=== PATIENT | female | born 1970 ===

== ENCOUNTER 2021-07-29 19:22 | Emergency (ER) | payer MEDICAID, SELFPAY ==
--- NOTE | ~2021-07-29 | US_ITS ---
EXAMINATION: US VENOUS ULTRASOUND WITH DOPPLER LOWER EXTREMITY, RIGHT CLINICAL INFORMATION: Right lower extremity swelling COMPARISON: None TECHNIQUE: Ultrasound of the deep veins is performed from the hip to the calf with compression sonography and color and pulse Doppler assessment. Spectral analysis with color-flow imaging is performed. FINDINGS: There is normal venous compression and respiratory variation and augmented flow. The visualized common femoral vein, superficial femoral vein, profunda femoral vein, popliteal vein, and the trifurcation region shows no evidence of deep venous thrombosis. A right-sided Oliveira's cyst is present measuring 3.9 x 1.0 x 1.5 cm. If the patient's symptoms persist, followup ultrasound in 5 days 7 days might be of value to exclude proximal propagation from a non-visualized calf vein. US/US venous duplex LE RT IMPRESSION: No DVT demonstrated in the right lower extremity. A Oliveira's cyst is present.
[2021-07-29 19:41] VITALS: BP 138/95; PULSE 82; RESP 18; TEMP 36.8; O2SAT 97; BMI 32.3
[2021-07-29 19:55] LABS: MANUAL DIFF FLAG NO
[2021-07-29 19:57] LABS: Basophils Absolute Auto 0.1 X10*3/uL (0.0-0.2); Basophils Percent Auto 0.8 % (0-2); Eosinophils Absolute Auto 0.2 X10*3/uL (0.0-0.4); Eosinophils Percent Auto 3.2 % (0-4); Hematocrit 40.8 % (37.0-47.0); Hemoglobin 13.9 g/dl (12.0-16.0); Imm Gran Abs Auto 0.02 X10*3/uL (0.00-0.03); Imm Gran Pct Auto 0.3 % (0.0-0.4); Lymphocytes Absolute Auto 2.4 X10*3/uL (1.2-4.9); Lymphocytes Percent Auto 37.2 % (20-40); Mean Corpuscular HGB Conc 34.1 g/dl (31.0-35.0); Mean Corpuscular Hemoglobin 28.2 pg (27.0-33.0); Mean Corpuscular Volume 82.8 fL (80.0-98.0); Mean Platelet Volume 9.8 fL (9.4-12.3); Monocytes Absolute Auto 0.4 X10*3/uL (0.1-1.2); Neutrophils Absolute Auto 3.3 x10*3/uL (2.0-8.3); Neutrophils Percent Auto 52.5 % (45-73); Platelet Count 288 X10*3/uL (160-400); Red Blood Count 4.93 X10*6/uL (4.20-5.50); Red Cell Distribution Width 13.6 % (11.0-16.0); White Blood Count 6.3 X10*3/uL (4.8-10.8)
[2021-07-29 20:37] LABS: Blood Urea Nitrogen 14 mg/dL (9-16); Calcium 9.4 mg/dL (8.4-10.2); Creatinine Clr Calc Pharmacy 93.2; Estimated Glomerular Filt Rate > 60; Glucose Random 98 mg/dL (60-115)
[2021-07-29 20:47] LABS: Anion Gap 10 (12-20); Carbon Dioxide 28 mmol/L (22-29); Chloride 105 mmol/L (96-108); Potassium 3.9 mmol/L (3.3-5.1); Sodium 139 mmol/L (135-145)
--- NOTE | 2021-07-29 23:13 | ED_ITS ---
HPI - General Adult General Chief complaint: General Medical Stated complaint: swollen right leg, hard to walk Time Seen by Provider: 07/29/21 23:12 Source: patient Mode of arrival: ambulatory History of Present Illness HPI narrative: 50-year-old female with history of asthma and status post hysterectomy and started on estrogen presents with increasing posterior right knee discomfort with pain radiating into the right calf and she notes that there has been right leg swelling when compared to the left. She denies any shortness of breath, chest pain/palpitations, fevers, recent travel. Related Data Allergies Allergy/AdvReac Type Severity Reaction Status Date / Time gluten Allergy Rash Verified 07/29/21 19:41 Review of Systems Review of Systems: Pertinent positives and negatives as stated in HPI and 10 point review of systems is otherwise negative. [facility] Past Medical History Source: nursing notes reviewed Medical History Asthma Social History Social History Advance Directives: No Patient : No Physical Exam ED Vital Signs: Vital Signs - 24 hr 07/29/21 19:41 07/29/21 23:41 Temperature 98.2 F 97.9 F Pulse Rate 82 71 Respiratory Rate 18 12 Blood Pressure 138/95 H 145/95 H Pulse Oximetry 97 97 BMI result Body Mass Index 32.3 VITAL SIGNS: Reviewed. GENERAL: Well developed, well nourished, in no acute distress. HEAD: Normocephalic/atraumatic EYES: PERRLA, EOMI EARS: Ext canals without abnormality OROPHARYNX: no oral lesions noted, posterior pharynx clear LUNGS: Normal breath sounds. No adventitious sounds or accessory muscle use. SpO2<97> CARDIOVASCULAR: Regular rate and rhythm without noted murmurs ABDOMEN: Soft, non-tender, non-distended with bowel sounds. MUSCULOSKELETAL: No tenderness, deformities, or effusions noted on gross inspection. EXTREMITIES: No cyanosis, clubbing or edema; RLE: There is noted calf swelling, no palpable cords, no erythema/induration, palpable DP/PT SKIN: Inspection of the skin reveals no rashes NEUROLOGIC: Alert and oriented x 4. Strength and sensation to light touch were grossly intact x 4. Course Course Course Narrative: 50-year-old female with history and clinical presentation in the setting estrogen use and leg swelling and discomfort for DVT. On review of all results patient has Oliveira cyst. She received combination analgesics here in the ER and will otherwise be discharged home in stable condition with instructions follow- up with her primary care provider. Medical Decision Making Lab Data Result diagrams: 07/29/21 19:51 07/29/21 20:18 Labs: Lab Results 07/29/21 07/29/21 07/29/21 Range/Units 19:51 20:18 23:37 WBC 6.3 (4.8-10.8) X10*3/uL RBC 4.93 (4.20-5.50) X10*6/uL Hgb 13.9 (12.0-16.0) g/dl Hct 40.8 (37.0-47.0) % MCV 82.8 (80.0-98.0) fL MCH 28.2 (27.0-33.0) pg MCHC 34.1 (31.0-35.0) g/dl RDW 13.6 (11.0-16.0) % Plt Count 288 (160-400) X10*3/uL MPV 9.8 (9.4-12.3) fL Immature Gran % (Auto) 0.3 (0.0-0.4) % Neut % (Auto) 52.5 (45-73) % Lymph % (Auto) 37.2 (20-40) % [place] % (Auto) 6.0 (2-11) % Eos % (Auto) 3.2 (0-4) % Baso % (Auto) 0.8 (0-2) % Lymph # (Auto) 2.4 (1.2-4.9) X10*3/uL [place] # (Auto) 0.4 (0.1-1.2) X10*3/uL Eos # (Auto) 0.2 (0.0-0.4) X10*3/uL Baso # (Auto) 0.1 (0.0-0.2) X10*3/uL Abs Immat Gran (auto) 0.02 (0.00-0.03) X10*3/uL Absolute Neuts (auto) 3.3 (2.0-8.3) x10*3/uL Absolute Nucleated RBC 0.000 (0.0-0.012) X10*3/uL Nucleated RBC % (auto) 0.0 (0.0-0.2) /100WBC D-Dimer High Sensitivty 168 NG/ML Sodium 139 (135-145) mmol/L Potassium 3.9 (3.3-5.1) mmol/L Chloride 105 (96-108) mmol/L Carbon Dioxide 28 (22-29) mmol/L Anion Gap 10 L (12-20) BUN 14 (9-16) mg/dL Creatinine 0.80 (0.5-1.4) mg/dL Estim Creat Clear Calc 93.2 Estimated GFR > 60 Random Glucose 98 (60-115) mg/dL Calcium 9.4 (8.4-10.2) mg/dL Discharge Plan Discharge Clinical Impression: Oliveira's cyst of knee Patient Disposition: Home, Self-Care Instructions: Bakers Cyst (ED) Additional Instructions: 1. Recommend compression stocking to the right lower extremity, these are available in every [facility]. 2. You will need to manage the discomfort in your leg with [id number] Tylenol but most notably ibuprofen. 3. Follow-up with your primary care provider for re-evaluation. Return to the ER for worsening symptoms. Stand Alone Forms: Work/School Release
[2021-07-29 23:41] VITALS: BP 145/95; PULSE 71; RESP 12; TEMP 36.6; O2SAT 97
[2021-07-29 23:58] LABS: D Dimer High Sensitivity 168 NG/ML
[2021-07-30] MEDS: Ketorolac Tromethamine 15 MG/ML VIAL IM (00:57)
[2021-07-30] MEDS: Acetaminophen 325 MG TABLET 975 MG PO (00:57)
== END 2021-07-30 01:43 | disposition home or self-care (01) ==
PROVIDERS: Emergency Provider Student in an Organized Health Care Education/Training Program
DX: M71.21 Synovial cyst of popliteal space [Baker], right knee (principal); M25.561 Pain in right knee; M79.89 Other specified soft tissue disorders
CPT/HCPCS: 36415; 80048; 85025; 85379; 93971; 96372; 99284; J1885

== ENCOUNTER 2021-09-03 08:56 | Emergency (ER) | payer MEDICAID, SELFPAY ==
--- NOTE | 2021-09-03 09:10 | ED_ITS ---
HPI - Nausea/Vomiting/Diarrhea General Chief complaint: Nausea/Vomiting/Diarrhea Stated complaint: vomiting Time Seen by Provider: 09/03/21 09:10 Source: patient Mode of arrival: ambulatory Limitations: no limitations History of Present Illness MD elicited complaint: nausea, vomiting, diarrhea and abdominal pain Onset (ago): day(s) (last night) Description of vomiting: food contents and watery Description of diarrhea: mucus and watery Associated nausea: Yes Associated abdominal pain: Yes Location of pain: diffuse Pain consistency: intermittent Severity: mild Quality: cramping Exacerbating factors: eating Relieving factors: none Context: sick contacts (work colleague) Associated symptoms: loss of appetite, malaise and nausea/vomiting Related Data Previous Rx's Medication Instructions Recorded ondansetron 4 mg disintegrating 4 mg PO Q8H PRN #20 tab 09/03/21 tablet Allergies Allergy/AdvReac Type Severity Reaction Status Date / Time gluten Allergy Rash Verified 07/29/21 19:41 Review of Systems Review of Systems: Constitutional : No Weight loss, No Fever, No Chills ENT/Mouth : No sore throat, No Rhinorrhea Eyes: No Swelling, No Redness Cardiovascular : No Chest Pain, No SOB, NoEdema Respiratory : No Cough, No Sputum, No Wheezing Gastrointestinal : Positive Nausea, Positive Vomiting, positive Diarrhea, positive abdominal Pain, No Hematochezia, No Melena Genitourinary : No Dysuria, No Urinary Frequency, No Hematuria, No Urgency Musculoskeletal : No joint pain, No Myalgias, No Joint Swelling Skin : No Skin Lesions, No rash Neuro : No Weakness, No Numbness, No Dizziness, No Headache Psych : No Anxiety/Panic, No Depression Heme/Lymph: No Bruising, No Lymphadenopathy Endocrine : No Polyuria, No Polydipsia All other systems reviewed and are negative. Gastrointestinal: Gastrointestinal: Reports nausea PMFSH Past Medical History Medical History Asthma Social History Social History (Updated 09/03/21 @ 09:38 by Lynda Moeller DO) Patient Tobacco Use Status: Never used Tobacco Advance Directives: No Advance Directives Information Provided: No Physical Exam Vital Signs: Vital Signs: Last Vital Signs Temp 97.7 F 09/03/21 09:48 Pulse 82 09/03/21 09:48 Resp 16 09/03/21 09:48 BP 150/92 H 09/03/21 09:48 Pulse Ox 95 09/03/21 09:48 BMI result Body Mass Index 31.4 Appearance: Alert. Oriented X3. No acute distress. Eyes: Pupils equal, round and reactive to light. ENT: Pharynx normal. Neck: Normal inspection. Neck supple. CVS: Normal heart rate and rhythm. Pulses normal. Respiratory: No respiratory distress. Breath sounds normal. Abdomen: Soft and mild upper abdominal pain no rebound or guarding Skin: Skin warm and dry. Normal skin color. Normal skin turgor. Extremities: No lower extremity edema. No calf ttp Neuro: Oriented X 3. No motor deficit. No sensory deficit. Course Course Course Narrative: repeat nausea and can tolerate PO feels better stable for DC MDM - Nausea/Vomiting/Diarrhea MDM Narrative Medical decision making narrative: 50 yo female with no sig PMH here with c/o n/v/d abdominal cramps - exposed to someone at work who wasn't feeling well. At this time abdominal exam is underwhelming will obtain labs, UA, IVF, supportive medications for symptom control. Dispo per results and findings. Lab Data Result diagrams: 09/03/21 09:35 09/03/21 09:35 Labs: Lab Results 09/03/21 09/03/21 09/03/21 Range/Units 09:35 09:35 09:35 WBC 5.9 (4.8-10.8) X10*3/uL RBC 5.03 (4.20-5.50) X10*6/uL Hgb 14.2 (12.0-16.0) g/dl Hct 42.1 (37.0-47.0) % MCV 83.7 (80.0-98.0) fL MCH 28.2 (27.0-33.0) pg MCHC 33.7 (31.0-35.0) g/dl RDW 13.5 (11.0-16.0) % Plt Count 270 (160-400) X10*3/uL MPV 9.5 (9.4-12.3) fL Immature Gran % (Auto) 0.3 (0.0-0.4) % Neut % (Auto) 68.7 (45-73) % Lymph % (Auto) 17.7 L (20-40) % [place] % (Auto) 11.6 H (2-11) % Eos % (Auto) 1.0 (0-4) % Baso % (Auto) 0.7 (0-2) % Lymph # (Auto) 1.0 L (1.2-4.9) X10*3/uL [place] # (Auto) 0.7 (0.1-1.2) X10*3/uL Eos # (Auto) 0.1 (0.0-0.4) X10*3/uL Baso # (Auto) 0.0 (0.0-0.2) X10*3/uL Abs Immat Gran (auto) 0.02 (0.00-0.03) X10*3/uL Absolute Neuts (auto) 4.0 (2.0-8.3) x10*3/uL Absolute Nucleated RBC 0.000 (0.0-0.012) X10*3/uL Nucleated RBC % (auto) 0.0 (0.0-0.2) /100WBC Sodium 137 (135-145) mmol/L Potassium 4.2 (3.3-5.1) mmol/L Chloride 107 (96-108) mmol/L Carbon Dioxide 19 L (22-29) mmol/L Anion Gap 15 (12-20) BUN 16 (9-16) mg/dL Creatinine 0.89 (0.5-1.4) mg/dL Estim Creat Clear Calc 82.8 Estimated GFR > 60 Random Glucose 103 (60-115) mg/dL Calcium 9.9 (8.4-10.2) mg/dL Magnesium 2.3 (1.6-2.6) mg/dL Total Bilirubin 0.5 (0.0-1.0) mg/dL Direct Bilirubin 0.2 (0.0-0.5) mg/dL AST 49 H (5-31) U/L ALT 50 H (0-31) U/L Alkaline Phosphatase 94 (39-117) U/L Total Protein 7.5 (6.5-8.0) g/dL Albumin 4.2 (3.5-5.0) g/dL Lipase 13 (8-78) U/L COVID-19 ([facility]) Negative (Negative) COVID-19 Clin Com See Note Discharge Plan Discharge Clinical Impression: Elevated liver function tests Vomiting Qualifiers: Vomiting type: unspecified Nausea presence: with nausea Qualified Code(s): R11.2 - Nausea with vomiting, unspecified Diarrhea Qualifiers: Diarrhea type: unspecified type Qualified Code(s): R19.7 - Diarrhea, unspecified Patient Disposition: Home, Self-Care Instructions: Acute Nausea and Vomiting (ED), Acute Diarrhea (ED) Additional Instructions: return to ED for any worsening symptoms or concerns very mild elevation in liver function tests - repeat in 3 days likely associated with vomiting/diarrhea. please recheck avoid alcohol and tylenol until rechecked Prescriptions: New ondansetron 4 mg tablet,disintegrating 4 mg PO Q8H PRN (Reason: nausea and vomiting) Qty: 20 0RF Stand Alone Forms: Work/School Release
[2021-09-03 09:41] LABS: MANUAL DIFF FLAG NO
[2021-09-03 09:48] VITALS: BP 150/92; PULSE 82; RESP 16; TEMP 36.5; O2SAT 95; BMI 31.4
[2021-09-03 09:48] LABS: Basophils Percent Auto 0.7 % (0-2); Eosinophils Absolute Auto 0.1 X10*3/uL (0.0-0.4); Hematocrit 42.1 % (37.0-47.0); Hemoglobin 14.2 g/dl (12.0-16.0); Imm Gran Abs Auto 0.02 X10*3/uL (0.00-0.03); Imm Gran Pct Auto 0.3 % (0.0-0.4); Lymphocytes Percent Auto 17.7 % (20-40); Mean Corpuscular HGB Conc 33.7 g/dl (31.0-35.0); Mean Corpuscular Hemoglobin 28.2 pg (27.0-33.0); Mean Corpuscular Volume 83.7 fL (80.0-98.0); Mean Platelet Volume 9.5 fL (9.4-12.3); Monocytes Absolute Auto 0.7 X10*3/uL (0.1-1.2); Monocytes Percent Auto 11.6 % (2-11); Neutrophils Percent Auto 68.7 % (45-73); Platelet Count 270 X10*3/uL (160-400); Red Blood Count 5.03 X10*6/uL (4.20-5.50); Red Cell Distribution Width 13.5 % (11.0-16.0); White Blood Count 5.9 X10*3/uL (4.8-10.8)
[2021-09-03 09:59] LABS: COVID-19 Test Negative (Negative); IDNOW Serial# 16C4AD1C
[2021-09-03 10:04] LABS: Alanine Aminotransferase 50 U/L (0-31); Albumin Level 4.2 g/dL (3.5-5.0); Alkaline Phosphatase 94 U/L (39-117); Anion Gap 15 (12-20); Aspartate Amino Transferase 49 U/L (5-31); Bilirubin Direct 0.2 mg/dL (0.0-0.5); Bilirubin Total 0.5 mg/dL (0.0-1.0); Blood Urea Nitrogen 16 mg/dL (9-16); Calcium 9.9 mg/dL (8.4-10.2); Carbon Dioxide 19 mmol/L (22-29); Chloride 107 mmol/L (96-108); Creatinine Clr Calc Pharmacy 82.8; Estimated Glomerular Filt Rate > 60; Glucose Random 103 mg/dL (60-115); Lipase 13 U/L (8-78); Magnesium 2.3 mg/dL (1.6-2.6); Potassium 4.2 mmol/L (3.3-5.1); Sodium 137 mmol/L (135-145); Total Protein 7.5 g/dL (6.5-8.0)
[2021-09-03] MEDS: Ketorolac Tromethamine 15 MG/ML VIAL 30 MG IVPUSH (10:39)
[2021-09-03] MEDS: ondansetron HCL 4 MG/2 ML VIAL IVPUSH (10:39)
[2021-09-03] MEDS: Famotidine/PF 20 MG/2 ML VIAL IVPUSH (10:39)
[2021-09-03] MEDS: 0.9 % Sodium Chloride 1,000 ML 999 ML IVCONT (10:40)
[2021-09-03] MEDS: Metoclopramide HCl 10 MG/2 ML VIAL IVPUSH (12:26)
[2021-09-03] MEDS: diphenhydrAMINE HCL 50 MG/ML VIAL 25 MG IVPUSH (12:27)
--- NOTE | 2021-09-03 12:54 | PC.NURSE ---
OK FOR DC PER PRIMARY RN. PT AWAKE, ALERT AND ORIENTED X 3. SKIN WARM AND DRY. RESP UNLABORED. DENIES N/V. NO C/O PAIN PRESENTLY. TOLERATED PO CHALLENGE. PLAN IS FOR DC HOME. PT AWARE AND AGREEABLE TO PLAN
== END 2021-09-03 12:55 | disposition home or self-care (01) ==
PROVIDERS: Emergency Provider Emergency Medicine
DX: R79.89 Other specified abnormal findings of blood chemistry (principal); R11.2 Nausea with vomiting, unspecified; R19.7 Diarrhea, unspecified; Z20.822 Contact with and (suspected) exposure to COVID-19
CPT/HCPCS: 80048; 80076; 83690; 83735; 85025; 87635; 96361; 96374; 96375; 99283; 99284; J1200; J1885; J2405; J2765

== ENCOUNTER 2021-11-29 02:03 | Emergency (ER) | payer MEDICAID, SELFPAY ==
--- NOTE | ~2021-11-29 | CT_ITS ---
EXAMINATION: CT ABDOMEN AND PELVIS WITHOUT CONTRAST CLINICAL INFORMATION: Abdominal pain COMPARISON: None TECHNIQUE: Multidetector volumetric imaging was performed from the superior aspect of the liver through the pubic symphysis. Sagittal and coronal reformatted images were obtained on the technologist's workstation. This CT examination was performed using dose optimization techniques as appropriate, variously including the following: *Automated exposure control *Adjustment of mA and/or kV according to patient size (this includes techniques or standardized protocols for targeted exams where dose is matched to indication/reason for exam; i.e. extremities or head) *Use of iterative reconstruction technique DLP: 691 mGy-cm FINDINGS: LUNG BASES: The visualized lung bases are unremarkable. LIVER, GALLBLADDER, AND BILIARY TREE: The liver is normal in size, shape, and attenuation. No focal hepatic lesion or biliary ductal dilatation is present. The gallbladder is unremarkable with no evidence of radiopaque gallstones, gallbladder wall thickening, or obvious pericholecystic inflammatory changes. PANCREAS: Unremarkable. SPLEEN: Unremarkable. ADRENAL GLANDS: Unremarkable. KIDNEYS AND URETERS: The kidneys are normal in size, shape, and attenuation. No hydronephrosis, hydroureter, or calculi seen. No perinephric stranding. Simple cyst at the midpole of the left kidney. No follow-up imaging recommended. BLADDER: Unremarkable. GASTROINTESTINAL TRACT: The stomach is unremarkable. Normal caliber of the small bowel. No obstruction. Normal appendix. Scattered colonic diverticulosis without diverticulitis. No inflammatory changes of the colon. No free air or free fluid. ABDOMINAL WALL: No significant hernia is appreciated. LYMPH NODES: Normal. VASCULAR: Unremarkable. PELVIC VISCERA: Uterus not seen. No adnexal mass. OSSEOUS STRUCTURES: No acute or suspicious osseous abnormality. Mild degenerative change throughout the spine. CT/CT abdomen pelvis wo con IMPRESSION: No acute findings in the abdomen or pelvis. No inflammatory changes. Normal appendix. Fleischner guidelines were followed.
[2021-11-29 02:13] VITALS: BP 168/115; PULSE 74; RESP 20; TEMP 36.1; O2SAT 99; BMI 29.0
[2021-11-29 03:07] LABS: MANUAL DIFF FLAG NO
[2021-11-29 03:08] LABS: Basophils Percent Auto 0.7 % (0-2); Eosinophils Absolute Auto 0.2 X10*3/uL (0.0-0.4); Eosinophils Percent Auto 3.1 % (0-4); Hematocrit 43.1 % (37.0-47.0); Hemoglobin 14.3 g/dl (12.0-16.0); Imm Gran Abs Auto 0.02 X10*3/uL (0.00-0.03); Imm Gran Pct Auto 0.3 % (0.0-0.4); Lymphocytes Percent Auto 33.4 % (20-40); Mean Corpuscular HGB Conc 33.2 g/dl (31.0-35.0); Mean Corpuscular Hemoglobin 27.6 pg (27.0-33.0); Mean Corpuscular Volume 83.2 fL (80.0-98.0); Mean Platelet Volume 9.4 fL (9.4-12.3); Monocytes Absolute Auto 0.4 X10*3/uL (0.1-1.2); Monocytes Percent Auto 7.2 % (2-11); Neutrophils Absolute Auto 3.4 x10*3/uL (2.0-8.3); Neutrophils Percent Auto 55.3 % (45-73); Platelet Count 337 X10*3/uL (160-400); Red Blood Count 5.18 X10*6/uL (4.20-5.50); Red Cell Distribution Width 13.5 % (11.0-16.0); White Blood Count 6.1 X10*3/uL (4.8-10.8)
[2021-11-29 03:11] VITALS: BP 161/95; PULSE 71; RESP 18; O2SAT 97
[2021-11-29] MEDS: ondansetron HCL 4 MG/2 ML VIAL IVPUSH (03:13)
[2021-11-29] MEDS: 0.9 % Sodium Chloride 1,000 ML 999 ML IV (03:14)
--- NOTE | 2021-11-29 04:03 | ED.ABDPAIN ---
HPI - Abdominal Pain General Chief Complaint: Abdominal Pain Stated Complaint: n/v, anxious Time Seen by Provider: 11/29/21 02:26 Source: patient Mode of arrival: ambulatory History of Present Illness HPI narrative: 51-year-old female who comes in with history of IBS and states that she began having abdominal pain since earlier today with mild nausea and vomiting and a history of hysterectomy. She denies any fevers or chills and when asked about passing gas she denies that she has been able to do this in also denies any urinary difficulties. Related Data Previous Rx's Medication Instructions Recorded ondansetron 4 mg disintegrating 4 mg PO Q8H PRN nausea and 09/03/21 tablet vomiting #20 tabs Allergies Allergy/AdvReac Type Severity Reaction Status Date / Time gluten Allergy Rash Verified 11/29/21 02:15 Review of Systems Review of Systems Pertinent positives and negatives as stated in HPI 10 point review of systems otherwise negative. PMFSH Past Medical History Source: nursing notes reviewed Medical History Asthma Social History Social History Patient Tobacco Use Status: Never used Tobacco Advance Directives: No Advance Directives Information Provided: Yes Physical Exam ED Vital Signs: Vital Signs - 24 hr 11/29/21 02:13 11/29/21 03:11 11/29/21 05:24 Temperature 97 F Pulse Rate 74 71 70 Respiratory Rate 20 18 18 Blood Pressure 168/115 H 161/95 H 137/86 Pulse Oximetry 99 97 98 Oxygen Delivery Method Room Air Room Air Room Air BMI result Body Mass Index 29.0 VITAL SIGNS: Reviewed. GENERAL: Well developed, well nourished, in no acute distress. HEAD: Normocephalic/atraumatic EYES: PERRLA, EOMI EARS: Ext canals without abnormality NOSE: Nares patent bilateral OROPHARYNX: no oral lesions noted, posterior pharynx clear LUNGS: Normal breath sounds. No adventitious sounds or accessory muscle use. SpO2<99> CARDIOVASCULAR: Regular rate and rhythm without noted murmurs ABDOMEN: Soft, non-tender, non-distended with bowel sounds. SKIN: Inspection of the skin reveals no rashes, NEUROLOGIC: Alert and oriented x 4. Course Course Course Narrative: 51-year-old female with history and clinical presentation initially mildly concerning for possible SBO and lower consideration for diverticulitis or UTI. For review of all investigations there are no acute findings, on re-evaluation patient is feeling much better and able to tolerate oral intake and was discharged home in stable condition. MDM - Abdominal Pain Lab Data Result diagrams: 11/29/21 03:04 11/29/21 03:04 Labs: Lab Results 11/29/21 11/29/21 11/29/21 Range/Units 03:04 03:04 05:27 WBC 6.1 (4.8-10.8) X10*3/uL RBC 5.18 (4.20-5.50) X10*6/uL Hgb 14.3 (12.0-16.0) g/dl Hct 43.1 (37.0-47.0) % MCV 83.2 (80.0-98.0) fL MCH 27.6 (27.0-33.0) pg MCHC 33.2 (31.0-35.0) g/dl RDW 13.5 (11.0-16.0) % Plt Count 337 (160-400) X10*3/uL MPV 9.4 (9.4-12.3) fL Immature Gran % (Auto) 0.3 (0.0-0.4) % Neut % (Auto) 55.3 (45-73) % Lymph % (Auto) 33.4 (20-40) % [place] % (Auto) 7.2 (2-11) % Eos % (Auto) 3.1 (0-4) % Baso % (Auto) 0.7 (0-2) % Lymph # (Auto) 2.0 (1.2-4.9) X10*3/uL [place] # (Auto) 0.4 (0.1-1.2) X10*3/uL Eos # (Auto) 0.2 (0.0-0.4) X10*3/uL Baso # (Auto) 0.0 (0.0-0.2) X10*3/uL Abs Immat Gran (auto) 0.02 (0.00-0.03) X10*3/uL Absolute Neuts (auto) 3.4 (2.0-8.3) x10*3/uL Absolute Nucleated RBC 0.000 (0.0-0.012) X10*3/uL Nucleated RBC % (auto) 0.0 (0.0-0.2) /100WBC Sodium 139 (135-145) mmol/L Potassium 4.3 (3.3-5.1) mmol/L Chloride 103 (96-108) mmol/L Carbon Dioxide 28 (22-29) mmol/L Anion Gap 12 (12-20) BUN 15 (9-16) mg/dL Creatinine 0.86 (0.5-1.4) mg/dL Estim Creat Clear Calc 81.4 Estimated GFR > 60 Random Glucose 108 (60-115) mg/dL Calcium 10.5 H D (8.4-10.2) mg/dL Total Bilirubin < 0.2 (0.0-1.0) mg/dL AST 24 D (5-31) U/L ALT 30 (0-31) U/L Alkaline Phosphatase 109 (39-117) U/L Total Protein 8.4 H (6.5-8.0) g/dL Albumin 4.8 (3.5-5.0) g/dL Lipase 21 (8-78) U/L Urine Color STRAW Urine Appearance HAZY Urine pH 6.5 (5.0-8.0) Ur Specific [place] <= 1.005 (1.005-1.025) Urine Protein NEG (NEG-TRACE) MG/DL Urine Glucose (UA) NEG (NEG) MG/DL Urine Ketones NEG (NEG) MG/DL Urine Blood NEG (NEG) Urine Nitrite NEG (NEG) Ur Leukocyte Esterase 1+ H (NEG) Urine RBC 0 (0) /HPF Urine WBC 1-4 (0-4) /HPF Ur Squamous Epith Cells 2+ /LPF Urine Bacteria 1+ /LPF Urine Mucus 1+ /LPF Discharge Plan Discharge Clinical Impression: Abdominal pain Patient Disposition: Home, Self-Care Instructions: Abdominal Pain (ED) Additional Instructions: 1. Resume all home medications as prescribed. 2. Please follow-up with your primary care provider for re-evaluation further outpatient management in the next 2-3 days. Return to the ER for worsening symptoms. Prescriptions: No Action ondansetron 4 mg tablet,disintegrating 4 mg PO Q8H PRN (Reason: nausea and vomiting) Qty: 20 0RF
[2021-11-29 04:38] LABS: Alanine Aminotransferase 30 U/L (0-31); Albumin Level 4.8 g/dL (3.5-5.0); Alkaline Phosphatase 109 U/L (39-117); Anion Gap 12 (12-20); Aspartate Amino Transferase 24 U/L (5-31); Bilirubin Total < 0.2 mg/dL (0.0-1.0); Blood Urea Nitrogen 15 mg/dL (9-16); Calcium 10.5 mg/dL (8.4-10.2); Carbon Dioxide 28 mmol/L (22-29); Chloride 103 mmol/L (96-108); Creatinine Clr Calc Pharmacy 81.4; Estimated Glomerular Filt Rate > 60; Glucose Random 108 mg/dL (60-115); Lipase 21 U/L (8-78); Potassium 4.3 mmol/L (3.3-5.1); Sodium 139 mmol/L (135-145); Total Protein 8.4 g/dL (6.5-8.0)
[2021-11-29 05:24] VITALS: BP 137/86; PULSE 70; RESP 18; O2SAT 98
[2021-11-29 05:32] LABS: Appearance Urine HAZY; Color Urine STRAW; Glucose Urine UA NEG (NEG); Leukocyte Esterase Urine 1+ (NEG); Nitrite Urine NEG (NEG); PH 6.5 (5.0-8.0); Specific Gravity - Urine <= 1.005 (1.005-1.025); UACC Culture Trigger YES; Urine Blood NEG (NEG); Urine Ketones NEG (NEG); Urine Protein NEG (NEG-TRACE)
[2021-11-29 05:50] LABS: Bacteria Urine 1+ /LPF; Mucus Urine 1+ /LPF; RBC Urine 0 /HPF (0); Squamous Epithelial Cell Urine 2+ /LPF
== END 2021-11-29 07:10 | disposition home or self-care (01) ==
PROVIDERS: Emergency Provider Student in an Organized Health Care Education/Training Program
DX: R10.9 Unspecified abdominal pain (principal); R11.2 Nausea with vomiting, unspecified
CPT/HCPCS: 36415; 74176; 80053; 81001; 83690; 85025; 87086; 96361; 96374; 99283; 99284; J2405

== ENCOUNTER 2022-03-14 14:18 | Emergency (ER) | payer OTHER, SELFPAY ==
--- NOTE | ~2022-03-14 | XR_ITS ---
EXAMINATION: XR CHEST CLINICAL INFORMATION: Chest pain COMPARISON: None TECHNIQUE: Frontal view of the chest was obtained. FINDINGS: Minimal linear subsegmental atelectasis versus scarring in the left lung base/lateral costophrenic sulcus. Lungs are otherwise clear. No airspace consolidation. No pleural effusion or pneumothorax. Mildly tortuous descending thoracic aorta. Otherwise, normal cardiomediastinal silhouette. No evidence of pulmonary edema. No acute osseous injury. XR/XR chest 1V IMPRESSION: No acute pulmonary disease.
--- NOTE | 2022-03-14 14:20 | ECG_ITS ---
Test Reason : chest pain Blood Pressure : / mmHG Vent. Rate : 073 BPM Atrial Rate : 073 BPM P-R Int : 152 ms QRS Dur : 082 ms QT Int : 378 ms P-R-T Axes : 051 -04 037 degrees QTc Int : 416 ms Normal sinus rhythm Low voltage QRS RSR' or QR pattern in V1 suggests right ventricular conduction delay Borderline ECG No previous ECGs available Referred By: Generic ED Physician Electronically Signed By:CARLOS DIAL MD
[2022-03-14 14:23] VITALS: BP 139/99; PULSE 83; RESP 18; TEMP 36.5; O2SAT 100; BMI 32.3
[2022-03-14 14:38] LABS: MANUAL DIFF FLAG NO
[2022-03-14 14:46] LABS: Basophils Percent Auto 0.6 % (0-2); Eosinophils Absolute Auto 0.3 X10*3/uL (0.0-0.4); Hematocrit 41.1 % (37.0-47.0); Imm Gran Abs Auto 0.01 X10*3/uL (0.00-0.03); Imm Gran Pct Auto 0.2 % (0.0-0.4); Lymphocytes Absolute Auto 1.7 X10*3/uL (1.2-4.9); Lymphocytes Percent Auto 26.6 % (20-40); Mean Corpuscular HGB Conc 34.1 g/dl (31.0-35.0); Mean Corpuscular Hemoglobin 28.1 pg (27.0-33.0); Mean Corpuscular Volume 82.5 fL (80.0-98.0); Mean Platelet Volume 9.2 fL (9.4-12.3); Monocytes Absolute Auto 0.7 X10*3/uL (0.1-1.2); Monocytes Percent Auto 10.1 % (2-11); Neutrophils Absolute Auto 3.7 x10*3/uL (2.0-8.3); Neutrophils Percent Auto 57.5 % (45-73); Platelet Count 322 X10*3/uL (160-400); Red Blood Count 4.98 X10*6/uL (4.20-5.50); White Blood Count 6.4 X10*3/uL (4.8-10.8)
[2022-03-14 14:55] LABS: Alanine Aminotransferase 28 U/L (0-31); Albumin Level 4.3 g/dL (3.5-5.0); Alkaline Phosphatase 96 U/L (39-117); Anion Gap 12 (12-20); Aspartate Amino Transferase 22 U/L (5-31); Bilirubin Direct < 0.2 mg/dL (0.0-0.5); Bilirubin Total 0.4 mg/dL (0.0-1.0); Blood Urea Nitrogen 14 mg/dL (9-16); Calcium 9.6 mg/dL (8.4-10.2); Carbon Dioxide 25 mmol/L (22-29); Chloride 105 mmol/L (96-108); Estimated Glomerular Filt Rate > 60; Glucose Random 86 mg/dL (60-115); Lipase 17 U/L (8-78); Potassium 4.2 mmol/L (3.3-5.1); Sodium 138 mmol/L (135-145); Total Protein 7.5 g/dL (6.5-8.0)
[2022-03-14 14:56] LABS: COVID-19 Test Negative (Negative); IDNOW Serial# 55D5AD1C; Influenza A Negative (Negative); Influenza B2 Negative (Negative)
[2022-03-14 15:00] LABS: Troponin-I High Sensitivity < 3.5 ng/L (<3.5-17.0)
[2022-03-14 18:49] VITALS: BP 150/95; PULSE 80; RESP 18; TEMP 36.6; O2SAT 97
--- NOTE | 2022-03-14 19:56 | ED.CHESTPAIN ---
HPI - Chest Pain General Chief Complaint: Chest Pain Stated Complaint: chest pains Time Seen by Provider: 03/14/22 19:36 Source: patient Mode of arrival: ambulatory Limitations: no limitations History of Present Illness HPI narrative: Patient presents emergency department for evaluation of upper respiratory symptoms with cough, congestion, sore throat, and chest pressure that is brought on during episodes of coughing or deep breathing. Symptoms started 2 days ago. States that she has been around multiple coworkers who have been ill with COVID as well as pneumonia. She reports a history of asthma, but does not have her inhalers at home. Denies fevers, chills, neck pain, neck stiffness, headache, dizziness, lightheadedness, shortness of breath, difficulty breathing, nausea, vomiting, abdominal pain, numbness or tingling of her extremities, generalized weakness Related Data Previous Rx's Medication Instructions Recorded ondansetron 4 mg disintegrating 4 mg PO Q8H PRN nausea and 09/03/21 tablet vomiting #20 tabs albuterol sulfate 90 mcg/actuation 2 puff inhalation Q4-6H PRN 03/14/22 aerosol inhaler shortness of breath or wheezing #6.7 grams prednisone 20 mg tablet 40 mg PO DAILY 5 days #10 tabs 03/14/22 Allergies Allergy/AdvReac Type Severity Reaction Status Date / Time gluten Allergy Rash Verified 11/29/21 02:15 Review of Systems Review of Systems: Constitutional: No fever. No chills. No weakness. Positive fatigue. ENT/ Mouth: No Ear Pain, positive Nasal Congestion, positive sore throat, No Rhinorrhea, No Swallowing Difficulty Skin: No rash or itching. Cardiovascular: Positive chest pain. No palpitations. Respiratory: No shortness of breath. Positive cough. No sputum production. Gastrointestinal: No nausea. No vomiting. No diarrhea. No abdominal pain. Genitourinary: No burning micturition. No urinary frequency. Neurologic: No headache. No dizziness. No syncope. No numbness or tingling in the extremities. Musculoskeletal: No muscle pain. No back pain. No joint pain or stiffness. Yes all other systems are reviewed and are negative [facility] Past Medical History Attestation statement: The following information was validated with the patient. Source: old records reviewed Medical History Asthma Social History Social History Patient Tobacco Use Status: Never used Tobacco Advance Directives: No Advance Directives Information Provided: No Physical Exam Vital Signs: Vital Signs: Last Vital Signs Temp 97.9 F 03/14/22 18:49 Pulse 80 03/14/22 18:49 Resp 18 03/14/22 18:49 BP 150/95 H 03/14/22 18:49 Pulse Ox 97 03/14/22 18:49 O2 Del Method 03/14/22 18:49 BMI result Body Mass Index 32.3 Vital signs have been reviewed as normal and appeared to be correct. Blood pressure normal.? Heart rate normal.? Respiration rate normal. Temperature normal.? Oxygen saturation normal. Appearance: Alert.?Oriented to person, place and time. No acute distress.?Normal affect. Eyes: Pupils equal, round and reactive to light.? ENT: TM normal bilaterally. Pharynx normal.?? Neck: Normal inspection.? Neck supple.??No cervical adenopathy CVS: Heart sounds normal. Normal heart rate and rhythm.? Pulses normal.?? Respiratory: No respiratory distress.? Lung sounds clear to auscultation bilaterally?? Abdomen: Soft and non-tender. Normoactive bowel sounds. Skin: Skin warm and dry.? Normal skin color.? ? Extremities: No lower extremity edema.? Neuro: Moves all extremities spontaneously. Sensation intact bilaterally. No motor deficits. Ambulates with normal steady gait. Course Course Course Narrative: Patient is a 51-year-old female with past medical history of asthma hypertension, presenting for evaluation of upper respiratory symptoms and associated intermittent chest pressure. COVID-19 testing negative. Influenza testing negative. CT labs obtained in triage which revealed an overall unremarkable CBC and CMP. Troponin <3.5, EKG reveals a normal sinus rhythm with no acute ischemic findings. Chest x-ray with no acute cardiopulmonary process. She has some inspiratory wheezing in the bilateral upper lobes. At this time history and physical exam not consistent with ACS/PE/pneumonia. Well-appearing, nontoxic, afebrile, no tachycardia or tachypnea/hypoxia. Speaking clear full sentences, ambulatory with steady gait. Discussed conservative treatment including rest, hydration, Tylenol/ibuprofen as needed for fever and body aches, saline nasal spray, humidifier, [id number] cold medication. Will provide patient with a new prescription for albuterol inhaler, and a course of prednisone for asthma exacerbation likely secondary to upper respiratory infection. Advised to follow-up with primary care provider as needed, discussed reasons to return back to the emergency department. All questions were answered. Patient discharged home in stable condition. MDM - Chest Pain Medical Records Data Attestation: I reviewed the patient's medical records. Lab Data Attestation: I reviewed the patient's lab results. Result diagrams: 03/14/22 14:33 03/14/22 14:33 Labs: Lab Results 03/14/22 03/14/22 03/14/22 Range/Units 14:29 14:29 14:33 WBC 6.4 (4.8-10.8) X10*3/uL RBC 4.98 (4.20-5.50) X10*6/uL Hgb 14.0 (12.0-16.0) g/dl Hct 41.1 (37.0-47.0) % MCV 82.5 (80.0-98.0) fL MCH 28.1 (27.0-33.0) pg MCHC 34.1 (31.0-35.0) g/dl RDW 13.0 (11.0-16.0) % Plt Count 322 (160-400) X10*3/uL MPV 9.2 L (9.4-12.3) fL Immature Gran % (Auto) 0.2 (0.0-0.4) % Neut % (Auto) 57.5 (45-73) % Lymph % (Auto) 26.6 (20-40) % [place] % (Auto) 10.1 (2-11) % Eos % (Auto) 5.0 H (0-4) % Baso % (Auto) 0.6 (0-2) % Lymph # (Auto) 1.7 (1.2-4.9) X10*3/uL [place] # (Auto) 0.7 (0.1-1.2) X10*3/uL Eos # (Auto) 0.3 (0.0-0.4) X10*3/uL Baso # (Auto) 0.0 (0.0-0.2) X10*3/uL Abs Immat Gran (auto) 0.01 (0.00-0.03) X10*3/uL Absolute Neuts (auto) 3.7 (2.0-8.3) x10*3/uL Absolute Nucleated RBC 0.000 (0.0-0.012) X10*3/uL Nucleated RBC % (auto) 0.0 (0.0-0.2) /100WBC Sodium (135-145) mmol/L Potassium (3.3-5.1) mmol/L Chloride (96-108) mmol/L Carbon Dioxide (22-29) mmol/L Anion Gap (12-20) BUN (9-16) mg/dL Creatinine (0.5-1.4) mg/dL Estim Creat Clear Calc Estimated GFR Random Glucose (60-115) mg/dL Calcium (8.4-10.2) mg/dL Total Bilirubin (0.0-1.0) mg/dL Direct Bilirubin (0.0-0.5) mg/dL AST (5-31) U/L ALT (0-31) U/L Alkaline Phosphatase (39-117) U/L Troponin I High Sens (<3.5-17.0) ng/L Total Protein (6.5-8.0) g/dL Albumin (3.5-5.0) g/dL Lipase (8-78) U/L COVID-19 ([facility]) Negative (Negative) COVID-19 Clin Com See Note Influenza Type A ([facility]) Negative (Negative) Influenza Type B ([facility]) Negative (Negative) Influenza A & B Note See Note 03/14/22 03/14/22 Range/Units 14:33 14:33 WBC (4.8-10.8) X10*3/uL RBC (4.20-5.50) X10*6/uL Hgb (12.0-16.0) g/dl Hct (37.0-47.0) % MCV (80.0-98.0) fL MCH (27.0-33.0) pg MCHC (31.0-35.0) g/dl RDW (11.0-16.0) % Plt Count (160-400) X10*3/uL MPV (9.4-12.3) fL Immature Gran % (Auto) (0.0-0.4) % Neut % (Auto) (45-73) % Lymph % (Auto) (20-40) % [place] % (Auto) (2-11) % Eos % (Auto) (0-4) % Baso % (Auto) (0-2) % Lymph # (Auto) (1.2-4.9) X10*3/uL [place] # (Auto) (0.1-1.2) X10*3/uL Eos # (Auto) (0.0-0.4) X10*3/uL Baso # (Auto) (0.0-0.2) X10*3/uL Abs Immat Gran (auto) (0.00-0.03) X10*3/uL Absolute Neuts (auto) (2.0-8.3) x10*3/uL Absolute Nucleated RBC (0.0-0.012) X10*3/uL Nucleated RBC % (auto) (0.0-0.2) /100WBC Sodium 138 (135-145) mmol/L Potassium 4.2 (3.3-5.1) mmol/L Chloride 105 (96-108) mmol/L Carbon Dioxide 25 (22-29) mmol/L Anion Gap 12 (12-20) BUN 14 (9-16) mg/dL Creatinine 0.82 (0.5-1.4) mg/dL Estim Creat Clear Calc 90.0 Estimated GFR > 60 Random Glucose 86 (60-115) mg/dL Calcium 9.6 D (8.4-10.2) mg/dL Total Bilirubin 0.4 (0.0-1.0) mg/dL Direct Bilirubin < 0.2 (0.0-0.5) mg/dL AST 22 (5-31) U/L ALT 28 (0-31) U/L Alkaline Phosphatase 96 (39-117) U/L Troponin I High Sens < 3.5 (<3.5-17.0) ng/L Total Protein 7.5 (6.5-8.0) g/dL Albumin 4.3 (3.5-5.0) g/dL Lipase 17 (8-78) U/L COVID-19 ([facility]) (Negative) COVID-19 Clin Com Influenza Type A ([facility]) (Negative) Influenza Type B ([facility]) (Negative) Influenza A & B Note Imaging Data Chest x-ray: Radiologist's impression: XR/XR chest 1V IMPRESSION: No acute pulmonary disease. ? ECG Data ECG #1: Attestation: I personally reviewed and interpreted this ECG as follows: ECG interpretation date: 03/14/22 Prior ECG tracings: not available for review Interpretation: Rate: 73 Rhythm:? Normal sinus rhythm [place]:? Normal Normal P waves.? Normal MARY.?? Normal QRS complex.?? ST T wave :??No ST elevation, no ST depression, no T-wave inversion qTC: 416 prior studies:? None available for review The study has been interpreted contemporaneously by me. Discharge Plan Discharge Clinical Impression: Asthma exacerbation Upper respiratory infection Qualifiers: URI type: unspecified viral URI Qualified Code(s): J06.9 - Acute upper respiratory infection, unspecified Patient Disposition: Home, Self-Care Instructions: Asthma (ED), Upper Respiratory Infection (ED) Additional Instructions: You have been given a new prescription for an albuterol inhaler and prednisone which were sent to your pharmacy. Be sure to rest, stay well hydrated drinking plenty of fluids, eat small frequent meals. Tylenol/ibuprofen can be used as needed for fever/pain. [id number] cold medications may be helpful as well for symptoms. Saline nasal spray, humidifier may be helpful for nasal congestion. You may return to the emergency department with any new or worsening symptoms or concerns. Contact your primary care provider to arrange for a follow-up visit for next week. Return to the emergency department any new or worsening symptoms or concerns. Prescriptions: New prednisone 20 mg tablet 40 mg PO DAILY 5 Days Qty: 10 0RF albuterol sulfate 90 mcg/actuation HFA aerosol inhaler 2 puff inhalation Q4-6H PRN (Reason: shortness of breath or wheezing) Qty: 6.7 0RF No Action ondansetron 4 mg tablet,disintegrating 4 mg PO Q8H PRN (Reason: nausea and vomiting) Qty: 20 0RF Interventions: ED Discharge Assessment Last Done: 03/14/22 20:23 Discharge Date/Time: 03/14/22 20:23
--- NOTE | 2022-03-14 20:20 | PC.NURSE ---
Discharge instructions provided to pt. Pt verbalizes understanding.
== END 2022-03-14 20:23 | disposition home or self-care (01) ==
PROVIDERS: Emergency Provider Emergency Medicine; PCP Hospitalist
DX: J06.9 Acute upper respiratory infection, unspecified (principal); J45.901 Unspecified asthma with (acute) exacerbation; Z20.822 Contact with and (suspected) exposure to COVID-19
CPT/HCPCS: 36415; 71045; 80053; 82248; 83690; 84484; 85025; 87502; 87635; 93005; 99283; 99284

== ENCOUNTER 2022-06-13 18:53 | Emergency (ER) | payer OTHER, SELFPAY ==
[2022-06-13 18:54] VITALS: BP 151/95; PULSE 106; RESP 20; TEMP 36.6; O2SAT 99; BMI 31.4
--- NOTE | 2022-06-13 18:54 | ED.ABDPAIN ---
HPI - Abdominal Pain General Chief Complaint: Nausea/Vomiting/Diarrhea <Sara Doyle CNP - Last Filed: 06/13/22 18:58> Stated Complaint: Vomiting/Abdominal pain <Sara Doyle CNP - Last Filed: 06/13/22 18:58> Time Seen by Provider: 06/13/22 21:13 <Sara Doyle CNP - Last Filed: 06/13/22 18:58> Source: patient <Cm Ramos MD - Last Filed: 06/14/22 00:07> Mode of arrival: ambulatory <Cm Ramos MD - Last Filed: 06/14/22 00:07> Limitations: no limitations <Cm Ramos MD - Last Filed: 06/14/22 00:07> History of Present Illness HPI narrative: Patient was healthy woke up today with nausea vomited more than 10 times watery also has loose bowels were 7-10 times with diffuse abdominal cramps no fever no chills no recent travel or use of antibiotics no other family member sick <Cm Ramos MD - Last Filed: 06/14/22 00:07> Related Data Home Medications: Home Medications Medication Instructions Recorded Confirmed butalbital 50 mg-acetaminophen 325 2 cap PO Q4H PRN 05/01/22 05/01/22 mg-caffeine 40 mg-codeine 30 mg cap cetirizine 10 mg tablet 10 mg PO DAILY PRN 05/01/22 05/01/22 epinephrine 0.3 mg/0.3 mL 0.3 mg IM Q4H PRN 05/01/22 05/01/22 injection, auto-injector fluticasone propionate 50 1 spray intranasal BID 05/01/22 05/01/22 mcg/actuation nasal spray,suspension montelukast 10 mg tablet 10 mg PO DAILY 05/01/22 05/01/22 polyethylene glycol 3350 17 gram 17 g PO BID 05/01/22 05/01/22 oral powder packet sumatriptan succinate 50 mg tablet See Rx Instructions PO .COMPLEX 05/01/22 05/01/22 Previous Rx's Medication Instructions Recorded ondansetron 4 mg disintegrating 4 mg PO Q8H PRN nausea and 04/12/22 tablet vomiting #20 tabs albuterol sulfate 90 mcg/actuation 2 puff inhalation Q4-6H PRN 03/14/22 aerosol inhaler shortness of breath or wheezing #6.7 grams valacyclovir 500 mg tablet 500 mg PO DAILY #30 tabs 05/01/22 ondansetron 4 mg disintegrating 4 mg PO Q6-8H PRN nausea and 06/13/22 tablet vomiting #10 tabs <Sara Doyle CNP - Last Filed: 06/13/22 18:58> Allergies/Adverse Reactions: Allergies Allergy/AdvReac Type Severity Reaction Status Date / Time gluten Allergy Rash Verified 05/01/22 10:56 <Sara Doyle CNP - Last Filed: 06/13/22 18:58> Review of Systems Review of Systems Yes all other systems are reviewed and are negative <Cm Ramos MD - Last Filed: 06/14/22 00:07> [facility] Past Medical History Medical History: Medical History Anxiety disorder Asthma Celiac disease Hypertension Menopausal symptom Migraine Seasonal allergies Severe depression Synovial cyst of right knee Venous insufficiency Vitamin B 12 deficiency Vitamin D deficiency <Sara Doyle CNP - Last Filed: 06/13/22 18:58> Surgical History: Surgical History History of endometrial ablation History of tubal ligation Hx of hysterectomy S/P breast biopsy <Sara Doyle CNP - Last Filed: 06/13/22 18:58> Family History Family History: Family History Paternal Grandmother Breast cancer Paternal Aunt Breast cancer Mother Hypercholesteremia Age related osteoporosis Father Hypertension <Sara Doyle CNP - Last Filed: 06/13/22 18:58> Social History Social History: Social History Household Members: Spouse and Family Housing: House Alcohol intake: current Alcohol intake frequency: holidays/special occasions only Alcohol type: beer and hard liquor Patient Tobacco Use Status: Never used Tobacco Smoked in Last 30 Days: No e-Cigarette/Vaping Use: Never Used Use of substances other than those prescribed or required for medical reasons: No Advance Directives: No Advance Directives Information Provided: Yes Patient : No Current occupational status: disabled <Sara Doyle CNP - Last Filed: 06/13/22 18:58> Physical Exam ED Vital Signs: Vital Signs - 24 hr 06/13/22 18:54 06/13/22 21:01 06/13/22 22:04 Temperature 97.9 F 99.1 F 99.1 F Pulse Rate 106 H 105 H 97 Respiratory Rate 20 Blood Pressure 151/95 H 147/94 H 131/79 Pulse Oximetry 99 97 95 Oxygen Delivery Method Room Air Room Air Room Air BMI result Body Mass Index 31.4 <Sara Doyle CNP - Last Filed: 06/13/22 18:58> Vital Signs - 24 hr 06/13/22 18:54 06/13/22 21:01 06/13/22 22:04 Temperature 97.9 F 99.1 F 99.1 F Pulse Rate 106 H 105 H 97 Respiratory Rate 20 Blood Pressure 151/95 H 147/94 H 131/79 Pulse Oximetry 99 97 95 Oxygen Delivery Method Room Air Room Air Room Air BMI result Body Mass Index 31.4 <Cm Ramos MD - Last Filed: 06/14/22 00:07> Appearance: Alert. Oriented X3. No acute distress. Eyes: No pallor or icterus ENT: Pharynx normal. Oral Mucosa moist Neck: Normal inspection. Neck supple. CVS: Normal heart rate and rhythm. Pulses normal. Respiratory: No respiratory distress. Equal air entry bilateral, no wheezing/rales/rhonchi Abdomen: Soft diffuse discomfort no rebound tenderness or guarding Bowel sounds are present, no mass palpable, no CVA tenderness Skin: Skin warm and dry. Normal skin color. Normal skin turgor. Extremities: No lower extremity edema. No calf tenderness Neuro: Oriented X 3. <Cm Ramos MD - Last Filed: 06/14/22 00:07> Course Course Course Narrative: This is an RME: Additional HPI, ROS, PE not included below will be deferred to primary provider. Patient is a 51-year-old female who presents emergency department today for evaluation of gastrointestinal symptoms. She reports that she awoke this morning with nausea, vomiting x 6 over past 2 hours, non-bloody, diffuse ABD pain, non-bloody diarrhea. Yesterday was feeling well. Reports history of IBS constipation type. Plan: labs, viral testing, 1L NS IVF, ondansetron, urinalysis, ur preg <Sara Doyle CNP - Last Filed: 06/13/22 18:58> Medical Decision Making Medical Decision Making [facility] Narrative: Patient has acute gastroenteritis likely viral labs are stable patient received IV fluids feeling much better now taking p.o. fluids will discharge patient home <Cm Ramos MD - Last Filed: 06/14/22 00:07> Lab Data [facility] Lab Attestation statement: I reviewed the patient's lab results. <Cm Ramos MD - Last Filed: 06/14/22 00:07> Result Diagrams: 06/13/22 19:06 06/13/22 19:06 <Sara Doyle CNP - Last Filed: 06/13/22 18:58> Labs: Lab Results 06/13/22 06/13/22 06/13/22 Range/Units 19:06 19:06 19:06 WBC 7.4 (4.8-10.8) X10*3/uL RBC 5.54 H (4.20-5.50) X10*6/uL Hgb 15.4 (12.0-16.0) g/dl Hct 45.3 (37.0-47.0) % MCV 81.8 (80.0-98.0) fL MCH 27.8 (27.0-33.0) pg MCHC 34.0 (31.0-35.0) g/dl RDW 13.5 (11.0-16.0) % Plt Count 315 (160-400) X10*3/uL MPV 9.1 L (9.4-12.3) fL Immature Gran % (Auto) 0.3 (0.0-0.4) % Neut % (Auto) 84.5 H (45-73) % Lymph % (Auto) 8.6 L (20-40) % Jay % (Auto) 4.1 (2-11) % Eos % (Auto) 2.2 (0-4) % Baso % (Auto) 0.3 (0-2) % Lymph # (Auto) 0.6 L (1.2-4.9) X10*3/uL Jay # (Auto) 0.3 (0.1-1.2) X10*3/uL Eos # (Auto) 0.2 (0.0-0.4) X10*3/uL Baso # (Auto) 0.0 (0.0-0.2) X10*3/uL Abs Immat Gran (auto) 0.02 (0.00-0.03) X10*3/uL Absolute Neuts (auto) 6.2 (2.0-8.3) x10*3/uL Absolute Nucleated RBC 0.000 (0.0-0.012) X10*3/uL Nucleated RBC % (auto) 0.0 (0.0-0.2) /100WBC Sodium 141 (135-145) mmol/L Potassium 4.0 (3.3-5.1) mmol/L Chloride 105 (96-108) mmol/L Carbon Dioxide 25 (22-29) mmol/L Anion Gap 15 (12-20) BUN 20 H (9-16) mg/dL Creatinine 0.82 (0.5-1.4) mg/dL Estim Creat Clear Calc 88.8 Estimated GFR > 60 Random Glucose 103 (60-115) mg/dL Calcium 9.9 (8.4-10.2) mg/dL Total Bilirubin 0.5 (0.0-1.0) mg/dL AST 24 (5-31) U/L ALT 23 (0-31) U/L Alkaline Phosphatase 97 (39-117) U/L Total Protein 8.0 (6.5-8.0) g/dL Albumin 4.5 (3.5-5.0) g/dL Lipase 17 (8-78) U/L Urine Color Urine Appearance Urine pH (5.0-9.0) Ur Specific [place] (1.005-1.025) Urine Protein (Neg-Trace) mg/dL Urine Glucose (UA) (Negative) mg/dL Urine Ketones (Negative) mg/dL Urine Blood (Negative) Urine Nitrite (Negative) Ur Leukocyte Esterase (Negative) Urine RBC (0-2) /HPF Urine WBC (0-5) /HPF Ur Squamous Epith Cells (0-2) /HPF Urine Bacteria (None Seen) Hyaline Casts (0-2) /LPF Urine Test (NEGATIVE) COVID-19 ([facility]) (Negative) COVID-19 Clin Com Influenza Type A ([facility]) Negative (Negative) Influenza Type B ([facility]) Negative (Negative) Influenza A & B Note See Note 06/13/22 06/13/22 06/13/22 Range/Units 19:06 19:51 19:51 WBC (4.8-10.8) X10*3/uL RBC (4.20-5.50) X10*6/uL Hgb (12.0-16.0) g/dl Hct (37.0-47.0) % MCV (80.0-98.0) fL MCH (27.0-33.0) pg MCHC (31.0-35.0) g/dl RDW (11.0-16.0) % Plt Count (160-400) X10*3/uL MPV (9.4-12.3) fL Immature Gran % (Auto) (0.0-0.4) % Neut % (Auto) (45-73) % Lymph % (Auto) (20-40) % Jay % (Auto) (2-11) % Eos % (Auto) (0-4) % Baso % (Auto) (0-2) % Lymph # (Auto) (1.2-4.9) X10*3/uL Jay # (Auto) (0.1-1.2) X10*3/uL Eos # (Auto) (0.0-0.4) X10*3/uL Baso # (Auto) (0.0-0.2) X10*3/uL Abs Immat Gran (auto) (0.00-0.03) X10*3/uL Absolute Neuts (auto) (2.0-8.3) x10*3/uL Absolute Nucleated RBC (0.0-0.012) X10*3/uL Nucleated RBC % (auto) (0.0-0.2) /100WBC Sodium (135-145) mmol/L Potassium (3.3-5.1) mmol/L Chloride (96-108) mmol/L Carbon Dioxide (22-29) mmol/L Anion Gap (12-20) BUN (9-16) mg/dL Creatinine (0.5-1.4) mg/dL Estim Creat Clear Calc Estimated GFR Random Glucose (60-115) mg/dL Calcium (8.4-10.2) mg/dL Total Bilirubin (0.0-1.0) mg/dL AST (5-31) U/L ALT (0-31) U/L Alkaline Phosphatase (39-117) U/L Total Protein (6.5-8.0) g/dL Albumin (3.5-5.0) g/dL Lipase (8-78) U/L Urine Color Yellow Urine Appearance Cloudy Urine pH 5.5 (5.0-9.0) Ur Specific [place] 1.025 (1.005-1.025) Urine Protein Trace (Neg-Trace) mg/dL Urine Glucose (UA) Negative (Negative) mg/dL Urine Ketones Trace (Negative) mg/dL Urine Blood Negative (Negative) Urine Nitrite Negative (Negative) Ur Leukocyte Esterase Trace H (Negative) Urine RBC 0-2 (0-2) /HPF Urine WBC 0-5 (0-5) /HPF Ur Squamous Epith Cells 11-20 (0-2) /HPF Urine Bacteria 3+ (None Seen) Hyaline Casts 0-2 (0-2) /LPF Urine Test NEGATIVE (NEGATIVE) COVID-19 ([facility]) Negative (Negative) COVID-19 Clin Com See Note Influenza Type A ([facility]) (Negative) Influenza Type B ([facility]) (Negative) Influenza A & B Note <Sara Doyle CNP - Last Filed: 06/13/22 18:58> Lab Results 06/13/22 06/13/22 06/13/22 Range/Units 19:06 19:06 19:06 WBC 7.4 (4.8-10.8) X10*3/uL RBC 5.54 H (4.20-5.50) X10*6/uL Hgb 15.4 (12.0-16.0) g/dl Hct 45.3 (37.0-47.0) % MCV 81.8 (80.0-98.0) fL MCH 27.8 (27.0-33.0) pg MCHC 34.0 (31.0-35.0) g/dl RDW 13.5 (11.0-16.0) % Plt Count 315 (160-400) X10*3/uL MPV 9.1 L (9.4-12.3) fL Immature Gran % (Auto) 0.3 (0.0-0.4) % Neut % (Auto) 84.5 H (45-73) % Lymph % (Auto) 8.6 L (20-40) % Jay % (Auto) 4.1 (2-11) % Eos % (Auto) 2.2 (0-4) % Baso % (Auto) 0.3 (0-2) % Lymph # (Auto) 0.6 L (1.2-4.9) X10*3/uL Jay # (Auto) 0.3 (0.1-1.2) X10*3/uL Eos # (Auto) 0.2 (0.0-0.4) X10*3/uL Baso # (Auto) 0.0 (0.0-0.2) X10*3/uL Abs Immat Gran (auto) 0.02 (0.00-0.03) X10*3/uL Absolute Neuts (auto) 6.2 (2.0-8.3) x10*3/uL Absolute Nucleated RBC 0.000 (0.0-0.012) X10*3/uL Nucleated RBC % (auto) 0.0 (0.0-0.2) /100WBC Sodium 141 (135-145) mmol/L Potassium 4.0 (3.3-5.1) mmol/L Chloride 105 (96-108) mmol/L Carbon Dioxide 25 (22-29) mmol/L Anion Gap 15 (12-20) BUN 20 H (9-16) mg/dL Creatinine 0.82 (0.5-1.4) mg/dL Estim Creat Clear Calc 88.8 Estimated GFR > 60 Random Glucose 103 (60-115) mg/dL Calcium 9.9 (8.4-10.2) mg/dL Total Bilirubin 0.5 (0.0-1.0) mg/dL AST 24 (5-31) U/L ALT 23 (0-31) U/L Alkaline Phosphatase 97 (39-117) U/L Total Protein 8.0 (6.5-8.0) g/dL Albumin 4.5 (3.5-5.0) g/dL Lipase 17 (8-78) U/L Urine Color Urine Appearance Urine pH (5.0-9.0) Ur Specific [place] (1.005-1.025) Urine Protein (Neg-Trace) mg/dL Urine Glucose (UA) (Negative) mg/dL Urine Ketones (Negative) mg/dL Urine Blood (Negative) Urine Nitrite (Negative) Ur Leukocyte Esterase (Negative) Urine RBC (0-2) /HPF Urine WBC (0-5) /HPF Ur Squamous Epith Cells (0-2) /HPF Urine Bacteria (None Seen) Hyaline Casts (0-2) /LPF Urine Test (NEGATIVE) COVID-19 ([facility]) (Negative) COVID-19 Clin Com Influenza Type A ([facility]) Negative (Negative) Influenza Type B ([facility]) Negative (Negative) Influenza A & B Note See Note 06/13/22 06/13/22 06/13/22 Range/Units 19:06 19:51 19:51 WBC (4.8-10.8) X10*3/uL RBC (4.20-5.50) X10*6/uL Hgb (12.0-16.0) g/dl Hct (37.0-47.0) % MCV (80.0-98.0) fL MCH (27.0-33.0) pg MCHC (31.0-35.0) g/dl RDW (11.0-16.0) % Plt Count (160-400) X10*3/uL MPV (9.4-12.3) fL Immature Gran % (Auto) (0.0-0.4) % Neut % (Auto) (45-73) % Lymph % (Auto) (20-40) % Jay % (Auto) (2-11) % Eos % (Auto) (0-4) % Baso % (Auto) (0-2) % Lymph # (Auto) (1.2-4.9) X10*3/uL Jay # (Auto) (0.1-1.2) X10*3/uL Eos # (Auto) (0.0-0.4) X10*3/uL Baso # (Auto) (0.0-0.2) X10*3/uL Abs Immat Gran (auto) (0.00-0.03) X10*3/uL Absolute Neuts (auto) (2.0-8.3) x10*3/uL Absolute Nucleated RBC (0.0-0.012) X10*3/uL Nucleated RBC % (auto) (0.0-0.2) /100WBC Sodium (135-145) mmol/L Potassium (3.3-5.1) mmol/L Chloride (96-108) mmol/L Carbon Dioxide (22-29) mmol/L Anion Gap (12-20) BUN (9-16) mg/dL Creatinine (0.5-1.4) mg/dL Estim Creat Clear Calc Estimated GFR Random Glucose (60-115) mg/dL Calcium (8.4-10.2) mg/dL Total Bilirubin (0.0-1.0) mg/dL AST (5-31) U/L ALT (0-31) U/L Alkaline Phosphatase (39-117) U/L Total Protein (6.5-8.0) g/dL Albumin (3.5-5.0) g/dL Lipase (8-78) U/L Urine Color Yellow Urine Appearance Cloudy Urine pH 5.5 (5.0-9.0) Ur Specific [place] 1.025 (1.005-1.025) Urine Protein Trace (Neg-Trace) mg/dL Urine Glucose (UA) Negative (Negative) mg/dL Urine Ketones Trace (Negative) mg/dL Urine Blood Negative (Negative) Urine Nitrite Negative (Negative) Ur Leukocyte Esterase Trace H (Negative) Urine RBC 0-2 (0-2) /HPF Urine WBC 0-5 (0-5) /HPF Ur Squamous Epith Cells 11-20 (0-2) /HPF Urine Bacteria 3+ (None Seen) Hyaline Casts 0-2 (0-2) /LPF Urine Test NEGATIVE (NEGATIVE) COVID-19 ([facility]) Negative (Negative) COVID-19 Clin Com See Note Influenza Type A ([facility]) (Negative) Influenza Type B ([facility]) (Negative) Influenza A & B Note <Cm Ramos MD - Last Filed: 06/14/22 00:07> Medications Administered Discontinued Medications Generic Name Dose Route Start Last Admin Trade Name Freq PRN Reason Stop Dose Admin Dicyclomine HCl 20 mg 06/13/22 21:22 06/13/22 21:31 Dicyclomine Hcl 10 Mg Capsule PO 06/13/22 21:23 20 mg ONCE ONE Administration Sodium Chloride 1,000 mls @ 999 mls/hr 06/13/22 19:00 06/13/22 21:32 Ns IV 06/13/22 20:00 Not Given .Q1H1M LUCILA Sodium Chloride 1,000 mls @ 999 mls/hr 06/13/22 21:22 06/13/22 22:37 Ns IV 06/13/22 22:22 Infused .Q1H1M ONE Infusion Ondansetron HCl 4 mg 06/13/22 18:58 06/13/22 21:32 Ondansetron Hcl 4 Mg/2 Ml Vial IVPUSH 06/13/22 18:59 4 mg ONCE ONE Administration Ondansetron HCl 4 mg 06/13/22 22:44 06/13/22 22:51 Ondansetron Hcl 4 Mg/2 Ml Vial IVPUSH 06/13/22 22:45 4 mg ONCE ONE Administration <Sara Doyle, [employer]TING [employer] - Last Filed: 06/13/22 18:58> Medications Administered Discontinued Medications Generic Name Dose Route Start Last Admin Trade Name Lisa PRN Reason Stop Dose Admin Dicyclomine HCl 20 mg 06/13/22 21:22 06/13/22 21:31 Dicyclomine Hcl 10 Mg Capsule PO 06/13/22 21:23 20 mg ONCE ONE Administration Sodium Chloride 1,000 mls @ 999 mls/hr 06/13/22 19:00 06/13/22 21:32 Ns IV 06/13/22 20:00 Not Given .Q1H1M LUCILA Sodium Chloride 1,000 mls @ 999 mls/hr 06/13/22 21:22 06/13/22 22:37 Ns IV 06/13/22 22:22 Infused .Q1H1M ONE Infusion Ondansetron HCl 4 mg 06/13/22 18:58 06/13/22 21:32 Ondansetron Hcl 4 Mg/2 Ml Vial IVPUSH 06/13/22 18:59 4 mg ONCE ONE Administration Ondansetron HCl 4 mg 06/13/22 22:44 06/13/22 22:51 Ondansetron Hcl 4 Mg/2 Ml Vial IVPUSH 06/13/22 22:45 4 mg ONCE ONE Administration <Cm Ramos MD - Last Filed: 06/14/22 00:07> Discharge Plan Discharge Clinical Impression: Gastroenteritis <Sara Doyle CNP - Last Filed: 06/13/22 18:58> Patient Disposition: Home, Self-Care <Sara Doyle CNP - Last Filed: 06/13/22 18:58> Instructions: Acute Nausea and Vomiting (ED), Acute Diarrhea (ED) <Sara Doyle CNP - Last Filed: 06/13/22 18:58> Additional Instructions: Drink plenty of fluids Nausea medication as prescribed Follow with PCP if not better <Sara Doyle CNP - Last Filed: 06/13/22 18:58> Prescriptions: New ondansetron 4 mg tablet,disintegrating 4 mg PO Q6-8H PRN (Reason: nausea and vomiting) Qty: 10 0RF No Action ondansetron 4 mg tablet,disintegrating 4 mg PO Q8H PRN (Reason: nausea and vomiting) Qty: 20 0RF albuterol sulfate 90 mcg/actuation HFA aerosol inhaler 2 puff inhalation Q4-6H PRN (Reason: shortness of breath or wheezing) Qty: 6.7 0RF fluticasone propionate 50 mcg/actuation spray,suspension 1 spray intranasal BID Rx Instructions: administer into each nostril [id number] mg capsule 2 cap PO Q4H PRN Rx Instructions: do not exceed 6 caps per day cetirizine 10 mg tablet 10 mg PO DAILY PRN epinephrine 0.3 mg/0.3 mL auto-injector 0.3 mg IM Q4H PRN montelukast 10 mg tablet 10 mg PO DAILY polyethylene glycol 3350 17 gram powder in packet 17 g PO BID sumatriptan succinate 50 mg tablet See Rx Instructions PO .COMPLEX Rx Instructions: take 1 tab at onset of headache; if no relief may repeat 1 tab after at least 2 hrs; max = 4 tabs/24 hr PO valacyclovir 500 mg tablet 500 mg PO DAILY Qty: 30 8RF Rx Instructions: subsequent refills for surpressive treatment after fill for 38 for acute then start prophylactic treatement <Sara Doyle CNP - Last Filed: 06/13/22 18:58> Interventions: ED Discharge Assessment Last Done: 06/13/22 23:37 <Sara Doyle CNP - Last Filed: 06/13/22 18:58> Discharge Date/Time: 06/13/22 23:38 <Sara Doyle CNP - Last Filed: 06/13/22 18:58>
[2022-06-13 19:13] LABS: MANUAL DIFF FLAG NO
[2022-06-13 19:14] LABS: Basophils Percent Auto 0.3 % (0-2); Eosinophils Absolute Auto 0.2 X10*3/uL (0.0-0.4); Eosinophils Percent Auto 2.2 % (0-4); Hematocrit 45.3 % (37.0-47.0); Hemoglobin 15.4 g/dl (12.0-16.0); Imm Gran Abs Auto 0.02 X10*3/uL (0.00-0.03); Imm Gran Pct Auto 0.3 % (0.0-0.4); Lymphocytes Absolute Auto 0.6 X10*3/uL (1.2-4.9); Lymphocytes Percent Auto 8.6 % (20-40); Mean Corpuscular Hemoglobin 27.8 pg (27.0-33.0); Mean Corpuscular Volume 81.8 fL (80.0-98.0); Mean Platelet Volume 9.1 fL (9.4-12.3); Monocytes Absolute Auto 0.3 X10*3/uL (0.1-1.2); Monocytes Percent Auto 4.1 % (2-11); Neutrophils Absolute Auto 6.2 x10*3/uL (2.0-8.3); Neutrophils Percent Auto 84.5 % (45-73); Platelet Count 315 X10*3/uL (160-400); Red Blood Count 5.54 X10*6/uL (4.20-5.50); Red Cell Distribution Width 13.5 % (11.0-16.0); White Blood Count 7.4 X10*3/uL (4.8-10.8)
[2022-06-13 19:29] LABS: COVID-19 Test Negative (Negative); IDNOW Serial# 55D5AD1C
[2022-06-13 19:31] LABS: IDNOW Serial# 9DB6401D; Influenza A Negative (Negative); Influenza B2 Negative (Negative)
[2022-06-13 19:42] LABS: Alanine Aminotransferase 23 U/L (0-31); Albumin Level 4.5 g/dL (3.5-5.0); Alkaline Phosphatase 97 U/L (39-117); Anion Gap 15 (12-20); Aspartate Amino Transferase 24 U/L (5-31); Bilirubin Total 0.5 mg/dL (0.0-1.0); Blood Urea Nitrogen 20 mg/dL (9-16); Calcium 9.9 mg/dL (8.4-10.2); Carbon Dioxide 25 mmol/L (22-29); Chloride 105 mmol/L (96-108); Creatinine Clr Calc Pharmacy 88.8; Estimated Glomerular Filt Rate > 60; Glucose Random 103 mg/dL (60-115); Lipase 17 U/L (8-78); Sodium 141 mmol/L (135-145)
[2022-06-13 20:03] LABS: Appearance Urine Cloudy; Color Urine Yellow; Glucose Urine UA Negative (Negative); Leukocyte Esterase Urine Trace (Negative); Nitrite Urine Negative (Negative); PH 5.5 (5.0-9.0); Specific Gravity - Urine 1.025 (1.005-1.025); UMIC TRIGGER UACC YES; Urine Blood Negative (Negative); Urine Ketones Trace mg/dL (Negative); Urine Protein Trace mg/dL (Neg-Trace)
[2022-06-13 20:04] LABS: UPreg QC Valid YES; Urine Pregnancy NEGATIVE (NEGATIVE)
[2022-06-13 20:08] LABS: Bacteria Urine 3+ (None Seen); Hyaline Casts Urine 0-2 /LPF (0-2); RBC Urine 0-2 /HPF (0-2); WBC Urine 0-5 /HPF (0-5)
[2022-06-13 21:01] VITALS: BP 147/94; PULSE 105; TEMP 37.3; O2SAT 97
--- NOTE | 2022-06-13 21:10 | PC.NURSE ---
PT A&Ox4, reports /10 all over abd pain, states feeling is intermittent, aching, chills, no fevers, starting this AM around 1100. Reports last BM was today. IV established. Meds given as documented.
[2022-06-13] MEDS: 0.9 % Sodium Chloride 1,000 ML 999 ML IV (21:30)
[2022-06-13] MEDS: Dicyclomine HCl 10 MG CAPSULE 20 MG PO (21:31)
[2022-06-13] MEDS: ondansetron HCL 4 MG/2 ML VIAL IVPUSH ×2 (21:32→22:51)
[2022-06-13 22:04] VITALS: BP 131/79; PULSE 97; TEMP 37.3; O2SAT 95
== END 2022-06-13 23:38 | disposition home or self-care (01) ==
PROVIDERS: Nurse Practitioner Family; Emergency Provider Internal Medicine; PCP Hospitalist
DX: K52.9 Noninfective gastroenteritis and colitis, unspecified (principal); R11.2 Nausea with vomiting, unspecified; Z20.822 Contact with and (suspected) exposure to COVID-19
CPT/HCPCS: 80053; 81001; 81003; 81025; 83690; 85025; 87502; 87635; 96361; 96374; 96376; 99284; 99285; J2405

== ENCOUNTER 2022-06-22 15:40 | Emergency (ER) | payer OTHER, SELFPAY ==
--- NOTE | ~2022-06-22 | XR_ITS ---
EXAMINATION: XR ABDOMEN COMPLETE CLINICAL INDICATION: Reason for Exam fecal impaction COMPARISON: None TECHNIQUE: AP view of the abdomen. FINDINGS: Lines or devices: None. Nonobstructive bowel gas pattern. Mild colonic stool burden. No extraluminal subdiaphragmatic air. No abnormal calcifications. XR/XR KUB IMPRESSION: * Nonobstructive bowel gas pattern. Mild colonic stool burden.
--- NOTE | 2022-06-22 15:58 | ED.ABDPAIN ---
HPI - Abdominal Pain General Chief Complaint: Abdominal Pain <Sara Doyle CNP - Last Filed: 06/22/22 17:04> Stated Complaint: pain in lower abd <Sara Doyle CNP - Last Filed: 06/22/22 17:04> Time Seen by Provider: 06/22/22 18:01 <Sara Doyle CNP - Last Filed: 06/22/22 17:04> Source: patient <Cm Ramos MD - Last Filed: 06/23/22 01:05> Mode of arrival: ambulatory <Cm Ramos MD - Last Filed: 06/23/22 01:05> Limitations: no limitations <Cm Ramos MD - Last Filed: 06/23/22 01:05> History of Present Illness HPI narrative: Patient history of IBS and gluten allergy been having for last 2 days history of same in the past moving her bowels but not enough still feels backed up. No fever no chills pain is mostly localized in suprapubic area no urinary complaints patient is status post his total abdominal hysterectomy no nausea or vomiting or fever <Cm Ramos MD - Last Filed: 06/23/22 01:05> Related Data Home Medications: Home Medications Medication Instructions Recorded Confirmed butalbital 50 mg-acetaminophen 325 2 cap PO Q4H PRN 05/01/22 05/01/22 mg-caffeine 40 mg-codeine 30 mg cap cetirizine 10 mg tablet 10 mg PO DAILY PRN 05/01/22 05/01/22 epinephrine 0.3 mg/0.3 mL 0.3 mg IM Q4H PRN 05/01/22 05/01/22 injection, auto-injector fluticasone propionate 50 1 spray intranasal BID 05/01/22 05/01/22 mcg/actuation nasal spray,suspension montelukast 10 mg tablet 10 mg PO DAILY 05/01/22 05/01/22 polyethylene glycol 3350 17 gram 17 g PO BID 05/01/22 05/01/22 oral powder packet sumatriptan succinate 50 mg tablet See Rx Instructions PO .COMPLEX 05/01/22 05/01/22 Previous Rx's Medication Instructions Recorded ondansetron 4 mg disintegrating 4 mg PO Q8H PRN nausea and 09/03/21 tablet vomiting #20 tabs albuterol sulfate 90 mcg/actuation 2 puff inhalation Q4-6H PRN 03/14/22 aerosol inhaler shortness of breath or wheezing #6.7 grams valacyclovir 500 mg tablet 500 mg PO DAILY #30 tabs 05/01/22 ondansetron 4 mg disintegrating 4 mg PO Q6-8H PRN nausea and 06/13/22 tablet vomiting #10 tabs tramadol 50 mg tablet 50 mg PO Q6H PRN pain #20 tabs 06/22/22 <Sara Doyle CNP - Last Filed: 06/22/22 17:04> Allergies/Adverse Reactions: Allergies Allergy/AdvReac Type Severity Reaction Status Date / Time gluten Allergy Rash Verified 05/01/22 10:56 <Sara Doyle CNP - Last Filed: 06/22/22 17:04> [facility] Past Medical History Medical History: Medical History Anxiety disorder Asthma Celiac disease Hypertension Menopausal symptom Migraine Seasonal allergies Severe depression Synovial cyst of right knee Venous insufficiency Vitamin B 12 deficiency Vitamin D deficiency <Sara Doyle CNP - Last Filed: 06/22/22 17:04> Surgical History: Surgical History History of endometrial ablation History of tubal ligation Hx of hysterectomy S/P breast biopsy <Sara Doyle CNP - Last Filed: 06/22/22 17:04> Family History Family History: Family History Paternal Grandmother Breast cancer Paternal Aunt Breast cancer Mother Hypercholesteremia Age related osteoporosis Father Hypertension <Sara Doyle CNP - Last Filed: 06/22/22 17:04> Social History Social History: Social History Household Members: Spouse and Family Housing: House Alcohol intake: current Alcohol intake frequency: holidays/special occasions only Alcohol type: beer and hard liquor Patient Tobacco Use Status: Never used Tobacco e-Cigarette/Vaping Use: Never Used Advance Directives: No Advance Directives Information Provided: No Current occupational status: disabled <Sara DaveyMIKAYLA adams - Last Filed: 06/22/22 17:04> Physical Exam ED Vital Signs: Vital Signs - 24 hr 06/22/22 16:00 06/22/22 18:39 Temperature 97.8 F Pulse Rate 81 73 Respiratory Rate 18 15 Blood Pressure 164/85 H 135/86 Pulse Oximetry 99 98 Oxygen Delivery Method Room Air Room Air BMI result Body Mass Index 33.5 <Sara DaveyMIKAYLA adams - Last Filed: 06/22/22 17:04> Vital Signs - 24 hr 06/22/22 16:00 06/22/22 18:39 Temperature 97.8 F Pulse Rate 81 73 Respiratory Rate 18 15 Blood Pressure 164/85 H 135/86 Pulse Oximetry 99 98 Oxygen Delivery Method Room Air Room Air BMI result Body Mass Index 33.5 <Cm Ramos MD - Last Filed: 06/23/22 01:05> Appearance: Alert. Oriented X3. No acute distress. Eyes: No pallor or icterus ENT: Pharynx normal. Oral Mucosa moist Neck: Normal inspection. Neck supple. CVS: Normal heart rate and rhythm. Pulses normal. Respiratory: No respiratory distress. Equal air entry bilateral, no wheezing/rales/rhonchi Abdomen: Soft , mild discomfort suprapubic area no rebound tenderness or guarding Bowel sounds are present, no mass palpable, no CVA tenderness Skin: Skin warm and dry. Normal skin color. Normal skin turgor. Extremities: No lower extremity edema. No calf tenderness Neuro: Oriented X 3. No motor deficit. <Cm Ramos MD - Last Filed: 06/23/22 01:05> Course Course Course Narrative: This is an RME: Additional HPI, ROS, PE not included below will be deferred to primary provider. Patient is a 51-year-old female who presents to emergency department Reports suprapubic pain x 2 days, described as a pressure sensation, constant, unrelieved after using bathroom, she expresses concern for constipation or UTI. Denies urinary frequency/ urgency, dysuria, hematuria. Reports passing gas, last BM this AM and normal. Denies N/V, fevers, chills, ABD pain. Hx hysterectomy. PE: suprapubic tenderness upon palpation, no ABD tenderness to palp, no CVAT Plan: labs, urinalysis <Sara Doyle CNP - Last Filed: 06/22/22 17:04> Medical Decision Making Lab Data Result Diagrams: 06/22/22 16:18 06/22/22 16:17 <Sara Doyle CNP - Last Filed: 06/22/22 17:04> Labs: Lab Results 06/22/22 06/22/22 06/22/22 Range/Units 16:17 16:18 16:21 WBC 7.3 (4.8-10.8) X10*3/uL RBC 4.83 (4.20-5.50) X10*6/uL Hgb 13.4 (12.0-16.0) g/dl Hct 39.6 (37.0-47.0) % MCV 82.0 (80.0-98.0) fL MCH 27.7 (27.0-33.0) pg MCHC 33.8 (31.0-35.0) g/dl RDW 13.5 (11.0-16.0) % Plt Count 334 (160-400) X10*3/uL MPV 9.2 L (9.4-12.3) fL Immature Gran % (Auto) 0.3 (0.0-0.4) % Neut % (Auto) 61.9 (45-73) % Lymph % (Auto) 27.0 (20-40) % Davie % (Auto) 7.8 (2-11) % Eos % (Auto) 2.5 (0-4) % Baso % (Auto) 0.5 (0-2) % Lymph # (Auto) 2.0 (1.2-4.9) X10*3/uL Davie # (Auto) 0.6 (0.1-1.2) X10*3/uL Eos # (Auto) 0.2 (0.0-0.4) X10*3/uL Baso # (Auto) 0.0 (0.0-0.2) X10*3/uL Abs Immat Gran (auto) 0.02 (0.00-0.03) X10*3/uL Absolute Neuts (auto) 4.6 (2.0-8.3) x10*3/uL Absolute Nucleated RBC 0.000 (0.0-0.012) X10*3/uL Nucleated RBC % (auto) 0.0 (0.0-0.2) /100WBC Sodium 138 (135-145) mmol/L Potassium 3.8 (3.3-5.1) mmol/L Chloride 105 (96-108) mmol/L Carbon Dioxide 23 (22-29) mmol/L Anion Gap 14 (12-20) BUN 16 (9-16) mg/dL Creatinine 0.73 (0.5-1.4) mg/dL Estim Creat Clear Calc 95.9 Estimated GFR > 60 Random Glucose 94 (60-115) mg/dL Calcium 9.5 (8.4-10.2) mg/dL Total Bilirubin 0.5 (0.0-1.0) mg/dL AST 23 (5-31) U/L ALT 34 H (0-31) U/L Alkaline Phosphatase 95 (39-117) U/L Total Protein 7.2 (6.5-8.0) g/dL Albumin 4.2 (3.5-5.0) g/dL Lipase 16 (8-78) U/L Urine Color Dark Yellow Urine Appearance Clear Urine pH 6.0 (5.0-9.0) Ur Specific [place] 1.025 (1.005-1.025) Urine Protein Trace (Neg-Trace) mg/dL Urine Glucose (UA) Negative (Negative) mg/dL Urine Ketones Trace (Negative) mg/dL Urine Blood Negative (Negative) Urine Nitrite Negative (Negative) Ur Leukocyte Esterase Trace H (Negative) Urine RBC 0-2 (0-2) /HPF Urine WBC 0-5 (0-5) /HPF Ur Squamous Epith Cells 6-10 (0-2) /HPF Urine Bacteria 2+ (None Seen) Hyaline Casts 0-2 (0-2) /LPF <Sara Doyle, MIKAYLA - Last Filed: 06/22/22 17:04> Lab Results 06/22/22 06/22/22 06/22/22 Range/Units 16:17 16:18 16:21 WBC 7.3 (4.8-10.8) X10*3/uL RBC 4.83 (4.20-5.50) X10*6/uL Hgb 13.4 (12.0-16.0) g/dl Hct 39.6 (37.0-47.0) % MCV 82.0 (80.0-98.0) fL MCH 27.7 (27.0-33.0) pg MCHC 33.8 (31.0-35.0) g/dl RDW 13.5 (11.0-16.0) % Plt Count 334 (160-400) X10*3/uL MPV 9.2 L (9.4-12.3) fL Immature Gran % (Auto) 0.3 (0.0-0.4) % Neut % (Auto) 61.9 (45-73) % Lymph % (Auto) 27.0 (20-40) % Davie % (Auto) 7.8 (2-11) % Eos % (Auto) 2.5 (0-4) % Baso % (Auto) 0.5 (0-2) % Lymph # (Auto) 2.0 (1.2-4.9) X10*3/uL Davie # (Auto) 0.6 (0.1-1.2) X10*3/uL Eos # (Auto) 0.2 (0.0-0.4) X10*3/uL Baso # (Auto) 0.0 (0.0-0.2) X10*3/uL Abs Immat Gran (auto) 0.02 (0.00-0.03) X10*3/uL Absolute Neuts (auto) 4.6 (2.0-8.3) x10*3/uL Absolute Nucleated RBC 0.000 (0.0-0.012) X10*3/uL Nucleated RBC % (auto) 0.0 (0.0-0.2) /100WBC Sodium 138 (135-145) mmol/L Potassium 3.8 (3.3-5.1) mmol/L Chloride 105 (96-108) mmol/L Carbon Dioxide 23 (22-29) mmol/L Anion Gap 14 (12-20) BUN 16 (9-16) mg/dL Creatinine 0.73 (0.5-1.4) mg/dL Estim Creat Clear Calc 95.9 Estimated GFR > 60 Random Glucose 94 (60-115) mg/dL Calcium 9.5 (8.4-10.2) mg/dL Total Bilirubin 0.5 (0.0-1.0) mg/dL AST 23 (5-31) U/L ALT 34 H (0-31) U/L Alkaline Phosphatase 95 (39-117) U/L Total Protein 7.2 (6.5-8.0) g/dL Albumin 4.2 (3.5-5.0) g/dL Lipase 16 (8-78) U/L Urine Color Dark Yellow Urine Appearance Clear Urine pH 6.0 (5.0-9.0) Ur Specific [place] 1.025 (1.005-1.025) Urine Protein Trace (Neg-Trace) mg/dL Urine Glucose (UA) Negative (Negative) mg/dL Urine Ketones Trace (Negative) mg/dL Urine Blood Negative (Negative) Urine Nitrite Negative (Negative) Ur Leukocyte Esterase Trace H (Negative) Urine RBC 0-2 (0-2) /HPF Urine WBC 0-5 (0-5) /HPF Ur Squamous Epith Cells 6-10 (0-2) /HPF Urine Bacteria 2+ (None Seen) Hyaline Casts 0-2 (0-2) /LPF <Cm Ramos MD - Last Filed: 06/23/22 01:05> Medications Administered Discontinued Medications Generic Name Dose Route Start Last Admin Trade Name Freq PRN Reason Stop Dose Admin Magnesium Hydroxide 30 ml 06/22/22 18:09 06/22/22 18:38 Milk Of Magnesia 30 Ml Oral.Susp PO 06/22/22 18:10 30 ml ONCE ONE Administration Tramadol HCl 50 mg 06/22/22 18:51 06/22/22 18:58 Tramadol Hcl 50 Mg Tablet PO 06/22/22 18:52 50 mg ONCE ONE Administration <Sara Doyle CNP - Last Filed: 06/22/22 17:04> Medications Administered Discontinued Medications Generic Name Dose Route Start Last Admin Trade Name Freq PRN Reason Stop Dose Admin Magnesium Hydroxide 30 ml 06/22/22 18:09 06/22/22 18:38 Milk Of Magnesia 30 Ml Oral.Susp PO 06/22/22 18:10 30 ml ONCE ONE Administration Tramadol HCl 50 mg 06/22/22 18:51 06/22/22 18:58 Tramadol Hcl 50 Mg Tablet PO 06/22/22 18:52 50 mg ONCE ONE Administration <Cm Ramos MD - Last Filed: 06/23/22 01:05> Discharge Plan Discharge Clinical Impression: Irritable bowel syndrome, Constipation <Sara Doyle CNP - Last Filed: 06/22/22 17:04> Patient Disposition: Home, Self-Care <Sara Doyle CNP - Last Filed: 06/22/22 17:04> Instructions: Irritable Bowel Syndrome (ED), Constipation (ED) <aSra Doyle CNP - Last Filed: 06/22/22 17:04> Additional Instructions: Drink plenty of fluid Continue to take MiraLax twice daily milk of magnesium for severe constipation Tramadol for severe pain <Sara Doyle CNP - Last Filed: 06/22/22 17:04> Prescriptions: New tramadol 50 mg tablet 50 mg PO Q6H PRN (Reason: pain) Qty: 20 0RF No Action ondansetron 4 mg tablet,disintegrating 4 mg PO Q8H PRN (Reason: nausea and vomiting) Qty: 20 0RF albuterol sulfate 90 mcg/actuation HFA aerosol inhaler 2 puff inhalation Q4-6H PRN (Reason: shortness of breath or wheezing) Qty: 6.7 0RF ondansetron 4 mg tablet,disintegrating 4 mg PO Q6-8H PRN (Reason: nausea and vomiting) Qty: 10 0RF fluticasone propionate 50 mcg/actuation spray,suspension 1 spray intranasal BID Rx Instructions: administer into each nostril anzzievrry-[id number] [id number] mg capsule 2 cap PO Q4H PRN Rx Instructions: do not exceed 6 caps per day cetirizine 10 mg tablet 10 mg PO DAILY PRN epinephrine 0.3 mg/0.3 mL auto-injector 0.3 mg IM Q4H PRN montelukast 10 mg tablet 10 mg PO DAILY polyethylene glycol 3350 17 gram powder in packet 17 g PO BID sumatriptan succinate 50 mg tablet See Rx Instructions PO .COMPLEX Rx Instructions: take 1 tab at onset of headache; if no relief may repeat 1 tab after at least 2 hrs; max = 4 tabs/24 hr PO valacyclovir 500 mg tablet 500 mg PO DAILY Qty: 30 8RF Rx Instructions: subsequent refills for surpressive treatment after fill for 38 for acute then start prophylactic treatement <Sara Doyle CNP - Last Filed: 06/22/22 17:04> Stand Alone Forms: Work/School Release <Sara Doyle CNP - Last Filed: 06/22/22 17:04> Interventions: ED Discharge Assessment Last Done: 06/22/22 19:09 <Sara Doyle CNP - Last Filed: 06/22/22 17:04> Discharge Date/Time: 06/22/22 19:10 <Sara Doyle CNP - Last Filed: 06/22/22 17:04>
[2022-06-22 16:00] VITALS: BP 164/85; PULSE 81; RESP 18; TEMP 36.6; O2SAT 99; BMI 33.5
[2022-06-22 16:25] LABS: MANUAL DIFF FLAG NO
[2022-06-22 16:27] LABS: Appearance Urine Clear; Color Urine Dark Yellow; Glucose Urine UA Negative (Negative); Leukocyte Esterase Urine Trace (Negative); Nitrite Urine Negative (Negative); Specific Gravity - Urine 1.025 (1.005-1.025); UMIC TRIGGER UACC YES; Urine Blood Negative (Negative); Urine Ketones Trace mg/dL (Negative); Urine Protein Trace mg/dL (Neg-Trace)
[2022-06-22 16:27] LABS: Basophils Percent Auto 0.5 % (0-2); Eosinophils Absolute Auto 0.2 X10*3/uL (0.0-0.4); Eosinophils Percent Auto 2.5 % (0-4); Hematocrit 39.6 % (37.0-47.0); Hemoglobin 13.4 g/dl (12.0-16.0); Imm Gran Abs Auto 0.02 X10*3/uL (0.00-0.03); Imm Gran Pct Auto 0.3 % (0.0-0.4); Mean Corpuscular HGB Conc 33.8 g/dl (31.0-35.0); Mean Corpuscular Hemoglobin 27.7 pg (27.0-33.0); Mean Platelet Volume 9.2 fL (9.4-12.3); Monocytes Absolute Auto 0.6 X10*3/uL (0.1-1.2); Monocytes Percent Auto 7.8 % (2-11); Neutrophils Absolute Auto 4.6 x10*3/uL (2.0-8.3); Neutrophils Percent Auto 61.9 % (45-73); Platelet Count 334 X10*3/uL (160-400); Red Blood Count 4.83 X10*6/uL (4.20-5.50); Red Cell Distribution Width 13.5 % (11.0-16.0); White Blood Count 7.3 X10*3/uL (4.8-10.8)
[2022-06-22 16:32] LABS: Bacteria Urine 2+ (None Seen); Hyaline Casts Urine 0-2 /LPF (0-2); RBC Urine 0-2 /HPF (0-2); WBC Urine 0-5 /HPF (0-5)
[2022-06-22 16:43] LABS: Alanine Aminotransferase 34 U/L (0-31); Albumin Level 4.2 g/dL (3.5-5.0); Alkaline Phosphatase 95 U/L (39-117); Anion Gap 14 (12-20); Aspartate Amino Transferase 23 U/L (5-31); Bilirubin Total 0.5 mg/dL (0.0-1.0); Blood Urea Nitrogen 16 mg/dL (9-16); Calcium 9.5 mg/dL (8.4-10.2); Carbon Dioxide 23 mmol/L (22-29); Chloride 105 mmol/L (96-108); Creatinine Clr Calc Pharmacy 95.9; Estimated Glomerular Filt Rate > 60; Glucose Random 94 mg/dL (60-115); Lipase 16 U/L (8-78); Potassium 3.8 mmol/L (3.3-5.1); Sodium 138 mmol/L (135-145); Total Protein 7.2 g/dL (6.5-8.0)
[2022-06-22] MEDS: Milk of Magnesia 30 ML ORAL.SUSP PO (18:38)
[2022-06-22 18:39] VITALS: BP 135/86; PULSE 73; RESP 15; O2SAT 98
--- NOTE | 2022-06-22 18:42 | PC.NURSE ---
pt resting on stretcher at this time, pt verbalizes pain in lower abdomen and pelvic area, described as pressure. Pt states she has been dealing with this since Thursday
[2022-06-22] MEDS: traMADoL HCL 50 MG TABLET PO (18:58)
== END 2022-06-22 19:10 | disposition home or self-care (01) ==
PROVIDERS: Nurse Practitioner Family; Emergency Provider Internal Medicine; PCP Hospitalist
DX: K58.1 Irritable bowel syndrome with constipation (principal); Z79.899 Other long term (current) drug therapy
CPT/HCPCS: 36415; 74018; 80053; 81001; 83690; 85025; 99284

== ENCOUNTER 2022-06-24 10:07 | Emergency (ER) | payer OTHER, SELFPAY ==
--- NOTE | ~2022-06-24 | CT_ITS ---
EXAMINATION: CT ABDOMEN AND PELVIS WITHOUT CONTRAST CLINICAL INFORMATION: Lower abdominal COMPARISON: None TECHNIQUE: Multidetector volumetric imaging was performed from the superior aspect of the liver through the pubic symphysis. Sagittal and coronal reformatted images were obtained on the technologist's workstation. This CT examination was performed using dose optimization techniques as appropriate, variously including the following: *Automated exposure control *Adjustment of mA and/or kV according to patient size (this includes techniques or standardized protocols for targeted exams where dose is matched to indication/reason for exam; i.e. extremities or head) *Use of iterative reconstruction technique DLP: 664 mGy-cm FINDINGS: LUNG BASES: The visualized lung bases are unremarkable. LIVER, GALLBLADDER, AND BILIARY TREE: The liver is normal in size, shape, and attenuation. No focal hepatic lesion or biliary ductal dilatation is present. The gallbladder is unremarkable with no evidence of radiopaque gallstones, gallbladder wall thickening, or obvious pericholecystic inflammatory changes. PANCREAS: Unremarkable. SPLEEN: Unremarkable. ADRENAL GLANDS: Unremarkable. KIDNEYS AND URETERS: The kidneys are normal in size, shape, and attenuation. There is a 3.5 cm simple cyst in the left kidney. No follow-up required. No hydronephrosis, hydroureter, or calculi seen. No perinephric stranding. BLADDER: Unremarkable. GASTROINTESTINAL TRACT: Sigmoid colonic diverticulosis. There is segmental edematous wall thickening of the midportion of the sigmoid colon, centered around an inflamed diverticulum. No pericolic fluid collection to suggest abscess. Normal appendix. Stomach and small bowel unremarkable. ABDOMINAL WALL: No significant hernia is appreciated. LYMPH NODES: Normal. VASCULAR: Unremarkable. PELVIC VISCERA: Hysterectomy. No adnexal abnormalities. OSSEOUS STRUCTURES: No acute or suspicious osseous abnormalities. CT/CT abdomen pelvis wo IV con IMPRESSION: Acute uncomplicated sigmoid colonic diverticulitis
[2022-06-24 11:24] VITALS: BP 116/81; PULSE 85; RESP 16; TEMP 36; O2SAT 98; BMI 31.3
--- NOTE | 2022-06-24 11:26 | ED.GENADULT ---
HPI - General Adult General Chief complaint: Abdominal Pain <GUILLE Jay Last Filed: 06/24/22 20:05> Stated complaint: Lower abd pain <GUILLE Jay Last Filed: 06/24/22 20:05> Time Seen by Provider: 06/24/22 14:24 <GUILLE Jay Last Filed: 06/24/22 20:05> Source: patient <GUILLE De La Paz Last Filed: 06/24/22 14:52> Mode of arrival: ambulatory <GUILLE De La Paz Last Filed: 06/24/22 14:52> History of Present Illness HPI narrative: 51 yo female with history of celiac disease, asthma, migraines, seasonal allergies, constipation, history of colitis in the past who presents to the ER for evaluation of lower abdominal pain for the last 4-5 days. She was seen here a few days ago, had a KUB that showed a nonobstructing bowel gas pattern. She was told that she may be constipated. She was given milk of magnesia. She took it yesterday morning and reports several episodes of loose, nonbloody diarrhea yesterday. She reports ongoing lower abdominal pain. She states she was prescribed tramadol and it is not helping with the pain. She denies any vomiting, fevers, urinary symptoms. She reports she last had a colonoscopy 3 years ago and it was normal. <GUILLE De La Paz - Last Filed: 06/24/22 14:52> MD complaint: Lower abdominal pain and diarrhea <GUILLE De La Paz Last Filed: 06/24/22 14:52> Onset (ago): day(s) <GUILLE De La Paz Last Filed: 06/24/22 14:52> Location: abdomen <GUILLE De La Paz Last Filed: 06/24/22 14:52> Radiation: non-radiation <GUILLE De La Paz Last Filed: 06/24/22 14:52> Severity: moderate <GUILLE De La Paz Last Filed: 06/24/22 14:52> Severity scale (1-10): 7 <GUILLE De La Paz Last Filed: 06/24/22 14:52> Quality: stabbing and aching <GUILLE De La Paz - Last Filed: 06/24/22 14:52> Pain Consistency: constant <GUILLE De La Paz Last Filed: 06/24/22 14:52> Relieving factors: none <GUILLE De La Paz Last Filed: 06/24/22 14:52> Exacerbating factors: eating <GUILLE De La Paz Last Filed: 06/24/22 14:52> Associated symptoms: denies other symptoms <GUILLE De La Paz Last Filed: 06/24/22 14:52> Treatments prior to arrival: other (Tramadol) <GUILLE De La Paz Last Filed: 06/24/22 14:52> Related Data Home medications: Home Medications Medication Instructions Recorded Confirmed butalbital 50 mg-acetaminophen 325 2 cap PO Q4H PRN 05/01/22 05/01/22 mg-caffeine 40 mg-codeine 30 mg cap cetirizine 10 mg tablet 10 mg PO DAILY PRN 05/01/22 05/01/22 epinephrine 0.3 mg/0.3 mL 0.3 mg IM Q4H PRN 05/01/22 05/01/22 injection, auto-injector fluticasone propionate 50 1 spray intranasal BID 05/01/22 05/01/22 mcg/actuation nasal spray,suspension montelukast 10 mg tablet 10 mg PO DAILY 05/01/22 05/01/22 polyethylene glycol 3350 17 gram 17 g PO BID 05/01/22 05/01/22 oral powder packet sumatriptan succinate 50 mg tablet See Rx Instructions PO .COMPLEX 05/01/22 05/01/22 Previous Rx's Medication Instructions Recorded ondansetron 4 mg disintegrating 4 mg PO Q8H PRN nausea and 09/03/21 tablet vomiting #20 tabs albuterol sulfate 90 mcg/actuation 2 puff inhalation Q4-6H PRN 03/14/22 aerosol inhaler shortness of breath or wheezing #6.7 grams valacyclovir 500 mg tablet 500 mg PO DAILY #30 tabs 05/01/22 ondansetron 4 mg disintegrating 4 mg PO Q6-8H PRN nausea and 06/13/22 tablet vomiting #10 tabs tramadol 50 mg tablet 50 mg PO Q6H PRN pain #20 tabs 06/22/22 amoxicillin 875 mg-potassium 1 tab PO Q12H #20 tabs 06/24/22 clavulanate 125 mg tablet ibuprofen 600 mg tablet 600 mg PO Q8H PRN pain #20 tabs 06/24/22 <GUILLE Jay - Last Filed: 06/24/22 20:05> Allergies/adverse reactions: Allergies Allergy/AdvReac Type Severity Reaction Status Date / Time gluten Allergy Rash Verified 05/01/22 10:56 <GUILLE Jay - Last Filed: 06/24/22 20:05> Review of Systems Review of Systems: Yes all other systems are reviewed and are negative <GUILLE De La Paz - Last Filed: 06/24/22 14:52> [facility] Past Medical History Medical History: Medical History Anxiety disorder Asthma Celiac disease Hypertension Menopausal symptom Migraine Seasonal allergies Severe depression Synovial cyst of right knee Venous insufficiency Vitamin B 12 deficiency Vitamin D deficiency <GUILLE Jay - Last Filed: 06/24/22 20:05> Surgical History: Surgical History History of endometrial ablation History of tubal ligation Hx of hysterectomy S/P breast biopsy <GUILLE Jay - Last Filed: 06/24/22 20:05> Family History Family History: Family History Paternal Grandmother Breast cancer Paternal Aunt Breast cancer Mother Hypercholesteremia Age related osteoporosis Father Hypertension <GUILLE Jay - Last Filed: 06/24/22 20:05> Social History Social History: Social History Household Members: Spouse and Family Housing: House Alcohol intake: current Alcohol intake frequency: holidays/special occasions only Alcohol type: beer and hard liquor Patient Tobacco Use Status: Never used Tobacco e-Cigarette/Vaping Use: Never Used Advance Directives: No Advance Directives Information Provided: Yes Current occupational status: disabled <GUILLE Jay - Last Filed: 06/24/22 20:05> Physical Exam ED Vital Signs: Vital Signs - 24 hr 06/24/22 11:24 06/24/22 14:40 Temperature 96.8 F 98.3 F Pulse Rate 85 72 Respiratory Rate 16 18 Blood Pressure 116/81 136/82 Pulse Oximetry 98 97 Oxygen Delivery Method Room Air Room Air BMI result Body Mass Index 31.3 <GUILLE Jay - Last Filed: 06/24/22 20:05> Vital Signs - 24 hr 06/24/22 11:24 06/24/22 14:40 Temperature 96.8 F 98.3 F Pulse Rate 85 72 Respiratory Rate 16 18 Blood Pressure 116/81 136/82 Pulse Oximetry 98 97 Oxygen Delivery Method Room Air Room Air BMI result Body Mass Index 31.3 <GUILLE De La Paz Last Filed: 06/24/22 14:52> Appearance: Alert. Oriented X3. No acute distress. Eyes: Pupils equal, round and reactive to light. ENT: Pharynx normal. Neck: Normal inspection. Neck supple. CVS: Normal heart rate and rhythm. Pulses normal. Respiratory: No respiratory distress. Breath sounds normal. Abdomen: Soft with mild LLQ and suprapubic tenderness to deep palpation only, no rebound or guarding, normal +BS x4 Skin: Skin warm and dry. Normal skin color. Normal skin turgor. No rashes. Extremities: No lower extremity edema. Neuro: Oriented X 3. Grossly normal, nonfocal <GUILLE De La Paz - Last Filed: 06/24/22 14:52> Course Course Course Narrative: RME: 51 yold female presents to the ED for lower abdominal pain that has worsenes. patient was seen here this past thursday. patient states having bowek movements. no UA symptoms. Vitals signs stable. labs and UA and dry abdominal CT scan ordered <GUILLE Jay Last Filed: 06/24/22 20:05> Reevaluation(s) Reevaluation #1: CT scan with acute uncomplicated colonic diverticulitis of the sigmoid. No leukocytosis. No vomiting. Abdominal exam is reassuring. Patient is stable for discharge home with oral antibiotics, NSAIDs and pain control. Discussed the results, diagnosis and management as well as return precautions. Patient agrees with plan stable for DC. <GUILLE De La Paz - Last Filed: 06/24/22 14:52> Medical Decision Making Differential Diagnosis Differential Diagnoses: The differential diagnosis associated with the presentation includes <GUILLE De La Paz - Last Filed: 06/24/22 14:52> Constipation, obstruction, UTI, diverticulitis, appendicitis, colitis, cholecystitis, PID, ovarian torsion, TOA <GUILLE De La Paz - Last Filed: 06/24/22 14:52> Lab Data MDM Lab Attestation statement: I reviewed the patient's lab results. <GUILLE De La Paz - Last Filed: 06/24/22 14:52> No leukocytosis, no metabolic derangement. <GUILLE De La Paz - Last Filed: 06/24/22 14:52> Result Diagrams: 06/24/22 12:09 06/24/22 12:09 <GUILLE Jay - Last Filed: 06/24/22 20:05> Labs: Lab Results 06/24/22 06/24/22 06/24/22 Range/Units 12:09 12:09 12:09 WBC 8.1 (4.8-10.8) X10*3/uL RBC 5.01 (4.20-5.50) X10*6/uL Hgb 14.0 (12.0-16.0) g/dl Hct 41.9 (37.0-47.0) % MCV 83.6 (80.0-98.0) fL MCH 27.9 (27.0-33.0) pg MCHC 33.4 (31.0-35.0) g/dl RDW 13.3 (11.0-16.0) % Plt Count 333 (160-400) X10*3/uL MPV 9.0 L (9.4-12.3) fL Immature Gran % (Auto) 0.2 (0.0-0.4) % Neut % (Auto) 73.2 H (45-73) % Lymph % (Auto) 17.8 L (20-40) % [place] % (Auto) 6.9 (2-11) % Eos % (Auto) 1.5 (0-4) % Baso % (Auto) 0.4 (0-2) % Lymph # (Auto) 1.4 (1.2-4.9) X10*3/uL [place] # (Auto) 0.6 (0.1-1.2) X10*3/uL Eos # (Auto) 0.1 (0.0-0.4) X10*3/uL Baso # (Auto) 0.0 (0.0-0.2) X10*3/uL Abs Immat Gran (auto) 0.02 (0.00-0.03) X10*3/uL Absolute Neuts (auto) 5.9 (2.0-8.3) x10*3/uL Absolute Nucleated RBC 0.000 (0.0-0.012) X10*3/uL Nucleated RBC % (auto) 0.0 (0.0-0.2) /100WBC PT 12.0 (10.0-13.1) SEC INR 1.0 (0.9-1.1) APTT 36.2 (26.0-36.4) SEC Sodium 139 (135-145) mmol/L Potassium 4.4 (3.3-5.1) mmol/L Chloride 102 (96-108) mmol/L Carbon Dioxide 28 (22-29) mmol/L Anion Gap 13 (12-20) BUN 15 (9-16) mg/dL Creatinine 0.83 (0.5-1.4) mg/dL Estim Creat Clear Calc 87.6 Estimated GFR > 60 Random Glucose 96 (60-115) mg/dL Calcium 9.4 (8.4-10.2) mg/dL Total Bilirubin 0.5 (0.0-1.0) mg/dL AST 20 (5-31) U/L ALT 29 (0-31) U/L Alkaline Phosphatase 96 (39-117) U/L Total Protein 7.1 (6.5-8.0) g/dL Albumin 4.1 (3.5-5.0) g/dL Beta HCG, Quant < 2 mIU/mL <GUILLE Jay - Last Filed: 06/24/22 20:05> Lab Results 06/24/22 06/24/22 06/24/22 Range/Units 12:09 12:09 12:09 WBC 8.1 (4.8-10.8) X10*3/uL RBC 5.01 (4.20-5.50) X10*6/uL Hgb 14.0 (12.0-16.0) g/dl Hct 41.9 (37.0-47.0) % MCV 83.6 (80.0-98.0) fL MCH 27.9 (27.0-33.0) pg MCHC 33.4 (31.0-35.0) g/dl RDW 13.3 (11.0-16.0) % Plt Count 333 (160-400) X10*3/uL MPV 9.0 L (9.4-12.3) fL Immature Gran % (Auto) 0.2 (0.0-0.4) % Neut % (Auto) 73.2 H (45-73) % Lymph % (Auto) 17.8 L (20-40) % [place] % (Auto) 6.9 (2-11) % Eos % (Auto) 1.5 (0-4) % Baso % (Auto) 0.4 (0-2) % Lymph # (Auto) 1.4 (1.2-4.9) X10*3/uL [place] # (Auto) 0.6 (0.1-1.2) X10*3/uL Eos # (Auto) 0.1 (0.0-0.4) X10*3/uL Baso # (Auto) 0.0 (0.0-0.2) X10*3/uL Abs Immat Gran (auto) 0.02 (0.00-0.03) X10*3/uL Absolute Neuts (auto) 5.9 (2.0-8.3) x10*3/uL Absolute Nucleated RBC 0.000 (0.0-0.012) X10*3/uL Nucleated RBC % (auto) 0.0 (0.0-0.2) /100WBC PT 12.0 (10.0-13.1) SEC INR 1.0 (0.9-1.1) APTT 36.2 (26.0-36.4) SEC Sodium 139 (135-145) mmol/L Potassium 4.4 (3.3-5.1) mmol/L Chloride 102 (96-108) mmol/L Carbon Dioxide 28 (22-29) mmol/L Anion Gap 13 (12-20) BUN 15 (9-16) mg/dL Creatinine 0.83 (0.5-1.4) mg/dL Estim Creat Clear Calc 87.6 Estimated GFR > 60 Random Glucose 96 (60-115) mg/dL Calcium 9.4 (8.4-10.2) mg/dL Total Bilirubin 0.5 (0.0-1.0) mg/dL AST 20 (5-31) U/L ALT 29 (0-31) U/L Alkaline Phosphatase 96 (39-117) U/L Total Protein 7.1 (6.5-8.0) g/dL Albumin 4.1 (3.5-5.0) g/dL Beta HCG, Quant < 2 mIU/mL <GUILLE De La Paz Last Filed: 06/24/22 14:52> Independent Interpretation I performed an independent interpretation of an: CT Scan <GUILLE De La Paz - Last Filed: 06/24/22 14:52> Interpretation: Sigmoid diverticulitis noted, no appreciated abscess or perforation. <GUILLE De La Paz Last Filed: 06/24/22 14:52> Radiology Impression Discussion of test interpretation with radiology: I have reviewed the radiologist's reading. <GUILLE De La Paz Last Filed: 06/24/22 14:52> Radiologist Impression: ?CT/CT abdomen pelvis wo IV con IMPRESSION: Acute uncomplicated sigmoid colonic diverticulitis <GUILLE De La Paz Last Filed: 06/24/22 14:52> External Record Review External record reviewed: Office record, Outpatient record, Prior outpatient labs and Prior outpatient radiology <GUILLE De La Paz Last Filed: 06/24/22 14:52> Prescription Management I considered prescription management with: Pain Medication and Antibiotic <GUILLE De La Paz Last Filed: 06/24/22 14:52> Critical Care Time Critical Care Time Critical Care Time: No <GUILLE De La Paz Last Filed: 06/24/22 14:52> Discharge Plan Discharge Clinical Impression: Diverticulitis <GUILLE Jay Last Filed: 06/24/22 20:05> Patient Disposition: Home, Self-Care <GUILLE Jay Last Filed: 06/24/22 20:05> Instructions: Diverticulitis (ED), Diverticulitis Diet (ED) <GUILLE Jay - Last Filed: 06/24/22 20:05> Additional Instructions: Your CT scan showed ?acute uncomplicated sigmoid colonic diverticulitis. ? Take the prescribed antibiotic for this, complete the entire course and did not miss any doses. Recommend taking the prescribed anti-inflammatory pain medication as needed for pain. Recommend liquid diet for the next 48 hours, slowly reintroduce foods to her diet. See the attached dietary recommendations. Follow-up with your doctor. If you develop new or worsening symptoms call 911 or come back to the ER for further evaluation. <GUILLE Jay - Last Filed: 06/24/22 20:05> Prescriptions: New amoxicillin-pot clavulanate 875-125 mg tablet 1 tab PO Q12H Qty: 20 0RF ibuprofen 600 mg tablet 600 mg PO Q8H PRN (Reason: pain) Qty: 20 0RF No Action ondansetron 4 mg tablet,disintegrating 4 mg PO Q8H PRN (Reason: nausea and vomiting) Qty: 20 0RF albuterol sulfate 90 mcg/actuation HFA aerosol inhaler 2 puff inhalation Q4-6H PRN (Reason: shortness of breath or wheezing) Qty: 6.7 0RF ondansetron 4 mg tablet,disintegrating 4 mg PO Q6-8H PRN (Reason: nausea and vomiting) Qty: 10 0RF tramadol 50 mg tablet 50 mg PO Q6H PRN (Reason: pain) Qty: 20 0RF fluticasone propionate 50 mcg/actuation spray,suspension 1 spray intranasal BID Rx Instructions: administer into each nostril [id number] [id number] mg capsule 2 cap PO Q4H PRN Rx Instructions: do not exceed 6 caps per day cetirizine 10 mg tablet 10 mg PO DAILY PRN epinephrine 0.3 mg/0.3 mL auto-injector 0.3 mg IM Q4H PRN montelukast 10 mg tablet 10 mg PO DAILY polyethylene glycol 3350 17 gram powder in packet 17 g PO BID sumatriptan succinate 50 mg tablet See Rx Instructions PO .COMPLEX Rx Instructions: take 1 tab at onset of headache; if no relief may repeat 1 tab after at least 2 hrs; max = 4 tabs/24 hr PO valacyclovir 500 mg tablet 500 mg PO DAILY Qty: 30 8RF Rx Instructions: subsequent refills for surpressive treatment after fill for 38 for acute then start prophylactic treatement <GUILLE Jay - Last Filed: 06/24/22 20:05> Referrals: Alisia Thurman NP [Primary Care Provider] - (diverticulitis) <GUILLE Jay - Last Filed: 06/24/22 20:05> Interventions: ED Discharge Assessment Last Done: 06/24/22 15:02 <GUILLE Jay - Last Filed: 06/24/22 20:05> Discharge Date/Time: 06/24/22 15:02 <GUILLE Jay - Last Filed: 06/24/22 20:05>
[2022-06-24 12:12] LABS: MANUAL DIFF FLAG NO
[2022-06-24 12:16] LABS: Basophils Percent Auto 0.4 % (0-2); Eosinophils Absolute Auto 0.1 X10*3/uL (0.0-0.4); Eosinophils Percent Auto 1.5 % (0-4); Hematocrit 41.9 % (37.0-47.0); Imm Gran Abs Auto 0.02 X10*3/uL (0.00-0.03); Imm Gran Pct Auto 0.2 % (0.0-0.4); Lymphocytes Absolute Auto 1.4 X10*3/uL (1.2-4.9); Lymphocytes Percent Auto 17.8 % (20-40); Mean Corpuscular HGB Conc 33.4 g/dl (31.0-35.0); Mean Corpuscular Hemoglobin 27.9 pg (27.0-33.0); Mean Corpuscular Volume 83.6 fL (80.0-98.0); Monocytes Absolute Auto 0.6 X10*3/uL (0.1-1.2); Monocytes Percent Auto 6.9 % (2-11); Neutrophils Absolute Auto 5.9 x10*3/uL (2.0-8.3); Neutrophils Percent Auto 73.2 % (45-73); Platelet Count 333 X10*3/uL (160-400); Red Blood Count 5.01 X10*6/uL (4.20-5.50); Red Cell Distribution Width 13.3 % (11.0-16.0); White Blood Count 8.1 X10*3/uL (4.8-10.8)
[2022-06-24 12:21] LABS: Partial Thromboplastin Time 36.2 SEC (26.0-36.4)
[2022-06-24 12:47] LABS: Alanine Aminotransferase 29 U/L (0-31); Albumin Level 4.1 g/dL (3.5-5.0); Alkaline Phosphatase 96 U/L (39-117); Anion Gap 13 (12-20); Aspartate Amino Transferase 20 U/L (5-31); Bilirubin Total 0.5 mg/dL (0.0-1.0); Blood Urea Nitrogen 15 mg/dL (9-16); Calcium 9.4 mg/dL (8.4-10.2); Carbon Dioxide 28 mmol/L (22-29); Chloride 102 mmol/L (96-108); Creatinine Clr Calc Pharmacy 87.6; Estimated Glomerular Filt Rate > 60; Glucose Random 96 mg/dL (60-115); HCG Quantitative < 2 mIU/mL; Potassium 4.4 mmol/L (3.3-5.1); Sodium 139 mmol/L (135-145); Total Protein 7.1 g/dL (6.5-8.0)
[2022-06-24 14:40] VITALS: BP 136/82; PULSE 72; RESP 18; TEMP 36.8; O2SAT 97
== END 2022-06-24 15:02 | disposition home or self-care (01) ==
PROVIDERS: Physician Assistant; Emergency Provider Emergency Medicine; PCP Hospitalist
DX: K57.32 Diverticulitis of large intestine without perforation or abscess without bleeding (principal); I10 Essential (primary) hypertension; Z79.899 Other long term (current) drug therapy
CPT/HCPCS: 36415; 74176; 80053; 84702; 85025; 85610; 85730; 99283; 99284

== ENCOUNTER 2022-07-22 12:43 | Outpatient (REF) | payer OTHER, SELFPAY ==
[2022-07-22 14:39] LABS: Iron 104 mcg/dL (30-160); Percent Iron Saturation 31 % (15-50); Total Iron Binding Capacity 337 mcg/dL (228-428); Unsaturated Iron Binding 233 ug/dL
[2022-07-22 14:55] LABS: Ferritin 40 ng/mL (10-250); Vitamin D 25-OH Total 37.6 ng/mL (>30)
[2022-07-24 12:39] LABS: Transglutaminase IgA <1.0 U/mL
[2022-07-24 14:43] LABS: Immunoglobulin A 238 mg/dL (47-310)
[2022-07-29 14:39] LABS: Gliadin Deamidated IgA Ab 5.4 U/mL; Gliadin Deamidated IgG Ab 30.2 U/mL
== END 2022-07-22 12:44 | disposition home or self-care (01) ==
LOC: HO.LAB 12:43
PROVIDERS: PCP Hospitalist; Visit Provider Internal Medicine
DX: K90.0 Celiac disease (principal); K57.92 Diverticulitis of intestine, part unspecified, without perforation or abscess without bleeding
CPT/HCPCS: 36415; 82306; 82728; 82784; 83540; 86258; 86364; 99202

== ENCOUNTER 2022-10-16 06:42 | Day surgery (SDC) | payer OTHER, SELFPAY ==
[2022-10-14 12:25] VITALS: BMI 31.8
--- NOTE | 2022-10-15 10:40 | HO.ANESPROP2 ---
HPI - Anesthesia Eval Consult details Narrative: 52yo F Upper Endoscopy and Colonoscopy PMFSH Active Problems Active Problems: All Active Problems (Updated 09/09/22 @ 11:54 by Alisia Thurman NP) Asthma, mild intermittent, poorly controlled (Acute) Skin rash (Acute) Flu vaccine need (Acute) Recurrent cold sores (Acute) Constipation by delayed colonic transit (Acute) Vitamin D deficiency (Acute) Vitamin B 12 deficiency (Acute) Seasonal allergies (Acute) Migraine (Acute) Celiac disease (Acute) Asthma (Acute) Past Medical History Medical History Anxiety disorder Asthma Celiac disease Hypertension Menopausal symptom Migraine Seasonal allergies Severe depression Synovial cyst of right knee Venous insufficiency Vitamin B 12 deficiency Vitamin D deficiency Family History Family History Paternal Grandmother Breast cancer Paternal Aunt Breast cancer Mother Hypercholesteremia Age related osteoporosis Father Hypertension Surgical History Surgical History History of endometrial ablation History of esophagogastroduodenoscopy (EGD) History of tubal ligation Hx of colonoscopy Hx of hysterectomy S/P breast biopsy Social History Social History Household Members: Spouse and Family Housing: House Alcohol intake: current Alcohol intake frequency: holidays/special occasions only Alcohol type: beer and hard liquor Patient Tobacco Use Status: Never used Tobacco e-Cigarette/Vaping Use: Never Used Current occupational status: disabled Meds Allergies Allergy/AdvReac Type Severity Reaction Status Date / Time gluten Allergy Rash Verified 10/16/22 07:12 Home Medications Medication Instructions Recorded Confirmed Last Taken Type epinephrine 0.3 mg/0.3 mL 0.3 mg IM Q4H PRN Allergic Reaction 05/01/22 10/16/22 Unknown History injection, auto-injector fluticasone propionate 50 1 spray intranasal BID 05/01/22 10/16/22 Unknown History mcg/actuation nasal spray,suspension polyethylene glycol 3350 17 gram 17 g PO BID 05/01/22 10/16/22 Unknown History oral powder packet sumatriptan succinate 50 mg tablet See Rx Instructions PO .COMPLEX 05/01/22 10/16/22 Unknown History Exam Exam Date and Time: October 15, 2022 1040 Height,Weight and Vital Signs: Height 5 ft 6 in Weight 89.358 kg Pertinent Lab Results Pertinent Lab Results: Laboratory Tests 06/24/22 06/24/22 12:09 12:09 WBC 8.1 Hgb 14.0 Hct 41.9 Plt Count 333 Sodium 139 Potassium 4.4 Chloride 102 Carbon Dioxide 28 BUN 15 Creatinine 0.83 Narrative Narrative: EKG 07/2022 Vent. Rate : 073 BPM ? ? Atrial Rate : 073 BPM ?? P-R Int : 152 ms? QRS Dur : 082 ms ? ? QT Int : 378 ms ? ? ? P-R-T Axes : 051 -04 037 degrees ?? QTc Int : 416 ms ? Normal sinus rhythm Low voltage QRS RSR' or QR pattern in V1 suggests right ventricular conduction delay Borderline ECG No previous ECGs available Assessment and Plan Assessment Anesthesia Assessment: Chart Reviewed
[2022-10-16 07:16] VITALS: BMI 31.6
[2022-10-16 07:22] VITALS: BP 126/86; PULSE 71; RESP 15; TEMP 36.3; O2SAT 98
[2022-10-16] MEDS: Sodium Phosphate,Mono-Dibasic 133 ML ENEMA PR (07:45)
[2022-10-16] MEDS: Lactated Ringers 1,000 ML 100 ML IVCONT (07:56)
--- NOTE | 2022-10-16 08:04 | HO.ANESPROP2 ---
[facility] Active Problems Active Problems: All Active Problems (Updated 09/09/22 @ 11:54 by Alisia Thurman NP) Asthma, mild intermittent, poorly controlled (Acute) Skin rash (Acute) Flu vaccine need (Acute) Recurrent cold sores (Acute) Constipation by delayed colonic transit (Acute) Vitamin D deficiency (Acute) Vitamin B 12 deficiency (Acute) Seasonal allergies (Acute) Migraine (Acute) Celiac disease (Acute) Asthma (Acute) Past Medical History Medical History Anxiety disorder Asthma Celiac disease Hypertension Menopausal symptom Migraine Seasonal allergies Severe depression Synovial cyst of right knee Venous insufficiency Vitamin B 12 deficiency Vitamin D deficiency Functional capacity: independent ambulation Patient : No Family History Family History Paternal Grandmother Breast cancer Paternal Aunt Breast cancer Mother Hypercholesteremia Age related osteoporosis Father Hypertension Family history of problems with anesthesia: No Surgical History Surgical History History of endometrial ablation History of esophagogastroduodenoscopy (EGD) History of tubal ligation Hx of colonoscopy Hx of hysterectomy S/P breast biopsy History of Problems with Anesthesia: No Social History Social History Household Members: Spouse and Family Housing: House Alcohol intake: current Alcohol intake frequency: holidays/special occasions only Alcohol type: beer and hard liquor Patient Tobacco Use Status: Never used Tobacco e-Cigarette/Vaping Use: Never Used Use of substances other than those prescribed or required for medical reasons: No Are you DNR?: No Advance Directives: No Advance Directives Information Provided: Yes Current occupational status: disabled Meds Allergies Allergy/AdvReac Type Severity Reaction Status Date / Time gluten Allergy Rash Verified 10/16/22 07:12 Active Medications: Current Medications Albuterol Sulfate (Albuterol Sulfate (0.083%) 2.5 Mg/3 Ml Vial.Neb) 2.5 mg INHALE ONCE PRN PRN Reason: Shortness of Breath/Wheezing Lactated Ringer's (Lr) 1,000 mls @ 100 mls/hr IVCONT .Q10H LUCILA Last Admin: 10/16/22 07:56 Dose: 100 mls/hr Sodium Biphosphate/Sodium Phosphate (Sodium Phosphate,Borden-Dibasic 133 Ml Enema) 133 ml [place] ONCE PRN PRN Reason: Poor Colonoscopy Prep Results Last Admin: 10/16/22 07:45 Dose: 133 ml Home Medications Medication Instructions Recorded Confirmed Last Taken Type epinephrine 0.3 mg/0.3 mL 0.3 mg IM Q4H PRN Allergic Reaction 05/01/22 10/16/22 Unknown History injection, auto-injector fluticasone propionate 50 1 spray intranasal BID 05/01/22 10/16/22 Unknown History mcg/actuation nasal spray,suspension polyethylene glycol 3350 17 gram 17 g PO BID 05/01/22 10/16/22 Unknown History oral powder packet sumatriptan succinate 50 mg tablet See Rx Instructions PO .COMPLEX 05/01/22 10/16/22 Unknown History Exam Exam Date and Time: October 16, 2022 0804 Height,Weight and Vital Signs: Height 5 ft 6 in Weight 88.904 kg Last Vital Signs Temp 97.3 F 10/16/22 07:22 Pulse 71 10/16/22 07:22 Resp 15 10/16/22 07:22 BP 126/86 10/16/22 07:22 Pulse Ox 98 10/16/22 07:22 O2 Del Method Room Air 10/16/22 07:22 Airway Mallampati Class: III TM Dist: >3cm Neck ROM: Full Heart: RRR Lungs: CTA Assessment and Plan Final Anesthetic Review Family History of Problems with Anesthesia: No History of Problems with Anesthesia: No NPO: Yes ASA Class: II Final Preanesthetic Review: Meds/Allgs Chart Reviewed, Consent Obtained/Reviewed and Anes Risks/Benef Reviewed Patient Risk: Intermediate Procedure Risk: Low Anesthetic Plan Anesthetic Plan: MAC: Disposition: Standard PACU
--- NOTE | 2022-10-16 08:28 | MHC.SHP ---
Pre-Procedural Eval Section A Date of Service: 10/16/22 Section B Chief Complaint: Celiac disease,Diverticulitis of intestine Details of Present Illness: Medical History Anxiety disorder Asthma Celiac disease Hypertension Menopausal symptom Migraine Seasonal allergies Severe depression Synovial cyst of right knee Venous insufficiency Vitamin B 12 deficiency Vitamin D deficiency Surgical History History of endometrial ablation History of esophagogastroduodenoscopy (EGD) History of tubal ligation Hx of colonoscopy Hx of hysterectomy S/P breast biopsy Family History Paternal Grandmother Breast cancer Paternal Aunt Breast cancer Mother Hypercholesteremia Age related osteoporosis Father Hypertension Present Medications: see Short Stay Collaborative assessment Allergies: Allergies Allergy/AdvReac Type Severity Reaction Status Date / Time gluten Allergy Rash Verified 10/16/22 07:12 Review of Systems Review of Systems Comment: Ten point ROS negative Exam Exam Comment: Gen appear: No acute distress HEENT: no icterus Chest: No overt resp distress Abd: soft, nontender, nondistended Psych: Stable affect, answering questions appropriately Neuro: A/Ox3 noted to move all extremities spontaneously Ext: no peripheral edema Plan Diagnosis/Plan: Unchanged I have reviewed the history and physical and performed a pertinent physical examination on my patient. No changes have occurred unless specified. Time Spent With Patient Time: Total time managing care of this patient today ____ minutes.
--- NOTE | 2022-10-16 08:39 | P.OP_ITS ---
Operative Note Operative Note Date of Service: 10/16/22 Narrative: Procedure: Esophagogastroduodenoscopy and colonoscopy Endoscopist: Marissa Peck MD Indication: Celiac disease, diverticulitis Anesthesia Provider: Dr Chantelle Wakefield? Anesthesia Type: MAC ? Instrument: Olympus GIF-H190 and PCF-190L EGD Procedure:?? The procedure, indications, preparation and potential complications were reviewed with the patient, who indicated understanding and gave written informed consent to proceed. A physical exam was performed. The endoscope was introduced through the mouth, and advanced to the second part of duodenum. The mucosa was carefully examined on slow withdrawal of the endosc ope. The patient tolerated the procedure well. There were no immediate complications.? EGD Findings:? * Esophagus:? Normal mucosa noted in the entire esophagus. The Z line was at 34 cm. A small hiatal hernia was noted with the diaphragmatic hiatus at 37 cm * Stomach:? Normal mucosa was noted in the stomach. * Duodenum:? Normal mucosa was noted in the whole of the examined duodenum. Cold forceps biopsies were taken from duodenal bulb and second portion of the duodenum to monitor celiac sprue activity. Colonoscopy Procedure:? The patient was then turned for the colonoscopy. A digital rectal exam was performed which was normal.? A distal attachment cap was affixed to the tip of the scope and the colonoscope was then inserted through the anus and advanced through the colon to the cecum at 80 cm,and terminal ileum.? Appendiceal orifice and ileocecal valve were identified.? Mucosa was carefully examined under high definition white light as the instrument was slowly withdrawn in a retrograde panoramic fashion. Retroflexion was performed in rectum. The procedure was not difficult. There were no immediate obvious complications. The quality of the prep was BBPS: 3+3+2 = adequate Withdrawal time 7 minutes. Limitations: No limitations.? Findings: Mucosa: Abormal mucosa with erythema and loss of normal vascular pattern was noted in sigmoid colon. Cold forceps biopsies were taken to rule out segmental colitis a/w diverticulosis. Protruding lesions: * Medium external hemorrhoids without stigmata of recent bleeding. Excavated lesions: * Multiple small and medium mouthed diverticula in sigmoid colon Impression: 1. Hiatal hernia 2. Normal stomach 3. Normal duodenum (biopsy) 4. Abnormal sigmoid mucosa (biopsy) 5. Diverticulosis 6. External hemorrhoids Recommendations:?? * Follow biopsy results. Our office will call or send a letter with results within 7-10 days. * Avoid NSAIDs and smoking. * Repeat colonoscopy in 10 years for crc screening. * Add fiber supplementation * Follow up in GI office as scheduled. Educational hand outs were provided at discharge.
[2022-10-16 09:23] VITALS: BP 116/71; PULSE 75; RESP 16; TEMP 36.1; O2SAT 96
[2022-10-16 09:38] VITALS: BP 131/89; PULSE 64; RESP 18; O2SAT 97
[2022-10-16 09:53] VITALS: BP 131/86; PULSE 61; RESP 18; TEMP 36.7; O2SAT 96
--- NOTE | 2022-10-16 09:55 | HO.POSTANES ---
Post Anesthesia Evaluation Post Anesthesia Evaluation Date of Service: 10/16/22 Vital Signs: Vital Signs Temp Pulse Resp BP Pulse Ox O2 Del Method 10/16/22 09:38 64 18 131/89 97 Room Air 10/16/22 09:23 97.0 F 75 16 116/71 96 Room Air 10/16/22 07:22 97.3 F 71 15 126/86 98 Room Air Anesthesia: Monitored Mental Status: Awake Pain Control: Satisfactory Nausea/Vomiting: None Hydration: Adequate Anesthesia-Related Issues: No Anes. Related Issues
== END 2022-10-16 10:55 | disposition home or self-care (01) ==
PROVIDERS: PCP Hospitalist; Visit Provider Internal Medicine
PROC: (CPT 45380; principal; 2022-10-16 08:40)
DX: K57.30 Diverticulosis of large intestine without perforation or abscess without bleeding (principal); K64.8 Other hemorrhoids; K63.89 Other specified diseases of intestine; K90.0 Celiac disease; K44.9 Diaphragmatic hernia without obstruction or gangrene; J45.909 Unspecified asthma, uncomplicated; I10 Essential (primary) hypertension; F32.A Depression, unspecified; F41.1 Generalized anxiety disorder; Z79.51 Long term (current) use of inhaled steroids; Z79.899 Other long term (current) drug therapy
CPT/HCPCS: 45380; 43239; 88305

== ENCOUNTER → 2022-11-12 12:25 | Outpatient (BNVA) | payer OTHER, SELFPAY | PROVIDERS: PCP Hospitalist; Visit Provider Internal Medicine | DX: K90.0 Celiac disease (principal); K57.92 Diverticulitis of intestine, part unspecified, without perforation or abscess without bleeding; K44.9 Diaphragmatic hernia without obstruction or gangrene; K57.30 Diverticulosis of large intestine without perforation or abscess without bleeding; K64.4 Residual hemorrhoidal skin tags; Z98.890 Other specified postprocedural states | CPT/HCPCS: 99212 ==

== ENCOUNTER 2022-11-14 09:18 | Outpatient (REF) | payer OTHER, SELFPAY ==
[2022-11-17 13:09] LABS: TS Negative Control Passed; TS Panel A 1; TS Panel B 1; TS Positive Control Passed; TSpotTB Negative (Negative)
== END 2022-11-14 09:19 | disposition home or self-care (01) ==
LOC: HO.WFDLDS 09:18
PROVIDERS: Visit Provider Nurse Practitioner Family
DX: Z11.1 Encounter for screening for respiratory tuberculosis (principal)
CPT/HCPCS: 36415; 86481

== ENCOUNTER 2022-12-22 15:20 | Emergency (ER) | payer OTHER, SELFPAY ==
--- NOTE | ~2022-12-22 | XR_ITS ---
EXAMINATION: XR SHOULDER, RIGHT CLINICAL INFORMATION: Shoulder pain COMPARISON: None available. TECHNIQUE: AP external rotation, Grashey, scapular Y, and axillary views of the right shoulder. FINDINGS: No acute fracture or dislocation. Mild acromioclavicular arthritis. Glenohumeral and acromioclavicular alignment is anatomic with normal joint space. No abnormal soft tissue calcifications. XR/XR shoulder RT min 2V IMPRESSION: Mild acromioclavicular arthritis. No radiographic evidence of acute fracture or dislocation.
--- NOTE | 2022-12-22 15:32 | ED.GENADULT ---
HPI - General Adult General Chief complaint: Chest Pain Stated complaint: right arm and shoulder pain x2 wks Time Seen by Provider: 12/22/22 23:48 Source: patient, RN notes reviewed and old records reviewed Mode of arrival: ambulatory Limitations: no limitations History of Present Illness HPI narrative: 52-year-old female presents for evaluation of right shoulder pain. Patient reports that she has had the pain consistently for the last 3 weeks. Her pain is worse with movement via She has some radiation to her right upper chest and down her right arm Denies any specific injury Patient reports that she works at a [employer] but she does not lift patients. She does state that she occasionally pushes them around in the wheelchair She has been taking Tylenol with minimal to no relief of her symptoms No other complaints or concerns Related Data Home Medications Medication Instructions Recorded Confirmed epinephrine 0.3 mg/0.3 mL 0.3 mg IM Q4H PRN Allergic Reaction 05/01/22 11/14/22 injection, auto-injector fluticasone propionate 50 1 spray intranasal BID 05/01/22 11/14/22 mcg/actuation nasal spray,suspension polyethylene glycol 3350 17 gram 17 g PO BID 05/01/22 10/16/22 oral powder packet sumatriptan succinate 50 mg tablet See Rx Instructions PO .COMPLEX 05/01/22 11/14/22 Previous Rx's Medication Instructions Recorded albuterol sulfate 90 mcg/actuation 2 puff inhalation Q4-6H PRN 03/14/22 aerosol inhaler shortness of breath or wheezing #6.7 grams valacyclovir 500 mg tablet 500 mg PO DAILY #30 tabs 05/01/22 cetirizine 10 mg tablet 10 mg PO DAILY #90 tabs 09/09/22 diphenhydramine HCl 25 mg tablet 25 mg PO BEDTIME PRN sleep #30 tabs 09/09/22 (Benadryl Allergy) fluticasone furoate 100 1 inh inhalation DAILY #60 ea 09/09/22 mcg-vilanterol 25 mcg/dose inhalation powder montelukast 10 mg tablet 10 mg PO BEDTIME #30 tabs 12/08/22 (Singulair) naproxen 500 mg tablet 500 mg PO BID PRN pain #20 tabs 12/23/22 Allergies Allergy/AdvReac Type Severity Reaction Status Date / Time Seasonal Allergies Allergy Severe Itchy Eyes Verified 11/14/22 08:45 gluten Allergy Rash Verified 11/14/22 08:45 Review of Systems Constitutional: Constitutional: Reports as per HPI, Denies chills, Denies fatigue, Denies fever(s) and Denies headache(s) ENT: Denies headache(s) Cardiovascular: Cardiovascular: Denies dyspnea Respiratory: Respiratory: Denies cough and Denies dyspnea Gastrointestinal: Gastrointestinal: Denies abdominal pain, Denies constipation and Denies vomiting Genitourinary: Genitourinary: Denies dysuria Musculoskeletal: Musculoskeletal: Reports arthralgias, Reports joint swelling and Reports limited range of motion Neurologic: Denies headache(s) and Denies focal weakness Endocrine: Endocrine: Denies fatigue PMFSH Past Medical History Medical History Anxiety disorder Asthma Celiac disease Hypertension Menopausal symptom Migraine Seasonal allergies Severe depression Synovial cyst of right knee Venous insufficiency Vitamin B 12 deficiency Vitamin D deficiency Surgical History History of endometrial ablation History of esophagogastroduodenoscopy (EGD) History of tubal ligation Hx of colonoscopy Hx of hysterectomy S/P breast biopsy Family History Family History Paternal Grandmother Breast cancer Paternal Aunt Breast cancer Mother Hypercholesteremia Age related osteoporosis Father Hypertension Social History Social History Household Members: Spouse and Family Housing: House Alcohol intake: current Alcohol intake frequency: holidays/special occasions only Alcohol type: beer and hard liquor Patient Tobacco Use Status: Never used Tobacco e-Cigarette/Vaping Use: Never Used Advance Directives: No Advance Directives Information Provided: Yes service: No Current occupational status: disabled Cognitive needs: No Hearing needs: No Vision needs: No Physical Exam ED Vital Signs: Vital Signs - 24 hr 12/22/22 15:33 Temperature 98.2 F Pulse Rate 71 Respiratory Rate 18 Blood Pressure 146/94 H Pulse Oximetry 98 Oxygen Delivery Method Room Air BMI result Body Mass Index 32.3 Const General: healthy appearing, comfortable, no acute distress, alert and awake Nutritional Appearance: well nourished Orientation/consciousness: patient oriented x3 HENMT Head: Yes normocephalic and Yes atraumatic Eyes Eyelids: Yes eyelids normal Conjunctivae: conjunctivae normal Sclerae: sclerae normal Corneas: corneas normal Pupils: Equal, round and reactive pupils present EOM: EOMs intact bilaterally Neck Neck: Yes full ROM Resp Effort & Inspection: normal respiratory effort, able to speak in complete sentences and not labored Skin General skin exam: no rashes or lesions noted and elasticity normal Neuro General: patient oriented x3 Cranial nerves: Yes Equal, round and reactive pupils present and Yes Bilaterally intact EOM present Cognition (Neuro): normal cognition Extrem Other: Mild right acromioclavicular joint tenderness. Patient has full range of motion of the right shoulder. No palpable abnormalities Course Course Course Narrative: This is an RME: Additional HPI, ROS, PE not included below will be deferred to primary provider. 52-year-old female presents with atraumatic right shoulder/arm pain for the past few weeks worsening, constant, worse with movement. No associated trauma. Denies numbness and tingling. No previous issues like this. Slight right anterior chest pain. Plan- labs, imagingm, ekg Medical Decision Making Medical Decision Making MDM Narrative: 52-year-old female presents for evaluation of right shoulder pain. Her pain is quite reproducible on exam. Her x-ray is consistent with mild arthritis. EKG is nonischemic, labs are without significant abnormality. Patient's pain is most likely related to mild arthritis. This was discussed with the patient at length and she will follow-up with PCP. Plan for conservative management Differential Diagnosis Differential Diagnoses: The differential diagnosis associated with the presentation includes Arthritis Shoulder pain Chest pain ACS less likely Shoulder bursitis Lab Data [facility] Lab Attestation statement: I reviewed the patient's lab results. No significant lab abnormalities. No leukocytosis, no anemia, normal platelet count. Patient has just above normal at 17, but otherwise no chemistry or electrolyte abnormalities. 12/22/22 15:48 12/22/22 15:48 Labs: Lab Results 12/22/22 12/22/22 12/22/22 Range/Units 15:48 15:48 15:48 WBC 4.9 (4.8-10.8) X10*3/uL RBC 5.05 (4.20-5.50) X10*6/uL Hgb 14.1 (12.0-16.0) g/dl Hct 42.7 (37.0-47.0) % MCV 84.6 (80.0-98.0) fL MCH 27.9 (27.0-33.0) pg MCHC 33.0 (31.0-35.0) g/dl RDW 13.7 (11.0-16.0) % Plt Count 308 (160-400) X10*3/uL MPV 9.4 (9.4-12.3) fL Immature Gran % (Auto) 0.4 (0.0-0.4) % Neut % (Auto) 48.4 (45-73) % Lymph % (Auto) 39.8 (20-40) % [place] % (Auto) 7.3 (2-11) % Eos % (Auto) 3.5 (0-4) % Baso % (Auto) 0.6 (0-2) % Lymph # (Auto) 2.0 (1.2-4.9) X10*3/uL [place] # (Auto) 0.4 (0.1-1.2) X10*3/uL Eos # (Auto) 0.2 (0.0-0.4) X10*3/uL Baso # (Auto) 0.0 (0.0-0.2) X10*3/uL Abs Immat Gran (auto) 0.02 (0.00-0.03) X10*3/uL Absolute Neuts (auto) 2.4 (2.0-8.3) x10*3/uL Absolute Nucleated RBC 0.000 (0.0-0.012) X10*3/uL Nucleated RBC % (auto) 0.0 (0.0-0.2) /100WBC Sodium 142 (135-145) mmol/L Potassium 4.2 (3.3-5.1) mmol/L Chloride 107 (96-108) mmol/L Carbon Dioxide 25 (22-29) mmol/L Anion Gap 14 (12-20) BUN 17 H (9-16) mg/dL Creatinine 0.87 (0.5-1.4) mg/dL Estim Creat Clear Calc 83.8 Estimated GFR > 60 Random Glucose 93 (60-115) mg/dL Calcium 9.7 (8.4-10.2) mg/dL Total Bilirubin 0.4 (0.0-1.0) mg/dL AST 20 (5-31) U/L ALT 27 (0-31) U/L Alkaline Phosphatase 90 (39-117) U/L Troponin I High Sens < 2.7 (<3.5-17.0) ng/L B-Natriuretic Peptide (<100) pg/mL Total Protein 7.6 (6.5-8.0) g/dL Albumin 4.2 (3.5-5.0) g/dL 12/22/22 Range/Units 15:48 WBC (4.8-10.8) X10*3/uL RBC (4.20-5.50) X10*6/uL Hgb (12.0-16.0) g/dl Hct (37.0-47.0) % MCV (80.0-98.0) fL MCH (27.0-33.0) pg MCHC (31.0-35.0) g/dl RDW (11.0-16.0) % Plt Count (160-400) X10*3/uL MPV (9.4-12.3) fL Immature Gran % (Auto) (0.0-0.4) % Neut % (Auto) (45-73) % Lymph % (Auto) (20-40) % [place] % (Auto) (2-11) % Eos % (Auto) (0-4) % Baso % (Auto) (0-2) % Lymph # (Auto) (1.2-4.9) X10*3/uL [place] # (Auto) (0.1-1.2) X10*3/uL Eos # (Auto) (0.0-0.4) X10*3/uL Baso # (Auto) (0.0-0.2) X10*3/uL Abs Immat Gran (auto) (0.00-0.03) X10*3/uL Absolute Neuts (auto) (2.0-8.3) x10*3/uL Absolute Nucleated RBC (0.0-0.012) X10*3/uL Nucleated RBC % (auto) (0.0-0.2) /100WBC Sodium (135-145) mmol/L Potassium (3.3-5.1) mmol/L Chloride (96-108) mmol/L Carbon Dioxide (22-29) mmol/L Anion Gap (12-20) BUN (9-16) mg/dL Creatinine (0.5-1.4) mg/dL Estim Creat Clear Calc Estimated GFR Random Glucose (60-115) mg/dL Calcium (8.4-10.2) mg/dL Total Bilirubin (0.0-1.0) mg/dL AST (5-31) U/L ALT (0-31) U/L Alkaline Phosphatase (39-117) U/L Troponin I High Sens (<3.5-17.0) ng/L B-Natriuretic Peptide 17 (<100) pg/mL Total Protein (6.5-8.0) g/dL Albumin (3.5-5.0) g/dL Independent Interpretation I performed an independent interpretation of an: EKG (Sinus rhythm rate of 67 beats per minute. No ectopy or ischemic changes) and Plain X-Ray Interpretation: Mild arthritic changes, no obvious fracture Radiology Impression Discussion of test interpretation with radiology: I have reviewed the radiologist's reading. (mild arthritis) Discharge Plan Discharge Clinical Impression: Arthritis of right shoulder region Patient Disposition: Home, Self-Care Instructions: Osteoarthritis (ED) Additional Instructions: Take naproxen twice daily for your pain Your blood tests and EKG were reassuring Your x-ray shows arthritis Follow-up with your primary doctor Prescriptions: New naproxen 500 mg tablet 500 mg PO BID PRN (Reason: pain) Qty: 20 0RF No Action montelukast [Singulair] 10 mg tablet 10 mg PO BEDTIME Qty: 30 3RF albuterol sulfate 90 mcg/actuation HFA aerosol inhaler 2 puff inhalation Q4-6H PRN (Reason: shortness of breath or wheezing) Qty: 6.7 0RF fluticasone propionate 50 mcg/actuation spray,suspension 1 spray intranasal BID Rx Instructions: administer into each nostril epinephrine 0.3 mg/0.3 mL auto-injector 0.3 mg IM Q4H PRN (Reason: Allergic Reaction) polyethylene glycol 3350 17 gram powder in packet 17 g PO BID sumatriptan succinate 50 mg tablet See Rx Instructions PO .COMPLEX Rx Instructions: take 1 tab at onset of headache; if no relief may repeat 1 tab after at least 2 hrs; max = 4 tabs/24 hr PO valacyclovir 500 mg tablet 500 mg PO DAILY Qty: 30 8RF Rx Instructions: subsequent refills for surpressive treatment after fill for 38 for acute then start prophylactic treatement fluticasone furoate-vilanterol 100-25 mcg/dose blister with device 1 inh inhalation DAILY Qty: 60 3RF cetirizine 10 mg tablet 10 mg PO DAILY Qty: 90 2RF diphenhydramine HCl [Benadryl Allergy] 25 mg tablet 25 mg PO BEDTIME PRN (Reason: sleep) Qty: 30 3RF
[2022-12-22 15:33] VITALS: BP 146/94; PULSE 71; RESP 18; TEMP 36.8; O2SAT 98; BMI 32.3
--- NOTE | 2022-12-22 15:33 | ECG_ITS ---
Test Reason : CP Blood Pressure : / mmHG Vent. Rate : 067 BPM Atrial Rate : 067 BPM P-R Int : 162 ms QRS Dur : 080 ms QT Int : 392 ms P-R-T Axes : 055 000 042 degrees QTc Int : 414 ms Normal sinus rhythm Low voltage QRS Borderline ECG When compared with ECG of 14-MAR-2022 14:23, No significant change was found Referred By: Tiara Reis Electronically Signed By:KRYSTLE HUERTAS
[2022-12-22 15:59] LABS: MANUAL DIFF FLAG NO
[2022-12-22 16:03] LABS: Basophils Percent Auto 0.6 % (0-2); Eosinophils Absolute Auto 0.2 X10*3/uL (0.0-0.4); Eosinophils Percent Auto 3.5 % (0-4); Hematocrit 42.7 % (37.0-47.0); Hemoglobin 14.1 g/dl (12.0-16.0); Imm Gran Abs Auto 0.02 X10*3/uL (0.00-0.03); Imm Gran Pct Auto 0.4 % (0.0-0.4); Lymphocytes Percent Auto 39.8 % (20-40); Mean Corpuscular Hemoglobin 27.9 pg (27.0-33.0); Mean Corpuscular Volume 84.6 fL (80.0-98.0); Mean Platelet Volume 9.4 fL (9.4-12.3); Monocytes Absolute Auto 0.4 X10*3/uL (0.1-1.2); Monocytes Percent Auto 7.3 % (2-11); Neutrophils Absolute Auto 2.4 x10*3/uL (2.0-8.3); Neutrophils Percent Auto 48.4 % (45-73); Platelet Count 308 X10*3/uL (160-400); Red Blood Count 5.05 X10*6/uL (4.20-5.50); Red Cell Distribution Width 13.7 % (11.0-16.0); White Blood Count 4.9 X10*3/uL (4.8-10.8)
[2022-12-22 16:16] LABS: Alanine Aminotransferase 27 U/L (0-31); Albumin Level 4.2 g/dL (3.5-5.0); Alkaline Phosphatase 90 U/L (39-117); Anion Gap 14 (12-20); Aspartate Amino Transferase 20 U/L (5-31); Bilirubin Total 0.4 mg/dL (0.0-1.0); Blood Urea Nitrogen 17 mg/dL (9-16); Calcium 9.7 mg/dL (8.4-10.2); Carbon Dioxide 25 mmol/L (22-29); Chloride 107 mmol/L (96-108); Creatinine Clr Calc Pharmacy 83.8; Estimated Glomerular Filt Rate > 60; Glucose Random 93 mg/dL (60-115); Potassium 4.2 mmol/L (3.3-5.1); Sodium 142 mmol/L (135-145); Total Protein 7.6 g/dL (6.5-8.0)
[2022-12-22 16:22] LABS: B Type Natriuretic Peptide 17 pg/mL (<100)
[2022-12-22 16:25] LABS: Troponin-I High Sensitivity < 2.7 ng/L (<3.5-17.0)
== END 2022-12-23 00:13 | disposition home or self-care (01) ==
PROVIDERS: Physician Assistant; Emergency Provider Emergency Medicine; PCP Hospitalist
DX: M19.011 Primary osteoarthritis, right shoulder (principal); I10 Essential (primary) hypertension; Z79.899 Other long term (current) drug therapy
CPT/HCPCS: 36415; 73030; 80053; 83880; 84484; 85025; 93005; 99283

== ENCOUNTER → 2022-12-22 15:33 | Outpatient (BNV) | payer OTHER, SELFPAY | PROVIDERS: Emergency Provider Emergency Medicine; PCP Hospitalist; Visit Provider Internal Medicine | DX: R07.9 Chest pain, unspecified (principal); R94.31 Abnormal electrocardiogram [ECG] [EKG] | CPT/HCPCS: 93010 ==

== ENCOUNTER 2022-12-25 12:30 | Outpatient (AMB) | payer OTHER, SELFPAY ==
--- NOTE | 2022-12-25 12:33 | MHC.OFFVIS ---
Intake Vital Signs 12/25/22 12:34 Height 5 ft 6 in Weight 202 lb BMI 32.6 BP 120/62 Intake Visit Reasons: New patient Menopause Allergies Seasonal Allergies Allergy (Severe, Verified 11/14/22 08:45) Itchy Eyes gluten Allergy (Verified 11/14/22 08:45) Rash Is last menstrual period known: No Post menopausal: Yes Patient : No HPI HPI Comments History of Present Illness Details Presenting complaining of hot flashes for the last few years, they are frequent associated with night sweats. Last mammogram was a year ago. No history of abnormal Pap smear, the patient is status post hysterectomy with BSO for myomas [facility] Medical History Anxiety disorder Asthma Celiac disease Hypertension Menopausal symptom Migraine Seasonal allergies Severe depression Synovial cyst of right knee Venous insufficiency Vitamin B 12 deficiency Vitamin D deficiency Surgical History History of endometrial ablation History of esophagogastroduodenoscopy (EGD) History of tubal ligation Hx of colonoscopy Hx of hysterectomy S/P breast biopsy Family History Paternal Grandmother Breast cancer Paternal Aunt Breast cancer Mother Hypercholesteremia Age related osteoporosis Father Hypertension Social History Household Members: Spouse and Family Housing: House Alcohol intake: current Alcohol intake frequency: holidays/special occasions only Alcohol type: beer and hard liquor Patient Tobacco Use Status: Never used Tobacco e-Cigarette/Vaping Use: Never Used Patient : No service: No Current occupational status: disabled Cognitive needs: No Hearing needs: No Vision needs: No Female Reproductive History Menstrual Menopause type: surgical Total pregnancies: 3 Full term: 2 Number of Living Children: 2 Ab spontaneous: 1 Review of Systems Const All systems reviewed & are unremarkable except as noted in HPI and below Reports as per HPI and Reports no additional complaints GI Reports no additional complaints Reports no additional complaints Physical Exam Vital Signs: Last Vital Signs BP 120/62 12/25/22 12:34 BMI result Body Mass Index 32.6 Assessment & Plan Assessment & Plan (1) Vasomotor symptoms due to menopause: Code(s): N95.1 - Menopausal and female climacteric states Plan: Discussed with the patient the options of treatment of hot flashes including hormonal replacement therapy, all the pros, cons, risks and benefits (benefits= prevention of hot flashes, atrophic vaginitis, osteoporosis, decrease colon ca risk; also discussed with the patient the risks of SC, Breast ca, DVT, PE, Strokes). In addition, discussed with the patient non hormonal treatment options for hot flashes treatment in surgical menopausal patient. Options discussed with the patient include the following: SSRI/SNRIs , difficulty has been demonstrated in multiple trials clinical response is more rapid (days) than typical response to SSRI for depression (weeks), they are equally effective in natural versus surgical menopause, they have similar modest benefit for hot flashes; Paroxetine 7.5 mg per day is suggested to be as a 1st choice the SSRI/SNRI such, FDA approved for treatment of hot flashes. If does not work will attempt Citalopram 20 mg per day which is another 1st choice option. Another alternative is Effexor at 37.5 mg per day up to 75 mg per day after the 1st week has similar efficacy for hot flashes relief as low-dose estradiol at 0.5 mg per day, 47% efficacy reduction hot flashes In addition, Gabapentin it 300 mg p.o. t.i.d. especially for patient was hot flashes are at night has been shown to reduce hot flashes, 41% efficacy reduction hot flashes, if 1 of the SSRI/SNRI class of drugs is ineffective or not tolerated trial of gabapentin would be reasonable Other options include the following: Clonidine patch 0.1 mg per day up to 0.3 mg per day is another acceptable less effective options with high side effect profile Oxybutynin 5-10 mg p.o. q.d. has been shown to relieve hot flashes, the most common side effects will be dry mouth in 20-30% of patients Depo-Provera has been shown to reduce hot flashes Norethindrone acetate at 10 mg p.o. q.d. Will start with paroxetine 7.5 mg per day and follow-up in 3 months. Instructions given the patient to schedule a 3 month follow-up appointment/annual exam. All questions answered, the patient verbalized understanding Medications: New paroxetine mesylate(menop.sym) 7.5 mg PO DAILY 3 months 90 caps 0RF Coding Level of Care Code New Pt Level 3 (94242) Diagnoses Vasomotor symptoms due to menopause N95.1
[2022-12-25 12:34] VITALS: BP 120/62; BMI 32.6
== END 2022-12-25 14:40 | disposition home or self-care (01) ==
LOC: HO.HWS 12:30
PROVIDERS: PCP Hospitalist; Visit Provider Obstetrics & Gynecology
DX: N95.1 Menopausal and female climacteric states (principal)
CPT/HCPCS: 99203

== ENCOUNTER → 2022-12-25 12:30 | Outpatient (BNVA) | payer OTHER, SELFPAY | PROVIDERS: PCP Hospitalist; Visit Provider Obstetrics & Gynecology | DX: N95.1 Menopausal and female climacteric states (principal) | CPT/HCPCS: 99202 ==

== ENCOUNTER 2023-02-09 10:29 | Outpatient (REF) | payer OTHER, SELFPAY ==
--- NOTE | ~2023-02-09 | MM_ITS ---
EXAMINATION: MM SCREENING DIGITAL BREAST TOMOSYNTHESIS, BILATERAL CLINICAL INFORMATION: Screening. Asymptomatic. COMPARISON: Mammography: Prior images was sent for an has not been received for comparison as of 03/07/2023. TECHNIQUE: Digital breast tomosynthesis is performed in both the craniocaudal and mediolateral oblique views along with computer-aided detection (CAD). Synthesized 2D images are generated from the tomosynthesis. FINDINGS: There are scattered areas of fibroglandular density (ACR BI-RADS breast composition Category b). There are no significant masses, abnormal calcifications, or other abnormalities. There is a tissue marker present in the right breast from prior benign percutaneous biopsy. MM/MM tomosynthesis screening BI IMPRESSION: No mammographic evidence of malignancy. ASSESSMENT: BI-RADS BI-RADS 2 - Benign Findings RECOMMENDATION: Routine annual mammography screening. 1 year F/U This examination should not preclude the clinical evaluation of a suspicious palpable abnormality. This patient's information was entered into a reminder system with a target due date for their next mammogram.
== END 2023-02-09 10:30 | disposition home or self-care (01) ==
LOC: HO.MAMMO 10:29
PROVIDERS: PCP Hospitalist; Visit Provider Obstetrics & Gynecology
DX: Z12.31 Encounter for screening mammogram for malignant neoplasm of breast (principal)
CPT/HCPCS: 77063; 77067

== ENCOUNTER → 2023-02-09 11:00 | Outpatient (BNV) | payer OTHER, SELFPAY | PROVIDERS: PCP Hospitalist; Visit Provider Radiology Diagnostic Radiology | DX: Z12.31 Encounter for screening mammogram for malignant neoplasm of breast (principal) | CPT/HCPCS: 77063; 77067 ==

== ENCOUNTER 2023-02-26 15:58 | Emergency (ER) | payer OTHER, SELFPAY ==
[2023-02-26 16:21] VITALS: BP 135/81; PULSE 79; RESP 14; TEMP 36.5; O2SAT 98; BMI 32.5
--- NOTE | 2023-02-26 16:22 | ED.GENADULT ---
HPI - General Adult General Chief complaint: Back Pain/Injury Stated complaint: severe back and legs pain Time Seen by Provider: 02/26/23 16:44 Source: patient Mode of arrival: ambulatory Limitations: no limitations History of Present Illness HPI narrative: 52 y o female hx of sciatica, celiacm asthma, migrane presenting for evaluation of b/l atraumatic lower back pain x1 week with worsening today. Patient reports 8/10 pain starting lower lumbar region b/l with radiation to the legs b/l. States that it feels like a severe pressure. Denies numbness and tingling. She describes difficulty ambulating secondary to pain, and disruption in ADLs such as sitting on the toilet, climbing into bed, driving, d/t pain. Denies any trauma, heavy lifting, twisting behaviors. No fevers, chills, chest pain, shortness of breath, dizziness, abdominal pain, diarrhea or constipation, loss of control of bladder or bowels or retention, saddle paresthesias. No history of IVDU. Related Data Home Medications Medication Instructions Recorded Confirmed epinephrine 0.3 mg/0.3 mL 0.3 mg IM Q4H PRN Allergic Reaction 05/01/22 11/14/22 injection, auto-injector fluticasone propionate 50 1 spray intranasal BID 05/01/22 11/14/22 mcg/actuation nasal spray,suspension polyethylene glycol 3350 17 gram 17 g PO BID 05/01/22 10/16/22 oral powder packet sumatriptan succinate 50 mg tablet See Rx Instructions PO .COMPLEX 05/01/22 11/14/22 Previous Rx's Medication Instructions Recorded albuterol sulfate 90 mcg/actuation 2 puff inhalation Q4-6H PRN 03/14/22 aerosol inhaler shortness of breath or wheezing #6.7 grams cetirizine 10 mg tablet 10 mg PO DAILY #90 tabs 09/09/22 diphenhydramine HCl 25 mg tablet 25 mg PO BEDTIME PRN sleep #30 tabs 09/09/22 (Benadryl Allergy) fluticasone furoate 100 1 inh inhalation DAILY #60 ea 09/09/22 mcg-vilanterol 25 mcg/dose inhalation powder montelukast 10 mg tablet 10 mg PO BEDTIME #30 tabs 12/08/22 (Singulair) naproxen 500 mg tablet 500 mg PO BID PRN pain #20 tabs 12/23/22 paroxetine mesylate(menop.sym) 7.5 7.5 mg PO DAILY 3 months #90 caps 12/25/22 mg capsule valacyclovir 500 mg tablet 500 mg PO DAILY #30 tabs 01/28/23 cyclobenzaprine 10 mg tablet 10 mg PO BEDTIME PRN muscle spasm 02/26/23 #7 tabs ketorolac 10 mg tablet 10 mg PO TID PRN pain 5 days #15 02/26/23 tabs lidocaine 5 % topical patch 1 patch topical DAILY PRN pain #15 02/26/23 ea Allergies Allergy/AdvReac Type Severity Reaction Status Date / Time Seasonal Allergies Allergy Severe Itchy Eyes Verified 11/14/22 08:45 gluten Allergy Rash Verified 11/14/22 08:45 Review of Systems Review of Systems: Constitutional : No Weight loss, No Fever, No Chills, No Fatigue, No Malaise Cardiovascular : No Chest Pain, No SOB, No Dyspnea on Exertion, No Orthopnea, No Edema, No Palpitations Respiratory : No Cough, No Sputum, No Wheezing Gastrointestinal : No Nausea, No Vomiting, No Diarrhea, No Constipation, No abdominal Pain, No Hematochezia, No Melena Genitourinary : No Dysuria, No Urinary Frequency, No Hematuria, Musculoskeletal : + joint pain, No Myalgias, No Joint Swelling Skin : No Skin Lesions, No rash Neuro : No Weakness, No Numbness, No Dizziness, No Headache Psych : No Anxiety/Panic, No Depression All other systems reviewed and are negative Yes all other systems are reviewed and are negative [facility] Past Medical History Attestation statement: The following information was validated with the patient. Source: old records reviewed and nursing notes reviewed Medical History Anxiety disorder Asthma Celiac disease Hypertension Menopausal symptom Migraine Seasonal allergies Severe depression Synovial cyst of right knee Venous insufficiency Vitamin B 12 deficiency Vitamin D deficiency Surgical History History of endometrial ablation History of esophagogastroduodenoscopy (EGD) History of tubal ligation Hx of colonoscopy Hx of hysterectomy S/P breast biopsy Family History Family History Paternal Grandmother Breast cancer Paternal Aunt Breast cancer Mother Hypercholesteremia Age related osteoporosis Father Hypertension Social History Social History Household Members: Spouse and Family Housing: House Alcohol intake: current Alcohol intake frequency: holidays/special occasions only Alcohol type: beer and hard liquor Patient Tobacco Use Status: Never used Tobacco e-Cigarette/Vaping Use: Never Used Advance Directives: No Advance Directives Information Provided: No service: No Current occupational status: disabled Cognitive needs: No Hearing needs: No Vision needs: No Physical Exam ED Vital Signs: Vital Signs - 24 hr 02/26/23 16:21 Temperature 97.7 F Pulse Rate 79 Respiratory Rate 14 Blood Pressure 135/81 Pulse Oximetry 98 Oxygen Delivery Method Room Air BMI result Body Mass Index 32.5 VSS Appearance: Alert.? Oriented X3.? No acute distress.? Head: Normocephalic, atraumatic, no step-offs or deformities Eyes: Pupils equal, round and reactive to light.? Neck: Normal inspection.? Neck supple.? CVS: Normal heart rate and rhythm.? Pulses normal.? Respiratory: No respiratory distress.? Breath sounds normal.? Abdomen: Soft and nontender.? Skin: Skin warm and dry.? Normal skin color.? Normal skin turgor.? Extremities: No lower extremity edema.? No calf ttp. 5/5 strength to bilateral upper and lower extremities including dorsiflexion/plantar flexion, hip extension/flexion b/l. No foot drop b/l. Gross sensation in tact, cap refill <2 s, 2+ DP, PT, AT, popliteal pulses b/l. Back: No midline tenderness, no C-spine tenderness, full range of motion, no CVA tenderness bilaterally. +TTP to the lumbar paraspinous muscles b/l without any overlying skin changes, warmth, or edema. Limited ROM secondary to pain, but ambulatory with a steady gait. Able to sit and stand without assistance, as well as complete hip ROM. No saddle paresthesias, sensation intact. Neuro: Oriented X 3.? No motor deficit.? No sensory deficit. CN 2-12 intact Course Course Course Narrative: This is a rapid medical exam: Additional HPI, ROS, PE not included below will be deferred to primary provider. Patient is a 52-year-old female presenting to the emergency department with complaint of back pain radiating down bilateral legs for a few days. States she could barely walk after getting home from work yesterday. Took Tylenol prior to going to bed. Reports one prior episode of sciatica. Reports tingling to legs, denies numbness. Denies saddle anesthesia or bowel or bladder incontinence. Took naproxed today with minimal relief. Denies fevers. Denies falls or other trauma. 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 Upper lumbar midline tenderness noted on exam. Denies any urinary symptoms. Plan: x-ray Reevaluation(s) Reevaluation #1: Educated patient on diagnosis and treatment plan, answered all question, patient verbalizes understanding. At this time patient will be discharged home, advised to return with new or worsening symptoms. Educated on worrisome signs and symptoms and when to return. At this time I feel comfortable discharge home. Time: 18:27 Reevaluation #2: XR/XR lumbar spine 2-3V IMPRESSION: 1. No acute compression deformity or malalignment. 2. Mild to moderate lower lumbar spondylosis, more prominent at L5-S1. Medical Decision Making Medical Decision Making MDM Narrative: 52 y o female presenting for evaluation of b/l atraumatic lower back pain x1 week, worsening today PE significant for +TTP to the lumbar paraspinous muscles b/l without any overlying skin changes, warmth, or edema. Limited ROM secondary to pain, but ambulatory with a steady gait. Able to sit and stand without assistance, as well as complete hip ROM. No saddle paresthesias, sensation intact. 5/5 strength to bilateral upper and lower extremities including dorsiflexion/plantar flexion, hip extension/flexion b/l. No foot drop b/l. Gross sensation in tact, cap refill <2 s, 2+ DP, PT, AT, popliteal pulses b/l. Likely sciatica vs nerve impingement vs back strain/sprain. Less likely fracture vs dislocation but will r/o with imaging. No concern for cauda equina, no saddle paresthesias, no loss of bowel or bladder function, ambulating independently. No concern for epidural abscess or osteomyelitis, patient well appearing, no hx of IVDU or trauma. No signs of overlying cellulitis. no signs of cord compression. Unlikley UTI, pylo or disection Plan -- Imaging Differential Diagnosis Differential Diagnoses: The differential diagnosis associated with the presentation includes Likely sciatica vs nerve impingement vs back strain/sprain. Less likely fracture vs dislocation but will r/o with imaging. No concern for cauda equina, no saddle paresthesias, no loss of bowel or bladder function, ambulating independently. No concern for epidural abscess or osteomyelitis, patient well appearing, no hx of IVDU or trauma. No signs of overlying cellulitis. no signs of cord compression. Unlikley UTI, pylo or disection Admission/Observation Consideration of admission/observation: Escalation of care including admission/observation considered No indication Independent Interpretation I performed an independent interpretation of an: Plain X-Ray Radiology Impression Discussion of test interpretation with radiology: I have reviewed the radiologist's reading. External Record Review External record reviewed: Office record, Outpatient record and Prior outpatient radiology Prescription Management I considered prescription management with: Pain Medication Chronic Conditions Patient?s care impacted by: Other (asthma, migrane ) Discharge Plan Discharge Clinical Impression: Low back pain Patient Disposition: Home, Self-Care Instructions: Sciatica (ED), Acute Low Back Pain (ED) Additional Instructions: Take your medications as prescribed. If you were prescribed antibiotics today, it is important that you take your medication to their entirety, do not skip any doses, do not finish them early. Follow-up with your primary care provider this week. Return to the emergency department with new or worsening symptoms. In case of emergency call 911 If you are unable to walk, lose sensation to your legs, become incontinent of urine or stool, or symptoms worsen in conjunction with a fever and headache, seek immediate medical advice. Take the medication prescribed as needed for pain. Follow up with the orthopedic referral. Toradol has been sent to your pharmacy, you tolerated this well in the department. Please take this as prescribed do not take this with ibuprofen, or other NSAIDs, do not mix this with alcohol. Side effects of this medication including increased risk for bleeding and possible kidney injury. XR/XR lumbar spine 2-3V IMPRESSION: 1. No acute compression deformity or malalignment. 2. Mild to moderate lower lumbar spondylosis, more prominent at L5-S1. Prescriptions: New cyclobenzaprine 10 mg tablet 10 mg PO BEDTIME PRN (Reason: muscle spasm) Qty: 7 0RF ketorolac 10 mg tablet 10 mg PO TID PRN (Reason: pain) 5 Days Qty: 15 0RF lidocaine 5 % adhesive patch,medicated 1 patch topical DAILY PRN (Reason: pain) Qty: 15 0RF Rx Instructions: leave on most painful area for up to 12 hrs No Action montelukast [Singulair] 10 mg tablet 10 mg PO BEDTIME Qty: 30 3RF valacyclovir 500 mg tablet 500 mg PO DAILY Qty: 30 4RF Rx Instructions: subsequent refills for surpressive treatment after fill for 38 for acute then start prophylactic treatement albuterol sulfate 90 mcg/actuation HFA aerosol inhaler 2 puff inhalation Q4-6H PRN (Reason: shortness of breath or wheezing) Qty: 6.7 0RF naproxen 500 mg tablet 500 mg PO BID PRN (Reason: pain) Qty: 20 0RF fluticasone propionate 50 mcg/actuation spray,suspension 1 spray intranasal BID Rx Instructions: administer into each nostril epinephrine 0.3 mg/0.3 mL auto-injector 0.3 mg IM Q4H PRN (Reason: Allergic Reaction) polyethylene glycol 3350 17 gram powder in packet 17 g PO BID sumatriptan succinate 50 mg tablet See Rx Instructions PO .COMPLEX Rx Instructions: take 1 tab at onset of headache; if no relief may repeat 1 tab after at least 2 hrs; max = 4 tabs/24 hr PO fluticasone furoate-vilanterol 100-25 mcg/dose blister with device 1 inh inhalation DAILY Qty: 60 3RF cetirizine 10 mg tablet 10 mg PO DAILY Qty: 90 2RF diphenhydramine HCl [Benadryl Allergy] 25 mg tablet 25 mg PO BEDTIME PRN (Reason: sleep) Qty: 30 3RF paroxetine mesylate(menop.sym) 7.5 mg capsule 7.5 mg PO DAILY 90 Days Qty: 90 0RF Referrals: [facility] [place] Orthopedic Surgeons [Provider Group] - 3 days Physician,Unknown J [Primary Care Provider] - 3 days Stand Alone Forms: Work/School Release
[2023-02-26 18:30] VITALS: BP 135/85; PULSE 67; RESP 16; TEMP 36.7; O2SAT 99
== END 2023-02-26 18:43 | disposition home or self-care (01) ==
PROVIDERS: Emergency Provider Emergency Medicine
DX: M54.50 Low back pain, unspecified (principal)
CPT/HCPCS: 72100; 96372; 99284; J1885

== ENCOUNTER 2023-03-06 12:58 | Outpatient (AMB) | payer OTHER, SELFPAY ==
[2023-03-06 13:09] VITALS: BP 124/74; PULSE 73; RESP 12; TEMP 36.6; O2SAT 99; BMI 32.8
--- NOTE | 2023-03-06 13:09 | MHC.PC.OV ---
Vital Signs 03/06/23 13:09 Height 5 ft 6 in Weight 203 lb 3 oz BMI 32.8 BP 124/74 Blood Pressure Location Rt brachial Position Sitting Respiration 12 Pulse 73 Pulse Source Pulse Oximeter Temp 97.8 F Temp Source Temporal Artery Scan Pulse Oximetry (%) 99 Oxygen Delivery Method Room Air Intake Visit Reasons: 2-3 m fu for allergies and asthma Intake Note: Patient would like to get her flu shot today. Patient would like a new epi pen sent to pharmacy. Patient would also like a refill on her albuterol inhaler. [employer] Paralegal Required: No Accompanied by: Self / Same As Patient Allergies Seasonal Allergies Allergy (Severe, Verified 03/06/23 14:01) Itchy Eyes gluten Allergy (Verified 03/06/23 14:01) Rash Medication List - Last Reconciled 03/06/23 by Jus Beckett CNP albuterol sulfate 90 mcg/actuation 2 puffs inhalation Q4-6H PRN cetirizine 10 mg PO DAILY cyclobenzaprine 10 mg PO BEDTIME PRN diphenhydramine HCl (Benadryl Allergy) 25 mg PO BEDTIME PRN epinephrine 0.3 mg IM Q4H PRN fluticasone furoate-vilanterol 100-25 mcg/dose 1 inh inhalation DAILY fluticasone propionate 50 mcg/actuation 1 spray intranasal BID lidocaine 5% 1 patch topical DAILY PRN montelukast (Singulair) 10 mg PO BEDTIME paroxetine mesylate(menop.sym) 7.5 mg PO DAILY 3 months polyethylene glycol 3350 17 grams PO BID valacyclovir 500 mg PO DAILY Tobacco use date assessed: 03/06/23 Dental Screening Dental Screen Date: 03/06/23 Did you have a dental visit in the last 12 months?: No Did you have a dental problem in the last 6 months where you did not have access to dental care?: No Was dental information given to patient?: Yes HPI HPI Comments History of Present Illness Details 52-year-old female presents for allergies and asthma follow-up. Her last office visit was in October. She had a physical exam. She notes that she has been taking her medications as prescribed. She denies any acute symptoms. She requests a refill of her EpiPen. [facility] Medical History Migraine Celiac disease Hypertension Vitamin D deficiency Vitamin B 12 deficiency Venous insufficiency Synovial cyst of right knee Severe depression Menopausal symptom Anxiety disorder Seasonal allergies Asthma Surgical History History of esophagogastroduodenoscopy (EGD) Hx of colonoscopy History of endometrial ablation History of tubal ligation S/P breast biopsy Hx of hysterectomy Family History Paternal Grandmother Breast cancer Paternal Aunt Breast cancer Mother Hypercholesteremia Age related osteoporosis Father Hypertension Social History Household Members: Spouse and Family Housing: House Alcohol intake: current Alcohol intake frequency: holidays/special occasions only Alcohol type: beer and hard liquor Patient Tobacco Use Status: Never used Tobacco e-Cigarette/Vaping Use: Never Used service: No Current occupational status: employed and disabled 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 yBron Ruffin, Apple Galloway, Jesus Sahu and colleagues, with an educational albin from [employer] ([employer] ACT Questionnaire In the past 4 weeks, how much of the time did your asthma keep you from getting as much done at work, school or at home?: None of the time During the past 4 weeks, how often have you had shortness of breath?: Not at all During the past 4 weeks, how often did your asthma symptoms wake you up at night or earlier than usual in the morning?: Not at all During the past 4 weeks, how often have you had to use your rescue inhaler or nebulizer medication?: Not at all How would you rate your asthma control during the past 4 weeks?: Well controlled ACT Interpretation: Negative Score: 24 Review of Systems Const Details: Const Denies chills, Denies fatigue, Denies fever(s), Denies headache(s) and Denies weakness ENT Denies dizziness and Denies headache(s) Card Denies chest pain, Denies lightheadedness, Denies dyspnea and Denies other (Palpitations) Resp Denies cough, Denies dyspnea, Denies wheezing and Denies other ( shortness of breath) GI Denies abdominal pain, Denies melena, Denies hematochezia, Denies change in bowel habits, Denies dyspepsia and Denies nausea Denies hematuria and Denies dysuria Musc Denies abnormal gait, Denies myalgias, Denies arthralgias, Denies numbness and Denies tingling Skin/Breast Denies rash, Denies unusual bruising and Denies wounds Neuro Denies abnormal gait, Denies dizziness, Denies headache(s), Denies memory loss, Denies numbness, Denies Sensory deficit (Neuro), Denies tingling and Denies weakness Psych Denies anxiety, Denies depression, Denies memory loss Endo Denies cold intolerance, Denies fatigue, Denies heat intolerance, Denies polydipsia and Denies polyuria Aller/Immun Denies wheezing Physical exam (Primary Care) Vital Signs: Last Vital Signs Temp 97.8 F 03/06/23 13:09 Pulse 73 03/06/23 13:09 Resp 12 03/06/23 13:09 BP 124/74 03/06/23 13:09 Pulse Ox 99 03/06/23 13:09 Oxygen Delivery Method Room Air 03/06/23 13:09 BMI result Body Mass Index 32.8 Tobacco/Smoking Status: Tobacco use Status Tobacco use date assessed 03/06/23 03/06/23 13:22 Patient Tobacco Use Status Never used Tobacco 03/06/23 13:22 e-Cigarette/Vaping Use Never Used 03/06/23 13:22 Thrive Assessment: Date of Thrive Assessment Date Thrive assessed 07/01/22 03/06/23 13:22 Const Other: General: no acute distress and well developed Nutritional Appearance: well nourished Orientation/consciousness: patient oriented x3 HENMT Head: Yes normocephalic and Yes atraumatic Eyes General: appearance normal, both eyes and all related structures Pupils: Equal, round and reactive pupils present EOM: EOMs intact bilaterally Resp Effort & Inspection: normal respiratory effort Auscultation: clear to auscultation bilaterally Cardio Rate: regular rate Rhythm: regular rhythm Heart sounds: S1 normal heart sound present, S2 normal heart sound present, no gallops, no murmurs and no rubs GI Palpation (GI): No Abdominal aortic bruit present, Soft to palpation, nontender, No hepatosplenomegaly present and No Rebound tenderness present Auscultation: normal bowel sounds General: Yes no CVA tenderness Back/Spine/Pelvis Back: no CVA tenderness Cervical Spine: cervical ROM normal and No Cervical spine tenderness Thoracic/Lumbar Spine: thoraco-lumbar ROM normal, No pain with thoraco-lumbar ROM, No thoracic spinal tenderness and No lumbar spinal tenderness Extrem General: Yes normal to inspection, No edema and No calf tenderness Skin General: warm and dry. Normal skin color. Normal skin turgor Lesions: no lesions Rashes: no rashes Trauma: no lacerations or abrasions Wounds: no wounds Nails: normal Neuro General: patient oriented x3, gait normal and no focal neuro deficit Cranial nerves: Yes Equal, round and reactive pupils present Cognition (Neuro): normal cognition Gait exam (Neuro): Normal gait present Sensory Exam: No Sensory deficit (Neuro) Psych Appearance: grossly normal Affect: normal affect Attitude: cooperative Thought process: Normal thought process present Assessment and Plan Assessment & Plan (1) Asthma, well controlled: Code(s): J45.909 - Unspecified asthma, uncomplicated Plan: Her ACT score is 24, well to control asthma Continue with current treatment regimen EpiPen refill sent to the pharmacy. Instructed on use advised to call 911 after 1st use Advised to schedule a complete physical exam for next year Return with symptoms or concerns Verbalized understanding and agreed with treatment plan. Medications: New epinephrine 0.3 mg (0.3 mL) IM Q4H PRN 2 ea 2RF Allergic Reaction Coding Level of Care Code Est Pt Level 2 (53047) Diagnoses Asthma, well controlled J45.909
== END 2023-03-06 14:17 | disposition home or self-care (01) ==
PROVIDERS: PCP Hospitalist; Visit Provider Nurse Practitioner Family
DX: J45.909 Unspecified asthma, uncomplicated (principal)
CPT/HCPCS: 99213

== ENCOUNTER 2023-06-05 11:27 | Outpatient (AMB) | payer OTHER, SELFPAY ==
--- NOTE | 2023-06-05 12:12 | AM.OFFWIN_ITS ---
Intake Vital Signs 06/05/23 12:25 Height 5 ft 6 in Weight 206 lb BMI 33.2 BP 126/70 Blood Pressure Location Lt brachial Position Sitting Pulse 72 Pulse Source Pulse Oximeter Temp 97.7 F Temp Source Temporal Artery Scan Pulse Oximetry (%) 96 Oxygen Delivery Method Room Air Intake Visit Reasons: EP LT eye inside sty Intake Note: pt is here today for lft eye inside sty started Patient Tobacco Use Status: Never used Tobacco Allergies Seasonal Allergies Allergy (Severe, Verified 03/06/23 14:01) Itchy Eyes gluten Allergy (Verified 03/06/23 14:01) Rash HPI HPI Comments History of Present Illness Details This is a 52-year-old female who presents to the office with left lower eyelid swelling x2 days. Patient states she started to develop left lower eyelid swelling yesterday. She noticed a bump on the inside of her eyelid. PFSH Medical History Migraine Celiac disease Hypertension Vitamin D deficiency Vitamin B 12 deficiency Venous insufficiency Synovial cyst of right knee Severe depression Menopausal symptom Anxiety disorder Seasonal allergies Asthma Surgical History History of esophagogastroduodenoscopy (EGD) Hx of colonoscopy History of endometrial ablation History of tubal ligation S/P breast biopsy Hx of hysterectomy Family History Paternal Grandmother Breast cancer Paternal Aunt Breast cancer Mother Hypercholesteremia Age related osteoporosis Father Hypertension Social History Household Members: Spouse and Family Housing: House Alcohol intake: current Alcohol intake frequency: holidays/special occasions only Alcohol type: beer and hard liquor Patient Tobacco Use Status: Never used Tobacco e-Cigarette/Vaping Use: Never Used service: No Current occupational status: employed and disabled 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 Cognitive needs: No Hearing needs: No Vision needs: No Review of Systems Const All systems reviewed & are unremarkable except as noted in HPI and below Reports no additional complaints Eyes Reports no additional complaints ENT Reports no additional complaints Card Reports no additional complaints Resp Reports no additional complaints GI Reports no additional complaints Reports no additional complaints Musc Reports no additional complaints Skin/Breast Reports system reviewed and no additional complaints, except as documented Neuro Reports no additional complaints Psych Reports no additional complaints Endo Reports no additional complaints Galo/Lymph Reports no additional complaints Aller/Immun Reports no additional complaints Physical Exam Vital Signs: Last Vital Signs Temp 97.7 F 06/05/23 12:25 Pulse 72 06/05/23 12:25 BP 126/70 06/05/23 12:25 Pulse Ox 96 06/05/23 12:25 Oxygen Delivery Method Room Air 06/05/23 12:25 BMI result Body Mass Index 33.2 Const Other: Vital signs reviewed. Constitutional: Non-toxic appearing. No acute distress. Well-developed and well-nourished. HEENT: Normocephalic and atraumatic. + Internal hordeolum of left lower eyelid. No periorbital erythema. Skin: Warm and dry. No rashes or lesions noted. Neck: Full and painless range of motion. No cervical lymphadenopathy. Cardio: Regular rate. No lower extremity edema. No JVD. Pulmonary: No respiratory distress. No accessory muscle usage. Gastrointestinal: Soft, nontender, and nondistended in all 4 quadrants. Musculoskeletal: Normal range of motion in joints throughout the body. No deformity or other signs of injury. Neuro: Alert and oriented x4. Cranial nerves 2-12 grossly intact. No focal deficits appreciated. Psych: Normal mood and affect. Assessment & Plan Assessment & Plan (1) Internal hordeolum of left eye: Code(s): H00.026 - Hordeolum internum left eye, unspecified eyelid Qualifiers: Eyelid: lower Qualified Code(s): H00.025 - Hordeolum internum left lower eyelid Plan: 52-year-old female presenting to the office complaining of left lower eyelid swelling pain the x2 days on physical examination, and internal lower eyelid. There is edema to suggest preseptal cellulitis. Patient sent home clindamycin and and recommended/warm compresses throughout the day. Patient verbalized understanding and she is in agreement with the plan. Medications: New erythromycin 0.5 inches ophthalmic (eye) QID 3.5 grams 0RF Coding Level of Care Code Est Pt Level 3 (94604) Diagnoses Hordeolum internum of left lower eyelid H00.025 Eyelid: lower
[2023-06-05 12:25] VITALS: BP 126/70; PULSE 72; TEMP 36.5; O2SAT 96; BMI 33.2
== END 2023-06-05 13:18 | disposition home or self-care (01) ==
PROVIDERS: PCP Nurse Practitioner Family; Visit Provider Physician Assistant Medical
DX: H00.025 Hordeolum internum left lower eyelid (principal)
CPT/HCPCS: 99213

== ENCOUNTER 2023-11-02 12:23 | Outpatient (REF) | payer OTHER, SELFPAY ==
[2023-11-02 13:31] LABS: Hematocrit 41.9 % (37.0-47.0); Hemoglobin 14.4 g/dl (12.0-16.0); Mean Corpuscular HGB Conc 34.4 g/dl (31.0-35.0); Mean Corpuscular Hemoglobin 28.7 pg (27.0-33.0); Mean Corpuscular Volume 83.5 fL (80.0-98.0); Mean Platelet Volume 9.3 fL (9.4-12.3); Platelet Count 302 X10*3/uL (160-400); Red Blood Count 5.02 X10*6/uL (4.20-5.50); Red Cell Distribution Width 13.2 % (11.0-16.0); White Blood Count 5.9 X10*3/uL (4.8-10.8)
[2023-11-02 13:59] LABS: Alanine Aminotransferase 32 U/L (0-31); Albumin Level 4.3 g/dL (3.5-5.0); Alkaline Phosphatase 95 U/L (39-117); Anion Gap 9 (12-20); Aspartate Amino Transferase 22 U/L (5-31); Bilirubin Total 0.3 mg/dL (0.0-1.0); Blood Urea Nitrogen 21 mg/dL (9-16); Calcium 9.9 mg/dL (8.4-10.2); Carbon Dioxide 28 mmol/L (22-29); Chloride 106 mmol/L (96-108); Estimated Glomerular Filt Rate > 60; Glucose Random 86 mg/dL (60-115); Iron 53 mcg/dL (30-160); Percent Iron Saturation 17 % (15-50); Potassium 3.9 mmol/L (3.3-5.1); Sodium 139 mmol/L (135-145); Total Iron Binding Capacity 309 mcg/dL (228-428); Total Protein 7.5 g/dL (6.5-8.0); Unsaturated Iron Binding 256 ug/dL
[2023-11-02 14:10] LABS: Ferritin 51 ng/mL (10-250); Vitamin D 25-OH Total 36.2 ng/mL (>30)
[2023-11-02 14:21] LABS: Folate 18.4 ng/mL (> or = 4.0); Vitamin B12 362 pg/mL (200-900)
[2023-11-03 10:44] LABS: Immunoglobulin A 219 mg/dL (47-310); Immunoglobulin G 1260 mg/dL (600-1640)
[2023-11-03 20:17] LABS: Gliadin Deamidated IgA Ab 1.9 U/mL; Gliadin Deamidated IgG Ab 42.6 U/mL; Transglutaminase IgA <1.0 U/mL
[2023-11-05 17:49] LABS: Vitamin A 38 mcg/dL (38-98)
[2023-11-06 16:29] LABS: Alpha-Tocopherol 14.9 mg/L (5.7-19.9); Beta-Gamma Tocopherol <1.0 mg/L (<=4.3)
[2023-11-06 17:48] LABS: Vitamin K1 355 pg/mL (130-1500)
== END 2023-11-02 12:24 | disposition home or self-care (01) ==
LOC: HO.LAB 12:23
PROVIDERS: PCP Nurse Practitioner Family; Visit Provider Internal Medicine
DX: K90.0 Celiac disease (principal)
CPT/HCPCS: 36415; 80053; 82306; 82607; 82728; 82746; 82784; 83540; 84446; 84590; 84597; 85027; 86258; 86364; 99212

== ENCOUNTER 2023-11-02 12:23 | Outpatient (AMB) | payer OTHER, SELFPAY ==
--- NOTE | 2023-11-02 12:26 | MHC.OFFVIS ---
Vital Signs 11/02/23 12:27 Height 5 ft 6 in Weight 205 lb 0.478 oz BMI 33.1 BP 110/63 Blood Pressure Location Lt brachial Position Sitting Pulse 71 Intake Visit Reasons: 1 year f/u Intake Note: Belinda presents in the office as a 1 year follow up. CC: not having any concerns! Allergies Seasonal Allergies Allergy (Severe, Verified 11/02/23 12:28) Itchy Eyes gluten Allergy (Verified 11/02/23 12:28) Rash HPI Comments Details: This is a 51-year-old female with past medical history of celiac disease, hypertension, asthma, migraine, recent ER visit for uncomplicated diverticulitis, who has been referred to our office for symptoms as below. 07/22/22: Patient reports that she had been having worsening left lower abdominal pain and cramping which she had attributed to worsening constipation. Initially try to mitigate this with milk of magnesium, but when pain only worsened, she went to the emergency, where she was diagnosed with uncomplicated sigmoid diverticulitis. She does note that for the past couple months, she has had this chronic lower abdominal which is cramping in nature. Often gets worse with passing bowel movement. Prior to this, she does have history of chronic constipation but that used to be without any abdominal pain. Her stools are also more soft now. No blood in stool. Last colonoscopy was > 3 years ago. In terms of her celiac disease, she said she was diagnosed almost 18 years ago. Tries to stick to a gluten free diet at home, but difficult to maintain this when she is working. However, states that she does not notice any significant abdominal cramping or bloating even when she does take any gluten products. Also does not get any diarrhea. Has not had an upper endoscopy/small bowel biopsies in at least 5 years. No celiac serologies in system. 10/16/22: EGD/colo 1. Hiatal hernia 2. Normal stomach 3. Normal duodenum (biopsy) 4. Abnormal sigmoid mucosa (biopsy) 5. Diverticulosis 6. External hemorrhoids Path: A.? Duodenum, biopsy:? Duodenal mucosa with preserved villi and no specific change; no evidence of celiac disease.? B.? Colon, sigmoid, biopsy:? Colonic mucosa with focal lamina propria hemorrhage and no specific change; no evidence of diverticular disease-associated colitis. 11/12/22: Pt reports adhering to GFD now. However, now that she has increased a lot of salad intake, also feeling a bit more bloated. Otherwise, no abd pain, N/V, changes in bowel habits reported. Findings on EGD and colo discussed. 11/02/23: here for routine 1y follow up. No acute issues at this time. Cont to be adherent to GFD. Reports occ bloating which is not related to food intake per her report. DEXA still pending. [facility] Medical History Migraine Celiac disease Hypertension Vitamin D deficiency Vitamin B 12 deficiency Venous insufficiency Synovial cyst of right knee Severe depression Menopausal symptom Anxiety disorder Seasonal allergies Asthma Surgical History History of esophagogastroduodenoscopy (EGD) Hx of colonoscopy History of endometrial ablation History of tubal ligation S/P breast biopsy Hx of hysterectomy Family History Paternal Grandmother Breast cancer Paternal Aunt Breast cancer Mother Hypercholesteremia Age related osteoporosis Father Hypertension Social History Household Members: Spouse and Family Housing: House Alcohol intake: current Alcohol intake frequency: holidays/special occasions only Alcohol type: beer and hard liquor Patient Tobacco Use Status: Never used Tobacco e-Cigarette/Vaping Use: Never Used service: No Current occupational status: employed and disabled 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 Due for micronutrient and serology monitoring - orders placed today. Plan: - Check iron panel, vitamin ADEK - CBC to look for anemia - CMP to look for abnormal LFTs - Check celiac panel for serological activity - DXA scan reordered - Not due for egd Bloating: Could be related to inadvertent gluten intake vs high FODMAPs vs functional. Plan: - celiac serology as above - advised on low fodmap diet - simethicone for symptomatic tx Follow up in a year Follow up after procedures. Orders: Orders XR DEXA axial skeleton 11/02/23 E55.9 - Vitamin D deficiency, unspecified, Z78.0 - Asymptomatic menopausal state Ferritin 11/02/23 K90.0 - Celiac disease Immunoglobulin G 11/02/23 K90.0 - Celiac disease IRON PROFILE 11/02/23 K90.0 - Celiac disease Vitamin D 25-OH Total 11/02/23 K90.0 - Celiac disease Vitamin A 11/02/23 K90.0 - Celiac disease Vitamin E 11/02/23 K90.0 - Celiac disease Complete Blood Count no Diff 11/02/23 K90.0 - Celiac disease Comprehensive Met. Panel 11/02/23 K90.0 - Celiac disease Immunoglobulin A 11/02/23 K90.0 - Celiac disease Vitamin B12 and Folate 11/02/23 K90.0 - Celiac disease Transglutaminase IgA 11/02/23 K90.0 - Celiac disease Vitamin K1 11/02/23 K90.0 - Celiac disease Gliadin Ab Panel 11/02/23 K90.0 - Celiac disease Medications: New simethicone (Gas Relief (simethicone)) 180 mg PO BID 30 days PRN 60 caps 1RF abdominal distention Coding Level of Care Code Est Pt Level 4 (58899) Diagnoses Celiac disease K90.0
[2023-11-02 12:27] VITALS: BP 110/63; PULSE 71; BMI 33.1
== END 2023-11-02 12:47 | disposition home or self-care (01) ==
PROVIDERS: PCP Nurse Practitioner Family; Visit Provider Internal Medicine
DX: K90.0 Celiac disease (principal)
CPT/HCPCS: 99214

== ENCOUNTER 2023-11-16 07:56 | Outpatient (AMB) | payer OTHER, SELFPAY ==
--- NOTE | 2023-11-16 08:00 | MHC.PC.OV ---
Vital Signs 11/16/23 08:05 Height 5 ft 5.55 in Weight 203 lb 8 oz BMI 33.3 BP 108/70 Blood Pressure Location Lt brachial Position Sitting Respiration 12 Pulse 71 Pulse Source Pulse Oximeter Temp 98.1 F Temp Source Oral Pulse Oximetry (%) 98 Oxygen Delivery Method Room Air Intake Visit Reasons: [facility] Intake Note: New patient visit. Need a note for work that she is healthy. Needs referral to [facility] for calluses on both feet. 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 Allergies Seasonal Allergies Allergy (Severe, Verified 11/16/23 08:13) Itchy Eyes gluten Allergy (Verified 11/16/23 08:13) Rash Medication List - Last Reconciled 11/16/23 by Ana Zamarripa, [facility]- albuterol sulfate 90 mcg/actuation 2 puffs inhalation Q4-6H PRN cetirizine 10 mg PO DAILY diphenhydramine HCl (Benadryl Allergy) 25 mg PO BEDTIME PRN epinephrine 0.3 mg (0.3 mL) IM Q4H PRN fluticasone propionate 50 mcg/actuation 1 spray intranasal BID lorazepam (Ativan) 0.5 mg PO BID PRN montelukast (Singulair) 10 mg PO BEDTIME simethicone (Gas Relief (simethicone)) 180 mg PO BID PRN 30 days valacyclovir 500 mg PO DAILY Tobacco use date assessed: 11/16/23 Dental Screening Dental Screen Date: 03/06/23 HPI HPI Comments History of Present Illness Details 53-year-old female with mild intermittent asthma, menopause, vitamin-D deficiency, vitamin B12 deficiency, seasonal allergies, celiac disease, migraine headaches, hypertension, generalized anxiety disorder, venous insufficiency, severe depression, diverticulitis, hiatal hernia, Oliveira cyst on the right Status post endometrial ablation, tubal ligation, breast biopsy, hysterectomy with BSO for myomas benign pathology Social: works in [employer] Living in [place] Health Maintenance: ? Colon 10/16/2022 ? Mammo 02/09/2023 ? DEXA ordered and pending ? PAP n/a d/t STEPHEN ? 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 Plan Tdap today Fasting labs/urine for screening Refills sent on meds RTO in 4-5 months to f/u on Asthma, sooner as needed PFSH Medical History (Updated 11/16/23 @ 08:32 by Ana Zamarripa, [facility]) Constipation by delayed colonic transit Migraine Celiac disease Hypertension Vitamin D deficiency Vitamin B 12 deficiency Venous insufficiency Synovial cyst of right knee Severe depression Menopausal symptom Anxiety disorder Seasonal allergies Asthma Surgical History History of esophagogastroduodenoscopy (EGD) Hx of colonoscopy History of endometrial ablation History of tubal ligation S/P breast biopsy Hx of hysterectomy Family History Paternal Grandmother Breast cancer Paternal Aunt Breast cancer Mother Hypercholesteremia Age related osteoporosis Father Hypertension Social History (Updated 11/16/23 @ 08:10 by Kendal Avalos [employer]UC[employer] DEAN) Household Members: Spouse and Family Housing: House Alcohol intake: current Alcohol intake frequency: holidays/special occasions only Alcohol type: beer and hard liquor Patient Tobacco Use Status: Never used Tobacco e-Cigarette/Vaping Use: Never Used service: No Current occupational status: employed and disabled 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 1. Little interest or pleasure in doing things: not at all 2. Feeling down, depressed, or hopeless: not at all 3. Trouble falling or staying asleep, or sleeping too much: not at all 4. Feeling tired or having little energy: not at all 5. Poor appetite or overeating: not at all 6. Feeling bad about yourself - or that you are a failure or have let yourself or your family down: not at all 7. Trouble concentrating on things, such as reading the newspaper or watching television: not at all 8. Moving or speaking so slowly that other people could have noticed. Or the opposite - being so fidgety or restless that you have been moving around a lot more than usual: not at all 9. Thoughts that you would be better off or of hurting yourself in some way: not at all Total score: 0 Depression Screening Interpretation: Negative Depression Screening Done: Yes 62215 - PHQ-9 Billing: Yes Source: Developed by Drs. Byron Ruffin, Apple Galloway, Jesus Sahu and colleagues, with an educational albin from [employer]. Thrive Questionnaire Date Thrive assessed: 11/16/23 I am a: Patient What is your living situation today?: I have a steady place to live Within the past 12 months, did the food you bought not last and you didn't have the money to get more?: Never true Within the past 12 months, did you worry whether your food would run out before you got money to buy more?: Never true Do you have trouble paying for medicines?: No Do you have trouble getting transportation to medical appointments?: No Do you have trouble paying your heating and electricity bill?: No Do you have trouble taking care of your child, family member or friend?: No Do you have trouble with day-to-day activities such as bathing, preparing meals, shopping, managing finances, etc.?: No Are you currently unemployed and looking for a job?: No Are you interested in more education?: No Please select the resources that you would like help with: None Currently or been in a relationship where the following occur: no concerns reported THRIVE Score: 0 AUDIT C Alcohol Use Questionnaire (AUDIT-C) 1. How often do you have a drink containing alcohol?: 2-4 times a month 2. How many drinks containing alcohol do you have on a typical day when you are drinking?: 3 or 4 3. How often do you have six or more drinks on one occasion?: Less than monthly Total Score: 4 Score Reviewed/Action Taken: Yes BETHANIE-7 AMB Questionnaire BETHANIE-7 Date BETHANIE - 7 assessed: 11/16/23 Feeling nervous, anxious, or on edge: 0 = Not at all Not being able to stop or control worryin = Not at all Worrying too much about different things: 0 = Not at all Trouble relaxin = Not at all Being so restless that it is hard to sit still: 0 = Not at all Becoming easily annoyed or irritable: 0 = Not at all Feeling afraid as if something awful might happen: 0 = Not at all Total BETHANIE-7 score (0-4 normal; 5-9 mild; 10-14 moderate; 15-21 severe): 0 Source: Developed by Drs. Byron Ruffin, Apple Galloway, Jesus Sahu and colleagues, with an educational albin from [employer]. BETHANIE-7 Assessment Billing BETHANIE-7 Assessment Tool: BETHANIE-7 Assessment 95433 ACT Questionnaire In the past 4 weeks, how much of the time did your asthma keep you from getting as much done at work, school or at home?: None of the time During the past 4 weeks, how often have you had shortness of breath?: Not at all During the past 4 weeks, how often did your asthma symptoms wake you up at night or earlier than usual in the morning?: Not at all During the past 4 weeks, how often have you had to use your rescue inhaler or nebulizer medication?: Not at all How would you rate your asthma control during the past 4 weeks?: Completely controlled ACT Interpretation: Negative Score: 25 Review of Systems Const Details: Constitutional: Denies fever. Skin: Denies rash. Eye: Denies eye pain. ENMT: Denies sore throat and nasal congestion. Respiratory: Denies shortness of breath and cough. Gastrointestinal: Denies nausea, vomiting or abdominal pain. Cardiovascular: Denies chest pain and syncope. Genitourinary: Denies dysuria. Musculoskeletal: Denies back pain and extremity pain. Neurologic: Denies headaches, confusion, and weakness. Psychiatric: Denies suicidal thoughts and substance abuse. Allergy/ Immunologic: Denies impaired immunity. Physical exam (Primary Care) Vital Signs: Last Vital Signs Temp 98.1 F 11/16/23 08:05 Pulse 71 11/16/23 08:05 Resp 12 11/16/23 08:05 BP 108/70 11/16/23 08:05 Pulse Ox 98 11/16/23 08:05 Oxygen Delivery Method Room Air 11/16/23 08:05 BMI result Body Mass Index 33.3 BMI Assessment/Plan discussion: High BMI High, discussed plan: lifestyle Tobacco/Smoking Status: Tobacco use Status Tobacco use date assessed 11/16/23 11/16/23 08:04 Patient Tobacco Use Status Never used Tobacco 11/16/23 08:10 e-Cigarette/Vaping Use Never Used 11/16/23 08:10 PHQ-9: PHQ-9 Score PHQ-9: Total score 0 11/16/23 08:32 Depression Screening Interpretation: Negative Thrive Assessment: Date of Thrive Assessment Date Thrive assessed 11/16/23 11/16/23 08:32 Currently or been in a relationship where the following occur: no concerns reported Const Other: General: Well developed, well nourished, in no acute distress. Appears stated age. Head: Normocephalic, atraumatic. Eyes: Pupils are equal, round and reactive to light and accommodation. Conjunctivae are clear. Vision grossly normal. Ears: TMs clear AU, EACS WNL Nose: Patent, without discharge. Mouth: There are no ulcers or lesions noted. No inflammation, no post nasal drip, no plaques nor exudates. Neck: Supple, no adenopathy or thyromegaly. Lungs: Clear to auscultation bilaterally. No rales, rhonchi or wheeze noted. Good air flow in all moreno. Heart: Regular rate and rhythm. No murmurs, click, rubs or gallops are noted. Abdomen: Bowel sounds present in all quadrants. The abdomen is soft, nontender, with no masses or organomegaly noted. No hernias are noted. Musculoskeletal: Joints are nontender, without swelling, redness, or effusions. Range of motion is observed to be normal. Pulses: Peripheral pulses are equal and palpable bilaterally. Extremities: No clubbing, cyanosis nor edema is noted. Neurologic: Gait and station normal. Cranial Nerves 2-12 intact. Motor strength grossly symmetrical and intact. No sensory loss. Balance normal. Skin: No rashes, ulcers, or lesions noted. Turgor is good. Skin color is good. Hair and nails are without abnormalities. Psych: Normal eye contact, affect and mood appropriate, and normal interactions. Patient is alert and appropriate to context. 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 mL IM Left Tricep 0.5 mL [id number] 12/31/25 [id number] [employer] VIS Given Date VIS Provided VIS Publication Date 11/16/23 Single Vaccine 20 Eligibility Eligibility Date Funding Source Not [facility] Eligible 11/16/23 Private Assessment and Plan Assessment & Plan (1) Encounter for general adult medical examination without abnormal findings: Code(s): Z00.00 - Encounter for general adult medical examination without abnormal findings (2) Callus of foot: Code(s): L84 - Corns and callosities (3) Vitamin D deficiency: Code(s): E55.9 - Vitamin D deficiency, unspecified (4) Hypertension: Code(s): I10 - Essential (primary) hypertension Qualifiers: Hypertension type: primary hypertension Qualified Code(s): I10 - Essential (primary) hypertension (5) Vasomotor symptoms due to menopause: Code(s): N95.1 - Menopausal and female climacteric states (6) Severe depression: Code(s): F32.2 - Major depressive disorder, single episode, severe without psychotic features (7) Venous insufficiency: Code(s): I87.2 - Venous insufficiency (chronic) (peripheral) (8) BETHANIE (generalized anxiety disorder): Code(s): F41.1 - Generalized anxiety disorder (9) Migraine: Code(s): G43.909 - Migraine, unspecified, not intractable, without status migrainosus Qualifiers: Intractability: not intractable Migraine type: migraine (< 15 days per month) without aura Status migrainosus presence: without status migrainosus Qualified Code(s): G43.009 - Migraine without aura, not intractable, without status migrainosus (10) Seasonal allergies: Code(s): J30.2 - Other seasonal allergic rhinitis (11) Vitamin B 12 deficiency: Code(s): E53.8 - Deficiency of other specified B group vitamins (12) Celiac disease: Code(s): K90.0 - Celiac disease (13) Mild intermittent asthma in adult without complication: Code(s): J45.20 - Mild intermittent asthma, uncomplicated Orders: Orders Microalbumin, Random (w Creat) Today E55.9 - Vitamin D deficiency, unspecified, I10 - Essential (primary) hypertension, N95.1 - Menopausal and female climacteric states Lipid Panel Today E55.9 - Vitamin D deficiency, unspecified, I10 - Essential (primary) hypertension, N95.1 - Menopausal and female climacteric states Hemoglobin A1c Today E55.9 - Vitamin D deficiency, unspecified, I10 - Essential (primary) hypertension, N95.1 - Menopausal and female climacteric states Vitamin D 25-OH Total Today E55.9 - Vitamin D deficiency, unspecified, I10 - Essential (primary) hypertension, N95.1 - Menopausal and female climacteric states Referrals Podiatry Referral L84 - Corns and callosities Medications: New fluticasone propionate 50 mcg/actuation administer into each nostril 1 spray intranasal BID 16 grams 4RF Refilled albuterol sulfate 90 mcg/actuation 2 puffs inhalation Q4-6H PRN 6.7 grams 0RF shortness of breath or wheezing montelukast (Singulair) 10 mg PO BEDTIME 30 tabs 3RF J45.20 - Mild intermittent asthma, uncomplicated cetirizine 10 mg PO DAILY 90 tabs 2RF valacyclovir 500 mg PO DAILY 90 tabs 1RF B00.1 - Herpesviral vesicular dermatitis Patient Instructions: Plan Tdap today Fasting labs/urine for screening Refills sent on meds RTO in 4-5 months to f/u on Asthma, sooner as needed Health screenings for women You should visit your health care provider from time to time, even if you are healthy. The purpose of these visits is to: Screen for medical issues Assess your risk for future medical problems Encourage a healthy lifestyle Update vaccinations and other preventive care services Help you get to know your provider in case of an illness Information Even if you feel fine, you should still see your provider for regular checkups. These visits can help you avoid problems in the future. For example, the only way to find out if you have high blood pressure is to have it checked regularly. High blood sugar and high cholesterol levels also may not have any symptoms in the early stages. A simple blood test can check for these conditions. There are specific times when you should see your provider or receive specific health screenings. The [place] Preventive Services Task Force publishes a list of recommended screenings. Below are screening guidelines for women ages 18 to 39. BLOOD PRESSURE SCREENING Your blood pressure should be checked at least once every 3 to 5 years if: Your blood pressure is in the normal range (top number less than 120 mm Hg and bottom number less than 80 mm Hg) You don't have risk factors for high blood pressure Ask your provider if you need your blood pressure checked more often if: The top number is 120 to 129 mm Hg or the bottom number is 70 to 79 mm Hg You have diabetes, heart disease, kidney problems, are overweight, or have certain other health conditions You have a first-degree relative with high blood pressure You are Black You had high blood pressure during a If the top number is 130 mm Hg or greater or the bottom number is 80 mm Hg or greater, this is considered stage 1 hypertension. Schedule an appointment with your provider to learn how you can reduce your blood pressure. Watch for blood pressure screenings in your area. Ask your provider if you can stop in to have your blood pressure checked. BREAST CANCER SCREENING Experts do not agree about the benefits of breast self-exams in finding breast cancer or saving lives. Talk to your provider about what is best for you. A screening mammogram is not recommended for most women under age 40. Your provider may discuss and recommend mammograms, MRI scans, or ultrasounds if you have an increased risk for breast cancer, such as: A mother or sister who had breast cancer at a young age (most often starting screening earlier than the age the close relative was diagnosed) You carry a high-risk genetic marker CERVICAL CANCER SCREENING Cervical cancer screening should start at age 21 years unless your provider advises otherwise. After the first test: Women ages 21 through 29 should have a Pap test every 3 years. Exoprts do not agree on whether HPV testing is recommended for this age group. Women ages 30 through 65 should be screened with either a Pap test every 3 years or the HPV test every 5 years or both tests every 5 years (called cotesting ). Women who have been treated for precancer (cervical dysplasia) should continue to have Pap tests for 20 years after treatment or until age 65, whichever is longer. If you have had your uterus and cervix removed (total hysterectomy), and you have not been diagnosed with cervical cancer or precancer (high grade cervical neoplasia), you do not need cervical cancer screening. CHOLESTEROL SCREENING Cholesterol screening should begin at: Age 45 for women with no known risk factors for coronary heart disease Age 20 for women with known risk factors for coronary heart disease Repeat cholesterol screening should take place: Every 5 years for women with normal cholesterol levels More often if changes occur in lifestyle (including weight gain and diet) More often if you have diabetes, heart disease, kidney problems, or certain other conditions DIABETES SCREENING You should be screened for diabetes starting at age 35 and then repeated every 3 years if you have no risk factors for diabetes. Screening may need to start earlier and be repeated more often if you have other risk factors for diabetes, such as: You have a first degree relative with diabetes. You are overweight or have obesity. You have high blood pressure, prediabetes, or a history of heart disease. Screening for diabetes should be done if you are planning to become and you are overweight and have other risk factors such as high blood pressure. DENTAL EXAM Go to the dentist once or twice every year for an exam and cleaning. Your dentist will evaluate if you need more frequent visits. EYE EXAM Have an eye exam every 5 to 10 years before age 40. If you have vision problems, have an eye exam every 2 years or more often if recommended by your provider. You should have an eye exam that includes an examination of your retina (back of your eye) at least every year if you have diabetes. IMMUNIZATIONS Commonly needed vaccines include: Flu shot: get one every year. COVID-19 vaccine: ask your provider what is best for you. Tetanus-diphtheria and acellular pertussis (Tdap) vaccine: have one at or after age 19 as one of your tetanus-diphtheria vaccines if you did not receive it as an adolescent. Tetanus-diphtheria: have a booster (or Tdap) every 10 years. Varicella vaccine: receive 2 doses if you never had chickenpox or the varicella vaccine. Hepatitis B vaccine: receive 2, 3, or 4 doses, depending on your exact circumstances. Measles, mumps, and rubella (MMR) vaccine: receive 1 to 2 doses if you are not already immune to MMR. Your provider can tell you if you are immune. Ask your provider about the human papillomavirus (HPV) vaccine if: You have not received the HPV vaccine in the past You have not completed the full vaccine series (you should catch up on this shot) Ask your provider if you should receive other immunizations if you have certain health problems that increase your risk for some diseases such as pneumonia. INFECTIOUS DISEASE SCREENING Women who are sexually active should be screened for chlamydia and gonorrhea up until age 25. Women 25 years and older should be screened for chlamydia and gonorrhea if at high risk. Screening for hepatitis C: All adults ages 18 to 79 should get a one-time test for hepatitis C. people should be screened at every . Screening for human immunodeficiency virus (HIV): All people ages 15 to 65 should get a one-time test for HIV. Depending on your lifestyle and medical history, you may also need to be screened for infections such as syphilis and HIV, as well as other infections. PHYSICAL EXAM All adults should visit their provider from time to time, even if they are healthy. The purpose of these visits is to: Screen for disease Assess your risk of future medical problems Encourage a healthy lifestyle Update your vaccinations and other preventive care services Maintain a relationship with a provider in case of an illness Your height, weight, and BMI should be checked at every exam. During your exam, your provider may ask you about: Depression and anxiety Diet and exercise Alcohol and tobacco use Safety issues, such as using seat belts, smoke detectors, and intimate partner violence Your medicines and risk for interactions SKIN SELF-EXAM Your provider may check your skin for signs of skin cancer, especially if you're at high risk, such as if you: Have had skin cancer before Have close relatives with skin cancer Have a weakened immune system OTHER SCREENING Talk with your provider about colon cancer screening if you have a strong family history of colon cancer or polyps, or if you have had inflammatory bowel disease or polyps yourself. Routine bone density screening of women under 40 is not recommended. Coding Level of Care Code Est Pt Prev Care 40-64y(32211) Diagnoses Encounter for general adult medical examination without abnormal findings Z00.00 Callus of foot L84 Vitamin D deficiency E55.9 Primary hypertension I10 Hypertension type: primary hypertension Vasomotor symptoms due to menopause N95.1 Severe depression F32.2 Venous insufficiency I87.2 BETHANIE (generalized anxiety disorder) F41.1 Migraine without aura and without status migrainosus, not intractable G43.009 Intractability: not intractable Migraine type: migraine (< 15 days per month) without aura Status migrainosus presence: without status migrainosus Seasonal allergies J30.2 Vitamin B 12 deficiency E53.8 Celiac disease K90.0 Mild intermittent asthma in adult without complication J45.20 Additional Codes BETHANIE-7 Assessment Billing - BETHANIE-7 Assessment Tool: BETHANIE-7 Assessment [id number] ([id number])
[2023-11-16 08:05] VITALS: BP 108/70; PULSE 71; RESP 12; TEMP 36.7; O2SAT 98; BMI 33.3
== END 2023-11-16 08:43 | disposition home or self-care (01) ==
PROVIDERS: PCP Nurse Practitioner Family; Visit Provider Nurse Practitioner Family
DX: Z00.00 Encounter for general adult medical examination without abnormal findings (principal); F32.2 Major depressive disorder, single episode, severe without psychotic features; L84 Corns and callosities; Z23 Encounter for immunization; E55.9 Vitamin D deficiency, unspecified; I10 Essential (primary) hypertension; N95.1 Menopausal and female climacteric states; I87.2 Venous insufficiency (chronic) (peripheral); F41.1 Generalized anxiety disorder; G43.009 Migraine without aura, not intractable, without status migrainosus; J30.2 Other seasonal allergic rhinitis; E53.8 Deficiency of other specified B group vitamins; K90.0 Celiac disease; J45.20 Mild intermittent asthma, uncomplicated
CPT/HCPCS: 90471; 90715; 99396

== ENCOUNTER 2023-11-17 10:27 | Outpatient (REF) | payer OTHER, SELFPAY ==
[2023-11-17 14:34] LABS: Estimated Average Glucose 114 mg/dL; Hemoglobin A1c % 5.6 % (<6.0)
[2023-11-17 14:37] LABS: Cholesterol 213 mg/dL (<200); HDL Cholesterol 43 mg/dL (>40); LDL Cholesterol Calculated 133 mg/dL (<100); Triglycerides 188 mg/dL (<150)
[2023-11-17 14:55] LABS: Vitamin D 25-OH Total 59.5 ng/mL (>30)
[2023-11-17 15:07] LABS: Creatinine Urine 63.12 mg/dL; Microalbum/Creatinine Ratio Ur 12.6 ug/mg cr (<30)
== END 2023-11-17 10:28 | disposition home or self-care (01) ==
LOC: HO.WFDLDS 10:27
PROVIDERS: Visit Provider Nurse Practitioner Family
DX: N95.1 Menopausal and female climacteric states (principal); E55.9 Vitamin D deficiency, unspecified; I10 Essential (primary) hypertension
CPT/HCPCS: 36415; 80061; 82043; 82306; 82570; 83036

== ENCOUNTER 2023-12-08 08:32 | Outpatient (REF) | payer OTHER, SELFPAY ==
--- NOTE | ~2023-12-08 | MM_ITS ---
EXAMINATION: BONE DENSITOMETRY CLINICAL INDICATION: Menopause. COMPARISON: This is the patient's baseline examination. TECHNIQUE: Using a Net Transmit & Receive DXA System (software version: 13.1) manufactured by [employer], dual-energy x-ray absorptiometry was performed of the lumbar spine and left hip. The images are of good technical quality. Summary results are attached. FINDINGS: LEFT FEMUR, NECK: BMD 0.902 g/cm2, Z-score -0.6, T-score -1.0, normal. LEFT FEMUR, TOTAL: BMD 0.979 g/cm2, Z-score -0.2, T-score -0.2, normal. AP SPINE L1-L4: BMD 1.235 g/cm2, Z-score 0.3, T-score 0.5, normal. IDENTIFIED RISK FACTORS: Menopause, hysterectomy, bilateral oophorectomy, secondary osteoporosis (intestinal or bowel disease). HISTORY OF FRACTURE: None listed. MEDICATIONS: Calcium or multivitamin. Vitamin D. MM/XR DEXA axial skeleton IMPRESSION: 1. DIAGNOSIS: Normal bone density based on the lowest T-score value of -1.0 in the femoral neck applying World Health Organization criteria. 2. 10-YEAR FRACTURE RISK PREDICTION, FRAX: According to the guidelines, FRAX calculation should only be performed on patients in the osteopenia bone density category. Therefore, FRAX was not performed on this patient. 3. Treatment Recommendations: NOF guidelines recommend consideration for treatment in postmenopausal women and men age 50 and older presenting with the following: -A hip or vertebral (clinical or morphometric) fracture. -T-score less than or equal to -2.5 at the femoral neck or spine after appropriate evaluation to exclude secondary causes. -Low bone mass at the hip or spine and a 10-year fracture probability by FRAX of greater than or equal to 3% for hip fracture or greater than or equal to 20% for major osteoporotic fracture based on the [place] adapted WHO algorithm. 4. Other Recommendations: All treatment decisions require clinical judgment and consideration of individual patient factors, including patient preferences, comorbidities, previous drug use, risk factors not captured in the FRAX model (e.g. frailty, falls, vitamin D deficiency, increased bone turnover, interval significant decline in bone density) and possible under or overestimation of fracture risk by FRAX. FUTURE SCAN RECOMMENDATION: People with diagnosed cases of osteoporosis or at high risk for fracture should have regular bone mineral density tests. For patients eligible for Medicare, routine testing is allowed once every 2 years. The testing frequency can be increased to one year for patients who have rapidly progressing disease, those who are receiving or discontinuing medical therapy to restore bone mass, or have additional risk factors.
== END 2023-12-08 08:33 | disposition home or self-care (01) ==
LOC: HO.MAMMO 08:32
PROVIDERS: PCP Nurse Practitioner Family; Visit Provider Internal Medicine
DX: Z13.820 Encounter for screening for osteoporosis (principal); Z78.0 Asymptomatic menopausal state; E55.9 Vitamin D deficiency, unspecified
CPT/HCPCS: 77080

== ENCOUNTER 2024-01-29 13:19 | Outpatient (AMB) | payer OTHER, SELFPAY ==
--- NOTE | 2024-01-29 13:29 | A.OFFPC_ITS ---
Vital Signs 01/29/24 13:30 Height 5 ft 5.55 in Weight 207 lb BMI 33.9 BP 110/80 Blood Pressure Location Lt brachial Position Sitting Respiration 16 Pulse 70 Pulse Source Pulse Oximeter Pulse Oximetry (%) 96 Oxygen Delivery Method Room Air Intake Visit Reasons: Left foot pain by the bottom of the heel Intake Note: Left heal pain Allergies Seasonal Allergies Allergy (Severe, Verified 01/29/24 14:28) Itchy Eyes gluten Allergy (Verified 01/29/24 14:28) Rash Medication List - Last Reconciled 01/29/24 by Ana Zamarripa, [facility] albuterol sulfate 90 mcg/actuation 2 puffs inhalation Q4-6H PRN cetirizine 10 mg PO DAILY diphenhydramine HCl (Benadryl Allergy) 25 mg PO BEDTIME PRN epinephrine 0.3 mg (0.3 mL) IM Q4H PRN fluticasone propionate 50 mcg/actuation 1 spray intranasal BID lorazepam (Ativan) 0.5 mg PO BID PRN montelukast (Singulair) 10 mg PO BEDTIME simethicone (Gas Relief (simethicone)) 180 mg PO BID PRN 30 days valacyclovir 500 mg PO DAILY Tobacco use date assessed: 03/06/23 Dental Screening Dental Screen Date: 03/06/23 HPI HPI Comments History of Present Illness Details 53-year-old female with mild intermitten t asthma, menopause, vitamin-D deficiency, vitamin B12 deficiency, seasonal allergies, celiac disease, migraine headaches, hypertension, generalized anxiety disorder, venous insufficiency, severe depression, diverticulitis, hiatal hernia, Oliveira cyst on the right, Hyperlipidemia Status post endometrial ablation, tubal ligation, breast biopsy, hysterectomy with BSO for myomas benign pathology Here today with chief complaints of left foot pain that started about 3 weeks ago. Reports that she has been working long shifts at work and walking a lot. Generally wears Crocs. Occasionally wear sneakers. She describes the pain as deep into the heel, like she is being pinched and sometimes it stings. Her pain is worse by the end of the day. When she gets up in the middle of the night to use the bathroom she has severe pain which causes a limp. She denies any overt injury, swelling, redness. No at home remedies as of this time. She also reports that she was stung by a bee on the right forearm last week. The area still remains red and itchy. Exam Left foot neurovascularly intact, no edema, no erythema. + pain with palpation over the Achilles, heel, plantar fascia. Pain she experiences is reproducible. She has normal strength and tone. In the right forearm there is an area of erythema and secondary excoriation. In the center of the erythema is what appears to be a retained stinger. I was able to easily remove this with gentle scraping with a scalpel after cleansing the area with alcohol prep pad. The patient tolerated this well. She reports improvements in the sensation immediately. Plan We will prescribe meloxicam 7.5 mg p.o. daily to be taken with food to help the pain in her foot. I have provided a PDF of home exercises to trial. I recommend a shoe with a nice heel support. Reviewed some options for her to trial. If this is not effective, could consider referring her to orthopedics for a cortisone injection. Advised that the sting to her right arm will improve with time. No further treatment needed. This note is constructed using voice recognition software. While every effort has been made to ensure accuracy in fish flipper, still errors may have been included Sometimes, these errors may affect the content or meaning of the given sentence . Total time spent caring for the patient today was 30 minutes. This includes time spent before the visit reviewing the chart, time spent during the visit, and time spent after the visit on documentation [facility] Medical History (Updated 11/16/23 @ 08:32 by Ana Zamarripa, KIKI-) Constipation by delayed colonic transit Migraine Celiac disease Hypertension Vitamin D deficiency Vitamin B 12 deficiency Venous insufficiency Synovial cyst of right knee Severe depression Menopausal symptom Anxiety disorder Seasonal allergies Asthma Surgical History History of esophagogastroduodenoscopy (EGD) Hx of colonoscopy History of endometrial ablation History of tubal ligation S/P breast biopsy Hx of hysterectomy Family History Paternal Grandmother Breast cancer Paternal Aunt Breast cancer Mother Hypercholesteremia Age related osteoporosis Father Hypertension Social History (Updated 11/16/23 @ 08:10 by Kendal Avalos CMA) Household Members: Spouse and Family Housing: House Alcohol intake: current Alcohol intake frequency: holidays/special occasions only Alcohol type: beer and hard liquor Patient Tobacco Use Status: Never used Tobacco e-Cigarette/Vaping Use: Never Used service: No Current occupational status: employed and disabled 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 How many drinks containing alcohol do you have on a typical day when you are drinking?: 1 or 2 3. How often do you have six or more drinks on one occasion?: Less than monthly Total Score: 1 BETHANIE-7 AMB Questionnaire BETHANIE-7 Date BETHANIE - 7 assessed: 07/01/22 Source: Developed by Drs. Byron Ruffin, Apple Galloway, Jesus Sahu and colleagues, with an educational albin from [employer]. Physical exam (Primary Care) Vital Signs: Last Vital Signs Pulse 70 01/29/24 13:30 Resp 16 01/29/24 13:30 BP 110/80 01/29/24 13:30 Pulse Ox 96 01/29/24 13:30 Oxygen Delivery Method Room Air 01/29/24 13:30 BMI result Body Mass Index 33.9 Tobacco/Smoking Status: Tobacco use Status Tobacco use date assessed 03/06/23 01/29/24 13:32 Patient Tobacco Use Status Never used Tobacco 01/29/24 13:32 e-Cigarette/Vaping Use Never Used 01/29/24 13:32 Thrive Assessment: Date of Thrive Assessment Date Thrive assessed 11/16/23 01/29/24 13:32 Assessment and Plan Assessment & Plan (1) Plantar fasciitis of left foot: Code(s): M72.2 - Plantar fascial fibromatosis (2) Bee sting: Code(s): T63.441A - Toxic effect of venom of bees, accidental (unintentional), initial encounter Qualifiers: Encounter type: initial encounter Injury intent: accidental or unintentional Qualified Code(s): T63.441A - Toxic effect of venom of bees, accidental (unintentional), initial encounter Medications: New meloxicam 7.5 mg PO DAILY 30 tabs 1RF Coding Level of Care Code Est Pt Level 4 (86101) Diagnoses Plantar fasciitis of left foot M72.2 Bee sting, accidental or unintentional, initial encounter T63.441A Encounter type: initial encounter Injury intent: accidental or unintentional
[2024-01-29 13:30] VITALS: BP 110/80; PULSE 70; RESP 16; O2SAT 96; BMI 33.9
== END 2024-01-29 14:41 | disposition home or self-care (01) ==
PROVIDERS: PCP Nurse Practitioner Family; Visit Provider Nurse Practitioner Family
DX: M72.2 Plantar fascial fibromatosis (principal); T63.441A Toxic effect of venom of bees, accidental (unintentional), initial encounter
CPT/HCPCS: 99214

== ENCOUNTER 2024-03-01 16:08 | Outpatient (REF) | payer OTHER, SELFPAY ==
--- NOTE | ~2024-03-01 | MM_ITS ---
EXAMINATION: MM SCREENING DIGITAL BREAST TOMOSYNTHESIS, BILATERAL CLINICAL INFORMATION: Screening. Asymptomatic. COMPARISON: Mammography: Comparison is made with available priors TECHNIQUE: Digital breast mammography with tomosynthesis is performed in both the craniocaudal and mediolateral oblique views along with computer-aided detection (CAD). FINDINGS: There are scattered areas of fibroglandular density (ACR BI-RADS breast composition Category b). Right marker clip. There are no significant masses, abnormal calcifications, or other abnormalities. MM/MM tomosynthesis screening BI IMPRESSION: No mammographic evidence of malignancy. ASSESSMENT: BI-RADS BI-RADS 2 - Benign Findings RECOMMENDATION: Routine annual mammography screening. 1 year F/U This examination should not preclude the clinical evaluation of a suspicious palpable abnormality. This patient's information was entered into a reminder system with a target due date for their next mammogram. Electronically signed by: Cherrie Armstrong DO 03/14/2024 05:57 PM EDT
== END 2024-03-01 16:09 | disposition home or self-care (01) ==
LOC: HO.MAMMO 16:08
PROVIDERS: PCP Nurse Practitioner Family; Visit Provider Nurse Practitioner Family
DX: Z12.31 Encounter for screening mammogram for malignant neoplasm of breast (principal)
CPT/HCPCS: 77063; 77067

== ENCOUNTER → 2024-03-01 16:30 | Outpatient (BNV) | payer OTHER, SELFPAY | PROVIDERS: PCP Nurse Practitioner Family; Visit Provider Internal Medicine | DX: Z12.31 Encounter for screening mammogram for malignant neoplasm of breast (principal) | CPT/HCPCS: 77063; 77067 ==

== ENCOUNTER 2024-03-21 08:58 | Outpatient (AMB) | payer OTHER, SELFPAY ==
--- NOTE | 2024-03-21 07:27 | MHC.PC.OV ---
Vital Signs 03/21/24 09:06 Height 5 ft 6 in Weight 207 lb BMI 33.4 BP 128/74 Blood Pressure Location Lt brachial Position Sitting Respiration 14 Pulse 69 Pulse Source Pulse Oximeter Pulse Oximetry (%) 99 Oxygen Delivery Method Room Air Intake Visit Reasons: follow up asthma Intake Note: follow up on asthma. Patient also needs refill on meds. Allergies Seasonal Allergies Allergy (Severe, Verified 03/21/24 09:16) Itchy Eyes gluten Allergy (Verified 03/21/24 09:16) Rash Medication List - Last Reconciled 03/21/24 by Ana Zamarripa, [facility] albuterol sulfate 90 mcg/actuation 2 puffs inhalation Q4-6H PRN cetirizine 10 mg PO DAILY diphenhydramine HCl (Benadryl Allergy) 25 mg PO BEDTIME PRN epinephrine 0.3 mg (0.3 mL) IM Q4H PRN fluticasone propionate 50 mcg/actuation 1 spray intranasal BID lorazepam (Ativan) 0.5 mg PO BID PRN meloxicam 7.5 mg PO DAILY montelukast (Singulair) 10 mg PO BEDTIME simethicone (Gas Relief (simethicone)) 180 mg PO BID PRN 30 days valacyclovir 500 mg PO DAILY Tobacco use date assessed: 03/21/24 Dental Screening Dental Screen Date: 03/06/23 HPI HPI Comments History of Present Illness Details 53-year-old female with mild intermittent asthma, menopause, vitamin-D deficiency, vitamin B12 deficiency, seasonal allergies, celiac disease, migraine headaches, generalized anxiety disorder, venous insufficiency, severe depression, diverticulitis, hiatal hernia, Oliveira cyst on the right Status post endometrial ablation, tubal ligation, breast biopsy, hysterectomy with BSO for myomas benign pathology Social: works in [employer] Living in [place] Health Maintenance: ? Colon 10/16/2022 ? Mammo 02/09/2023 ? DEXA normal 12/08/23 DIAGNOSIS: Normal bone density based on the lowest T-score value of-1.0 in the femoral neck applying World Health Organization criteria. ? PAP n/a d/t STEPHEN ? Tdap 2023, UTD on shingles vaccine. Will get at [facility] 2023 along w/ updated COVID booster. Specialists: GI annual follow up Methods Time Analyst podiatry Here today for routine fu chronic conditions. Cont to have some foot pain, using NSAID + relief. Did not see podiatry. Asthma - acting up d/t weather.On ALAN prn every morning. Using singulair. UTD on vaccines. No hospital visits Will be going to [place] via plane in Apr, uses ativan to fly. Needs refill Taking flonase, zyrtec for seasonal allergies Not sleeping d/t hot flashes. Feels like they are getting worst at times. Has never been on meds. Will be seeing PRN PHYSICAL THERAPIST in April Migraine headaches, intermittent, feels well controlled right now. BP stable w/o meds. Exam Awake alert NAD RRR LS CTAB No edema BLE Tearful when talking about hotflashes otherwise appropriate Plan Gabapentin 100mg TID. Ok to use prn or to take daily. Ok to take 100mg in the AM and 200mg at PM or 300mg at bedtime to help control hot flashes. Check labs to be sure nothing else is contributing to the hot flashes Labs from today show a normal CBC, normal electrolytes, normal renal function,, random glucose 100, normal iron profile, ALT 41, vitamin B12 160, normal folate and TSH Advised to start an [id number] B12 supplement 2000 mcg daily. Cont f/u with Care team to include PRN PHYSICAL THERAPIST Refill on all medications sent Return to the office in 4 weeks to follow up on hot flashes and gabapentin start, sooner as needed This note is constructed using voice recognition software. While every effort has been made to ensure accuracy in senior sql server database developer, still errors may have been included Sometimes, these errors may affect the content or meaning of the given sentence . Total time spent caring for the patient today was 30 minutes. This includes time spent before the visit reviewing the chart, time spent during the visit, and time spent after the visit on documentation [facility] Medical History (Updated 03/21/24 @ 09:34 by KIKI Lr-BRYANT) Constipation by delayed colonic transit Migraine Celiac disease Hypertension Vitamin D deficiency Vitamin B 12 deficiency Venous insufficiency Synovial cyst of right knee Severe depression Menopausal symptom Anxiety disorder Seasonal allergies Asthma Surgical History History of esophagogastroduodenoscopy (EGD) Hx of colonoscopy History of endometrial ablation History of tubal ligation S/P breast biopsy Hx of hysterectomy Family History Paternal Grandmother Breast cancer Paternal Aunt Breast cancer Mother Hypercholesteremia Age related osteoporosis Father Hypertension Social History (Updated 11/16/23 @ 08:10 by Kendal Avalos CMA) Household Members: Spouse and Family Housing: House Alcohol intake: current Alcohol intake frequency: holidays/special occasions only Alcohol type: beer and hard liquor Patient Tobacco Use Status: Never used Tobacco e-Cigarette/Vaping Use: Never Used service: No Current occupational status: employed and disabled 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 96347 - PHQ-9 Billing: Patient declined-do not bill Source: Developed by Drs. Byron Ruffin, Apple Galloway, Jesus Sahu and colleagues, with an educational albin from [email or web address]. Thrive Questionnaire Date Thrive assessed: 03/21/24 I am a: Patient What is your living situation today?: I have a steady place to live Within the past 12 months, did the food you bought not last and you didn't have the money to get more?: I choose not to answer this question Please select the resources that you would like help with: None Currently or been in a relationship where the following occur: No concerns reported THRIVE Score: 0 AUDIT C Alcohol Use Questionnaire (AUDIT-C) 1. How often do you have a drink containing alcohol?: Monthly or less Total Score: 1 BETHANIE-7 AMB Questionnaire BETHANIE-7 Date BETHANIE - 7 assessed: 03/21/24 Feeling nervous, anxious, or on edge: 1 = Several days Not being able to stop or control worryin = Several days Worrying too much about different things: 0 = Not at all Trouble relaxin = Several days Being so restless that it is hard to sit still: 0 = Not at all Becoming easily annoyed or irritable: 1 = Several days Feeling afraid as if something awful might happen: 0 = Not at all Total BETHANIE-7 score (0-4 normal; 5-9 mild; 10-14 moderate; 15-21 severe): 4 Source: Developed by [employer].W. Nilesh, Jesus Sahu and colleagues, with an educational albin from [email or web address]. BETHANIE-7 Assessment Billing BETHANIE-7 Assessment Tool: BETHANIE-7 Assessment 78789 ACT Questionnaire In the past 4 weeks, how much of the time did your asthma keep you from getting as much done at work, school or at home?: None of the time During the past 4 weeks, how often have you had shortness of breath?: 1-2 times a week During the past 4 weeks, how often did your asthma symptoms wake you up at night or earlier than usual in the morning?: Not at all During the past 4 weeks, how often have you had to use your rescue inhaler or nebulizer medication?: More than 3 times per day How would you rate your asthma control during the past 4 weeks?: Somewhat controlled Score: 18 Physical exam (Primary Care) Vital Signs: Last Vital Signs Pulse 69 03/21/24 09:06 Resp 14 03/21/24 09:06 BP 128/74 03/21/24 09:06 Pulse Ox 99 03/21/24 09:06 Oxygen Delivery Method Room Air 03/21/24 09:06 BMI result Body Mass Index 33.4 Tobacco/Smoking Status: Tobacco use Status Tobacco use date assessed 03/21/24 03/21/24 09:08 Patient Tobacco Use Status Never used Tobacco 03/21/24 07:28 e-Cigarette/Vaping Use Never Used 03/21/24 07:28 Thrive Assessment: Date of Thrive Assessment Date Thrive assessed 03/21/24 03/21/24 09:04 Currently or been in a relationship where the following occur: No concerns reported Coding Level of Care Code Est Pt Level 4 (45157) Complex EM visit Add On G2211 Diagnoses Mild intermittent asthma in adult without complication J45.20 Vasomotor symptoms due to menopause N95.1 Seasonal allergies J30.2 Migraine without aura and without status migrainosus, not intractable G43.009 Intractability: not intractable Migraine type: migraine (< 15 days per month) without aura Status migrainosus presence: without status migrainosus Severe depression F32.2 Venous insufficiency I87.2 BETHANIE (generalized anxiety disorder) F41.1 Hx of essential hypertension Z86.79 Vitamin B 12 deficiency E53.8 Additional Codes BETHANIE-7 Assessment Billing - BETHANIE-7 Assessment Tool: BETHANIE-7 Assessment [id number] ([id number]) Assessment & Plan Assessment & Plan (1) Mild intermittent asthma in adult without complication: Code(s): J45.20 - Mild intermittent asthma, uncomplicated Category: Medical Plan: . (2) Vasomotor symptoms due to menopause: Code(s): N95.1 - Menopausal and female climacteric states Category: Medical Plan: . (3) Seasonal allergies: Code(s): J30.2 - Other seasonal allergic rhinitis Category: Medical Plan: . (4) Migraine: Code(s): G43.909 - Migraine, unspecified, not intractable, without status migrainosus Category: Medical Qualifiers: Intractability: not intractable Migraine type: migraine (< 15 days per month) without aura Status migrainosus presence: without status migrainosus Qualified Code(s): G43.009 - Migraine without aura, not intractable, without status migrainosus Plan: . (5) Severe depression: Code(s): F32.2 - Major depressive disorder, single episode, severe without psychotic features Category: Medical Plan: . (6) Venous insufficiency: Code(s): I87.2 - Venous insufficiency (chronic) (peripheral) Category: Medical Plan: . (7) BETHANIE (generalized anxiety disorder): Code(s): F41.1 - Generalized anxiety disorder Category: Medical Plan: . (8) Hx of essential hypertension: Code(s): Z86.79 - Personal history of other diseases of the circulatory system Category: Medical Plan: . (9) Vitamin B 12 deficiency: Code(s): E53.8 - Deficiency of other specified B group vitamins Category: Medical Plan: . Orders: Orders TSH reflex Free T4 Today N95.1 - Menopausal and female climacteric states Comprehensive Met. Panel Today N95.1 - Menopausal and female climacteric states Vitamin B12 and Folate Today N95.1 - Menopausal and female climacteric states Complete Blood Count no Diff Today N95.1 - Menopausal and female climacteric states IRON PROFILE Today N95.1 - Menopausal and female climacteric states Medications: New gabapentin 100 mg PO TID PRN 90 caps 0RF hot flashes 30 days Refilled epinephrine 0.3 mg (0.3 mL) IM Q4H PRN 2 ea 2RF Allergic Reaction montelukast (Singulair) 10 mg PO BEDTIME 30 tabs 3RF J45.20 - Mild intermittent asthma, uncomplicated albuterol sulfate 90 mcg/actuation 2 puffs inhalation Q4-6H PRN 6.7 grams 0RF shortness of breath or wheezing valacyclovir 500 mg PO DAILY 90 tabs 1RF B00.1 - Herpesviral vesicular dermatitis lorazepam (Ativan) 0.5 mg PO BID PRN 4 tabs 0RF anxiety
[2024-03-21 09:06] VITALS: BP 128/74; PULSE 69; RESP 14; O2SAT 99; BMI 33.4
== END 2024-03-21 09:32 | disposition home or self-care (01) ==
PROVIDERS: PCP Nurse Practitioner Family; Visit Provider Nurse Practitioner Family
DX: J45.20 Mild intermittent asthma, uncomplicated (principal); N95.1 Menopausal and female climacteric states; F32.2 Major depressive disorder, single episode, severe without psychotic features; J30.2 Other seasonal allergic rhinitis; G43.009 Migraine without aura, not intractable, without status migrainosus; I87.2 Venous insufficiency (chronic) (peripheral); F41.1 Generalized anxiety disorder; Z86.79 Personal history of other diseases of the circulatory system; E53.8 Deficiency of other specified B group vitamins

== ENCOUNTER → 2024-03-21 08:58 | Outpatient (BNVA) | payer OTHER, SELFPAY | PROVIDERS: PCP Nurse Practitioner Family; Visit Provider Nurse Practitioner Family | DX: J45.20 Mild intermittent asthma, uncomplicated (principal); N95.1 Menopausal and female climacteric states; J30.2 Other seasonal allergic rhinitis; G43.009 Migraine without aura, not intractable, without status migrainosus; F32.2 Major depressive disorder, single episode, severe without psychotic features; I87.2 Venous insufficiency (chronic) (peripheral); F41.1 Generalized anxiety disorder; E53.8 Deficiency of other specified B group vitamins; Z86.79 Personal history of other diseases of the circulatory system | CPT/HCPCS: 96127; 99212 ==

== ENCOUNTER 2024-03-21 09:42 | Outpatient (REF) | payer OTHER, SELFPAY ==
[2024-03-21 11:32] LABS: Hematocrit 45.3 % (37.0-47.0); Hemoglobin 15.1 g/dl (12.0-16.0); Mean Corpuscular HGB Conc 33.3 g/dl (31.0-35.0); Mean Corpuscular Hemoglobin 28.6 pg (27.0-33.0); Mean Corpuscular Volume 85.8 fL (80.0-98.0); Mean Platelet Volume 9.8 fL (9.4-12.3); Platelet Count 321 X10*3/uL (160-400); Red Blood Count 5.28 X10*6/uL (4.20-5.50); Red Cell Distribution Width 13.1 % (11.0-16.0); White Blood Count 5.6 X10*3/uL (4.8-10.8)
[2024-03-21 12:07] LABS: Alanine Aminotransferase 41 U/L (0-31); Albumin Level 4.3 g/dL (3.5-5.0); Alkaline Phosphatase 95 U/L (39-117); Anion Gap 6 (12-20); Aspartate Amino Transferase 28 U/L (5-31); Bilirubin Total 0.4 mg/dL (0.0-1.0); Blood Urea Nitrogen 26 mg/dL (9-16); Calcium 9.3 mg/dL (8.4-10.2); Carbon Dioxide 30 mmol/L (22-29); Chloride 106 mmol/L (96-108); Estimated Glomerular Filt Rate > 60; Glucose Random 100 mg/dL (60-115); Iron 86 mcg/dL (30-160); Percent Iron Saturation 26 % (15-50); Potassium 4.1 mmol/L (3.3-5.1); Sodium 138 mmol/L (135-145); Total Iron Binding Capacity 330 mcg/dL (228-428); Total Protein 7.4 g/dL (6.5-8.0); Unsaturated Iron Binding 244 ug/dL
[2024-03-21 12:19] LABS: Folate 13.4 ng/mL (> or = 4.0); Vitamin B12 160 pg/mL (200-900)
== END 2024-03-21 09:43 | disposition home or self-care (01) ==
LOC: HO.WFDLDS 09:42
PROVIDERS: Visit Provider Nurse Practitioner Family
DX: N95.1 Menopausal and female climacteric states (principal)
CPT/HCPCS: 36415; 80053; 82607; 82746; 83540; 84443; 85027

== ENCOUNTER → 2024-04-18 16:11 | Outpatient (BNVA) | payer OTHER, SELFPAY | PROVIDERS: PCP Nurse Practitioner Family; Visit Provider Nurse Practitioner Family ==

== ENCOUNTER → 2024-04-18 16:11 | Outpatient (AMB) | payer OTHER, SELFPAY ==
--- NOTE | 2024-04-18 16:33 | A.OFFPC_ITS ---
Intake Visit Reasons: 4 weeks f/u hot flashes - hone [phone] Allergies Seasonal Allergies Allergy (Severe, Verified 04/18/24 16:33) Itchy Eyes gluten Allergy (Verified 04/18/24 16:33) Rash Medication List - Last Reconciled 04/18/24 by Ana Zamarripa, [facility]- albuterol sulfate 90 mcg/actuation 2 puffs inhalation Q4-6H PRN cetirizine 10 mg PO DAILY diphenhydramine HCl (Benadryl Allergy) 25 mg PO BEDTIME PRN epinephrine 0.3 mg (0.3 mL) IM Q4H PRN fluticasone propionate 50 mcg/actuation 1 spray intranasal BID gabapentin 100 mg PO TID PRN 30 days lorazepam (Ativan) 0.5 mg PO BID PRN meloxicam 7.5 mg PO DAILY montelukast (Singulair) 10 mg PO BEDTIME simethicone (Gas Relief (simethicone)) 180 mg PO BID PRN 30 days valacyclovir 500 mg PO DAILY Tobacco use date assessed: 03/21/24 Dental Screening Dental Screen Date: 03/06/23 HPI HPI Comments History of Present Illness Details History of Present Illness The patient is a 53-year-old female presenting 4 week f/u Paco start for hot fla shes. She has been experiencing hot flashes, for which she has been taking medication nightly, observing partial improvement. She discussed potentially adding daytime doses to manage persistent daytime symptoms. Additionally, the patient has a documented Vitamin B12 deficiency, previously identified with a level of 160 pg/mL, below the normal range of 200 pg/mL. She reports fatigue, which may be attributed to this deficiency, and confirmed a history of occasional low B12 levels for which she took supplements The patient?s left foot pain persists, impairing her daily activities, and she inquired about further management options, requesting podiatry referral. Review of Systems - General: Reports fatigue. - Respiratory: Reports dyspnea during re cent illness. - Musculoskeletal: Reports left foot susana n. Note: This physical exam was conducted in conjunction with the patient via our Telehealth platform. Plan 1. Hot Flashes: Adjust gabapentin regime n to address persistent symptoms. Recommend 100 mg dosage up to three times daily for symptom management. 2. Vitamin B12 Deficiency: Initiate 2000 mcg B12 supplementation. Consider insurance coverage options or [id number] purchases if necessary. 3. Left Foot Pain: Refer to [facility] for further evaluation and management. A referral has been placed with expectations of follow-up contact. 4. Follow-up: Schedule in-person appoint ment in three months for routine follow- up and asthma evaluation. Patient was informed and verbally consented to the use of an ambient scribe for clinic note documentation during this visit. Discussion Notes During the visit, I discussed the management plan for hot flashes, advising an increased dosage of gabapentin based on her continued symptoms. We reviewed her low serum B12 level and the potential effects of deficiency, agreeing on supplementation and considering purchase options as per insurance. We discussed the referral to [facility] for the ongoing left foot pain, advising the next steps and contact information. I committed to future follow-up for a respiratory and general health evaluation in approximately three months. Patient Instructions - Begin daytime dosing of gabapentin as discussed & cont with 200mg at HS - Start vitamin B12 supplementation as r ecommended. - Use patient portal for quick communica tion on any escalating health issues. - Await contact from [facility] for appointment scheduling regarding foot pain. - Schedule an in-person follow-up appoin tment in three months. - Reach out for any medical concerns or clarification needed before the next visit. PENDING SALE TO [facility] Medical History (Updated 04/18/24 @ 16:39 by Ana Zamarripa, [facility]) Constipation by delayed colonic transit Migraine Celiac disease Hypertension Vitamin D deficiency Vitamin B 12 deficiency Venous insufficiency Synovial cyst of right knee Severe depression Menopausal symptom Anxiety disorder Seasonal allergies Asthma Surgical History History of esophagogastroduodenoscopy (EGD) Hx of colonoscopy History of endometrial ablation History of tubal ligation S/P breast biopsy Hx of hysterectomy Family History Paternal Grandmother Breast cancer Paternal Aunt Breast cancer Mother Hypercholesteremia Age related osteoporosis Father Hypertension Social History (Updated 11/16/23 @ 08:10 by Kendal Avalos CMA) Household Members: Spouse and Family Housing: House Alcohol intake: current Alcohol intake frequency: holidays/special occasions only Alcohol type: beer and hard liquor Patient Tobacco Use Status: Never used Tobacco e-Cigarette/Vaping Use: Never Used service: No Current occupational status: employed and disabled 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 Cognitive needs: No Hearing needs: No Vision needs: No Questionnaire Thrive Questionnaire Date Thrive assessed: 03/14/24 I am a: Patient What is your living situation today?: I have a steady place to live Within the past 12 months, did the food you bought not last and you didn't have the money to get more?: I choose not to answer this question Within the past 12 months, did you worry whether your food would run out before you got money to buy more?: Never true Do you have trouble paying for medicines?: No Do you have trouble getting transportation to medical appointments?: No Do you have trouble paying your heating and electricity bill?: No Do you have trouble taking care of your child, family member or friend?: No Do you have trouble with day-to-day activities such as bathing, preparing meals, shopping, managing finances, etc.?: No Are you currently unemployed and looking for a job?: No Are you interested in more education?: No Please select the resources that you would like help with: None Currently or been in a relationship where the following occur: No concerns reported THRIVE Score: 0 BETHANIE-7 AMB Questionnaire BETHANIE-7 Date BETHANIE - 7 assessed: 03/21/24 Source: Developed by Drs. Byron Ruffin, Apple Galloway, Jesus Sahu and colleagues, with an educational albin from [employer] Physical exam (Primary Care) Tobacco/Smoking Status: Tobacco use Status Tobacco use date assessed 03/21/24 03/21/24 09:08 Patient Tobacco Use Status Never used Tobacco 03/21/24 07:28 e-Cigarette/Vaping Use Never Used 03/21/24 07:28 Thrive Assessment: Date of Thrive Assessment Date Thrive assessed 03/14/24 04/15/24 19:02 Currently or been in a relationship where the following occur: No concerns reported Telehealth Telehealth Telehealth Platform: [employer] Location of provider rendering services: practice address Location of patient: address on file Patient Identification confirmed using: Name, : Yes Telehealth method: voice only Patient verbally consented to treatment: Yes Patient verbally consented to billing insurance company: Yes Patient informed of any privacy concerns related to visit: Yes Minutes spent on Phone/Video with Pt.: 12 Coding Level of Care Code Tele Est Pt Level 2 (11464) Complex EM visit Add On G2211 Diagnoses Vasomotor symptoms due to menopause N95.1 Callus of foot L84 Plantar fasciitis of left foot M72.2 Assessment & Plan Assessment & Plan (1) Vasomotor symptoms due to menopause: Code(s): N95.1 - Menopausal and female climacteric states Category: Medical (2) Callus of foot: Code(s): L84 - Corns and callosities Category: Medical (3) Plantar fasciitis of left foot: Code(s): M72.2 - Plantar fascial fibromatosis Category: Medical Plan . Orders: Referrals Podiatry Referral L84 - Corns and callosities, M72.2 - Plantar fascial fibromatosis Medications: New mecobalamin (vitamin B12) (B12 Active) 2,000 mcg (2 x 1,000 mcg) PO DAILY 90 days 180 tabs 3RF Refilled gabapentin 100 mg PO TID 30 days PRN 90 caps 2RF hot flashes
== END ==
LOC: HO.HMCFM 16:11
PROVIDERS: PCP Nurse Practitioner Family; Visit Provider Nurse Practitioner Family
DX: N95.1 Menopausal and female climacteric states (principal); L84 Corns and callosities; M72.2 Plantar fascial fibromatosis

== ENCOUNTER 2024-06-18 09:15 | Outpatient (REF) | payer OTHER, SELFPAY ==
[2024-06-18 15:03] LABS: Influenza A PCR NEGATIVE (Negative); Influenza B PCR NEGATIVE (Negative); Resp Syncy Virus RNA Qual PCR NEGATIVE (Negative); SARS COV2 PCR INHOUSE NEGATIVE (Negative)
== END 2024-06-18 09:16 | disposition home or self-care (01) ==
LOC: HO.LNP 09:15
PROVIDERS: Visit Provider Nurse Practitioner Family
DX: R68.89 Other general symptoms and signs (principal); R09.89 Other specified symptoms and signs involving the circulatory and respiratory systems
CPT/HCPCS: 0241U; 99212

== ENCOUNTER 2024-07-05 12:18 | Outpatient (AMB) | payer OTHER, SELFPAY ==
--- NOTE | 2024-07-05 12:34 | A.OFFPC_ITS ---
Vital Signs 07/05/24 12:39 Height 5 ft 6 in Weight 203 lb BMI 32.8 BP 116/74 Blood Pressure Location Lt brachial Position Sitting Respiration 14 Pulse 74 Pulse Source Pulse Oximeter Pulse Oximetry (%) 97 Oxygen Delivery Method Room Air Intake Visit Reasons: 30 min routine fu Intake Note: Follow up Technical Sme Required: No Allergies Seasonal Allergies Allergy (Severe, Verified 07/05/24 12:58) Itchy Eyes gluten Allergy (Verified 07/05/24 12:58) Rash Medication List - Last Reconciled 07/05/24 by Ana Zamarripa, [facility]- albuterol sulfate 90 mcg/actuation 2 puffs inhalation Q4-6H PRN diphenhydramine HCl (Benadryl Allergy) 25 mg PO BEDTIME PRN epinephrine 0.3 mg (0.3 mL) IM Q4H PRN fluticasone propionate 50 mcg/actuation 1 spray intranasal BID gabapentin 100 mg PO TID PRN 30 days mecobalamin (vitamin B12) (B12 Active) 2,000 mcg (2 x 1,000 mcg) PO DAILY meloxicam 7.5 mg PO DAILY montelukast (Singulair) 10 mg PO BEDTIME simethicone 180 mg PO BID PRN valacyclovir 500 mg PO DAILY Tobacco use date assessed: 07/05/24 Dental Screening Dental Screen Date: 03/06/23 HPI HPI Comments History of Present Illness Details 53-year-old female with mild intermitten t asthma, menopause, vitamin-D deficiency, vitamin B12 deficiency, seasonal allergies, celiac disease, migraine headaches, generalized anxiety disorder, venous insufficiency, severe depression, diverticulitis, hiatal hernia, Oliveira cyst on the right, HLD Status post endometrial ablation, tubal ligation, breast biopsy, hysterectomy with BSO for myomas benign pathology Social: works in [employer] Living in [place] Health Maintenance: ? Colon 10/16/2022 ? Mammo 02/28/24 WNL ? DEXA normal 12/08/23 DIAGNOSIS: Normal bone density based on the lowest T- score value of-1.0 in the femoral neck applying World Health Organization criteria. ? PAP n/a d/t STEPHEN ? Tdap 2023, UTD on shingles vaccine. Specialists: GI annual follow up next appt 10/2024 Security Services Specialist appt next month was cancelled,she will work on rescheduling podiatry [facility] next month migraines every day in the afternoon Here for routine fu chronic conditions: c/o pruritic dermatologic rash. The patient reports the rash as small bumps with a notable itchiness, initially appearing post-travel from [place] after significant exposure to mosquito bites. The patient has a known allergy to insect bites, though historical symptoms have been limited to her childhood. She articulated that the rash now features small white splotches and predominantly appears on the lower extremities, though generalized itching occurs. The discomfort had been persistent despite the use of topical calamine lotion. The patient has a history of asthma, currently managed with Albuterol, and expresses that outside of recent illness, they maintain controlled breathing. Hypercholesterolemia was previously identified in labs conducted last year, which the patient is trying to manage through dietary adjustments. With the patient's current weight over 200 pounds, she acknowledges weight management as challenging, possibly compounded by stress and hormonal changes. The patient was prescribed Gabapentin to manage hot flashes associated with medication use. She also reports headaches occurring predominantly in the afternoons and related to ongoing stress involving familial matters. MDD/BETHANIE - interested in counseling. Denies Si/hi. 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 - Family Status: Single mother with adul t children; historical and ongoing familial stress. - Exercise: Attempts to resume gym activ ities; reports walking extensively during work. - Employment Stress: Significant occupat ional stress due to responsibilities and familial problems. - Nutrition: Has been attempting dietary modifications particularly in managing cholesterol, though feels burdened by overall lifestyle stress and time constraints. - Weight Management: Struggles with weig ht control despite attempting physical activity due to her work nature. - Familial Relationship: Challenges in f amilial relationships, particularly relating to adult son's emotional and occupational struggles. Exam Awake alert NAD RRR LS CTAB No edema BLE Tearful when talking about family otherwise appropriate scattered faint pink papules, some scabbed, not linear, no drainage on bilat upper thighs and less so bilat lower legs Results - Labs: Blood work to be acquired today. Prior labs (October and February last year) did indicate hypercholesterolemia; subsequent labs did not show anemia. Discussion Notes During today's discussion, I reviewed the patient's dermatologic condition likely linked to insect bites post-travel and discussed topical prescriptive creams specifically for affected areas. I explored potential allergic etiologies and methods to reduce exposure, such as using permethrin on clothing. Given the familial and emotional stressors, potential therapy referrals were discussed. Regarding chronic care management, I emphasized the importance of maintaining asthma control and adjusting Gabapentin dosing schedule to ameliorate menopausal symptoms and possible stress-induced weight challenges. We also discussed medication options for treating chronic headaches linked with occupational and familial stress. I recommended continuing to monitor hypercholesterolemia levels and encourage dietary vigilance. Follow-up was established for re-evaluation in six months, and portal communication was reinforced for interim concerns. Plan For the dermatologic rash, I advised using a topical steroid cream applied directly to the lesions, reducing inflammation and pruritus. I educated the patient on reapplying this cream carefully to avoid systemic absorption. Since the patient's history of asthma was well managed with current medications, no changes were recommended. Considering the mental stress surrounding familial relationships, I proposed a [facility] referral to provide structured support, possibly relieving familial tension contributing to headaches and weight challenges. Hypercholesterolemia management remains dietary, with a re-emphasis on lifestyle modifications. For the hot flashes, I recommended adjusting Gabapentin regimen to a more frequent administration throughout the day (100mg, 100mg, 200mg). I advised exploring alternatives if insurance barriers impacted cetirizine coverage, such as purchasing generic options online. Lori sent to pharm, if covered take this. If not, use the generic [employer]. Lastly, I directed lab work acquisition for comp rehensive ongoing monitoring of her metabolic profile and potential anemia and reaffirmed the importance of maintaining regular formal communications through the patient portal. Patient was informed and verbally consented to the use of an ambient scribe for clinic note documentation during this visit. Total time spent caring for the patient today was 45 minutes. This includes time spent before the visit reviewing the chart, time spent during the visit, and time spent after the visit on documentation, reviewing laboratory results, diagnostic imaging, medications, performing a medically necessary evaluation, counseling on diagnoses, care coordination, ordering appropriate tests, ordering appropriate medications, review of tests performed by other providers, reporting test results with the patient, communication with other healthcare providers. [facility] Medical History (Updated 07/05/24 @ 16:56 by Ana Zamarripa, LOGISTICS OFFICER-) Anxiety disorder Asthma Celiac disease Constipation by delayed colonic transit Hypertension Menopausal symptom Migraine Seasonal allergies Severe depression Synovial cyst of right knee Venous insufficiency Vitamin B 12 deficiency Vitamin D deficiency Surgical History History of esophagogastroduodenoscopy (EGD) Hx of colonoscopy History of endometrial ablation History of tubal ligation S/P breast biopsy Hx of hysterectomy Family History Paternal Grandmother Breast cancer Paternal Aunt Breast cancer Mother Hypercholesteremia Age related osteoporosis Father Hypertension Social History (Updated 07/05/24 @ 13:58 by Kendal Avalos CMA) Household Members: Spouse and Family Housing: House Alcohol intake: current Alcohol intake frequency: holidays/special occasions only Alcohol type: beer and hard liquor Patient Tobacco Use Status: Never used Tobacco e-Cigarette/Vaping Use: Never Used Use of substances other than those prescribed or required for medical reasons: No service: No Current occupational status: employed and disabled 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 1. Little interest or pleasure in doing things: several days 2. Feeling down, depressed, or hopeless: several days 3. Trouble falling or staying asleep, or sleeping too much: several days 4. Feeling tired or having little energy: nearly every day 5. Poor appetite or overeating: not at all 6. Feeling bad about yourself - or that you are a failure or have let yourself or your family down: not at all 7. Trouble concentrating on things, such as reading the newspaper or watching television: several days 8. Moving or speaking so slowly that other people could have noticed. Or the opposite - being so fidgety or restless that you have been moving around a lot more than usual: not at all 9. Thoughts that you would be better off or of hurting yourself in some way: not at all Total score: 7 Depression Screening Interpretation: Positive Depression Screening Follow-up: Existing condition Depression Screening Done: Yes 01814 - PHQ-9 Billing: Yes Source: Developed by Drs. Byron Ruffin, Apple Galloway, Jesus Sahu and colleagues, with an educational albin from [employer]. Thrive Questionnaire Date Thrive assessed: 06/29/24 I am a: Patient What is your living situation today?: I have a steady place to live Within the past 12 months, did the food you bought not last and you didn't have the money to get more?: Never true Within the past 12 months, did you worry whether your food would run out before you got money to buy more?: Never true Do you have trouble paying for medicines?: No Do you have trouble getting transportation to medical appointments?: No Do you have trouble paying your heating and electricity bill?: No Do you have trouble taking care of your child, family member or friend?: No Do you have trouble with day-to-day activities such as bathing, preparing meals, shopping, managing finances, etc.?: No Are you currently unemployed and looking for a job?: No Are you interested in more education?: No Please select the resources that you would like help with: None Currently or been in a relationship where the following occur: No concerns reported THRIVE Score: 0 AUDIT C Alcohol Use Questionnaire (AUDIT-C) 1. How often do you have a drink containing alcohol?: Monthly or less 2. How many drinks containing alcohol do you have on a typical day when you are drinking?: 1 or 2 3. How often do you have six or more drinks on one occasion?: Less than monthly Total Score: 2 Score Reviewed/Action Taken: Yes BETHANIE-7 AMB Questionnaire BETHANIE-7 Date BETHANIE - 7 assessed: 07/05/24 Feeling nervous, anxious, or on edge: 1 = Several days Not being able to stop or control worryin = Several days Worrying too much about different things: 1 = Several days Trouble relaxin = Several days Being so restless that it is hard to sit still: 1 = Several days Becoming easily annoyed or irritable: 2 = More than half the days Feeling afraid as if something awful might happen: 1 = Several days Total BETHANIE-7 score (0-4 normal; 5-9 mild; 10-14 moderate; 15-21 severe): 8 Source: Developed by Drs. Byron Ruffin, Jesus Hinton and colleagues, with an educational albin from [employer]. BETHANIE-7 Assessment Billing BETHANIE-7 Assessment Tool: BETHANIE-7 Assessment 55010 ACT Questionnaire In the past 4 weeks, how much of the time did your asthma keep you from getting as much done at work, school or at home?: All of the time During the past 4 weeks, how often have you had shortness of breath?: More than once a day During the past 4 weeks, how often did your asthma symptoms wake you up at night or earlier than usual in the morning?: Not at all During the past 4 weeks, how often have you had to use your rescue inhaler or nebulizer medication?: 2-3 times a week How would you rate your asthma control during the past 4 weeks?: Somewhat controlled ACT Interpretation: Positive (this is only when she was sick; otherwise her asthma is well controlled) Score: 13 Physical exam (Primary Care) Vital Signs: Last Vital Signs Pulse 74 07/05/24 12:39 Resp 14 07/05/24 12:39 BP 116/74 07/05/24 12:39 Pulse Ox 97 07/05/24 12:39 Oxygen Delivery Method Room Air 07/05/24 12:39 BMI result Body Mass Index 32.8 BMI Assessment/Plan discussion: High BMI High, discussed plan: lifestyle Tobacco/Smoking Status: Tobacco use Status Tobacco use date assessed 07/05/24 07/05/24 12:42 Patient Tobacco Use Status Never used Tobacco 07/05/24 12:35 e-Cigarette/Vaping Use Never Used 07/05/24 12:35 PHQ-9: PHQ-9 Score PHQ-9: Total score 7 07/05/24 13:58 Depression Screening Interpretation: Positive Depression Screening Follow-up: Existing condition Thrive Assessment: Date of Thrive Assessment Date Thrive assessed 06/29/24 07/05/24 12:35 Currently or been in a relationship where the following occur: No concerns reported Coding Level of Care Code Est Pt Level 5 (66324) Complex EM visit Add On G2211 Diagnoses BETHANIE (generalized anxiety disorder) F41.1 Severe depression F32.2 Migraine without aura and without status migrainosus, not intractable G43.009 Migraine type: migraine (< 15 days per month) without aura Status migrainosus presence: without status migrainosus Intractability: not intractable Mild intermittent asthma in adult without complication J45.20 Plantar fasciitis of left foot M72.2 Seasonal allergies J30.2 Vasomotor symptoms due to menopause N95.1 Venous insufficiency I87.2 BMI 32.0-32.9,adult Z68.32 Vitamin D deficiency E55.9 Vitamin B 12 deficiency E53.8 Class 1 obesity due to excess calories without serious comorbidity with body mass index (BMI) of 32.0 to 32.9 in adult E66.811; E66.09; Z68.32 Obesity type: due to excess calories Serious obesity comorbidity presence: without serious comorbidity Pruritic rash L28.2 Additional Codes BETHANIE-7 Assessment Billing - BETHANIE-7 Assessment Tool: BETHANIE-7 Assessment 80000 ([id number]) PHQ-9 - 06745 - PHQ-9 Billing: Yes ([id number]) Asthma Control Questionnaire - ACT Interpretation: Positive ([id number]) Assessment & Plan Assessment & Plan (1) BETHANIE (generalized anxiety disorder): Code(s): F41.1 - Generalized anxiety disorder Category: Medical (2) Severe depression: Code(s): F32.2 - Major depressive disorder, single episode, severe without psychotic features Category: Medical (3) Migraine: Code(s): G43.909 - Migraine, unspecified, not intractable, without status migrainosus Category: Medical Qualifiers: Migraine type: migraine (< 15 days per month) without aura Status migrainosus presence: without status migrainosus Intractability: not intractable Qualified Code(s): G43.009 - Migraine without aura, not intractable, without status migrainosus (4) Mild intermittent asthma in adult without complication: Code(s): J45.20 - Mild intermittent asthma, uncomplicated Category: Medical (5) Plantar fasciitis of left foot: Code(s): M72.2 - Plantar fascial fibromatosis Category: Medical (6) Seasonal allergies: Code(s): J30.2 - Other seasonal allergic rhinitis Category: Medical (7) Vasomotor symptoms due to menopause: Code(s): N95.1 - Menopausal and female climacteric states Category: Medical (8) Venous insufficiency: Code(s): I87.2 - Venous insufficiency (chronic) (peripheral) Category: Medical (9) BMI 32.0-32.9,adult: Code(s): Z68.32 - Body mass index [BMI] 32.0-32.9, adult Category: Medical (10) Vitamin D deficiency: Code(s): E55.9 - Vitamin D deficiency, unspecified Category: Medical (11) Vitamin B 12 deficiency: Code(s): E53.8 - Deficiency of other specified B group vitamins Category: Medical (12) Class 1 obesity with body mass index (BMI) of 32.0 to 32.9 in adult: Code(s): E66.811 - Obesity, class 1; Z68.32 - Body mass index [BMI] 32.0-32.9, adult Category: Medical Qualifiers: Obesity type: due to excess calories Serious obesity comorbidity presence: without serious comorbidity Qualified Code(s): E66.811 - Obesity, class 1; E66.09 - Other obesity due to excess calories; Z68.32 - Body mass index [BMI] 32.0-32.9, adult (13) Pruritic rash: Code(s): L28.2 - Other prurigo Category: Medical Plan . Orders: Orders Complete Blood Count no Diff Today E53.8 - Deficiency of other specified B group vitamins, E55.9 - Vitamin D deficiency, unspecified, F41.1 - Generalized anxiety disorder Vitamin B12 and Folate Today E53.8 - Deficiency of other specified B group vitamins, E55.9 - Vitamin D deficiency, unspecified, F41.1 - Generalized anxiety disorder Comprehensive Met. Panel Today E53.8 - Deficiency of other specified B group vitamins, E55.9 - Vitamin D deficiency, unspecified, F41.1 - Generalized anxiety disorder Lipid Panel Today E53.8 - Deficiency of other specified B group vitamins, E55.9 - Vitamin D deficiency, unspecified, F41.1 - Generalized anxiety disorder TSH reflex Free T4 Today E53.8 - Deficiency of other specified B group vitamins, E55.9 - Vitamin D deficiency, unspecified, F41.1 - Generalized anxiety disorder Hemoglobin A1c Today E53.8 - Deficiency of other specified B group vitamins, E55.9 - Vitamin D deficiency, unspecified, F41.1 - Generalized anxiety disorder IRON PROFILE Today E53.8 - Deficiency of other specified B group vitamins, E55.9 - Vitamin D deficiency, unspecified, F41.1 - Generalized anxiety disorder Microalbumin, Random (w Creat) Today E53.8 - Deficiency of other specified B group vitamins, E55.9 - Vitamin D deficiency, unspecified, F41.1 - Generalized anxiety disorder Vitamin D 25-OH Total Today E53.8 - Deficiency of other specified B group vitamins, E55.9 - Vitamin D deficiency, unspecified, F41.1 - Generalized anxiety disorder Referrals Counseling Referral F32.2 - Major depressive disorder, single episode, severe without psychotic features, F41.1 - Generalized anxiety disorder Medications: New levocetirizine (Xyzal) 5 mg PO DAILY 90 tabs 2RF betamethasone dipropionate 0.05% 1 appl topical BID PRN 45 grams 1RF skin irritation 2 weeks Changed From gabapentin 100 mg PO TID 30 days PRN 90 caps 2RF hot flashes To gabapentin 1 tab in the morning, 1 tab in the afternoon, 2 tabs at bedtime 100 mg PO TID PRN 120 caps 2RF hot flashes 30 days Discontinued diphenhydramine HCl (Benadryl Allergy) Discontinued Reason: Doctor's Order 25 mg PO BEDTIME PRN 30 tabs 3RF sleep Patient Instructions: Patient Instructions - Apply prescriptive cream to affected areas on the legs twice daily for up to two weeks. - Use permethrin-treated clothing for future travel to insect-prone areas. [employer] Premium Permethrin Insect Repellent Aerosol [place] - Adjust Gabapentin intake to three times daily to potentially improve symptom relief. - Continue taking prescribed medications and asthma inhaler as directed. - Engage with dietary adjustments to manage cholesterol. - Monitor and manage headaches with hydration and stress reduction strategies. - Schedule a follow-up appointment in six months. - Use portal for any additional questions or concerns.
[2024-07-05 12:39] VITALS: BP 116/74; PULSE 74; RESP 14; O2SAT 97; BMI 32.8
--- OUTSIDE RECORDS SUMMARY | 2024-07-05 13:32 | XMS_ITS | Continuity of Care Document ---
Author Organization [facility] Address [address] [place] [address] Phone Care Team Providers Care Kiln Stacker Name Role Phone Luan Allan PA-C, PA-C [...] Providers Copied on Encounter Office/Outpat ient Visit, [facility], [address] [place] [address], [address] [place] [address], tel:[phone] Jerrell Allergy (chief complaint) Moderate persistent asthma without complicationFood allergyOther allergic rhinitis 1 Jerrell Roland. [address] [place], [place], [address] [place] [address] , . tel:[phone] Referring Provider: AILEEN Doherty, [address] [facility] [address], [place], [address]. tel:[phone] Office/Outpat ient Visit, [facility], [address] [place] [address], [address] [place] [address], tel:[phone] Jerrell Allergy (chief complaint) Angioedema, initial encounterFood allergyModerate persistent asthma without complication 1 Jerrell Roland. [address] [place] [place], [place], [id number] , . tel:[phone] Referring Provider: AILEEN Doherty, [address] [facility] [address], [place], [address]. tel:[phone] Family History Family Member Type Diagnosis Age At Onset Brother Problem (finding) Alive and Doing Well Father Problem (finding) Alive and Doing Well Mother Problem (finding) Alive and Doing Well Payers Payer name Insurance type Covered republican ID Valeria shah(s) [id number] Social History Type Description Quantity Date Captured [...] swollen tongue 2 weeks ago, went to [facility] for observation, she was given epipen [...]
--- OUTSIDE RECORDS SUMMARY | 2024-07-05 13:33 | XMS_ITS | Data Portability ---
Author Organization [facility]ILLE Alarcon dung, [address] Address [address] [place] [address] Assessment No assessment recorded. Plan of Treatment Reminders Order Date Submit Date Provider Last Modified By Organization Details Last Modified Time Details Appointments None recorded. Lab None recorded. Referral None recorded. Procedures None recorded. Surgeries None recorded. Imaging None recorded. Medication Orders Augmentin 875 mg-125 mg tablet 2022 023 [facility] #[id number], [address] [place], [address], 3 11:52:59 prednisone 20 mg tablet 2022 023 [facility] #[id number], [address] [place], [address], 3 11:52:59 Patient TargetsNo targets recorded. Patient Instructions Encounter Date Encounter Id Patient Instructions Last Modified By Organization Details Last Modified Time 08/30/2022 [id number] Sinusitis is an infection of the lining of the sinus cavities in your head. Sinusitis often follows a cold. It causes pain and pressure in your head and face. In most cases, sinusitis gets better on its own in 1 to 2 weeks. But some mild symptoms may last for several weeks. Sometimes antibiotics are needed. if you are having problems. It's also a good idea to know your test results and keep a list of the medicines you take. How can you care for yourself at home? Take an xdzc-nbs-xkdbcdb pain medicine. Avoid Ibuprofen, Aleve and Aspirin if . If the doctor prescribed antibiotics, take them as directed. Do not stop taking them just because you feel better. You need to take the full course of antibiotics. Be careful when taking zuic-fwj-udwjmjl cold or influenza (flu) medicines and Tylenol at the same time. Many of these medicines have acetaminophen, which is Tylenol. Read the labels to make sure that you are not taking more than the recommended dose. Too much acetaminophen (Tylenol) can be harmful. Breathe warm, moist air from a steamy shower, a hot bath, or a sink filled with hot water. Avoid cold, dry air. Using a humidifier in your home may help. Follow the directions for cleaning the machine. Use saline (saltwater) nasal washes. This can help keep your nasal passages open and wash out mucus and bacteria. You can buy saline nose drops at a grocery store or drugstore. Or you can make your own at home by adding 1 teaspoon (5 millilitres) of salt and 1 teaspoon (5 millilitres) of baking soda to 2 cups (500 mL) of distilled water. If you make your own, fill a bulb syringe with the solution, insert the tip into your nostril, and squeeze gently. Blow your nose. Put a hot, wet towel or a warm gel pack on your face 3 or 4 times a day for 5 to 10 minutes each time. Try a decongestant nasal spray like oxymetazoline (Drixoral). Do not use it for more than 3 days in a row. Using it for more than 3 days can make your congestion worse. [email or web address] Not available 08/30/2022 11:52:56 Reason for Referral None Reported. Problems Name Problem SNOMED Code Status Onset Date Resolution Date Notes Provider Name and Address Organization Details Recorded Time Celiac disease 252953653 Active 2022 JOSH mathis PA - [facility] 11:38:44 Migraine 95353173 Active 2022 JOSH mathis PA - [facility] 3 11:40:52 Hypertensive disorder 21878443 Active 2022 JOSH mathis PA - [facility] 3 11:40:57 Problem Notes None recorded. Procedures Surgical History Date Name Laterality Status Provider Name and Address Organization Details Recorded Time 01/01/20 18 total hysterectomy with removal of both tubes and ovaries completed JOSH DEPINTO PA - [facility] 08/30/2022 11:38:25 high intensity focused ultrasound ablation of lesion of uterus completed JOSH DEPINTO PA - [facility] 08/30/2022 11:41:48 hemorrhoidectomy completed JOSH DEPINTO PA - [facility] 08/30/2022 11:42:02 Imaging Results None recorded. Procedure Notes None recorded. Medical Equipment None Reported. Allergies No known drug allergies Medications Name Sig Start Date Stop Date Status Note LastModified by Organization Details LastModified Time Augmentin 875 mg-125 mg tablet Take 1 tablet every 12 hours by oral route with meals for 10 days. 2022 active Not Available Not Available Not Avai lable cetirizine 10 mg tablet TAKE 1 TABLET BY MOUTH ONCE DAILY 08/30 completed Not Available Not Available Not Available prednisone 20 mg tablet TAKE 2 TABLETS BY MOUTH EVERY DAY IN THE MORNING FOR 5 DAYS active Not Available Not Available No t Available permethrin 5 % topical cream MASSAGE INTO SKIN FROM HEAD TO SOLES OF FEET. WASH OFF AFTER 8-14 HOURS. REPEAT IN 1 WEEK. 08/30 completed Not Available Not Available Not Available sumatriptan 50 mg tablet TAKE 1 TABLET FOR MIGRAINE RELIEF. MAY REPEAT EVERY 2 HOURS. DO NOT EXCEED 200 MG PER 24 HOURS. 08/30 completed Not Available Not Available Not Available valacyclovi r 500 mg tablet TAKE 1 TABLET BY MOUTH EVERY DAY active Not Available Not Available No t Available tramadol 50 mg tablet TAKE 1 TABLET BY MOUTH EVERY 6 HOURS NEEDED FOR PAIN 08/30 completed Not Available Not Available Not Available clotrimazol e-betametha sone 1 %-0.05 % topical cream APPLY AND RUB IN A THIN FILM TO AFFECTED AREAS TWICE DAILY (MORNING AND EVENING) 08/30 completed Not Available Not Available Not Available hydrochloro thiazide 12.5 mg capsule TAKE 1 CAPSULE BY MOUTH ONCE DAILY 08/30 completed Not Available Not Available Not Available montelukast 10 mg tablet TAKE 1 TABLET BY MOUTH ONCE DAILY 08/30 completed Not Available Not Available Not Available estradiol 0.5 mg tablet TAKE 1 TABLET BY MOUTH ONCE DAILY DIRECTED 08/30 completed Not Available Not Available Not Available ibuprofen 600 mg tablet TAKE 1 TABLET BY MOUTH EVERY 8 HOURS NEEDED FOR PAIN 08/30 completed Not Available Not Available Not Available albuterol sulfate HFA 90 mcg/actuati on aerosol inhaler TAKE 2 PUFFS BY MOUTH EVERY 4 TO 6 HOURS NEEDED FOR WHEEZE FOR SHORTNESS OF BREATH active Not Available Not Available No t Available ondansetron 4 mg disintegrat ing tablet TAKE 1 TABLET BY MOUTH EVERY 6 TO 8 HOURS NEEDED FOR NAUSEA AND VOMITING 08/30 completed Not Available Not Available Not Available budesonide- formoterol HFA 160 mcg-4.5 mcg/actuati on aerosol inhaler INHALE 1 PUFF BY MOUTH TWICE DAILY 08/30 completed Not Available Not Available Not Available sodium,pota ssium,mag sulfates 17.5 gram-3.13 gram-1.6 gram oral soln DILUTE PER INSTRUCTI ONS 08/30 completed Not Available Not Available Not Available Vitals Date Recorded Body height Body mass index (BMI) Body weight Pain severity - 0-10 verbal numeric rating [Score] - Reported Respiratory rate Oxygen saturation Oxygen saturation in Arterial blood by Pulse oximetry Heart rate Body temperature Systolic blood pressure Diastolic blood pressure Provider Name and Address Organization Details Last Updated DateTime 167.64 cm 30.7 kg/m2 17645.5 5 g 8 18 /min 98 % 98 % 80 /min 97.9 [degF] 132 mm[Hg] 88 mm[Hg] JOSH GARCÍA PA - [facility] 11:43:15 Social History Question Answer Notes LastModified by Organizat ion Details LastModified Time Tobacco Smoking Status Never Smoker JOSH mathis PA - [facility] 08/30/2022 11:41:10 What Is Your Level Of Alcohol Consumption? Occasional Information not available 08/30/2022 How Many Times Per Week Do You Consume Alcohol? Less Than 1 Time Per Week Information not available 08/30/2022 Do You Use Any Illicit Or Recreational Drugs? No Information not available 08/30/2022 Have You Recently Traveled Abroad? No Information not available 08/30/2022 Do You Or Have You Ever Used Any Other Forms Of Tobacco Or Nicotine? No Information not available 08/30/2022 Sex: Unknown Functional Status None recorded. Mental Status None recorded. Family History Relationship Description Onset Age of this Age Resolved Age Notes LastModified by Organization Details LastModified Time Father No current problems or disability Not available 08/30 11:41:01 Mother No current problems or disability Not available 08/30 11:41:01 Medical History No medical history recorded. Gynecological HistoryNo gynecological history recorded. Obstetrics History GPAL:G 0 P 0 0 0 0 Past Encounters Encounter ID Performer Location Encounter Start Date Encounter Closed Date Diagnosis/Indication Diagnosis SNOMED-CT Code Diagnosis ICD10 Code Diagnosis Note [id number] [place] Villase[place] [facility] [address] [place] [id number] 08/30/2022 11:14:55 08/30/2022 11:58:42 Acute sinusitis 71262615 J01.90 Health Concerns Section Related Observation LastModified by Organization Detai ls LastModified Time None Recorded Concern Status LastModified by Organization Details LastModified Time None Recorded Advance Directives Directive None Recorded Payers Encounter Date Sequence Insurance Name Policy Number Policy Carter Covered Member ID Carter Member ID Guarantor Name 08/30/2022 1 [facility] [id number] Belinda Burgos [id number] Belinda Burgos Notes Date Note Type Note Provider Name and Address Organization Details Recorded Time 08/30/2022 text/html Sinus Complaints UCReported bypatient.Location:s inus pain;facial pain;sinus pressure Associated Symptoms:no fever; no nausea or vomiting; no sore throat; no ear fullness; no nasal itching; no eye itching; no dizziness;nasal discharge from both nostrils;difficulty breathing;headache forehead;Post nasal drip;nasal passage blockage;cough Onset/Timing:worse in am; worse in pm; initially started 2weeks ago Quality:minimal discomfort;worsening ; clear Duration:frequent Severity:moderate Context:no recent upper respiratory infection; no recent sick contacts; not worse with seasonal allergen exposure;worse with environmental exposure Risk Factors:no current smoking or tobacco use; no history of nasal trauma Alleviating factors:nothing gives relief Aggravating factors:worse during an upper respiratory infection (a cold); worse with excess fatigue Prior Treatmentnasal steroids:; oral steroids: Alexis Villaseñor NP [address] [place], [address], PA - [facility] 08/30/2022 11:53:14 OBGyn Episode No OBEpisode recorded.
== END 2024-07-05 13:33 | disposition home or self-care (01) ==
PROVIDERS: PCP Nurse Practitioner Family; Visit Provider Nurse Practitioner Family
DX: G43.009 Migraine without aura, not intractable, without status migrainosus (principal); F41.1 Generalized anxiety disorder; F32.2 Major depressive disorder, single episode, severe without psychotic features; J45.20 Mild intermittent asthma, uncomplicated; M72.2 Plantar fascial fibromatosis; J30.2 Other seasonal allergic rhinitis; N95.1 Menopausal and female climacteric states; I87.2 Venous insufficiency (chronic) (peripheral); Z68.32 Body mass index [BMI] 32.0-32.9, adult; E66.811 Obesity, class 1; E55.9 Vitamin D deficiency, unspecified; E53.8 Deficiency of other specified B group vitamins

== ENCOUNTER 2024-07-05 13:24 | Outpatient (REF) | payer OTHER, SELFPAY ==
--- OUTSIDE RECORDS SUMMARY | 2024-07-05 14:30 | XMS_ITS | Clinical Summary ---
Author Organization [address] [place] [address] Address [address] [place] [address] Phone Care Team Providers Care Javascript Engineer Name Role Phone Ana Zamarripa Primary Care Provider Social History Tobacco Use Types Packs/Day Years Used Date Smoking Tobacco: Never Assessed Comments Unknown Sex and Gender Information Value Date Recorded Sex Assigned at Not on file Legal Sex Female 3:25 PM EST Gender Identity Not on file Sexual Orientation Not on file Plan of Treatment Upcoming Encounters Date Type Department Care Team ([facility] Contact Info) Description 08/09/2024 10:15 AM EDT Consult Orthopedic Surgery [place] [address] [id number] Lucas Cox, DPM [address] [address] Health Maintenance Due Date Last Done Comments Breast Cancer Screening 1968 DTaP,Tdap,and Td Vaccines (1 - Tdap) 09/15/1975 Hepatitis B Vaccines (1 of 3 - 19+ 3-dose series) 09/15/1987 Cervical Cancer Screening: P ap Smear 1989 Pneumococcal Vaccine: 50+ Ye ars (1 of 1 - PCV) 2018 Zoster Vaccines (1 of 2) 2018 COVID-19 Vaccine (2023-2 5 season) 2024 Influenza Vaccine (#1) 2024 Colorectal Cancer Screening: Colonoscopy 05/04/2024 Depression Screening 05/04/2024 HIV Screening 05/04/2024 Hepatitis C Screening 05/04/2024 Social Influencers of Health Screening 05/04/2024 HIB Vaccines Aged Out No longer eligi ble based on patient's age to complete this topic HPV Vaccines Aged Out No longer eligi ble based on patient's age to complete this topic Hepatitis A Vaccines Aged Out No long er eligible based on patient's age to complete this topic IPV Vaccines Aged Out No longer eligi ble based on patient's age to complete this topic MMR Vaccines Aged Out No longer eligi ble based on patient's age to complete this topic Meningococcal ACWY Vaccine Aged Out N o longer eligible based on patient's age to complete this topic Meningococcal B Vacine Aged Out No lo nger eligible based on patient's age to complete this topic Pneumococcal Vaccine: Pediat rics (0 to 5 Years) and At-Risk Patients (6 to 64 Years) Aged Out No longer eligible b ased on patient's age to complete this topic RSV Immunization Patients Un alex 20 months Aged Out No longer eligible b ased on patient's age to complete this topic Varicella Vaccines Aged Out No longer eligible based on patient's age to complete this topic Insurance [facility] PUBLIC PL[employer] Care Teams Javascript Engineer Relationship Specialty Start Date End Date Ana Zamarripa FNP [address] [place] [address] [place] [id number] PCP - General Nurse Practitioner 05/04/24
--- OUTSIDE RECORDS SUMMARY | 2024-07-05 14:31 | XMS_ITS | Continuity of Care Document ---
Author Organization [facility] Address [address] [place] [address] Phone Care Team Providers Care Office Specialist Name Role Phone Luan Allan PA-C, PA-C [...] Providers Copied on Encounter Office/Outpat ient Visit, [facility], [address] [place] [address], [address] [place] [address], tel:[phone] Jerrell Allergy (chief complaint) Moderate persistent asthma without complicationFood allergyOther allergic rhinitis 1 Jerrell Roland. [address] [place], [place], [address] [place] [address] , . tel:[phone] Referring Provider: AILEEN Doherty, [address] [facility] [address], [place], [address]. tel:[phone] Office/Outpat ient Visit, [facility], [address] [place] [address], [address] [place] [address], tel:[phone] Jerrell Allergy (chief complaint) Angioedema, initial encounterFood allergyModerate persistent asthma without complication 1 Jerrell Roland. [address], [place], [id number] , . tel:[phone] Referring Provider: AILEEN Doherty, [address] [facility] [address], [place], [address]. tel:[phone] Family History Family Member Type Diagnosis Age At Onset Brother Problem (finding) Alive and Doing Well Father Problem (finding) Alive and Doing Well Mother Problem (finding) Alive and Doing Well Payers Payer name Insurance type Covered republican ID Valeria shah(s) [id number] Social History Type Description Quantity Date Captured [...] swollen tongue 2 weeks ago, went to [facility], she was given epipen [...]
[2024-07-05 18:47] LABS: Hematocrit 43.8 % (37.0-47.0); Hemoglobin 14.7 g/dl (12.0-16.0); Mean Corpuscular HGB Conc 33.6 g/dl (31.0-35.0); Mean Corpuscular Hemoglobin 28.5 pg (27.0-33.0); Mean Corpuscular Volume 84.9 fL (80.0-98.0); Platelet Count 334 X10*3/uL (160-400); Red Blood Count 5.16 X10*6/uL (4.20-5.50); Red Cell Distribution Width 13.3 % (11.0-16.0); White Blood Count 6.6 X10*3/uL (4.8-10.8)
[2024-07-05 18:49] LABS: Alanine Aminotransferase 32 U/L (0-31); Albumin Level 4.4 g/dL (3.5-5.0); Alkaline Phosphatase 103 U/L (39-117); Anion Gap 8 (12-20); Aspartate Amino Transferase 25 U/L (5-31); Bilirubin Total 0.5 mg/dL (0.0-1.0); Blood Urea Nitrogen 23 mg/dL (9-16); Calcium 9.6 mg/dL (8.4-10.2); Carbon Dioxide 27 mmol/L (22-29); Chloride 107 mmol/L (96-108); Cholesterol 204 mg/dL (<200); Estimated Glomerular Filt Rate > 60; Glucose Random 78 mg/dL (60-115); HDL Cholesterol 46 mg/dL (>40); Iron 49 mcg/dL (30-160); LDL Cholesterol Calculated 130 mg/dL (<100); Percent Iron Saturation 16 % (15-50); Potassium 4.1 mmol/L (3.3-5.1); Sodium 138 mmol/L (135-145); Total Iron Binding Capacity 310 mcg/dL (228-428); Total Protein 7.9 g/dL (6.5-8.0); Triglycerides 140 mg/dL (<150); Unsaturated Iron Binding 261 ug/dL
[2024-07-05 18:54] LABS: TSH reflex Free T4 1.45 uIU/mL (0.32-4.0); Vitamin D 25-OH Total 60.9 ng/mL (>30)
[2024-07-05 18:58] LABS: Microalbum/Creatinine Ratio Ur 19.1 ug/mg cr (<30)
[2024-07-05 19:13] LABS: Folate 15.4 ng/mL (> or = 4.0); Vitamin B12 508 pg/mL (200-900)
[2024-07-06 05:18] LABS: Estimated Average Glucose 111 mg/dL; Hemoglobin A1C 137.4853 umol/L; Hemoglobin A1c % 5.5 % (<6.0); Total Hemoglobin (HGBA1C) 3785.8453 umol/L
== END 2024-07-05 13:25 | disposition home or self-care (01) ==
LOC: HO.WFDLDS 13:24
PROVIDERS: Visit Provider Nurse Practitioner Family
DX: F41.1 Generalized anxiety disorder (principal); E53.8 Deficiency of other specified B group vitamins; E55.9 Vitamin D deficiency, unspecified; F32.2 Major depressive disorder, single episode, severe without psychotic features; G43.009 Migraine without aura, not intractable, without status migrainosus; J45.20 Mild intermittent asthma, uncomplicated; M72.2 Plantar fascial fibromatosis; J30.2 Other seasonal allergic rhinitis; N95.1 Menopausal and female climacteric states; I87.2 Venous insufficiency (chronic) (peripheral); E66.09 Other obesity due to excess calories; Z68.32 Body mass index [BMI] 32.0-32.9, adult; L28.2 Other prurigo; Z71.3 Dietary counseling and surveillance
CPT/HCPCS: 36415; 80053; 80061; 82043; 82306; 82570; 82607; 82746; 83036; 83540; 84443; 85027; 96127; 96160; 99212

== ENCOUNTER 2024-08-09 12:15 | Outpatient (AMB) | payer OTHER, SELFPAY ==
[2024-08-09 12:32] VITALS: BMI 32.1
--- NOTE | 2024-08-09 12:32 | A.OFFVIS_ITS ---
VS Expanded 08/09/24 12:32 Height 5 ft 6 in Weight 198 lb 13.711 oz BMI 32.1 Intake Visit Reasons: Body mass index [BMI] 32.0-32.9, adult Allergies Seasonal Allergies Allergy (Severe, Verified 07/05/24 12:58) Itchy Eyes gluten Allergy (Verified 07/05/24 12:58) Rash Nutrition Presentation Details: Pt presents for MNT for Obesity. Pt has celiac disease Pt reports typically having 1-2 meals/day B/snack: Yogurt with miralax and banana Lunch: soup ( potato/carrots/chicken) dinner/skips: mashed potato/meat or may skip food frequency fruits: 1/d veserving/d dairy: 1-2 /d starches > 15 fish: 0-1/wk Physical activity: ADL BS Monitoring Most Recent Diabetes Results: Microalb/Creat Ratio 19.1 ug/mg cr (<30) 07/05/24 Cholesterol 204 mg/dL (<200) H 07/05/24 HDL Cholesterol 46 mg/dL (>40) 07/05/24 Triglycerides 140 mg/dL (<150) 07/05/24 Creatinine 0.70 mg/dL (0.5-1.4) 07/05/24 Blood Urea Nitrogen 23 mg/dL (9-16) H 07/05/24 Sodium 138 mmol/L (135-145) 07/05/24 Potassium 4.1 mmol/L (3.3-5.1) 07/05/24 Chloride 107 mmol/L (96-108) 07/05/24 Carbon Dioxide 27 mmol/L (22-29) 07/05/24 Calcium 9.6 mg/dL (8.4-10.2) 07/05/24 AST 25 U/L (5-31) 07/05/24 ALT 32 U/L (0-31) H 07/05/24 Total Protein 7.9 g/dL (6.5-8.0) 07/05/24 Albumin 4.4 g/dL (3.5-5.0) 07/05/24 UIP-Effykbm-Nb.Jeor Equation Height: 5 ft 6 in Weight: 199 lb Resting Metabolic Rate: 1517.90 Calculated Activity Level: Sedentary Calories Needed to Maintain Weight: 1821.48 Diagnosis Nutrition problem #1: excessive energy intake As related to (etiology) #1: diagnosis As evidenced by (sign/symptom) #1: high BMI (32.1) [facility] Medical History (Updated 07/06/24 @ 10:22 by Ana Zamarripa, [facility]) Constipation by delayed colonic transit Migraine Celiac disease Hypertension Vitamin D deficiency Vitamin B 12 deficiency Venous insufficiency Synovial cyst of right knee Severe depression Menopausal symptom Anxiety disorder Seasonal allergies Asthma Surgical History History of esophagogastroduodenoscopy (EGD) Hx of colonoscopy History of endometrial ablation History of tubal ligation S/P breast biopsy Hx of hysterectomy Family History Paternal Grandmother Breast cancer Paternal Aunt Breast cancer Mother Hypercholesteremia Age related osteoporosis Father Hypertension Social History (Updated 07/05/24 @ 13:58 by Kendal Avalos CMA) Household Members: Spouse and Family Housing: House Alcohol intake: current Alcohol intake frequency: holidays/special occasions only Alcohol type: beer and hard liquor Patient Tobacco Use Status: Never used Tobacco e-Cigarette/Vaping Use: Never Used service: No Current occupational status: employed and disabled 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 Cognitive needs: No Hearing needs: No Vision needs: No Assessment & Plan Assessment & Plan (1) Class 1 obesity with body mass index (BMI) of 32.0 to 32.9 in adult: Code(s): E66.811 - Obesity, class 1; Z68.32 - Body mass index [BMI] 32.0-32.9, adult Category: Medical Qualifiers: Obesity type: due to excess calories Serious obesity comorbidity presence: without serious comorbidity Qualified Code(s): E66.811 - Obesity, class 1; E66.09 - Other obesity due to excess calories; Z68.32 - Body mass index [BMI] 32.0-32.9, adult Plan: Wt: 90 Kg ( 08/16 ) Est kcal needs as per MSJ: 1800 (40% carb, 30% protein/fat) Est fluid needs as per 25-30 ml/d: 2700 Est prot per day as per 1 g/kg bw: 90 Recommend fiber intake : 8-10 g per day and gradually increase to 25-28 g per day for women and 35-38 g for men or as tolerated Recommend sodium intake per day: less than 2000 mg Educated patient on: ( R = reviewed V = verbalizes understanding N/R = needs review N/A = not applicable * Food sources of carbohydrate, adequate serving sizes and its role in various health conditions: R * Differences between complex carbohydrates a simple carbohydrates, role of fiber in diet: R * Lean protein sources of foods: R * Differences between types of fats and role in diet (mono on saturated fat fatty acids, saturated fatty acids, trans fats): R * Food sources of sodium in salt and healthy modifications for heart health in kidney health: R V R/V * Vitamins and minerals: R V N/R * Healthy plate method concept: R * Physical activity: Benefits a precaution: R Patient Instructions: Try meal replacement instead of skipping dinner - see meal replacement option practice mindful eating Coding Level of Care Code Nutr Indiv Intake (65549) Diagnoses Class 1 obesity due to excess calories without serious comorbidity with body mass index (BMI) of 32.0 to 32.9 in adult E66.811; E66.09; Z68.32 Obesity type: due to excess calories Serious obesity comorbidity presence: without serious comorbidity Time Spent (min) 30
[2024-08-18 21:35] VITALS: BMI 32.1
== END 2024-08-09 13:03 | disposition home or self-care (01) ==
LOC: HO.ENCR 12:15
PROVIDERS: PCP Nurse Practitioner Family; Visit Provider Dietitian, Registered
DX: E66.811 Obesity, class 1 (principal); E66.09 Other obesity due to excess calories; Z68.32 Body mass index [BMI] 32.0-32.9, adult

== ENCOUNTER → 2024-08-09 12:15 | Outpatient (BNVA) | payer OTHER, SELFPAY | PROVIDERS: PCP Nurse Practitioner Family; Visit Provider Dietitian, Registered | DX: E66.811 Obesity, class 1 (principal); Z71.2 Person consulting for explanation of examination or test findings; Z68.32 Body mass index [BMI] 32.0-32.9, adult | CPT/HCPCS: 97802 ==

== ENCOUNTER 2024-08-27 07:43 | Emergency (ER) | payer OTHER, SELFPAY ==
--- NOTE | ~2024-08-27 | XR_ITS ---
CLINICAL HISTORY: cough 1 view chest x-ray Comparison: 03/14/2022 Findings: No new consolidation or effusion. Heart size is normal. No acute fracture. IMPRESSION: 1. No acute findings. This document has been electronically signed by: Callum Conner MD on 08/27/2024 08:15:15
[2024-08-27 07:47] VITALS: BP 139/94; PULSE 100; RESP 18; TEMP 36.4; O2SAT 96; BMI 32.2
--- NOTE | 2024-08-27 07:59 | ED_ITS ---
HPI - URI/Sore Throat General Chief Complaint: Upper Respiratory Symptoms Stated Complaint: cough, body aches x3 days Time Seen by Provider: 08/27/24 07:58 Source: patient and RN notes reviewed Mode of arrival: ambulatory Limitations: no limitations History of Present Illness ED Provider: Yue Mcgregor PA-C HPI Narrative: This is a 53-year-old female with a history of sciatica, celiac, asthma, and migraines, who presents emergency department with concerns for productive cough cough, nausea, body aches, headaches 1 week. She was seen at an urgent care on Thursday and her symptoms have not improved. Patient reports that about 1 week ago she developed a productive cough. She has had subjective fevers and chills, nausea, body aches, chest pain which only occurs with coughing. Denies chest pain at rest. No SOB. She states that in July she had pneumonia which resolved after completion of antibiotics. The urgent care only performed a chest ray, which they reported was unremarkable. She does report that she has had sick contacts at work this past week. She denies any abdominal pain, vomiting or diarrhea. She has been taking rxld-yxl-mubyyci Delsym which has provided her with some relief. No other complaints or concerns at this time. MD elicited complaint: cough and nasal congestion Pertinent past history: pneumonia Onset (ago): day(s) Consistency: constant Severity: moderate Able to tolerate fluids by mouth: Yes Exacerbating factors: nothing Relieving factors: nothing Context: sick contacts Associated symptoms: fever, chills, nasal congestion and cough Treatments prior to arrival: none Related Data Previous Rx's ?Medication ?Instructions ?Recorded albuterol sulfate 90 mcg/actuation 2 puff inhalation Q4-6H PRN 03/21/24 aerosol inhaler shortness of breath or wheezing #6.7 grams epinephrine 0.3 mg/0.3 mL 0.3 mg (0.3 mL) IM Q4H PRN 03/21/24 injection, auto-injector Allergic Reaction #2 ea valacyclovir 500 mg tablet 500 mg PO DAILY #90 tabs 03/21/24 mecobalamin (vitamin B12) 1,000 2,000 mcg (2 x 1,000 mcg) PO DAILY 04/20/24 mcg chewable tablet (B12 Active) #180 tabs simethicone 180 mg capsule 180 mg PO BID PRN for abdominal 06/15/24 pain #60 caps betamethasone dipropionate 0.05 % 1 appl topical BID PRN skin 07/05/24 topical cream irritation 2 weeks #45 grams gabapentin 100 mg capsule 100 mg PO TID PRN hot flashes 30 07/05/24 days #120 caps levocetirizine 5 mg tablet (Xyzal) 5 mg PO DAILY #90 tabs 07/05/24 montelukast 10 mg tablet 10 mg PO BEDTIME #90 tabs 07/12/24 meloxicam 7.5 mg tablet 7.5 mg PO DAILY #90 tabs 07/25/24 fluticasone propionate 50 1 spray intranasal BID #16 grams 08/23/24 mcg/actuation nasal spray,suspension azithromycin 250 mg tablet See Rx Instructions PO .COMPLEX #6 08/27/24 tabs benzonatate 100 mg capsule 100 mg PO TID PRN cough #15 caps 08/27/24 prednisone 20 mg tablet 20 mg PO DAILY 5 days #5 tabs 08/27/24 Allergies Allergy/AdvReac Type Severity Reaction Status Date / Time Seasonal Allergies Allergy Severe Itchy Eyes Verified 08/27/24 07:49 gluten Allergy Rash Verified 08/27/24 07:49 Review of Systems Review of Systems: Yes all other systems are reviewed and are negative Constitutional: Constitutional: Reports as per [facility] Past Medical History Attestation statement: The following information was validated with the patient. Medical History Constipation by delayed colonic transit Migraine Celiac disease Hypertension Vitamin D deficiency Vitamin B 12 deficiency Venous insufficiency Synovial cyst of right knee Severe depression Menopausal symptom Anxiety disorder Seasonal allergies Asthma Surgical History History of esophagogastroduodenoscopy (EGD) Hx of colonoscopy History of endometrial ablation History of tubal ligation S/P breast biopsy Hx of hysterectomy Family History Family History Paternal Grandmother Breast cancer Paternal Aunt Breast cancer Mother Hypercholesteremia Age related osteoporosis Father Hypertension Social History Social History Household Members: Spouse and Family Housing: House Alcohol intake: current Alcohol intake frequency: holidays/special occasions only Alcohol type: beer and hard liquor Patient Tobacco Use Status: Never used Tobacco Smoked in Last 30 Days: No e-Cigarette/Vaping Use: Never Used Use of substances other than those prescribed or required for medical reasons: No Advance Directives: No Advance Directives Information Provided: Yes Do you have a plan to hurt others: No Plan service: No Current occupational status: employed and disabled 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 Cognitive needs: No Hearing needs: No Vision needs: No Physical Exam Vital Signs: Vital Signs: Last Vital Signs Temp 98.3 F 08/27/24 09:10 Pulse 93 08/27/24 09:10 Resp 18 08/27/24 09:10 BP 128/85 08/27/24 09:10 Pulse Ox 96 08/27/24 09:10 O2 Del Method Room Air 08/27/24 09:10 BMI result Body Mass Index 32.2 Const: General: cooperative, comfortable and no acute distress Orientation/consciousness: patient oriented x3 Limitations: no limitations HEENT: Head: Yes normal to inspection, Yes normocephalic and Yes atraumatic Ears: hearing grossly normal bilaterally General nose exam: Normal external nose present Face and sinus: Yes normal facial exam Mouth: Normal oral and palatal mucosa present, oropharynx normal and moist mucous membranes Throat: Yes posterior oropharynx normal Eyes: General: appearance normal, both eyes and all related structures Eyelids: Yes eyelids normal Conjunctivae: conjunctivae normal Sclerae: sclerae normal Pupils: Equal, round and reactive pupils present EOM: EOMs intact bilaterally Neck: Neck: Yes normal visual inspection, Yes full ROM and Yes no lymphadenopathy Lymphatic: no lymphadenopathy noted Chest: Chest palpation & inspection: normal inspection of the chest Resp: Effort & Inspection: normal respiratory effort and able to speak in complete sentences Auscultation: clear to auscultation bilaterally, no crackles, no rales, no rhonchi and no wheezes Cardio: Rate: regular rate Rhythm: regular rhythm Heart sounds: S1 normal heart sound present and S2 normal heart sound present GI: Inspection: Yes normal to inspection Skin: General skin exam: no rashes or lesions noted Trauma: no lacerations or abrasions Wounds: no wounds Neuro: General: patient oriented x3 and moves all extremities Cranial nerves: Yes Equal, round and reactive pupils present Extrem: General: Yes normal to inspection Right upper extremity: normal to inspection Left upper extremity: normal to inspection Right lower extremity: normal to inspection Left lower extremity: normal to inspection Course Reevaluation(s) Reevaluation #1: Viral swabs returned, no COVID, flu, or RSV. Chest x-ray reviewed, no pneumonia seen. Went to go see patient, she was resting comfortably. Discussed overall workup today. Will discharge on prednisone, azithromycin, and Tessalon. Advised follow-up with PCP next week to ensure that her symptoms have resolved. Given strict return precautions, patient stable for discharge. Time: 08:52 Medications Administered Discontinued Medications Generic Name Dose Route Start Last Admin Trade Name Freq PRN Reason Stop Dose Admin Benzonatate 200 mg 08/27/24 08:10 08/27/24 08:15 Benzonatate 100 Mg Capsule PO 08/27/24 08:11 200 mg ONCE ONE Administration Medical Decision Making Medical Decision Making [facility] Narrative: This is a 53-year-old female who presents emergency department with concerns for cough, congestion, nausea, body aches for the last week. On arrival, vital signs within normal limits. She is speaking in full sentences. Frequent dry cough heard on examination. she reports sick contacts at her work. Recent pneumonia 1 month ago. She states that she completed a full course of an tibiotics with complete resolution of until about 1 week ago. Lungs are clear to auscultation bilaterally. Abdomen is soft and nontender. Differential diagnoses include URI, bronchitis, pneumonia, viral illness. Will obtain viral swabs, and chest x-ray. We will also medicate with Tessalon 200 mg by mouth due to frequent cough. We will continue to closely monitor. Differential Diagnosis Differential Diagnoses: The differential diagnosis associated with the presentation includes See above Lab Data [facility] Lab Attestation statement: I reviewed the patient's lab results. Negative viral swabs Labs: Lab Results 08/27/24 Range/Units 08:01 Influenza Type A (PCR) NEGATIVE (Negative) Influenza Type B (PCR) NEGATIVE (Negative) RSV RNA Qual (PCR) NEGATIVE (Negative) SARS-CoV-2 RNA (RT-PCR) NEGATIVE (Negative) Independent Interpretation I performed an independent interpretation of an: Plain X-Ray Interpretation: I reviewed the chest x-ray, no acute consolidation seen. Radiology Impression Discussion of test interpretation with radiology: I have reviewed the radiologist's reading. Radiologist Impression: CLINICAL HISTORY: cough 1 view chest x-ray Comparison: 03/14/2022 Findings: No new consolidation or effusion. Heart size is normal. No acute fracture. IMPRESSION: 1. No acute findings. This document has been electronically signed by: Callum Conner MD on 08/27/2024 08:15:15 Dictated By: Callum Conner MD Signed By: <Electronically signed by Callum Conner MD in OV> Discharge Plan Discharge Clinical Impression: Upper respiratory infection, acute Patient Disposition: Home, Self-Care Instructions: Upper Respiratory Infection (ED) Additional Instructions: You were seen in the emergency department today. You tested negative for COVID, flu, and RSV. Your chest x-ray did not show a pneumonia. You likely have a virus causing you to have the symptoms however given your history of asthma, we are going to start you on several medications. Prednisone is a steroid, please take as prescribed. This will help decrease inflammation in your lungs. Tessalon is a cough medicine, you can take this up to 3 times per day as needed for cough. You already received a dose in the emergency department today . This suppresses the urge to cough. Continue using your inhaler at home. Use spacer while using your inhaler. Azithromycin is an antibiotic. Please take as prescribed. If any new or worsening symptoms occur including but not limited to severe chest pain, shortness of breath, please seek emergent care. Follow-up with your primary care physician next week to ensure that your symptoms have improved. Drink plenty of fluids and get plenty of rest. I hope you feel better soon! Prescriptions: New benzonatate 100 mg capsule 100 mg PO TID PRN (Reason: cough) Qty: 15 0RF prednisone 20 mg tablet 20 mg PO DAILY 5 Days Qty: 5 0RF azithromycin 250 mg tablet See Rx Instructions .ROUTE .COMPLEX Qty: 6 0RF Rx Instructions: For 250 mg dose pack: take 500 mg today (day 1), then 250 mg for 4 days (days 2-5) No Action mecobalamin (vitamin B12) [B12 Active] 1,000 mcg tablet,chewable 2,000 mcg PO DAILY Qty: 180 3RF Rx Instructions: SUBLINGUAL OR REGULAR OK simethicone 180 mg capsule 180 mg PO BID PRN (Reason: for abdominal pain) Qty: 60 1RF montelukast 10 mg tablet 10 mg PO BEDTIME Qty: 90 3RF meloxicam 7.5 mg tablet 7.5 mg PO DAILY Qty: 90 1RF fluticasone propionate 50 mcg/actuation spray,suspension 1 spray intranasal BID Qty: 16 1RF Rx Instructions: administer into each nostril gabapentin 100 mg capsule 100 mg PO TID PRN (Reason: hot flashes) 30 Days Qty: 120 2RF Rx Instructions: 1 tab in the morning, 1 tab in the afternoon, 2 tabs at bedtime levocetirizine [Xyzal] 5 mg tablet 5 mg PO DAILY Qty: 90 2RF betamethasone dipropionate 0.05 % cream 1 appl topical BID PRN (Reason: skin irritation) 14 Days Qty: 45 1RF epinephrine 0.3 mg/0.3 mL auto-injector 0.3 mg IM Q4H PRN (Reason: Allergic Reaction) Qty: 2 2RF albuterol sulfate 90 mcg/actuation HFA aerosol inhaler 2 puff inhalation Q4-6H PRN (Reason: shortness of breath or wheezing) Qty: 6.7 0RF valacyclovir 500 mg tablet 500 mg PO DAILY Qty: 90 1RF Stand Alone Forms: Work/School Release Print Language: Malaysian
[2024-08-27 08:05] VITALS: RESP 20; O2SAT 96
--- NOTE | 2024-08-27 08:11 | PC.NURSE ---
Patient reports cough, fevers, chills, nausea, and headache since Thursday. taking OTC meds with some relief but continues with persistent cough. Lungs CTA throughout. provider at bedside, patient aware of plan of care
[2024-08-27] MEDS: Benzonatate 100 MG CAPSULE 200 MG PO (08:15)
--- OUTSIDE RECORDS SUMMARY | 2024-08-27 08:31 | XMS_ITS | Clinical Summary ---
Author Organization [address] [place] [address] Address [address] [place] [address] Phone Care Team Providers Care Logistics Service Representative Name Role Phone Ana Zamarripa Primary Care Provider Allergies No known active allergies Encounters Date Type Department Care Team Description 08/09/2024 10:15 AM EDT Consult Orthopedic Surgery [facility] [address] [facility] [address] [place] [phone] Lucas Cox, DPM Plantar fascial fibromatosis (Primary Dx); Corns and callosities; Verruca plantaris from Last 3 Months Social History Tobacco Use Types Packs/Day Years Used Date Smoking Tobacco: Never Assessed Comments Unknown Sex and Gender Information Value Date Recorded Sex Assigned at Not on file Legal Sex Female 3:25 PM EST Gender Identity Not on file Sexual Orientation Not on file Last Filed Vital Signs Vital Sign Reading Time Taken Comments Blood Pressure - - Pulse - - Temperature - - Respiratory Rate - - Oxygen Saturation - - Inhaled Oxygen Concentration - - Weight 95.3 kg (210 lb) 08/09/2024 10:58 AM EDT Height 167.6 cm (5' 6 ) 08/09/2024 10:58 AM EDT Body Mass Index 33.89 08/09/2024 10:58 AM EDT Plan of Treatment Upcoming Encounters Date Type Department Care Team ([facility] st Contact Info) Description 08/30/2024 8:30 AM EDT Evaluation [facility] [place] [address] [facility] [address] [place] [phone] Carmel Hernandez, PT 09/13/2024 9:00 AM EDT Office Visit Orthopedic Surgery - [place] [address] [facility] [address] [place] [phone] Lucas Cox, DPM [address] [facility] [address] [place] [address] Health Maintenance Due Date Last Done Comments Breast Cancer Screening 1970 DTaP,Tdap,and Td Vaccines (1 - Tdap) 09/15/1987 Hepatitis B Vaccines (1 of 3 - [...] patient's age to complete this topic Insurance [employer] CHARLIE ALLEN [id number] Care Teams Logistics Service Representative Relationship Specialty Start Date End Date Ana Zamarripa FNP [address] [place] [address] [place] [phone] PCP - General Nurse Practitioner 05/04/24
--- OUTSIDE RECORDS SUMMARY | 2024-08-27 08:31 | XMS_ITS | Encounter Summary ---
Author Organization [facility] Address [address] [place] [address] Care Team Providers Care Bridge Toll Collector Name Role Phone Unavailable Primary Care Provider Unavailabl e Encounter Details Date Type Department Care Team (Latest Contact Info) Description 06/23/2020 Hospital Encounter TH HISTORIC ENCOUNTERS [facility] CONVERSION ONLY Jacki Badillo MD [address] [place] [address] Angioneurotic edema, initial encounter Social History Tobacco Use Types Packs/Day Years Used Date Smoking Tobacco: Never Assessed Comments Unknown Sex and Gender Information Value Date Recorded Sex Assigned at Not on file Legal Sex Female 3:25 PM EST Gender Identity Not on file Sexual Orientation Not on file documented as of this encounter Plan of Treatment Upcoming Encounters Date Type Department Care Team (Late st Contact Info) Description 08/30/2024 8:30 AM EDT Evaluation [facility] [place] [address] [facility] [address] [place] [phone] Carmel Hernandez PT 09/13/2024 9:00 AM EDT Office Visit Orthopedic Surgery [facility] [address] [facility] [address] [place] [phone] Lucas Cox DPM [address] [facility] [address] [place], [place] [phone] documented as of this encounter Procedures Procedure [...]
--- OUTSIDE RECORDS SUMMARY | 2024-08-27 08:31 | XMS_ITS | Continuity of Care Document ---
Author Organization [facility] Address [address] [place] [address] Phone Care Team Providers Care Tissue Recovery Technician Name Role Phone Luan Allan PA-C, [...] route every day 40 MG - Active EpiPen 2-Mando 0.3 mg/0.3 mL injection, auto-injector inject 0.3 milliliter by intramuscular route once as needed for anaphylaxis 0.3 MG - Active Miralax 17 gram/dose oral powder take (17G) by oral route every day mixed with 8 oz. water, juice, soda, coffee or tea - Active LORAZEPAM (unknown strength) take 1 tablet by oral route 2 times every day as needed Not Available - Active ALBUTEROL SULFATE (unknown strength) inhale 3 milliliter by inhalation route 3- 4 times every day via nebulizer Not Available - Active Zyrtec 10 mg capsule - Active Singulair 10 mg tablet take 1 tablet by oral route every day in the evening 10 MG - Active prednisone 10 mg tablet [...] Visit, [facility], [address] [place] [address], [address] [place] [address], tel:[phone] Jerrell Allergy (chief complaint) Moderate persistent asthma without complicationFood allergyOther allergic rhinitis 1 Jerrell Roland. [address] [place], [place], [address] [place] [address] , . tel:[phone] Referring Provider: AILEEN Doherty, [address] [facility] [address], [place], [address]. tel:[phone] Office/Outpat ient Visit, [facility], [address] [place] [address], [address] [place] [address], tel:[phone] Jerrell Allergy (chief complaint) Angioedema, initial encounterFood allergyModerate persistent asthma without complication 1 Jerrell Roland. [address] [place], [place], [id number] , . tel:[phone] Referring Provider: AILEEN Doherty, [address] [facility] [address], [place], [address]. tel:[phone] Family History Family Member Type Diagnosis Age At Onset Brother Problem (finding) Alive and Doing Well Father Problem (finding) Alive and Doing Well Mother Problem (finding) Alive and Doing Well Payers Payer name Insurance type Covered democrat ID Valeria shah(s) ESAU [id number] Social History Type Description Quantity Date Captured [...] swollen tongue 2 weeks ago, went to [facility] for [facility], she was given epipen and [...]
--- OUTSIDE RECORDS SUMMARY | 2024-08-27 08:31 | XMS_ITS | Data Portability ---
Author Organization [facility], [address] Address [address] [place] [address] Assessment No assessment recorded. Plan of Treatment Reminders Order Date Submit Date Provider Last Modified By Organization Details Last Modified Time Details Appointments None recorded. Lab None recorded. Referral None recorded. Procedures None recorded. Surgeries None recorded. Imaging None recorded. Medication Orders Augmentin 875 mg-125 mg tablet 2022 023 [facility] #[id number], [address] [place], [address], 3 11:52:59 prednisone 20 mg tablet 2022 023 [facility] #[id number], [address] [place], [address], 3 11:52:59 Patient TargetsNo targets recorded. Patient Instructions Encounter Date Encounter Id Patient Instructions Last Modified By Organization Details Last Modified Time 08/30/2022 [id number] Sinusitis is an infection of the lining [...] care for yourself at home? Take an xrgv-udb-xiuoacl pain medicine. Avoid Ibuprofen, Aleve and Aspirin if . If the doctor prescribed antibiotics, take them as directed. Do not stop taking them just because you feel better. You need to take the full course of antibiotics. Be careful when taking rrpq-bxw-fovqwnq cold or influenza (flu) medicines and Tylenol [...] Address Organization Details Recorded Time Celiac disease [id number] Active 2022 JOSH mathis PA - [facility] 11:38:44 Migraine [id number] Active 2022 JOSH mathis PA - [facility] 3 11:40:52 Hypertensive disorder [id number] Active 2022 JOSH mathis [facility] - [facility] [...] Last Updated DateTime 167.64 cm 30.7 kg/m2 40962.5 5 g 8 18 /min 98 % [...] SNOMED-CT Code Diagnosis ICD10 Code Diagnosis Note [id number] Alexis Villaseñor NP [address] [address] [place] [phone] 08/30/2022 11:14:55 08/30/2022 11:58:42 Acute sinusitis [id number] J01.90 Health Concerns Section Related Observation LastModified by Organization Detai ls LastModified Time None Recorded Concern Status LastModified by Organization Details LastModified Time None Recorded Advance Directives Directive None Recorded Payers Encounter Date Sequence Insurance Name Policy Number Policy Carter Covered Member ID Carter Member ID Guarantor Name 08/30/[address] [facility] [id number] Belinda Burgos [id number] Belinda Burgos Notes Date Note Type [...] Villaseñor NP [address] [place], [address], [place] - [facility] 08/30/2022 11:53:14 OBGyn Episode No OBEpisode recorded.
[2024-08-27 08:46] LABS: Influenza A PCR NEGATIVE (Negative); Influenza B PCR NEGATIVE (Negative); Resp Syncy Virus RNA Qual PCR NEGATIVE (Negative); SARS COV2 PCR INHOUSE NEGATIVE (Negative)
[2024-08-27 09:10] VITALS: BP 128/85; PULSE 93; RESP 18; TEMP 36.8; O2SAT 96
[2024-08-27 09:19] VITALS: BP 128/85; PULSE 93; RESP 18; TEMP 36.8; O2SAT 96
== END 2024-08-27 09:19 | disposition home or self-care (01) ==
PROVIDERS: Emergency Provider Emergency Medicine Emergency Medical Services; PCP Nurse Practitioner Family
DX: J06.9 Acute upper respiratory infection, unspecified (principal); R05.9 Cough, unspecified; Z03.818 Encounter for observation for suspected exposure to other biological agents ruled out
CPT/HCPCS: 0241U; 71045; 99283; 99284

== ENCOUNTER → 2024-08-27 07:55 | Outpatient (BNV) | payer OTHER, SELFPAY | PROVIDERS: Emergency Provider Emergency Medicine Emergency Medical Services; PCP Nurse Practitioner Family; Visit Provider Specialist | DX: R05.9 Cough, unspecified (principal) | CPT/HCPCS: 71045 ==

== ENCOUNTER 2024-09-21 12:06 | Outpatient (AMB) | payer OTHER, SELFPAY ==
[2024-09-21 12:34] VITALS: BMI 32.4
--- NOTE | 2024-09-21 12:34 | A.OFFVIS_ITS ---
VS Expanded 09/21/24 12:34 Height 5 ft 6 in Weight 201 lb 0.985 oz BMI 32.4 Intake Visit Reasons: Obesity Allergies Seasonal Allergies Allergy (Severe, Verified 08/27/24 07:49) Itchy Eyes gluten Allergy (Verified 08/27/24 07:49) Rash Nutrition Presentation Details: Pt presents for MNT f/u for obesity Pt reports doing well however had recent changes in home with family members making meals/shopping and this has lead to challenges with diet modification, and including foods with gluten . Pt feels comfortable with resuming modification next week BS Monitoring Most Recent Diabetes Results: Microalb/Creat Ratio 19.1 ug/mg cr (<30) 07/05/24 Cholesterol 204 mg/dL (<200) H 07/05/24 HDL Cholesterol 46 mg/dL (>40) 07/05/24 Triglycerides 140 mg/dL (<150) 07/05/24 Creatinine 0.70 mg/dL (0.5-1.4) 07/05/24 Blood Urea Nitrogen 23 mg/dL (9-16) H 07/05/24 Sodium 138 mmol/L (135-145) 07/05/24 Potassium 4.1 mmol/L (3.3-5.1) 07/05/24 Chloride 107 mmol/L (96-108) 07/05/24 Carbon Dioxide 27 mmol/L (22-29) 07/05/24 Calcium 9.6 mg/dL (8.4-10.2) 07/05/24 AST 25 U/L (5-31) 07/05/24 ALT 32 U/L (0-31) H 07/05/24 Total Protein 7.9 g/dL (6.5-8.0) 07/05/24 Albumin 4.4 g/dL (3.5-5.0) 07/05/24 PFSH Medical History Constipation by delayed colonic transit Migraine Celiac disease Hypertension Vitamin D deficiency Vitamin B 12 deficiency Venous insufficiency Synovial cyst of right knee Severe depression Menopausal symptom Anxiety disorder Seasonal allergies Asthma Surgical History History of esophagogastroduodenoscopy (EGD) Hx of colonoscopy History of endometrial ablation History of tubal ligation S/P breast biopsy Hx of hysterectomy Family History Paternal Grandmother Breast cancer Paternal Aunt Breast cancer Mother Hypercholesteremia Age related osteoporosis Father Hypertension Social History Household Members: Spouse and Family Housing: House Alcohol intake: current Alcohol intake frequency: holidays/special occasions only Alcohol type: beer and hard liquor Patient Tobacco Use Status: Never used Tobacco e-Cigarette/Vaping Use: Never Used service: No Current occupational status: employed and disabled 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 Cognitive needs: No Hearing needs: No Vision needs: No Assessment & Plan Assessment & Plan (1) Class 1 obesity with body mass index (BMI) of 32.0 to 32.9 in adult: Code(s): E66.811 - Obesity, class 1; Z68.32 - Body mass index [BMI] 32.0-32.9, adult Category: Medical Qualifiers: Obesity type: due to excess calories Serious obesity comorbidity presence: without serious comorbidity Qualified Code(s): E66.811 - Obesity, class 1; E66.09 - Other obesity due to excess calories; Z68.32 - Body mass index [BMI] 32.0-32.9, adult Plan: Wt: 90 Kg ( 08/16 ), 91 kg (09/16) Est kcal needs as per MSJ: 1800 (40% carb, 30% protein/fat) Est fluid needs as per 25-30 ml/d: 2700 Est prot per day as per 1 g/kg bw: 90 Recommend fiber intake : 8-10 g per day and gradually increase to 25-28 g per day for women and 35-38 g for men or as tolerated Recommend sodium intake per day: less than 2000 mg Educated patient on: ( R = reviewed V = verbalizes understanding N/R = needs review N/A = not applicable * Food sources of carbohydrate, adequate serving sizes and its role in various health conditions: R * Differences between complex carbohydrates a simple carbohydrates, role of fiber in diet: R * Lean protein sources of foods: R * Differences between types of fats and role in diet (mono on saturated fat fatty acids, saturated fatty acids, trans fats): R * Food sources of sodium in salt and healthy modifications for heart health in kidney health: R V R/V * Vitamins and minerals: R * Healthy plate method concept: R * Physical activity: Benefits a precaution: R Patient Instructions: Resume walking 30 minutes to 60 minutes , 3 times a week Have a cup of milk as bedtime snack eliminate foods with gluten Coding Level of Care Code Nutr Indiv Subseq (60736) Diagnoses Class 1 obesity due to excess calories without serious comorbidity with body mass index (BMI) of 32.0 to 32.9 in adult E66.811; E66.09; Z68.32 Obesity type: due to excess calories Serious obesity comorbidity presence: without serious comorbidity Time Spent (min) 30
--- OUTSIDE RECORDS SUMMARY | 2024-09-21 13:34 | XMS_ITS | Clinical Summary ---
Author Organization [address] [place] [address] Address [address] [place] [address] Phone Care Team Providers Care Sheet Writer Name Role Phone Ana Zamarripa Primary Care Provider Allergies No known active allergies Encounters Date Type Department Care Team Description 08/09/2024 10:15 AM EDT Consult Orthopedic Surgery [facility] [address] [facility] [address] [place] [phone] Lucas Cox, DPM Plantar fascial fibromatosis [...] Upcoming Encounters Date Type Department Care Team ([facility] st Contact Info) Description 10/04/2024 12:30 PM EDT Evaluation [address] [address] Jeanne Shelby, KENNETH Health Maintenance Due Date Last Done Comments Breast Cancer Screening 1968 DTaP,Tdap,and Td Vaccines (1 - Tdap) 09/15/1987 Hepatitis B Vaccines (1 of 3 - 19+ 3-dose series) 09/15/1987 Cervical Cancer Screening: P ap Smear 1989 Pneumococcal Vaccine: 50+ Ye ars (1 of 1 - PCV) 2018 Zoster Vaccines (1 of 2) 2018 COVID-19 Vaccine ( - 2023-2 5 season) 2024 Colorectal Cancer Screening: Colonoscopy 05/04/2024 Depression Screening 05/04/2024 HIV Screening 05/04/2024 Hepatitis C Screening 05/04/2024 Social Influencers of Health Screening 05/04/2024 Influenza Vaccine (Season Ended) 2025 HIB Vaccines Aged Out No longer eligi [...] age to complete this topic Meningococcal B Vaccine Aged Out No l onger eligible based on patient's age to complete [...] to complete this topic Insurance [facility] PUBLIC PLANS Care Teams Sheet Writer Relationship Specialty Start Date End Date Ana Zamarripa FNP [address] [place] [address] [place] [address] PCP - General Nurse Practitioner 05/04/24
--- OUTSIDE RECORDS SUMMARY | 2024-09-21 13:34 | XMS_ITS | Encounter Summary ---
Author Organization [facility] Address [address] [place] [address] Care Team Providers Care Chemistry Physics Teacher Name Role Phone Unavailable Primary Care Provider Unavailabl e Encounter Details Date Type Department Care Team (Latest Contact Info) Description 06/23/2020 Hospital Encounter TH HISTORIC ENCOUNTERS EASTERN CONVERSION ONLY Jacki Badillo MD [address] [place] [address] Angioneurotic edema, initial encounter Social History Tobacco [...] Care Team (Late st Contact Info) Description 10/04/2024 12:30 PM EDT Evaluation [facility] [address] [address] Jeanne Shelby, PT documented as of this encounter Procedures Procedure [...]
--- OUTSIDE RECORDS SUMMARY | 2024-09-21 13:34 | XMS_ITS | Continuity of Care Document ---
Author Organization [facility] Address [address] [place] [address] Phone Care Team Providers Care Brine Tank Tender Name Role Phone Luan Allan PA-C, PA-C [...] Providers Copied on Encounter Office/Outpat ient Visit, [facility], [address] [place] [address], [address] [place] [address], tel:[phone] Jerrell Allergy (chief complaint) Moderate persistent asthma without complicationFood allergyOther allergic rhinitis 1 Jerrell Roland. [address] [place], [place], [address] [place] [address] , . tel:[phone] Referring Provider: AILEEN Doherty, [address] [facility] [address], [place], [address]. tel:[phone] Office/Outpat ient Visit, [facility], [address] [place] [address], [address] [place] [address], tel:[phone] Jerrell Allergy (chief complaint) Angioedema, initial encounterFood allergyModerate persistent asthma without complication 1 Jerrell Roland. [address] [place], [place], [id number] , . tel:[phone] Referring Provider: AILEEN Doherty, [address] [facility] [address], [place], [address]. tel:[phone] Family History Family Member Type Diagnosis Age At Onset Brother Problem (finding) Alive and Doing Well Father Problem (finding) Alive and Doing Well Mother Problem (finding) Alive and Doing Well Payers Payer name Insurance type Covered green party ID Valeria shah(s) ESAU [id number] Social History Type Description Quantity Date Captured [...] Complaint History Of Prese nt Illness Allergy She had an episo de of angiodema of her lips prior to last visit after eating mixed nuts. Has not had any recurrence of this. Has been avoiding mixed nuts, tree nuts, grapes. She continues to avoid shellfish. Allergy The patient amira es chest tightness, coryza, cough, dizziness, ear pain, globus sensation, headache, hoarseness, nasal congestion, nasal drainage, nausea, pharyngitis, post nasal drainage, reddened eyes, reflux, sinus infections, sinus pain, sneezing, tearing and urticaria. Allergy The patient pres ents with itchy mouth. The patient denies chest tightness, coryza, cough, dizziness, ear pain, globus sensation, headache, hoarseness, nasal congestion, nasal drainage, nausea, pharyngitis, post nasal drainage, reddened eyes, reflux, sinus infections, sinus pain, sneezing, tearing and urticaria. Allergy She had an itchy mouth and swollen tongue 2 weeks ago, went to [facility] for observation, she was given epipen and steroids. She does have a history of shrimp and gluten free food. She is using zyrtec daily and pepcid. She does have allergic conjunctivitis. Functional Status Date Functional Assessmen t No [...]
--- OUTSIDE RECORDS SUMMARY | 2024-09-21 13:34 | XMS_ITS | Data Portability ---
Author Organization [facility], [address] Address [address] [place] [address] Assessment No assessment recorded. Plan of Treatment Reminders Order Date Submit Date Provider Last Modified By Organization Details Last Modified Time Details Appointments None recorded. Lab None recorded. Referral None recorded. Procedures None recorded. Surgeries None recorded. Imaging None recorded. Medication Orders Augmentin 875 mg-125 mg tablet 2022 023 [facility]armacy #[id number], [address] [place], [address], 3 11:52:59 prednisone 20 mg tablet 2022 023 [facility]/Pharmacy #[id number], [address] [place], [address], 3 11:52:59 Patient TargetsNo targets recorded. Patient Instructions Encounter Date Encounter Id Patient Instructions Last Modified By Organization Details Last Modified Time 08/30/2022 [id number] Sinusitis is an infection of the lining [...] care for yourself at home? Take an kkud-mrk-sxjrbpx pain medicine. Avoid Ibuprofen, Aleve and Aspirin if . If the doctor prescribed antibiotics, take them as directed. Do not stop taking them just because you feel better. You need to take the full course of antibiotics. Be careful when taking zltw-qps-dbtyoga cold or influenza (flu) medicines and Tylenol [...] Address Organization Details Recorded Time Celiac disease 021252484 Active 2022 JOSH mathis PA - [facility] 11:38:44 Migraine 61475693 Active 2022 JOSH mathis PA - [facility] 3 11:40:52 Hypertensive disorder 95839330 Active 2022 [facility] - [facility] [...] Last Updated DateTime 167.64 cm 30.7 kg/m2 72795.5 5 g 8 18 /min 98 % [...] SNOMED-CT Code Diagnosis ICD10 Code Diagnosis Note [id number] Alexis Villaseñor [place] [address] [facility] [address] [place] [address] 08/30/2022 11:14:55 08/30/2022 11:58:42 Acute sinusitis 06616575 J01.90 Health Concerns Section Related Observation LastModified by Organization Detai ls LastModified Time None Recorded Concern Status LastModified by Organization Details LastModified Time None Recorded Advance Directives Directive None Recorded Payers Encounter Date Sequence Insurance Name Policy Number Policy Carter Covered Member ID Carter Member ID Guarantor Name 08/30/2022 1 [facility] [id number] Belinda Burgos [id number] 1 Belinda Burgos Notes Date Note Type [...] Villaseñor NP [address] [place], [address], [place] - [facility] 08/30/2022 11:53:14 OBGyn Episode No OBEpisode recorded.
== END 2024-09-21 13:12 | disposition home or self-care (01) ==
LOC: HO.ENCR 12:06
PROVIDERS: PCP Nurse Practitioner Family; Visit Provider Dietitian, Registered
DX: E66.811 Obesity, class 1 (principal); E66.09 Other obesity due to excess calories; Z68.32 Body mass index [BMI] 32.0-32.9, adult

== ENCOUNTER → 2024-09-21 12:06 | Outpatient (BNVA) | payer OTHER, SELFPAY | PROVIDERS: PCP Nurse Practitioner Family; Visit Provider Dietitian, Registered | DX: E66.811 Obesity, class 1 (principal); E66.09 Other obesity due to excess calories; Z68.32 Body mass index [BMI] 32.0-32.9, adult | CPT/HCPCS: 97803 ==

== ENCOUNTER 2024-11-01 09:15 | Outpatient (AMB) | payer OTHER, SELFPAY ==
[2024-11-01 09:29] VITALS: BMI 31.8
--- NOTE | 2024-11-01 09:29 | A.OFFVIS_ITS ---
VS Expanded 11/01/24 09:29 Height 5 ft 6 in Weight 196 lb 13.965 oz BMI 31.8 Intake Visit Reasons: obesity Allergies Seasonal Allergies Allergy (Severe, Verified 08/27/24 07:49) Itchy Eyes gluten Allergy (Verified 08/27/24 07:49) Rash Nutrition Presentation Details: Pt presents for MNT f/u for obesity follows gluten free diet d/t rash from gluten Pt reports keeping physically active, at the gym 30 minutes at least 3 times a week Typical intake B: yogurt with fruit L: protein shake and a green salad with olive oil dinner4 oz chicken or salmon , sweet potato or rice or root vegetables , water with cucumber snack fruit or protein bars food frequency fruits 1-2/day dairy: 2-3/d ve serving/d fish 2 x/wk starches: choosin GF, working on choosing starchy veg seeds/nuts- seldom BS Monitoring Most Recent Diabetes Results: Microalb/Creat Ratio 19.1 ug/mg cr (<30) 07/05/24 Cholesterol 204 mg/dL (<200) H 07/05/24 HDL Cholesterol 46 mg/dL (>40) 07/05/24 Triglycerides 140 mg/dL (<150) 07/05/24 Creatinine 0.70 mg/dL (0.5-1.4) 07/05/24 Blood Urea Nitrogen 23 mg/dL (9-16) H 07/05/24 Sodium 138 mmol/L (135-145) 07/05/24 Potassium 4.1 mmol/L (3.3-5.1) 07/05/24 Chloride 107 mmol/L (96-108) 07/05/24 Carbon Dioxide 27 mmol/L (22-29) 07/05/24 Calcium 9.6 mg/dL (8.4-10.2) 07/05/24 AST 25 U/L (5-31) 07/05/24 ALT 32 U/L (0-31) H 07/05/24 Total Protein 7.9 g/dL (6.5-8.0) 07/05/24 Albumin 4.4 g/dL (3.5-5.0) 07/05/24 [facility] Medical History Constipation by delayed colonic transit Migraine Celiac disease Hypertension Vitamin D deficiency Vitamin B 12 deficiency Venous insufficiency Synovial cyst of right knee Severe depression Menopausal symptom Anxiety disorder Seasonal allergies Asthma Surgical History History of esophagogastroduodenoscopy (EGD) Hx of colonoscopy History of endometrial ablation History of tubal ligation S/P breast biopsy Hx of hysterectomy Family History Paternal Grandmother Breast cancer Paternal Aunt Breast cancer Mother Hypercholesteremia Age related osteoporosis Father Hypertension Social History Household Members: Spouse and Family Housing: House Alcohol intake: current Alcohol intake frequency: holidays/special occasions only Alcohol type: beer and hard liquor Patient Tobacco Use Status: Never used Tobacco e-Cigarette/Vaping Use: Never Used service: No Current occupational status: employed and disabled 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 Cognitive needs: No Hearing needs: No Vision needs: No Assessment & Plan Assessment & Plan (1) Obesity, Class I, BMI 30.0-34.9 (see actual BMI): Comment: BMI at 31.8 (11/16) , was 32.4 ( 09/16) Code(s): E66.811 - Obesity, class 1 Category: Medical Plan: Wt: 90 Kg ( 08/16 ), 91 kg (09/16), 89,5 kg (11/16) Est kcal needs as per MSJ: 1800 (40% carb, 30% protein/fat) Est fluid needs as per 25-30 ml/d: 2700 Est prot per day as per 1 g/kg bw: 90 Recommend fiber intake : 8-10 g per day and gradually increase to 25-28 g per day for women and 35-38 g for men or as tolerated Recommend sodium intake per day: less than 2000 mg Educated patient on: ( R = reviewed V = verbalizes understanding N/R = needs review N/A = not applicable * Food sources of carbohydrate, adequate serving sizes and its role in various health conditions: R * Differences between complex carbohydrates a simple carbohydrates, role of fiber in diet: R * Lean protein sources of foods: R * Differences between types of fats and role in diet (mono on saturated fat fatty acids, saturated fatty acids, trans fats): R * Food sources of sodium in salt and healthy modifications for heart health in kidney health: R * Vitamins and minerals: R * Healthy plate method concept: R * Physical activity: Benefits a precaution: R Patient Instructions: Caution with high salt foods (chips, dried meats, seasonings and similar foods ) Choose fruits as snacks Coding Level of Care Code Nutr Indiv Subseq (55875) Diagnoses Obesity, Class I, BMI 30.0-34.9 (see actual BMI) E66.811 Time Spent (min) 30
--- OUTSIDE RECORDS SUMMARY | 2024-11-01 10:03 | XMS_ITS | Data Portability ---
Author Organization [facility], [address] Address [address] [place] [address] Assessment No assessment recorded. Plan of Treatment Reminders Order Date Submit Date Provider Last Modified By Organization Details Last Modified Time Details Appointments None recorded. Lab None recorded. Referral None recorded. Procedures None recorded. Surgeries None recorded. Imaging None recorded. Medication Orders Augmentin 875 mg-125 mg tablet 2022 023 [facility]/Pharmacy #[id number], [address] [place], [address], 3 11:52:59 prednisone 20 mg tablet 2022 023 [facility]/Pharmacy #[id number], [address] [place], [address], 3 11:52:59 Patient TargetsNo targets recorded. Patient Instructions Encounter Date Encounter Id Patient Instructions Last Modified By Organization Details Last Modified Time 08/30/2022 [id number] Sinusitis is an infection of the lining [...] care for yourself at home? Take an bcjy-zvq-umxkwcn pain medicine. Avoid Ibuprofen, Aleve and Aspirin if . If the doctor prescribed antibiotics, take them as directed. Do not stop taking them just because you feel better. You need to take the full course of antibiotics. Be careful when taking kesi-jjw-nzxplav cold or influenza (flu) medicines and Tylenol [...] Address Organization Details Recorded Time Celiac disease 373636385 Active 2022 JOSH mathis PA - [facility] 11:38:44 Migraine 52608335 Active 2022 JOSH mathis PA - [facility] 3 11:40:52 Hypertensive disorder 90470763 Active 2022 [facility] [...] height Body mass index (BMI) Body weight Respiratory rate Oxygen saturation Oxygen saturation in Arterial blood by Pulse oximetry Heart rate Body temperature Systolic blood pressure Diastolic blood pressure Provider Name and Address Organization Details Last Updated DateTime 167.64 cm 30.7 kg/m2 19585.5 5 g 18 /min 98 % 98 % 80 /min 97.9 [degF] 132 mm[Hg] 88 mm[Hg] JOSH HAN - [employer] 11:43:15 Social History Question Answer Notes LastModified by [email or web address] Details LastModified Time Tobacco Smoking Status Never Smoker JOSH mathis PA - [facility] 08/30/2022 11:41:10 Have You Recently Traveled Abroad? No Information not available 08/30/2022 Sex: Unknown Functional Status Question Answer Note LastModified by [email or web address] Details LastModified Time How many times per week do you consume alcohol? Less than 1 time per week Information not available 08/30/2022 Do you use any illicit or recreational drugs? No Information not available 08/30/2022 Do you or have you ever used any other forms of tobacco or nicotine? No Information not available 08/30/2022 What is your level of alcohol consumption? Occasional Information not available 08/30/2022 Mental Status None recorded. Family History Relationship [...] SNOMED-CT Code Diagnosis ICD10 Code Diagnosis Note [id number] Alexis Villaseñor NP [address] [address] 08/30/2022 11:14:55 08/30/2022 11:58:42 Acute sinusitis 51730447 J01.90 Health Concerns Section Related Observation LastModified by Organization Detai ls LastModified Time None Recorded Concern Status LastModified by Organization Details LastModified Time None Recorded Advance Directives Directive None Recorded Payers Insurance Date Sequence Insurance Name Policy Number Policy Carter Covered Member ID Carter Member ID Guarantor Name 08/30/2022 1 [facility] [employer] [facility] [id number] Belinda Burgos [id number] 1 Belinda Burgos Notes Date Note Type [...] Villaseñor NP [address] [place], [address], [place] - [facility] 08/30/2022 11:53:14 OBGyn Episode No OBEpisode recorded.
== END 2024-11-01 09:53 | disposition home or self-care (01) ==
LOC: HO.ENCR 09:16
PROVIDERS: PCP Nurse Practitioner Family; Visit Provider Dietitian, Registered
DX: E66.811 Obesity, class 1 (principal)

== ENCOUNTER → 2024-11-01 09:15 | Outpatient (BNVA) | payer OTHER, SELFPAY | PROVIDERS: PCP Nurse Practitioner Family; Visit Provider Dietitian, Registered | DX: E66.811 Obesity, class 1 (principal); Z68.31 Body mass index [BMI] 31.0-31.9, adult; Z71.3 Dietary counseling and surveillance | CPT/HCPCS: 97803 ==

== ENCOUNTER 2024-12-20 11:10 | Outpatient (AMB) | payer OTHER, SELFPAY ==
--- OUTSIDE RECORDS SUMMARY | 2020-06-23 01:00 | XMS_ITS | Encounter Summary ---
Author Organization [facility] Address [address] [place] [address] Care Team Providers Care Criminal Attorney Name Role Phone Unavailable Primary Care Provider Unavailabl e Encounter Details Date Type Department Care Team (Latest Contact Info) Description 06/23/2020 Hospital Encounter TH HISTORIC ENCOUNTERS EASTERN CONVERSION ONLY Jacki Badillo MD [address] [place] [address] Angioneurotic edema, initial encounter Social History Tobacco [...]
--- OUTSIDE RECORDS SUMMARY | 2024-12-20 12:25 | XMS_ITS | Data Portability ---
Author Organization [facility] [address] Address [address] [place] [address] Assessment No assessment recorded. Plan of Treatment Reminders Order Date Submit Date Provider Last Modified By Organization Details Last Modified Time Details Appointments None recorded. Lab None recorded. Referral None recorded. Procedures None recorded. Surgeries None recorded. Imaging None recorded. Medication Orders Augmentin 875 mg-125 mg tablet 2022 023 [facility]armacy #[id number], [address] [place], [address], 3 11:52:59 prednisone 20 mg tablet 2022 023 [facility]/Pharmacy #[id number], [address] [place], [address], 3 11:52:59 Patient TargetsNo targets recorded. Patient Instructions Encounter Date Encounter Id Patient Instructions Last Modified By Organization Details Last Modified Time 08/30/2022 [id number] Sinusitis is an infection of the lining [...] care for yourself at home? Take an wzzm-nog-audlmnj pain medicine. Avoid Ibuprofen, Aleve and Aspirin if . If the doctor prescribed antibiotics, take them as directed. Do not stop taking them just because you feel better. You need to take the full course of antibiotics. Be careful when taking cwtm-yrv-eznlcue cold or influenza (flu) medicines and Tylenol [...] Address Organization Details Recorded Time Celiac disease 106391128 Active 2022 JOSH mathis PA - [facility] 3 11:38:44 Migraine 68840204 Active 2022 JOSH mathis PA - [facility] 3 11:40:52 Hypertensive disorder 46798431 Active 2022 JOSH mathis PA - [facility] 3 11:40:57 Problem Notes None recorded. Procedures Surgical History Date Name Laterality Status Provider Name and Address Organization Details Recorded Time 05/25/19 18 total hysterectomy with removal of both [...] Pulse oximetry Heart rate Body temperature Systolic And Diastolic Provider Name and Address Organization Details Last Updated DateTime 167.64 cm 30.7 kg/m2 74522.5 5 g 8 18 /min 98 % 98 % 80 /min 97.9 [degF] 132/88 mm[Hg] JOSH GARCÍA PA - [facility] 11:43:15 Social History Question Answer Notes LastModified by [employer] Details LastModified Time Tobacco Smoking Status Never Smoker JOSH mathis PA - [facility] 08/30/2022 11:41:10 Have You Recently Traveled Abroad? No Information not available 08/30/2022 Sex: Unknown Functional Status Question Answer Note LastModified by [employer] Details LastModified Time How many times per [...] SNOMED-CT Code Diagnosis ICD10 Code Diagnosis Note [id number] Alexis Villaseñor NP [address] [address] 08/30/2022 11:14:55 08/30/2022 11:58:42 Acute sinusitis 45326665 J01.90 Health Concerns Section Related Observation LastModified by Organization Detai ls LastModified Time None Recorded Concern Status LastModified by Organization Details LastModified Time None Recorded Advance Directives Directive None Recorded Payers Insurance Date Sequence Insurance Name Policy Number Policy Carter Covered Member ID Carter Member ID Guarantor Name 08/30/2022 1 [facility] Relative[employer] PLAN [id number] Belinda Burgos [id number] 1 Belinda Burgos OBGyn Episode No OBEpisode recorded.
[2024-12-20 12:35] VITALS: BP 124/78; PULSE 80; TEMP 36.9; O2SAT 97; BMI 32.0
--- NOTE | 2024-12-20 12:35 | AM.OFFWIN_ITS ---
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 - Symptoms began on Thursday night, wors ening by Thursday, with a scratchy and painful throat, cough, and difficulty breathing. - Initially thought to be allergies, sym ptoms worsened, causing sleeplessness due to persistent coughing. - History of asthma, managed with albute rol inhaler, with reported wheezing and chest discomfort. - Negative COVID-19 test on Thursday; usin g Robitussin and cough drops. - Reports nausea and ear popping, with n o known exposure to sick contacts at work. - She works in a [employer] setting. - She denies fever, chills, CP, SOB, abd pain, n/v/d. Physical Exam General: Cooperative, healthy appearing, comfortable and no acute distress Orientation/consciousness: Patient oriented x3 Limitations: No limitations Head: Normal to inspection Ears: Hearing grossly normal bilaterally, external ears normal and TM's normal bilaterally Nose: Normal external nose present, normal nares present, and no nasal discharge present Face and sinus: Sinuses nontender to palpation Mouth: Normal oral and palatal mucosa present and moist mucous membranes noted. Throat: Tonsils normal. Uvula is midline. Posterior oropharynx with erythema and no exudates. Neck: Normal visual inspection, full ROM. No lymphadenopathy noted. Respiratory: Clear to auscultation bilaterally. Normal respiratory effort, able to speak in complete sentences. No respiratory distress, not tachypneic, no tripod positioning and no use of accessory muscles. Cardiovascular: Regular rate and rhythm. Normal S1 and S2 Skin: No rashes or lesions noted Patient was informed and verbally consented to the use of an ambient scribe for clinic note documentation during this visit [facility] Medical History Constipation by delayed colonic transit Migraine Celiac disease Hypertension Vitamin D deficiency Vitamin B 12 deficiency Venous insufficiency Synovial cyst of right knee Severe depression Menopausal symptom Anxiety disorder Seasonal allergies Asthma Surgical History History of esophagogastroduodenoscopy (EGD) Hx of colonoscopy History of endometrial ablation History of tubal ligation S/P breast biopsy Hx of hysterectomy Family History Paternal Grandmother Breast cancer Paternal Aunt Breast cancer Mother Hypercholesteremia Age related osteoporosis Father Hypertension Social History Household Members: Spouse and Family Housing: House Alcohol intake: current Alcohol intake frequency: holidays/special occasions only Alcohol type: beer and hard liquor Patient Tobacco Use Status: Never used Tobacco e-Cigarette/Vaping Use: Never Used Patient : No service: No Current occupational status: employed and disabled 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 - Prescribed prednisone and cough medicine to manage symptoms. - Advised the patient to continue using her albuterol inhaler. - Provided a work note for absence due to illness. - VSS, pt well appearing Orders: Orders SARS-CoV2/FLU/RSV Today R09.89 - Other specified symptoms and signs involving the circulatory and respiratory systems Medications: New cetirizine-pseudoephedrine 5-120 mg ER 1 tab PO BID 14 tabs 0RF 7 days benzonatate 100 mg PO bid-tid PRN 21 caps 0RF Cough 7 days prednisone 40 mg (2 x 20 mg) PO DAILY 10 tabs 0RF Coding Level of Care Code Est Pt Level 3 (94229) Diagnoses URI with cough and congestion J06.9
== END 2024-12-20 13:58 | disposition home or self-care (01) ==
PROVIDERS: PCP Nurse Practitioner Family; Visit Provider Physician Assistant Medical
DX: J06.9 Acute upper respiratory infection, unspecified (principal)

== ENCOUNTER 2024-12-20 11:10 | Outpatient (REF) | payer OTHER, SELFPAY ==
[2024-12-20 17:16] LABS: Resp Syncy Virus RNA Qual PCR NEGATIVE (Negative); SARS COV2 PCR INHOUSE NEGATIVE (Negative)
== END 2024-12-20 11:11 | disposition home or self-care (01) ==
LOC: HO.LNP 11:10
PROVIDERS: PCP Nurse Practitioner Family; Visit Provider Physician Assistant Medical
DX: J06.9 Acute upper respiratory infection, unspecified (principal); R05.9 Cough, unspecified; R09.89 Other specified symptoms and signs involving the circulatory and respiratory systems; Z98.51 Tubal ligation status; Z20.822 Contact with and (suspected) exposure to COVID-19
CPT/HCPCS: 87637; 99212

== ENCOUNTER 2025-01-10 15:26 | Outpatient (AMB) | payer OTHER, SELFPAY ==
--- OUTSIDE RECORDS SUMMARY | 2020-06-23 01:00 | XMS_ITS | Encounter Summary ---
Author Organization [facility] Address [address] [place] [address] Care Team Providers Care Crystal Calibrator Name Role Phone Unavailable Primary Care Provider Unavailabl e Encounter Details Date Type Department Care Team (Latest Contact Info) Description 06/23/2020 Hospital Encounter TH HISTORIC ENCOUNTERS EASTERN CONVERSION ONLY Jacki Badillo MD [address] [place] [address] Angioneurotic edema, initial encounter Social History Tobacco [...]
--- NOTE | 2025-01-10 15:41 | A.OFFVIS_ITS ---
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 Tried Gabapentin, forgot to take at times due too busy schedule. Used oral estrogens in the past and then moved and no longer saw the provider for a follow up. Has a dairy department manager for weight loss, started walking and eating healthier. Currently sexually active. Denies any vaginal dryness or irritation. Attempting to eat a healthy diet with calcium and vitamin D and stays active with exercise-walks 18,-20k steps a day. History of supracervical hysterectomy due to heavy menstrual bleeding and fibroids. Last mammogram; 2023. Colonoscopy is UTD. Denies any family history of breast, ovarian or colon cancer. [facility] Medical History (Updated 01/10/25 @ 16:47 by Sasha Garza CNM) Constipation by delayed colonic transit Migraine Celiac disease Hypertension Vitamin D deficiency Vitamin B 12 deficiency Venous insufficiency Synovial cyst of right knee Severe depression Menopausal symptom Anxiety disorder Seasonal allergies Asthma Surgical History (Updated 01/10/25 @ 16:25 by Sasha Garza CNM) History of esophagogastroduodenoscopy (EGD) Hx of colonoscopy History of endometrial ablation History of tubal ligation S/P breast biopsy Hx of hysterectomy Family History Paternal Grandmother Breast cancer Paternal Aunt Breast cancer Mother Hypercholesteremia Age related osteoporosis Father Hypertension Social History Household Members: Spouse and Family Housing: House Alcohol intake: current Alcohol intake frequency: holidays/special occasions only Alcohol type: beer and hard liquor Patient Tobacco Use Status: Never used Tobacco e-Cigarette/Vaping Use: Never Used service: No Current occupational status: employed and disabled 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 Cognitive needs: No Hearing needs: No Vision needs: No Female Reproductive History Menstrual Menopause type: surgical Total pregnancies: 3 Full term: 2 Number of Living Children: 2 Ab spontaneous: 1 Date of Mammogram: 03/01/24 (Birad 2) Date of last Bone Density Screenin12/08/23 Review of Systems Const All systems reviewed & are unremarkable except as noted in HPI and below Reports as per HPI Eyes Reports no additional complaints ENT Reports no additional complaints Card Reports no additional complaints Resp Reports no additional complaints GI Reports as per HPI and Reports no additional complaints Reports as per HPI Musc Reports no additional complaints Skin/Breast Reports as per HPI Neuro Reports no additional complaints Psych Reports no additional complaints Endo Reports no additional complaints Galo/Lymph Reports no additional complaints Aller/Immun Reports no additional complaints Physical Exam Vital Signs: Last Vital Signs BP 122/84 01/10/25 15:44 BMI result Body Mass Index 32.3 Const General: cooperative, healthy appearing, no acute distress, well developed and alert Orientation/consciousness: patient oriented x3 HEENT Head: Yes normal to inspection Eyes General: appearance normal, both eyes and all related structures Neck Neck: Yes normal visual inspection Thyroid: Thyroid normal Chest Chest palpation & inspection: normal inspection of the chest and other (no puckering, dimpling, peau de orange, retraction, discharge, masses) Breast/axilla inspection: normal inspection of the breasts Breast/axilla palpation: normal palpation of the breasts Resp Effort & Inspection: normal respiratory effort GI Inspection: Yes normal to inspection and Yes scar Palpation (GI): Soft to palpation Rectal Exam - Female: deferred General: Yes bladder normal to palpation External Female Exam: normal external appearance and normal appearance of the urethra Speculum Exam - Vagina: normal appearance of the vagina, normal palpation and normal vaginal discharge Speculum Exam - Cervix: normal appearance of the cervix, normal palpation and Other cervical findings present (Bled with the Pap) Bimanual exam- vagina & uterus: normal bimanual exam, normal palpation, bladder normal to palpation, normal palpation and uterus absent Bimanual Exam- Adnexa, other: no masses Skin General skin exam: no rashes or lesions noted Rashes: no rashes Neuro General: patient oriented x3 Cognition (Neuro): normal cognition Extrem General: Yes normal to inspection Psych Attitude: cooperative Thought process: Normal thought process present Assessment & Plan Assessment & Plan (1) Encounter for well woman exam with routine gynecological exam: Code(s): Z01.419 - Encounter for gynecological examination (general) (routine) without abnormal findings Category: Medical Plan: Discussed: Current recommendations for pap smears per ASCCP guidelines. Breast awareness, periodic self breast exams and yearly mammogram. Maintain a healthy lifestyle, well balanced diet including Calcium 1,200 mg and Vitamin D 600 IU daily, and routine exercise. Use of condoms for STI prevention if indicated. Contact the office with any postmenopausal bleeding. Patient verbalizes understanding and agrees to the plan of care. She was given opportunity to ask questions and all questions were answered to the best of my ability. 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 This note is constructed using voice recognition software. While every effort has been made to ensure accuracy, button maker errors may have been included. (2) Vasomotor symptoms due to menopause: Code(s): N95.1 - Menopausal and female climacteric states Category: Medical Plan Counseled: Discussed the benefits and the risks of hormonal replacement therapy. Alternatives to estrogen including SSRIs, gabapentin, other. Menopausal handout provided. We will consider her options and schedule follow up to initiate therapy, use of Replens reviewed. All of her questions and concerns were addressed to the best of my ability. The patient verbalized understanding, and participated in shared decision making. Orders: Orders HPV High risk Today Z00.00 - Encounter for general adult medical examination without abnormal findings Bacterial Vaginosis Panel Today Z11.3 - Encounter for screening for infections with a predominantly sexual mode of transmission Pap Smear Today Z00.00 - Encounter for general adult medical examination without abnormal findings CT NG by PCR Vag/Cerv Today Z11.3 - Encounter for screening for infections with a predominantly sexual mode of transmission Coding Level of Care Code Est Pt Prev Care 40-64y(93521) Diagnoses Encounter for well woman exam with routine gynecological exam Z01.419 Vasomotor symptoms due to menopause N95.1
[2025-01-10 15:44] VITALS: BP 122/84; BMI 32.3
== END 2025-01-10 16:28 | disposition home or self-care (01) ==
LOC: HO.HWS 15:27
PROVIDERS: PCP Nurse Practitioner Family; Visit Provider Advanced Practice Midwife
DX: Z01.419 Encounter for gynecological examination (general) (routine) without abnormal findings (principal); N95.1 Menopausal and female climacteric states
CPT/HCPCS: 99396; 99459

== ENCOUNTER 2025-01-10 15:26 | Outpatient (REF) | payer OTHER, SELFPAY ==
[2025-01-10 21:50] LABS: Bacterial Vaginosis PCR POSITIVE (Negative); Candida Group PCR NOT DETECTED (Not Detect); Candida glab krusei PCR NOT DETECTED (Not Detect); Trichomonas vaginalis PCR NOT DETECTED (Not Detect)
[2025-01-10 22:56] LABS: CT PCR NOT DETECTED (Not Detect.); NG PCR NOT DETECTED (Not Detect.)
== END 2025-01-10 15:27 | disposition home or self-care (01) ==
LOC: HO.LNP 15:26
PROVIDERS: PCP Nurse Practitioner Family; Visit Provider Advanced Practice Midwife
DX: Z01.419 Encounter for gynecological examination (general) (routine) without abnormal findings (principal); N95.1 Menopausal and female climacteric states; Z11.3 Encounter for screening for infections with a predominantly sexual mode of transmission; Z11.8 Encounter for screening for other infectious and parasitic diseases
CPT/HCPCS: 81515; 87491; 87591; 87626; 88175; 99396

== ENCOUNTER 2025-01-26 15:08 | Outpatient (AMB) | payer OTHER, SELFPAY ==
--- OUTSIDE RECORDS SUMMARY | 2020-06-23 01:00 | XMS_ITS | Encounter Summary ---
Author Organization [facility] Address [address] [place] [address] Care Team Providers Care Breast Trimmer Name Role Phone Unavailable Primary Care Provider Unavailabl e Encounter Details Date Type Department Care Team (Latest Contact Info) Description 06/23/2020 Hospital Encounter TH HISTORIC ENCOUNTERS EASTERN CONVERSION ONLY Jacki Badillo MD [address] [place] [address] Angioneurotic edema, initial encounter Social History Tobacco [...]
--- OUTSIDE RECORDS SUMMARY | 2020-07-23 09:35 | XMS_ITS | Continuity of Care Document ---
Author Organization [facility] Address [address] [place] [address] Phone Care Team Providers Care Canal Boat Captain Name Role Phone Luan Allan PA-C, PA-C [...] Providers Copied on Encounter Office/Outpat ient Visit, [facility], [address] [place] [address], [address] [place] [address], tel:[phone] Jerrell Allergy (chief complaint) Moderate persistent asthma without complicationFood allergyOther allergic rhinitis 1 Jerrell Roland. [address] [place], [place], [address] [place] [address] , . tel:[phone] Referring Provider: AILEEN Doherty, [address] [facility] [address], [place], [address]. tel:[phone] Office/Outpat ient Visit, [facility], [address] [place] [address], [address] [place] [address], tel:[phone] Jerrell Allergy (chief complaint) Angioedema, initial encounterFood allergyModerate persistent asthma without complication 1 Jerrell Roland. [address] [place], [place], [id number] , . tel:[phone] Referring Provider: AILEEN Doherty, [address] [facility] [address], [place], [address]. tel:[phone] Family History Family Member Type Diagnosis Age At Onset Brother Problem (finding) Alive and Doing Well Father Problem (finding) Alive and Doing Well Mother Problem (finding) Alive and Doing Well Payers Payer name Insurance type Covered libertarian ID Valeria shah(s) ESAU [id number] Social History Type Description Quantity Date Captured [...] swollen tongue 2 weeks ago, went to [facility], she was given epipen [...]
--- NOTE | 2025-01-26 15:00 | A.OFFPC_ITS ---
Intake Visit Reasons: medication for Covid Allergies Seasonal Allergies Allergy (Severe, Verified 01/10/25 15:44) Itchy Eyes gluten Allergy (Verified 01/10/25 15:44) Rash Medication List - Last Reconciled 01/26/25 by Ana Zamarripa [facility]- albuterol sulfate 90 mcg/actuation 2 puffs inhalation Q4-6H PRN betamethasone dipropionate 0.05% 1 appl topical BID PRN 2 weeks cetirizine-pseudoephedrine 5-120 mg ER 1 tab PO BID 7 days epinephrine 0.3 mg (0.3 mL) IM Q4H PRN fluticasone propionate 50 mcg/actuation 1 spray intranasal BID mecobalamin (vitamin B12) (B12 Active) 2,000 mcg (2 x 1,000 mcg) PO DAILY montelukast 10 mg PO BEDTIME nirmatrelvir-ritonavir 300 mg (150 mg x 2)-100 mg (Paxlovid) take TWO 150 mg tablets of nirmatrelvir with ONE 100 mg tablet of ritonavir twice daily for 5 days PO valacyclovir 500 mg PO DAILY Tobacco use date assessed: 07/05/24 Dental Screening Dental Screen Date: 03/06/23 HPI HPI Comments History of Present Illness Details 54-year-old female with mild intermitten t asthma, menopause, vitamin-D deficiency, vitamin B12 deficiency, seasonal allergies, celiac disease, migraine headaches, generalized anxiety disorder, venous insufficiency, severe depression, diverticulitis, hiatal hernia, Oliveira cyst on the right, HLD Status post endometrial ablation, tubal ligation, breast biopsy, hysterectomy with BSO for myomas benign pathology Social: works in [employer] Living in [place] History of Present Illness - The patient is a 54-year-old female pr esenting with COVID-19 infection. - Symptoms began Thursday with congestion, headache, burning eyes, later confirmed by COVID-19 testing. - Reports chest tightness, using an inha ler, with occasional breathing difficulty worsening with cold. - Experienced feverish chills, bone ache s, fatigue, and reduced appetite. - Initiated Paxlovid today at 1:00 PM. - Regular zinc and vitamin C supplementa tion noted. - Despite best efforts, she does become ill with confirmed illness, such as flu or covid, what seems to be more than usual. Reviewed w/ her work order clerk referral due to recurrent respiratory infections and potential immune dysfunction history. Review of Systems - Respiratory: Reports congestion, burni ng eyes, chest tightness, difficulty breathing. - Neurological: Reports headache. - Musculoskeletal: Reports bone aches. - General: Reports feverish chills, fati diane, reduced appetite. Physical Exam Limited physical exam was conducted Awake alert NAD Speaking in full sentences, congested sounding, occasional cough w/o audible wheezing or distress Engaging, appropriate Skin pink warm and dry Mood and affect appropriate Results - Tests: Positive COVID-19 test conducte d yesterday and today. Assessment and Plan 1. COVID-19 infection - Paxlovid initiated, continued inhaler use advised, emphasized supportive care. - Add prednisone x 5 days 2. Recurrent respiratory infections - Referral to work order clerk discussed, ar ranged for supervisor fine grading evaluation. - Cont Zinc and Vit C Edu on reasons to RTO or seek additional care. Patient was given time to ask questions. All questions were answered to their satisfaction. Telehealth Attestation Documentation accurately reflects the telehealth visit conducted via phone. The patient has been explained that this is an interactive (audio/video) telehealth encounter and what that consists of. The patient understands and wishes to proceed. [employer] platform was used. Total time spent caring for the patient today was 21 minutes. This includes time spent before the visit reviewing the chart, time spent during the visit, and time spent after the visit on documentation, reviewing laboratory results, diagnostic imaging, medications, performing a medically necessary evaluation, counseling on diagnoses, care coordination, ordering appropriate tests, ordering appropriate medications, review of tests performed by other providers, reporting test results with the patient, communication with other healthcare providers. [facility] Medical History (Updated 01/10/25 @ 16:47 by Sasha Garza CNM) Anxiety disorder Asthma Celiac disease Constipation by delayed colonic transit Hypertension Menopausal symptom Migraine Seasonal allergies Severe depression Synovial cyst of right knee Venous insufficiency Vitamin B 12 deficiency Vitamin D deficiency Surgical History (Updated 01/10/25 @ 16:25 by Sasha Garza CNM) History of endometrial ablation History of esophagogastroduodenoscopy (EGD) History of tubal ligation Hx of colonoscopy Hx of hysterectomy S/P breast biopsy Family History Paternal Grandmother Breast cancer Paternal Aunt Breast cancer Mother Hypercholesteremia Age related osteoporosis Father Hypertension Social History Household Members: Spouse and Family Housing: House Alcohol intake: current Alcohol intake frequency: holidays/special occasions only Alcohol type: beer and hard liquor Patient Tobacco Use Status: Never used Tobacco e-Cigarette/Vaping Use: Never Used service: No Current occupational status: employed and disabled 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 Byron Ruffin, Apple Galloway, Jesus Sahu and colleagues, with an educational albin from [employer]. Physical exam (Primary Care) Tobacco/Smoking Status: Tobacco use Status Tobacco use date assessed 07/05/24 07/05/24 12:42 Patient Tobacco Use Status Never used Tobacco 12/20/24 12:43 e-Cigarette/Vaping Use Never Used 07/05/24 13:58 Thrive Assessment: Date of Thrive Assessment Date Thrive assessed 06/29/24 07/05/24 12:35 Telehealth Telehealth Telehealth Platform: [employer] Location of provider rendering services: practice address Location of patient: address on file Patient Identification confirmed using: Name, : Yes Telehealth method: voice only Patient verbally consented to treatment: Yes Patient verbally consented to billing insurance company: Yes Patient informed of any privacy concerns related to visit: Yes Minutes spent on Phone/Video with Pt.: 8 Coding Level of Care Code Tele Est Pt Level 3 (86556) Complex EM visit Add On G2211 Diagnoses COVID-19 U07.1 Mild intermittent asthma in adult without complication J45.20 Assessment & Plan Assessment & Plan (1) COVID-19: Code(s): U07.1 - COVID-19 (2) Mild intermittent asthma in adult without complication: Code(s): J45.20 - Mild intermittent asthma, uncomplicated Category: Medical Plan . Orders: Referrals Pulmonology Referral J45.20 - Mild intermittent asthma, uncomplicated Medications: New prednisone 50 mg PO DAILY 5 tabs 0RF Refilled albuterol sulfate 90 mcg/actuation 2 puffs inhalation Q4-6H PRN 6.7 grams 0RF shortness of breath or wheezing
--- OUTSIDE RECORDS SUMMARY | 2025-01-26 16:12 | XMS_ITS | Clinical Summary ---
Author Organization [address] [facility] Address [address] [place] [address] Phone Care Team Providers Care Isotope Hydrologist Name Role Phone Ana Zamarripa Primary Care Provider [phone] Allergies No known active allergies Social History Tobacco Use Types Packs/Day Years [...] 08/09/2024 10:58 AM EDT Plan of Treatment Health Maintenance Due Date Last Done Comments Breast Cancer Screening 1968 DTaP,Tdap,and Td Vaccines (1 - Tdap) 09/15/1987 Hepatitis B Vaccines (1 of 3 - 19+ 3-dose series) 09/15/1987 Cervical Cancer Screening: P ap Smear 1989 Pneumococcal Vaccine: 50+ Ye ars (1 of 1 - PCV) 2018 Zoster Vaccines (1 of 2) 2018 COVID-19 Vaccine (2023-2 5 season) 2024 Colorectal Cancer Screening: Colonoscopy 05/04/2024 HIV Screening 05/04/2024 Hepatitis C Screening 05/04/2024 Social Influencers of Health Screening 05/04/2024 Depression Screening 05/25/2024 Influenza Vaccine (#1) 2025 HIB Vaccines Aged Out No longer [...] patient's age to complete this topic Insurance [id number] [place] [address] [employer] Care Teams Isotope Hydrologist Relationship Specialty Start Date End Date Ana Zamarripa FNP [address] [place] [address] Dr Lopez, CHARLIE [id number] PCP - General Nurse Practitioner 05/04/24
== END 2025-01-26 15:17 | disposition home or self-care (01) ==
LOC: HO.HMCFM 15:08
PROVIDERS: PCP Nurse Practitioner Family; Visit Provider Nurse Practitioner Family
DX: U07.1 COVID-19 (principal); J45.20 Mild intermittent asthma, uncomplicated

== ENCOUNTER 2025-02-15 12:45 | Outpatient (AMB) | payer OTHER, SELFPAY ==
--- OUTSIDE RECORDS SUMMARY | 2020-06-23 01:00 | XMS_ITS | Encounter Summary ---
Author Organization [facility] Address [address] [place] [address] Care Team Providers Care Development Officer Name Role Phone Unavailable Primary Care Provider Unavailabl e Encounter Details Date Type Department Care Team (Latest Contact Info) Description 06/23/2020 Hospital Encounter TH HISTORIC ENCOUNTERS EASTERN CONVERSION ONLY Jacki Badillo MD [address] [place] [address] Angioneurotic edema, initial encounter Social History Tobacco [...]
--- OUTSIDE RECORDS SUMMARY | 2020-07-23 09:35 | XMS_ITS | Continuity of Care Document ---
Author Organization [facility] Address [address] [place] [address] Phone Care Team Providers Care Coating Technician Name Role Phone Luan Allan PA-C, PA-C [...] Providers Copied on Encounter Office/Outpat ient Visit, [facility], [address] [place] [address], [address] [place] [address], tel:[phone] Jerrell Allergy (chief complaint) Moderate persistent asthma without complicationFood allergyOther allergic rhinitis 1 Jerrell Roland. [address] [place], [place], [address] [place] [address] , . tel:[phone] Referring Provider: AILEEN Doherty, [address] [facility] [address], [place], [address]. tel:[phone] Office/Outpat ient Visit, [facility], [address] [place] [address], [address] [place] [address], tel:[phone] Jerrell Allergy (chief complaint) Angioedema, initial encounterFood allergyModerate persistent asthma without complication 1 Jerrell Roland. [address] [place], [place], [id number] , . tel:[phone] Referring Provider: AILEEN Doherty, [address] [facility] [address], [place], [address]. tel:[phone] Family History Family Member Type Diagnosis Age At Onset Brother Problem (finding) Alive and Doing Well Father Problem (finding) Alive and Doing Well Mother Problem (finding) Alive and Doing Well Payers Payer name Insurance type Covered alliance party ID Valeria shah(s) ESAU [id number] Social History Type Description Quantity Date Captured [...] swollen tongue 2 weeks ago, went to [facility] for observation, she was given epipen and [...]
--- NOTE | 2025-02-15 12:50 | A.OFFPC_ITS ---
Intake Visit Reasons: Congestion, sneezing and chills. Allergies Seasonal Allergies Allergy (Severe, Verified 01/10/25 15:44) Itchy Eyes gluten Allergy (Verified 01/10/25 15:44) Rash Tobacco use date assessed: 07/05/24 Dental Screening Dental Screen Date: 03/06/23 HPI HPI Comments History of Present Illness Details 54-year-old female with mild intermitten t asthma, menopause, vitamin-D deficiency, vitamin B12 deficiency, seasonal allergies, celiac disease, migraine headaches, generalized anxiety disorder, venous insufficiency, severe depression, diverticulitis, hiatal hernia, Oliveira cyst on the right, HLD Status post endometrial ablation, tubal ligation, breast biopsy, hysterectomy with BSO for myomas benign pathology Social: works in [employer] [facility] in [place] History of Present Illness - The patient is a 54-year-old female pr esenting with COVID-19 infection. - Symptoms began Thursday with congestion, headache, burning eyes, later confirmed by COVID-19 testing. - Reports chest tightness, using an inha ler, with occasional breathing difficulty worsening with cold. - Experienced feverish chills, bone ache s, fatigue, and reduced appetite. - Initiated Paxlovid today at 1:00 PM. - Regular zinc and vitamin C supplementa tion noted. - Despite best efforts, she does become ill with confirmed illness, such as flu or covid, what seems to be more than usual. Reviewed w/ her bottle packer referral due to recurrent respiratory infections and potential immune dysfunction history. Review of Systems - Respiratory: Reports congestion, burni ng eyes, chest tightness, difficulty breathing. - Neurological: Reports headache. - Musculoskeletal: Reports bone aches. - General: Reports feverish chills, fati diane, reduced appetite. Physical Exam Limited physical exam was conducted Awake alert NAD Speaking in full sentences, congested sounding, occasional cough w/o audible wheezing or distress Engaging, appropriate Skin pink warm and dry Mood and affect appropriate Results - Tests: Positive COVID-19 test conducte d yesterday and today. Assessment and Plan 1. COVID-19 infection - Paxlovid initiated, continued inhaler use advised, emphasized supportive care. - Add prednisone x 5 days 2. Recurrent respiratory infections - Referral to bottle packer discussed, ar ranged for gas roller operator evaluation. - Cont Zinc and Vit C Edu on reasons to RTO or seek additional care. Patient was given time to ask questions. All questions were answered to their satisfaction. Total time spent caring for the patient today was 21 minutes. This includes time spent before the visit reviewing the chart, time spent during the visit, and time spent after the visit on documentation, reviewing laboratory results, diagnostic imaging, medications, performing a medically necessary evaluation, counseling on diagnoses, care coordination, ordering appropriate tests, ordering appropriate medications, review of tests performed by other providers, reporting test results with the patient, communication with other healthcare providers. [facility] Medical History (Updated 01/10/25 @ 16:47 by Sasha Garza CNM) Anxiety disorder Asthma Celiac disease Constipation by delayed colonic transit Hypertension Menopausal symptom Migraine Seasonal allergies Severe depression Synovial cyst of right knee Venous insufficiency Vitamin B 12 deficiency Vitamin D deficiency Surgical History (Updated 01/10/25 @ 16:25 by Sasha Garza CNM) History of endometrial ablation History of esophagogastroduodenoscopy (EGD) History of tubal ligation Hx of colonoscopy Hx of hysterectomy S/P breast biopsy Family History Paternal Grandmother Breast cancer Paternal Aunt Breast cancer Mother Hypercholesteremia Age related osteoporosis Father Hypertension Social History Household Members: Spouse and Family Housing: House Alcohol intake: current Alcohol intake frequency: holidays/special occasions only Alcohol type: beer and hard liquor Patient Tobacco Use Status: Never used Tobacco e-Cigarette/Vaping Use: Never Used service: No Current occupational status: employed and disabled 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 Cognitive needs: No Hearing needs: No Vision needs: No Questionnaire Thrive Questionnaire Date Thrive assessed: 06/29/24 I am a: Patient What is your living situation today?: I have a steady place to live Within the past 12 months, did the food you bought not last and you didn't have the money to get more?: Never true Within the past 12 months, did you worry whether your food would run out before you got money to buy more?: Never true Do you have trouble paying for medicines?: No Do you have trouble getting transportation to medical appointments?: No Do you have trouble paying your heating and electricity bill?: No Do you have trouble taking care of your child, family member or friend?: No Do you have trouble with day-to-day activities such as bathing, preparing meals, shopping, managing finances, etc.?: No Are you currently unemployed and looking for a job?: No Are you interested in more education?: No Please select the resources that you would like help with: None Currently or been in a relationship where the following occur: No concerns reported THRIVE Score: 0 BETHANIE-7 AMB Questionnaire BETHANIE-7 Date BETHANIE - 7 assessed: 07/05/24 Source: Developed by Drs. Byron Ruffin, Apple Galloway, Jesus Sahu and colleagues, with an educational albin from [employer]. Physical exam (Primary Care) Tobacco/Smoking Status: Tobacco use Status Tobacco use date assessed 07/05/24 01/26/25 15:02 Patient Tobacco Use Status Never used Tobacco 01/26/25 15:02 e-Cigarette/Vaping Use Never Used 01/26/25 15:02 Thrive Assessment: Date of Thrive Assessment Date Thrive assessed 06/29/24 01/26/25 15:02 Currently or been in a relationship where the following occur: No concerns reported Coding
--- NOTE | 2025-02-15 12:52 | MHC.OFFWIV ---
Intake Vital Signs 02/15/25 12:55 Height 5 ft 6 in Weight 201 lb 2 oz BMI 32.5 BP 142/80 H Blood Pressure Location Lt brachial Respiration 13 Pulse 77 Pulse Source Pulse Oximeter Temp 97.5 F Temp Source Oral Pulse Oximetry (%) 97 Oxygen Delivery Method Simple Mask Intake Visit Reasons: Congestion, sneezing and chills. Intake Note: Patient c/o congestion, sneezing, and chills since last Thursday. Patient was positive for covid 2 weeks ago. Patient Tobacco Use Status: Never used Tobacco Brand Marketing Coordinator Required: No Allergies Seasonal Allergies Allergy (Severe, Verified 02/15/25 12:53) Itchy Eyes gluten Allergy (Verified 02/15/25 12:53) Rash Do you need a note to return to daycare/school/sports/work: Yes PFSH Medical History (Updated 01/10/25 @ 16:47 by Sasha Garza CNM) Constipation by delayed colonic transit Migraine Celiac disease Hypertension Vitamin D deficiency Vitamin B 12 deficiency Venous insufficiency Synovial cyst of right knee Severe depression Menopausal symptom Anxiety disorder Seasonal allergies Asthma Surgical History (Updated 01/10/25 @ 16:25 by Sasha Garza CNM) History of esophagogastroduodenoscopy (EGD) Hx of colonoscopy History of endometrial ablation History of tubal ligation S/P breast biopsy Hx of hysterectomy Family History Paternal Grandmother Breast cancer Paternal Aunt Breast cancer Mother Hypercholesteremia Age related osteoporosis Father Hypertension Social History Household Members: Spouse and Family Housing: House Alcohol intake: current Alcohol intake frequency: holidays/special occasions only Alcohol type: beer and hard liquor Patient Tobacco Use Status: Never used Tobacco e-Cigarette/Vaping Use: Never Used service: No Current occupational status: employed and disabled 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
[2025-02-15 12:55] VITALS: BP 138/80; PULSE 77; RESP 13; TEMP 36.4; O2SAT 97; BMI 32.5
--- NOTE | 2025-02-15 13:03 | A.OFFPC_ITS ---
Vital Signs 02/15/25 12:55 Height 5 ft 6 in Weight 201 lb 2 oz BMI 32.5 BP 138/80 Blood Pressure Location Lt brachial Respiration 13 Pulse 77 Pulse Source Pulse Oximeter Temp 97.5 F Temp Source Oral Pulse Oximetry (%) 97 Oxygen Delivery Method Simple Mask Intake Visit Reasons: Congestion, sneezing and chills. Allergies Seasonal Allergies Allergy (Severe, Verified 02/15/25 12:53) Itchy Eyes gluten Allergy (Verified 02/15/25 12:53) Rash Medication List - Last Reconciled 02/15/25 by Ana Zamarripa, SCAGLIOL[employer] MECH[employer]IC- albuterol sulfate 90 mcg/actuation 2 puffs inhalation Q4-6H PRN betamethasone dipropionate 0.05% 1 appl topical BID PRN 2 weeks cetirizine-pseudoephedrine 5-120 mg ER 1 tab PO BID 7 days epinephrine 0.3 mg (0.3 mL) IM Q4H PRN fluticasone propionate 50 mcg/actuation 1 spray intranasal BID mecobalamin (vitamin B12) (B12 Active) 2,000 mcg (2 x 1,000 mcg) PO DAILY montelukast 10 mg PO BEDTIME valacyclovir 500 mg PO DAILY Tobacco use date assessed: 07/05/24 Dental Screening Dental Screen Date: 03/06/23 HPI HPI Comments History of Present Illness Details 54-year-old female with mild intermitten t asthma, menopause, vitamin-D deficiency, vitamin B12 deficiency, seasonal allergies, celiac disease, migraine headaches, generalized anxiety disorder, venous insufficiency, severe depression, diverticulitis, hiatal hernia, Oliveira cyst on the right, HLD Status post endometrial ablation, tubal ligation, breast biopsy, hysterectomy with BSO for myomas benign pathology Social: works in [employer] in [place] Here today w URI sx. Sick w/ COVID just a few weeks ago completed paxlovid & prednisone had only a few days of feeling better Thursday started w/ allergy like sx congestion so bad feels like cannot breath low energy, needing to take naps started mucinex, minimally helpful deep breathing having pain in back and anterior chest ears are popping on and off having headaches taking APAP Referred to pulm for work up as she gets sick often first appt 03/2025 Exam Awake alert NAD, mild ill appearing Sclera and conjunctiva clear bilat Nares w/ clear drainage, turbinates edematous bilat, R>L, mild sinus tenderness with palpation right maxillary and frontal sinus TM intact, mildly erythematous and dull R>L MMM, pharynx WNL RRR LS CTAB c/o anterior chest wall pain w/ deep inspiration. Plan Viral swab obtained CXR today. She will be sent portal message w/ results once avail. Likely will need AB Strongly recommend fu with Pulm as scheduled to perform a workup. Will include out of work note after the results are back. Total time spent caring for the patient today was 33 minutes. This includes time spent before the visit reviewing the chart, time spent during the visit, and time spent after the visit on documentation, reviewing laboratory results, diagnostic imaging, medications, performing a medically necessary evaluation, counseling on diagnoses, care coordination, ordering appropriate tests, ordering appropriate medications, review of tests performed by other providers, reporting test results with the patient, communication with other healthcare providers. [facility] Medical History (Updated 02/15/25 @ 13:18 by Ana Zamarripa, [facility]) Anxiety disorder Asthma Celiac disease Constipation by delayed colonic transit Hypertension Menopausal symptom Migraine Seasonal allergies Severe depression Synovial cyst of right knee Venous insufficiency Vitamin B 12 deficiency Vitamin D deficiency Surgical History (Updated 01/10/25 @ 16:25 by Sasha Garza CNM) History of endometrial ablation History of esophagogastroduodenoscopy (EGD) History of tubal ligation Hx of colonoscopy Hx of hysterectomy S/P breast biopsy Family History Paternal Grandmother Breast cancer Paternal Aunt Breast cancer Mother Hypercholesteremia Age related osteoporosis Father Hypertension Social History Household Members: Spouse and Family Housing: House Alcohol intake: current Alcohol intake frequency: holidays/special occasions only Alcohol type: beer and hard liquor Patient Tobacco Use Status: Never used Tobacco e-Cigarette/Vaping Use: Never Used service: No Current occupational status: employed and disabled 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 Cognitive needs: No Hearing needs: No Vision needs: No Questionnaire Thrive Questionnaire Date Thrive assessed: 06/29/24 I am a: Patient What is your living situation today?: I have a steady place to live Within the past 12 months, did the food you bought not last and you didn't have the money to get more?: Never true Within the past 12 months, did you worry whether your food would run out before you got money to buy more?: Never true Do you have trouble paying for medicines?: No Do you have trouble getting transportation to medical appointments?: No Do you have trouble paying your heating and electricity bill?: No Do you have trouble taking care of your child, family member or friend?: No Do you have trouble with day-to-day activities such as bathing, preparing meals, shopping, managing finances, etc.?: No Are you currently unemployed and looking for a job?: No Are you interested in more education?: No Please select the resources that you would like help with: None Currently or been in a relationship where the following occur: No concerns reported THRIVE Score: 0 BETHANIE-7 AMB Questionnaire BETHANIE-7 Date BETHANIE - 7 assessed: 07/05/24 Source: Developed by Drs. Byron Ruffin, Apple Galloway, Jesus Sahu and colleagues, with an educational albin from [employer]. Physical exam (Primary Care) Vital Signs: Last Vital Signs Temp 97.5 F 02/15/25 12:55 Pulse 77 02/15/25 12:55 Resp 13 02/15/25 12:55 BP 142/80 H 02/15/25 12:55 Pulse Ox 97 02/15/25 12:55 Oxygen Delivery Method Simple Mask 02/15/25 12:55 BMI result Body Mass Index 32.5 Tobacco/Smoking Status: Tobacco use Status Tobacco use date assessed 07/05/24 01/26/25 15:02 Patient Tobacco Use Status Never used Tobacco 01/26/25 15:02 e-Cigarette/Vaping Use Never Used 01/26/25 15:02 Thrive Assessment: Date of Thrive Assessment Date Thrive assessed 06/29/24 01/26/25 15:02 Currently or been in a relationship where the following occur: No concerns reported Coding Level of Care Code Est Pt Level 4 (24906) Complex EM visit Add On G2211 Diagnoses Flu-like symptoms R68.89 Mild intermittent asthma in adult without complication J45.20 Chest wall pain R07.89 Personal history of COVID-19 Z86.16 Assessment & Plan Assessment & Plan (1) Flu-like symptoms: Code(s): R68.89 - Other general symptoms and signs Category: Medical (2) Mild intermittent asthma in adult without complication: Code(s): J45.20 - Mild intermittent asthma, uncomplicated Category: Medical (3) Chest wall pain: Code(s): R07.89 - Other chest pain (4) Personal history of COVID-19: Onset Date: ~01/2025 Code(s): Z86.16 - Personal history of COVID-19 Category: Medical Plan . Orders: Orders Resp Pathogen Panel - [facility] Today J06.9 - Acute upper respiratory infection, unspecified, R09.89 - Other specified symptoms and signs involving the circulatory and respiratory systems XR chest 2V Today J06.9 - Acute upper respiratory infection, unspecified Medications: Discontinued prednisone Discontinued Reason: Patient Completed Course 50 mg PO DAILY 5 tabs 0RF nirmatrelvir-ritonavir 300 mg (150 mg x 2)-100 mg (Paxlovid) Discontinued Reason: Patient Completed Course take TWO 150 mg tablets of nirmatrelvir with ONE 100 mg tablet of ritonavir twice daily for 5 days PO 30 ea 0RF
--- OUTSIDE RECORDS SUMMARY | 2025-02-15 15:15 | XMS_ITS | Clinical Summary ---
Author Organization [address] [facility] Address [address] [place] [address] Phone Care Team Providers Care Anti Tank Missileman Name Role Phone Ana Zamarripa Primary Care Provider Allergies No known active allergies Social History [...] 2018 Zoster Vaccines (1 of 2) 2018 Colorectal Cancer Screening: Colonoscopy 05/04/2024 HIV Screening 05/04/2024 Hepatitis C Screening 05/04/2024 Social Influencers of Health Screening 05/04/2024 Depression Screening 05/25/2024 COVID-19 Vaccine ( - 2023-2 5 season) 2025 Influenza Vaccine (#1) 2025 HIB Vaccines Aged [...] patient's age to complete this topic Insurance [id number] [place] [address] [employer] Care Teams Anti Tank Missileman Relationship Specialty Start Date End Date Ana Zamarripa FNP [address] [place] [address] Dr Lopez, CHARLIE [phone] PCP - General Nurse Practitioner 05/04/24
== END 2025-02-15 13:27 | disposition home or self-care (01) ==
LOC: HO.HMCFM 12:46
PROVIDERS: PCP Nurse Practitioner Family; Visit Provider Nurse Practitioner Family
DX: R68.89 Other general symptoms and signs (principal); J45.20 Mild intermittent asthma, uncomplicated; R07.89 Other chest pain; Z86.16 Personal history of COVID-19

== ENCOUNTER 2025-02-15 12:45 | Outpatient (REF) | payer OTHER, SELFPAY ==
--- NOTE | ~2025-02-15 | XR_ITS ---
EXAMINATION: XR CHEST CLINICAL INFORMATION: J06.9 - Acute upper respiratory infection, unspecified COMPARISON: 08/27/2024. TECHNIQUE: 2 views of the chest were obtained. FINDINGS: The cardiac, hilar, and mediastinal contours are normal. The lungs are clear bilaterally. There is no pneumothorax or pleural effusion. There is no focal osseous or soft tissue abnormality. XR/XR chest 2V IMPRESSION: No active pulmonary disease. Electronically signed by: Aguila Mathews MD 02/15/2025 01:54 PM EDT
[2025-02-15 15:50] LABS: Chlamydia pneumoniae PCR Not Detected (Not Detect.); Coronavirus 229E PCR Not Detected (Not Detect.); Coronavirus HKU1 PCR Not Detected (Not Detect.); Coronavirus NL63 PCR Not Detected (Not Detect.); Coronavirus OC43 PCR Not Detected (Not Detect.); RSV PCR Not Detected (Not Detect.); Rhino/Enterovirus PCR Detected (Not Detect.)
[2025-02-15 16:48] LABS: SARS-CoV-2 PCR Not Detected (Not Detect.)
[2025-02-15 16:49] LABS: Influenza A H1 PCR Not Detected (Not Detect.); Influenza A H1-2009 PCR Not Detected (Not Detect.); Influenza A H3 PCR Not Detected (Not Detect.)
== END 2025-02-15 12:46 | disposition home or self-care (01) ==
LOC: HO.HMGCX 12:45
PROVIDERS: PCP Nurse Practitioner Family; Visit Provider Nurse Practitioner Family
DX: R09.89 Other specified symptoms and signs involving the circulatory and respiratory systems (principal); J06.9 Acute upper respiratory infection, unspecified; J45.20 Mild intermittent asthma, uncomplicated; R07.89 Other chest pain; Z86.16 Personal history of COVID-19; Z79.891 Long term (current) use of opiate analgesic
CPT/HCPCS: 71046; 87633; 99212

== ENCOUNTER → 2025-02-15 13:42 | Outpatient (BNV) | payer OTHER, SELFPAY | PROVIDERS: PCP Nurse Practitioner Family; Visit Provider Radiology Diagnostic Radiology | DX: J06.9 Acute upper respiratory infection, unspecified (principal) | CPT/HCPCS: 71046 ==

== ENCOUNTER 2025-03-09 14:06 | Outpatient (AMB) | payer OTHER, SELFPAY ==
--- OUTSIDE RECORDS SUMMARY | 2020-06-23 01:00 | XMS_ITS | Encounter Summary ---
Author Organization [facility] Address [address] [place] [address] Care Team Providers Care Hand Straightener Name Role Phone Unavailable Primary Care Provider Unavailabl e Encounter Details Date Type Department Care Team (Latest Contact Info) Description 06/23/2020 Hospital Encounter TH HISTORIC ENCOUNTERS EASTERN CONVERSION ONLY Jacki Badillo MD [address] [place] [address] Angioneurotic edema, initial encounter Social History Tobacco [...]
--- OUTSIDE RECORDS SUMMARY | 2020-07-23 09:35 | XMS_ITS | Continuity of Care Document ---
Author Organization [facility] Address [address] [place] [address] Phone Care Team Providers Care Water Resources Program Director Name Role Phone Luan Allan PA-C, PA-C [...] Providers Copied on Encounter Office/Outpat ient Visit, [facility], [address] [place] [address], [address] [place] [address], tel:[phone] Jerrell Allergy (chief complaint) Moderate persistent asthma without complicationFood allergyOther allergic rhinitis 1 Jerrell Roland. [address] [place], [place], [address] [place] [address] , . tel:[phone] Referring Provider: AILEEN Doherty, [address] [facility] [address], [place], [address]. tel:[phone] Office/Outpat ient Visit, [facility], [address] [place] [address], [address] [place] [address], tel:[phone] Jerrell Allergy (chief complaint) Angioedema, initial encounterFood allergyModerate persistent asthma without complication 1 Jerrell Roland. [address] [place], [place], [id number] , . tel:[phone] Referring Provider: AILEEN Doherty, [address] [facility] [address], [place], [address]. tel:[phone] Family History Family Member Type Diagnosis Age At Onset Brother Problem (finding) Alive and Doing Well Father Problem (finding) Alive and Doing Well Mother Problem (finding) Alive and Doing Well Payers Payer name Insurance type Covered constitution party ID Valeria shah(s) ESAU [id number] Social History Type Description Quantity Date Captured [...] swollen tongue 2 weeks ago, went to [facility] for observation, she was given epipen [...]
--- NOTE | 2025-03-09 14:14 | MHC.OFFVIS ---
Vital Signs 03/09/25 14:16 Height 5 ft 6 in Weight 201 lb BMI 32.4 BP 120/80 Intake Visit Reasons: hormone replacement F/U Waistband Setter Lockstitch: Waistband Setter Lockstitch Present Allergies Seasonal Allergies Allergy (Severe, Verified 03/09/25 14:16) Itchy Eyes gluten Allergy (Verified 03/09/25 14:16) Rash Is last menstrual period known: Yes HPI Comments Details: Patient is here today to discuss the use of hormones due to hot flashes the interrupt her sleep. She has modified lifestyle changes already. She has tried gabapentin in the past but forgot the pills. She had used estrogen supplements in the past prior to moving to the area. LMP approximately 5 years ago. [facility] Medical History Postmenopausal HRT (hormone replacement therapy) Constipation by delayed colonic transit Migraine Celiac disease Hypertension Vitamin D deficiency Vitamin B 12 deficiency Venous insufficiency Synovial cyst of right knee Severe depression Menopausal symptom Anxiety disorder Seasonal allergies Asthma Surgical History History of esophagogastroduodenoscopy (EGD) Hx of colonoscopy History of endometrial ablation History of tubal ligation S/P breast biopsy Hx of hysterectomy Family History Paternal Grandmother Breast cancer Paternal Aunt Breast cancer Mother Hypercholesteremia Age related osteoporosis Father Hypertension Social History Household Members: Spouse and Family Housing: House Alcohol intake: current Alcohol intake frequency: holidays/special occasions only Alcohol type: beer and hard liquor Patient Tobacco Use Status: Never used Tobacco e-Cigarette/Vaping Use: Never Used service: No Current occupational status: employed and disabled 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 Cognitive needs: No Hearing needs: No Vision needs: No Review of Systems Const All systems reviewed & are unremarkable except as noted in HPI and below Endo Reports no additional complaints Physical Exam Vital Signs: Last Vital Signs BP 120/80 03/09/25 14:16 BMI result Body Mass Index 32.4 Const General: cooperative, healthy appearing and no acute distress Psych Appearance: well kempt Attitude: cooperative Thought process: Normal thought process present Assessment & Plan Assessment & Plan (1) Vasomotor symptoms due to menopause: Code(s): N95.1 - Menopausal and female climacteric states Category: Medical Plan: Counseled regarding further information on menopause changes, sleep hygiene website with handout provided. The patient expressed understanding and agreement with the plan of care. All of her questions and concerns were addressed to the best of my ability. (2) Postmenopausal HRT (hormone replacement therapy): Code(s): Z79.890 - Hormone replacement therapy Category: Medical Plan Reviewed risk factors for HRT, her cardiovascular risk is 3.1% over 10 years-low risk, (with the use of [employer] gerson.). Oral versus the patch. Rx for transdermal therapy sent in plan follow up in 1 month. HRT risks benefits reviewed including side effects and warnings. Correlation of certain breast cancer tumor growth and the use of hormones reviewed. Hormone use warnings: go to ER if and loss of vision, blindness, severe headache, chest pain or difficulty breathing, severe abdominal pain, or any pain or swelling in an extremity. The patient expressed understanding and agreement with the plan of care. All of her questions and concerns were addressed to the best of my ability. This note is constructed using voice recognition software. While every effort has been made to ensure accuracy, blocking machine tender errors may have been included. Medications: New estradiol (Vivelle-Dot) apply 1 patch for 3 days alternating with 1 patch for 4 days each week 1 patch transdermal 2XW 8 ea 1RF Coding Level of Care Code Est Pt Level 3 (89442) Diagnoses Vasomotor symptoms due to menopause N95.1 Postmenopausal HRT (hormone replacement therapy) Z79.890
[2025-03-09 14:16] VITALS: BP 120/80; BMI 32.4
--- OUTSIDE RECORDS SUMMARY | 2025-03-09 17:53 | XMS_ITS | Clinical Summary ---
Author Organization [address] [facility] Address [address] [place] [address] Phone Care Team Providers Care Vendor Management Consultant Name Role Phone Ana Zamarripa Primary Care [...] Last Done Comments Breast Cancer Screening 1968 Colorectal Cancer Screening: Colonoscopy 1968 DTaP,Tdap,and Td Vaccines (1 - Tdap) 09/15/1987 Hepatitis B Vaccines (1 of 3 - 19+ 3-dose series) 09/15/1987 Cervical Cancer Screening: P ap Smear 1989 Pneumococcal Vaccine: 50+ Ye ars (1 of 1 - PCV) 2018 Zoster Vaccines (1 of 2) 2018 HIV Screening 05/04/2024 Hepatitis C Screening 05/04/2024 Social Influencers of Health Screening 05/04/2024 Depression Screening 05/25/2024 COVID-19 Vaccine ( - 2023-2 5 season) 2025 Influenza Vaccine (#1) 2025 RSV Immunization Adult Patie nts (1 - 1-dose 75+ series) 09/15/2043 HIB Vaccines Aged Out No longer eligi [...] patient's age to complete this topic Insurance [id number] [place] [address] PUBLIC PLANS Care Teams Vendor Management Consultant Relationship Specialty Start Date End Date Ana Zamarripa FNP [address] [place] [address] [place] [phone] PCP - General Nurse Practitioner 05/04/24
--- OUTSIDE RECORDS SUMMARY | 2025-03-09 17:53 | XMS_ITS | Data Portability ---
Author Organization GUILLE Alarcon dung [address] Address [address] [place] [address] Assessment No assessment recorded. Plan of Treatment Reminders Order Date Submit Date Provider Last Modified By Organization Details Last Modified Time Details Appointments None recorded. Lab None recorded. Referral None recorded. Procedures None recorded. Surgeries None recorded. Imaging None recorded. Medication Orders Augmentin 875 mg-125 mg tablet 2022 023 [facility]/Pharmacy #[id number], [address] [place], [address], 3 11:52:59 prednisone 20 mg tablet 2022 023 [facility]/Pharmacy #[id number], [address] [place], [address], 3 11:52:59 Patient TargetsNo targets recorded. Patient Instructions Encounter Date Encounter Id Patient Instructions Last Modified By Organization Details Last Modified Time 08/30/2022 [id number] Sinusitis is an infection of the lining [...] care for yourself at home? Take an afeb-vgr-rldzeyg pain medicine. Avoid Ibuprofen, Aleve and Aspirin if . If the doctor prescribed antibiotics, take them as directed. Do not stop taking them just because you feel better. You need to take the full course of antibiotics. Be careful when taking ksqc-cgd-qpinjwc cold or influenza (flu) medicines and Tylenol [...] Address Organization Details Recorded Time Celiac disease 088409414 Active 2022 JOSH mathis PA - [facility] 3 11:38:44 Migraine 17249539 Active 2022 JOSH mathis PA - [facility] 3 11:40:52 Hypertensive disorder 04886230 Active 2022 [facility] [...] Last Updated DateTime 167.64 cm 30.7 kg/m2 68320.5 5 g 8 18 /min 98 % 98 % 80 /min 97.9 [degF] 132/88 mm[Hg] JOSH GARCÍA PA - [facility] 11:43:15 Social History Question Answer Notes LastModified by [facility] Mobile Details LastModified Time Tobacco Smoking Status Never Smoker JOSH mathis PA - [facility] 08/30/2022 11:41:10 Have You Recently Traveled Abroad? No Information not available 08/30/2022 Sex: Unknown Functional Status Question Answer Note LastModified by [facility] [employer] Details LastModified Time How many times per [...] Diagnosis SNOMED-CT Code Diagnosis ICD10 Code Diagnosis IMO Codes Diagnosis Note [id number] Alexis Villaseñor NP [address] [address] 08/30/2022 11:14:55 08/30/2022 11:58:42 Acute sinusitis 77949468 J01.90 Health Concerns Section Related Observation LastModified by Organization Detai ls LastModified Time None Recorded Concern Status LastModified by Organization Details LastModified Time None Recorded Advance Directives Directive None Recorded Payers Insurance Date Sequence Insurance Name Policy Number Policy Carter Covered Member ID Carter Member ID Guarantor Name 08/30/2022 1 [facility] [id number] Belinda Burgos [id number] 1 Belinda Burgos Notes Date Note Type Note Provider Name and Address Organization Details Recorded Time 3 text/html Sinus Complaints UCReported by PatientHPIFor location, patient reportssinus pain,facial pain, andsinus pressure. For associated symptoms, patient reportsnasal discharge from both nostrils,difficulty breathing,headache forehead,post nasal drip,nasal passage blockage __, andcoughbut reportsno fever,no nausea or vomiting,no sore throat,no ear fullness,no nasal itching,no eye itching, andno dizziness. For quality, patient reportsworseningbut reportsminimal discomfortandclear. For context, patient reportsworse with environmental exposurebut reportsno recent upper respiratory infection,no recent sick contacts, andnot worse with seasonal allergen exposure. For alleviating factors, patient reportsnothing gives relief. For onset/timing, patient reportsworse in am,worse in pm, andinitially started 2weeks ago. For duration, patient reportsfrequent. For severity, patient reportsmoderate. For risk factors, patient reportsno current smoking or tobacco useandno history of nasal trauma. For aggravating factors, patient reportsworse during an upper respiratory infection (a cold)andworse with excess fatigue. For prior treatment, patient reportsnasal steroids:___andoral steroids:___. Shortness of BreathReported by Patient CongestionReported by Patient Alexis Villaseñor NP [address] [place], [address], [place] - [facility] 08/30/2022 11:53:14 OBGyn Episode No OBEpisode recorded.
== END 2025-03-09 14:49 | disposition home or self-care (01) ==
LOC: HO.HWS 14:06
PROVIDERS: Visit Provider Advanced Practice Midwife
DX: N95.1 Menopausal and female climacteric states (principal); Z79.890 Hormone replacement therapy
CPT/HCPCS: 99213

== ENCOUNTER → 2025-03-09 14:06 | Outpatient (BNVA) | payer OTHER, SELFPAY | PROVIDERS: Visit Provider Advanced Practice Midwife | DX: N95.1 Menopausal and female climacteric states (principal); Z79.890 Hormone replacement therapy | CPT/HCPCS: 99212 ==

== ENCOUNTER 2025-03-14 14:38 | Outpatient (REF) | payer OTHER, SELFPAY ==
[2025-03-15 13:51] LABS: Chlamydia pneumoniae PCR Not Detected (Not Detect.); Coronavirus 229E PCR Not Detected (Not Detect.); Coronavirus HKU1 PCR Not Detected (Not Detect.); Coronavirus NL63 PCR Not Detected (Not Detect.); Coronavirus OC43 PCR Not Detected (Not Detect.); RSV PCR Not Detected (Not Detect.); Rhino/Enterovirus PCR Detected (Not Detect.)
[2025-03-15 14:05] LABS: Influenza A H1 PCR Not Detected (Not Detect.); Influenza A H1-2009 PCR Not Detected (Not Detect.); Influenza A H3 PCR Not Detected (Not Detect.); SARS-CoV-2 PCR Not Detected (Not Detect.)
== END 2025-03-14 14:39 | disposition home or self-care (01) ==
LOC: HO.LAB 14:38
PROVIDERS: Visit Provider Nurse Practitioner Family
DX: Z23 Encounter for immunization (principal); R09.89 Other specified symptoms and signs involving the circulatory and respiratory systems; E53.8 Deficiency of other specified B group vitamins; E55.9 Vitamin D deficiency, unspecified; J45.20 Mild intermittent asthma, uncomplicated; Z86.16 Personal history of COVID-19; Z79.899 Other long term (current) drug therapy
CPT/HCPCS: 87633; 90471; 90656; 96127; 99212

== ENCOUNTER 2025-03-14 14:38 | Outpatient (AMB) | payer OTHER, SELFPAY ==
--- OUTSIDE RECORDS SUMMARY | 2020-06-23 01:00 | XMS_ITS | Encounter Summary ---
Author Organization [facility] Address [address] [place] [address] Care Team Providers Care Production Sampler Name Role Phone Unavailable Primary Care Provider Unavailabl e Encounter Details Date Type Department Care Team (Latest Contact Info) Description 06/23/2020 Hospital Encounter TH HISTORIC ENCOUNTERS EASTERN CONVERSION ONLY Jacki Badillo MD [address] [place] [address] Angioneurotic edema, initial encounter Social History Tobacco [...]
--- NOTE | 2025-03-14 14:41 | A.OFFPC_ITS ---
Vital Signs 03/14/25 14:44 Height 5 ft 6 in Weight 202 lb BMI 32.6 BP 122/70 Blood Pressure Location Lt brachial Position Sitting Respiration 12 Pulse 86 Pulse Source Pulse Oximeter Temp 97.1 F Temp Source Oral Pulse Oximetry (%) 96 Oxygen Delivery Method Room Air Intake Visit Reasons: 6 months 30 min routine, resched Intake Note: Routine follow up. Patient c/o runny nose, coughing, sob and headaches since last Thursday. Electrical Cad Technician Required: No Allergies Seasonal Allergies Allergy (Severe, Verified 03/14/25 14:41) Itchy Eyes gluten Allergy (Verified 03/14/25 14:41) Rash Medication List - Last Reconciled 03/14/25 by Ana Zamarripa, CONTRACT SHELTERED WORKSHOP SUPERVISOR- albuterol sulfate 90 mcg/actuation 2 puffs inhalation Q4-6H PRN betamethasone dipropionate 0.05% 1 appl topical BID PRN 2 weeks cetirizine-pseudoephedrine 5-120 mg ER 1 tab PO BID 7 days epinephrine 0.3 mg (0.3 mL) IM Q4H PRN estradiol (Vivelle-Dot) 1 patch transdermal 2XW fluticasone propionate 50 mcg/actuation 1 spray intranasal BID mecobalamin (vitamin B12) (B12 Active) 2,000 mcg (2 x 1,000 mcg) PO DAILY montelukast 10 mg PO BEDTIME valacyclovir 500 mg PO DAILY Tobacco use date assessed: 03/14/25 Dental Screening Dental Screen Date: 03/14/25 Did you have a dental visit in the last 12 months?: Yes Did you have a dental problem in the last 6 months where you did not have access to dental care?: No Was dental information given to patient?: Patient has dentist HPI HPI Comments History of Present Illness Details 54-year-old female with mild intermitten t asthma, menopause, vitamin-D deficiency, vitamin B12 deficiency, seasonal allergies, celiac disease, migraine headaches, generalized anxiety disorder, venous insufficiency, severe depression, diverticulitis, hiatal hernia, Oliveira cyst on the right, HLD Status post endometrial ablation, tubal ligation, breast biopsy, hysterectomy with BSO for myomas benign pathology Social: works in [employer] Living in [place] Health Maintenance: ? Colon 10/16/2022 ? Mammo 02/28/24 WNL, appt next week ? DEXA normal 12/08/23 DIAGNOSIS: Normal bone density based on the lowest T-sco re value of-1.0 in the femoral neck applying World Health Organization criteria. ? PAP n/a d/t STEPHEN ? Tdap 2023, UTD on shingles vaccine. FLu 03/14/25 Specialists: GI annual follow up Oil Speculator podiatry nanda Pul at [facility] [place] first appt 03/2025 History of Present Illness The patient is a 54-year-old female presenting with recurring illnesses for a routine complex disease management visit. Recurring Upper Respiratory Infections: - Monthly episodes of infection - Includes COVID-19, enterovirus, rhinov irus - Intermittent fever, chills, nasal patrice estion and cough started again on after she recovered from Entero/Rhinovirus Asthma: - Breathing difficulties reported - Managed with albuterol and montelukast Recurrent Shingles: - Occurred first in early 30s; has gotte n several times - Received shingles vaccination Possible Immune System Dysfunction: - Frequent infections raise suspicion - Previous exposure to pathogens Menopausal Symptoms: - Hot flashes managed with hormone patch Review of Systems - Respiratory: Reports difficulty breath ing; managed with albuterol and nasal spray. - Endocrine: Reports hot flashes; uses h ormone patch. - Immune: Reports recurring infections, fever, chills. - Skin: Reports previous shingles infect ions. - General: Denies recent fever; reports chills on and off. Physical Exam Awake alert NAD, mild ill appearing Sclera and conjunctiva clear bilat Nares w/ clear drainage, turbinates edematous bilat, L>R, nasal polyp noted, no sinus tenderness with palpation TM intact, clear on L, cloudy on R MMM, pharynx WNL RRR LS CTAB Discussion Notes I reviewed with the patient the need for further evaluation of her recurrent illnesses, suspecting potential immune dysfunction. We discussed the plan to perform additional laboratory work, including zinc and vitamin C levels, along with immune profiles such as IgA, IgG, and subclass tests, to identify any deficiencies or abnormalities affecting her immune system. We emphasized the importance of receiving the flu vaccine today as her current state does not include a fever. I reassured her that her occupational exposure likely contributes to, but is not solely responsible for, her condition. We explored other risk factors and agreed upon a follow-up plan for a comprehensive review of her blood works results before her immunology consultation on . Prescription refills, including the hormone patch for menopausal symptoms, were confirmed, and we addressed her concerns with referrals for ophthalmology. I counseled her on the definitions of her readings and advised frequent handwashing and maintaining her current vitamins regimen. Patient was given time to ask questions. All questions were answered to their satisfaction. Assessment and Plan 1. Recurring Upper Respiratory Infection s - Initiate lab testing for immune functi on analysis and consider allergies if labs indicate. 2. Asthma - Maintain current asthma management wit h albuterol and montelukast. 3. Recurrent Shingles - Monitor for recurrence; maintain past vaccinations. 4. Possible Immune System Dysfunction - Perform specialized lab tests. - Follow-up for results and additional c onsults. 5. Menopausal Symptoms - Hormone replacement continued. Patient Instructions - Get flu shot today as planned. - Schedule lab tests at your earliest co nvenience. - Continue using medications as prescrib ed for asthma and menopausal symptoms. - Maintain hygiene practices at work and home. - Schedule a follow-up appointment in . - Contact the clinic if you experience a ny new or worsening symptoms. - RTO 3 mo for CPE, sooner PRN. I will a rrange fu of testing once results are available. Consent Patient was informed and verbally consented to the use of an ambient scribe for clinic note documentation during this visit. Total time spent caring for the patient today was 30 minutes. This includes time spent before the visit reviewing the chart, time spent during the visit, and time spent after the visit on documentation, reviewing laboratory results, diagnostic imaging, medications, performing a medically necessary evaluation, counseling on diagnoses, care coordination, ordering appropriate tests, ordering appropriate medications, review of tests performed by other providers, reporting test results with the patient, communication with other healthcare providers. [facility], LAT[facility] Medical History Postmenopausal HRT (hormone replacement therapy) Constipation by delayed colonic transit Migraine Celiac disease Hypertension Vitamin D deficiency Vitamin B 12 deficiency Venous insufficiency Synovial cyst of right knee Severe depression Menopausal symptom Anxiety disorder Seasonal allergies Asthma Surgical History History of esophagogastroduodenoscopy (EGD) Hx of colonoscopy History of endometrial ablation History of tubal ligation S/P breast biopsy Hx of hysterectomy Family History Paternal Grandmother Breast cancer Paternal Aunt Breast cancer Mother Hypercholesteremia Age related osteoporosis Father Hypertension Social History Household Members: Spouse and Family Housing: House Alcohol intake: current Alcohol intake frequency: holidays/special occasions only Alcohol type: beer and hard liquor Patient Tobacco Use Status: Never used Tobacco e-Cigarette/Vaping Use: Never Used service: No Current occupational status: employed and disabled 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 1. Little interest or pleasure in doing things: not at all 2. Feeling down, depressed, or hopeless: not at all 3. Trouble falling or staying asleep, or sleeping too much: not at all 4. Feeling tired or having little energy: not at all 5. Poor appetite or overeating: not at all 6. Feeling bad about yourself - or that you are a failure or have let yourself or your family down: not at all 7. Trouble concentrating on things, such as reading the newspaper or watching television: not at all 8. Moving or speaking so slowly that other people could have noticed. Or the opposite - being so fidgety or restless that you have been moving around a lot more than usual: not at all 9. Thoughts that you would be better off or of hurting yourself in some way: not at all Total score: 0 Depression Screening Interpretation: Negative Depression Screening Done: Yes 71547 - PHQ-9 Billing: Yes Source: Developed by Drs. Byron Ruffin, Apple Galloway, Jesus Sahu and colleagues, with an educational albin from [employer]. Thrive Questionnaire Date Thrive assessed: 03/14/25 I am a: Patient What is your living situation today?: I have a steady place to live Within the past 12 months, did the food you bought not last and you didn't have the money to get more?: Never true Within the past 12 months, did you worry whether your food would run out before you got money to buy more?: Never true Do you have trouble paying for medicines?: No Do you have trouble getting transportation to medical appointments?: No Do you have trouble paying your heating and electricity bill?: No Do you have trouble taking care of your child, family member or friend?: No Do you have trouble with day-to-day activities such as bathing, preparing meals, shopping, managing finances, etc.?: No Are you currently unemployed and looking for a job?: No Are you interested in more education?: No Please select the resources that you would like help with: None Currently or been in a relationship where the following occur: No concerns reported THRIVE Score: 0 BETHANIE-7 AMB Questionnaire BETHANIE-7 Date BETHANIE - 7 assessed: 03/14/25 Feeling nervous, anxious, or on edge: 0 = Not at all Not being able to stop or control worryin = Not at all Worrying too much about different things: 0 = Not at all Trouble relaxin = Not at all Being so restless that it is hard to sit still: 0 = Not at all Becoming easily annoyed or irritable: 0 = Not at all Feeling afraid as if something awful might happen: 0 = Not at all Total BETHANIE-7 score (0-4 normal; 5-9 mild; 10-14 moderate; 15-21 severe): 0 Source: Developed by Drs. Byron Ruffin, Apple Galloway, Jesus muniz nd colleagues, with an educational albin from [employer]. BETHANIE-7 Assessment Billing BETHANIE-7 Assessment Tool: BETHANIE-7 Assessment 92107 Physical exam (Primary Care) Vital Signs: Last Vital Signs Temp 97.1 F 03/14/25 14:44 Pulse 86 03/14/25 14:44 Resp 12 03/14/25 14:44 BP 122/70 03/14/25 14:44 Pulse Ox 96 03/14/25 14:44 Oxygen Delivery Method Room Air 03/14/25 14:44 BMI result Body Mass Index 32.6 Tobacco/Smoking Status: Tobacco use Status Tobacco use date assessed 03/14/25 03/14/25 14:41 Patient Tobacco Use Status Never used Tobacco 03/14/25 14:41 e-Cigarette/Vaping Use Never Used 03/14/25 14:41 PHQ-9: PHQ-9 Score PHQ-9: Total score 0 03/14/25 14:52 Depression Screening Interpretation: Negative Thrive Assessment: Date of Thrive Assessment Date Thrive assessed 03/14/25 03/14/25 14:47 Currently or been in a relationship where the following occur: No concerns reported Office Procedures Flu Questionnaire Does the patient have a severe egg allergy?: No Does the patient have severe life threatening allergies?: No Does the patient have a fever or illness today?: No Has the patient ever had Guillain-Fairview Syndrome?: No Has the patient ever had any past reaction to a flu shot?: No Immunizations Fluarix 6350-3911 (PF) 45 mcg (15 mcg x 3)/0.5 mL IM syringe Performing Provider: CLEMENTINA Lr Performing Location: [facility] Family Medicine Administered by: Keshawn Snyder MA on 03/14/25 15:16 Dose Route Admin Location Dispensed Lot Number Expiration Date [facility] 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 0.5 mL IM Right Deltoid 0.5 mL [id number] 11/21/25 [id number] [employer] VIS Given Date VIS Provided VIS Publication Date 03/14/25 Single Vaccine 24 Eligibility Eligibility Date Funding Source Not [facility] Eligible 03/14/25 Private Coding Level of Care Code Est Pt Level 4 (60485) Complex EM visit Add On G2211 Diagnoses Flu-like symptoms R68.89 Personal history of COVID-19 Z86.16 Frequently sick R68.89 Vitamin B 12 deficiency E53.8 Vitamin D deficiency E55.9 Mild intermittent asthma in adult without complication J45.20 Influenza vaccination administered at current visit Z23 Additional Codes BETHANIE-7 Assessment Billing - BETHANIE-7 Assessment Tool: BETHANIE-7 Assessment 76723 ([id number]) PHQ-9 - 16553 - PHQ-9 Billing: Yes ([id number]) Assessment & Plan Assessment & Plan (1) Flu-like symptoms: Code(s): R68.89 - Other general symptoms and signs Category: Medical (2) Personal history of COVID-19: Onset Date: ~01/2025 Code(s): Z86.16 - Personal history of COVID-19 Category: Medical (3) Frequently sick: Code(s): R68.89 - Other general symptoms and signs Category: Medical (4) Vitamin B 12 deficiency: Code(s): E53.8 - Deficiency of other specified B group vitamins Category: Medical (5) Vitamin D deficiency: Code(s): E55.9 - Vitamin D deficiency, unspecified Category: Medical (6) Mild intermittent asthma in adult without complication: Code(s): J45.20 - Mild intermittent asthma, uncomplicated Category: Medical (7) Influenza vaccination administered at current visit: Onset Date: ~03/14/25 Code(s): Z23 - Encounter for immunization Category: Medical Plan . Orders: Orders Resp Pathogen Panel - [facility] Today R09.89 - Other specified symptoms and signs involving the circulatory and respiratory systems Zinc Today R68.89 - Other general symptoms and signs Vitamin C Today R68.89 - Other general symptoms and signs HIV Ab/Ag Today R68.89 - Other general symptoms and signs MMR IgG Measles Mumps Rubella Today R68.89 - Other general symptoms and signs Comprehensive Met. Panel Today R68.89 - Other general symptoms and signs Influenza 6012-3100 Immunization Today Z23 - Encounter for immunization Lymphocyte Count, Total Today R68.89 - Other general symptoms and signs, Z86.16 - Personal history of COVID-19 Lymphocyte Subset Panel 3 Today R68.89 - Other general symptoms and signs, Z86.16 - Personal history of COVID-19 Lymphocyte Subset Panel 4 Today R68.89 - Other general symptoms and signs, Z86.16 - Personal history of COVID-19 Immunoglobulins,IgG IgA IgM Today R68.89 - Other general symptoms and signs Complete Blood Count Auto Diff Today R68.89 - Other general symptoms and signs Immunoglobulin G Subclasses Today R68.89 - Other general symptoms and signs Hepatitis A,B,C Profile Today R68.89 - Other general symptoms and signs Varicella IgG Antibody Today R68.89 - Other general symptoms and signs Vitamin B12 and Folate Today R68.89 - Other general symptoms and signs Referrals Optometry Referral H53.8 - Other visual disturbances
[2025-03-14 14:44] VITALS: BP 122/70; PULSE 86; RESP 12; TEMP 36.2; O2SAT 96; BMI 32.6
--- OUTSIDE RECORDS SUMMARY | 2025-03-14 19:43 | XMS_ITS | Clinical Summary ---
Author Organization [address] [facility] Address [address] [place] [address] Phone Care Team Providers Care Loan Documentation Specialist Name Role Phone Ana Zamarripa Primary Care [...] patient's age to complete this topic Insurance [id number] [place] [address] PUBLIC PLANS Care Teams Loan Documentation Specialist Relationship Specialty Start Date End Date Ana Zamarripa FNP [address] [place] [address] [place] [address] PCP - General Nurse Practitioner 05/04/24
--- OUTSIDE RECORDS SUMMARY | 2025-03-14 19:43 | XMS_ITS | Data Portability ---
Author Organization GUILLE Alarcon [address]ung [address] Address [address] [place] [address] Assessment No assessment recorded. Plan of Treatment Reminders Order Date Submit Date Provider Last Modified By Organization Details Last Modified Time Details Appointments None recorded. Lab None recorded. Referral None recorded. Procedures None recorded. Surgeries None recorded. Imaging None recorded. Medication Orders Augmentin 875 mg-125 mg tablet 2022 023 [facility]/Pharmacy #[id number], [address] [place], [address], 3 11:52:59 prednisone 20 mg tablet 2022 023 [facility]/Pharmacy #[id number], [address] [place], [address], 3 11:52:59 Patient TargetsNo targets recorded. Patient Instructions Encounter Date Encounter Id Patient Instructions Last Modified By Organization Details Last Modified Time 08/30/2022 [id number] Sinusitis is an infection of the lining [...] care for yourself at home? Take an xkpx-fld-ivaopij pain medicine. Avoid Ibuprofen, Aleve and Aspirin if . If the doctor prescribed antibiotics, take them as directed. Do not stop taking them just because you feel better. You need to take the full course of antibiotics. Be careful when taking ksto-zgn-bensdhl cold or influenza (flu) medicines and Tylenol [...] Address Organization Details Recorded Time Celiac disease 652704293 Active 2022 JOSH mathis PA - [facility] 3 11:38:44 Migraine 28457413 Active 2022 JOSH mathis PA - [facility] 3 11:40:52 Hypertensive disorder 73683180 Active 2022 [facility] [...] Last Updated DateTime 167.64 cm 30.7 kg/m2 77163.5 5 g 8 18 /min 98 % 98 % 80 /min 97.9 [degF] 132/88 mm[Hg] JOSH GARCÍA PA - [facility] 11:43:15 Social History Question Answer Notes LastModified by [employer] Details LastModified Time Tobacco Smoking Status Never Smoker JOSH mathis PA - [facility] 08/30/2022 11:41:10 Have You Recently Traveled Abroad? No Information not available 08/30/2022 Sex: Unknown Functional Status Question Answer Note LastModified by [employer] Details LastModified Time How many times per [...] ICD10 Code Diagnosis IMO Codes Diagnosis Note [id number] Alexis Villaseñor NP [address] [address] 08/30/2022 11:14:55 08/30/2022 11:58:42 Acute sinusitis 47069764 J01.90 Health Concerns Section Related Observation LastModified by Organization Detai ls LastModified Time None Recorded Concern Status LastModified by Organization Details LastModified Time None Recorded Advance Directives Directive None Recorded Payers Insurance Date Sequence Insurance Name Policy Number Policy Carter Covered Member ID Carter Member ID Guarantor Name 08/30/2022 1 [facility] [id number] Belinda Burgos [id number] Belinda Burgos Notes Date Note Type [...] Villaseñor NP [address] [place], [address], [place] - [facility] 08/30/2022 11:53:14 OBGyn Episode No OBEpisode recorded.
== END 2025-03-14 15:20 | disposition home or self-care (01) ==
LOC: HO.HMCFM 14:39
PROVIDERS: PCP Nurse Practitioner Family; Visit Provider Nurse Practitioner Family
DX: R68.89 Other general symptoms and signs (principal); Z86.16 Personal history of COVID-19; E53.8 Deficiency of other specified B group vitamins; E55.9 Vitamin D deficiency, unspecified; J45.20 Mild intermittent asthma, uncomplicated; Z23 Encounter for immunization

== ENCOUNTER 2025-03-15 15:49 | Outpatient (REF) | payer OTHER, SELFPAY ==
--- OUTSIDE RECORDS SUMMARY | 2020-06-23 01:00 | XMS_ITS | Encounter Summary ---
Author Organization [facility] Address [address] [place] [address] Care Team Providers Care Putty Patcher Name Role Phone Unavailable Primary Care Provider Unavailabl e Encounter Details Date Type Department Care Team (Latest Contact Info) Description 06/23/2020 Hospital Encounter TH HISTORIC ENCOUNTERS EASTERN CONVERSION ONLY Jacki Badillo MD [address] [place] [address] Angioneurotic edema, initial encounter Social History Tobacco [...]
[2025-03-15 16:18] LABS: MANUAL DIFF FLAG NO
[2025-03-15 17:30] LABS: Hematocrit 41.4 % (37.0-47.0); Hemoglobin 14.0 g/dl (12.0-16.0); Imm Gran Abs Auto 0.02 X10*3/uL (0.00-0.03); Imm Gran Pct Auto 0.3 % (0.0-0.4); Lymphocytes Absolute Auto 2.1 X10*3/uL (1.2-4.9); Mean Corpuscular HGB Conc 33.8 g/dl (31.0-35.0); Mean Corpuscular Hemoglobin 28.3 pg (27.0-33.0); Mean Corpuscular Volume 83.6 fL (80.0-98.0); NRBC Abs Auto 0.000 X10*3/uL (0.0-0.012); NRBC Pct Auto 0.0 /100WBC (0.0-0.2); Platelet Count 319 X10*3/uL (160-400); Red Blood Count 4.95 X10*6/uL (4.20-5.50); White Blood Count 6.8 X10*3/uL (4.8-10.8)
[2025-03-15 17:32] LABS: Lymphocyte Count, Total 2.2 X10*3/uL (1.2-4.9)
[2025-03-15 19:32] LABS: Alanine Aminotransferase 29 U/L (0-31); Albumin Level 4.5 g/dL (3.5-5.0); Alkaline Phosphatase 105 U/L (39-117); Anion Gap 14 (12-20); Aspartate Amino Transferase 22 U/L (5-31); Blood Urea Nitrogen 25 mg/dL (9-16); Calcium 9.6 mg/dL (8.4-10.2); Carbon Dioxide 23 mmol/L (22-29); Chloride 107 mmol/L (96-108); Estimated Glomerular Filt Rate > 60; Potassium 4.0 mmol/L (3.3-5.1); Sodium 140 mmol/L (135-145); Total Protein 7.6 g/dL (6.5-8.0)
[2025-03-15 19:42] LABS: Folate 13.1 ng/mL (> or = 4.0); Vitamin B12 588 pg/mL (200-900)
--- OUTSIDE RECORDS SUMMARY | 2025-03-15 21:55 | XMS_ITS | Clinical Summary ---
Author Organization 175 [facility] Address [address] [place] [address] Phone Care Team Providers Care Judicial Clerk Name Role Phone Ana Zamarripa Primary Care [...] patient's age to complete this topic Insurance [id number] [place] [address] PUBLIC PLANS Care Teams Judicial Clerk Relationship Specialty Start Date End Date Ana Zamarripa FNP [address] [place] [address] [place] [address] PCP - General Nurse Practitioner 05/04/24
[2025-03-16 04:03] LABS: HBS Num1 183.72 mIU/mL (0-7.99); HBc Num1 0.10 S/CO (0.00-0.79); HBsAGNum1 0.48 S/CO (0.00-0.99); HIV Num 1 0.05 S/CO (0.00-0.99); Hepatitis A Antibody IgM 0.22 Index (0-0.79); Hepatitis B Surface Antigen Negative (Negative); ~HepC Num1 0.10 S/CO (0.00-0.79); ~Hepatitis A Antibody IgM Nonreactive (Nonreactive); ~Hepatitis B Surface Antibody REACTIVE (Nonreactive); ~Hepatitis C Antibody Nonreactive (Nonreactive)
[2025-03-16 06:13] LABS: Rubeola IgG (Measles) 133.00 AU/mL
[2025-03-16 12:34] LABS: Immunoglobulin G Subclass 1 512 mg/dL (382-929); Immunoglobulin G Subclass 2 407 mg/dL (241-700); Immunoglobulin G Subclass 3 39 mg/dL (22-178); Immunoglobulin G Subclass 4 152.8 mg/dL (4-86); Immunoglobulin G Total 1073 mg/dL (600-1640)
[2025-03-19 15:28] LABS: Absolute CD3 Count 1578 cells/uL (840-3060); Absolute CD8 Count 495 cells/uL (180-1170); Percent CD3 Cells 83 % (57-85); Percent CD8 Cells 26 % (12-42)
== END 2025-03-15 15:50 | disposition home or self-care (01) ==
LOC: HO.LAB 15:49
PROVIDERS: PCP Nurse Practitioner Family; Visit Provider Nurse Practitioner Family
DX: Z11.4 Encounter for screening for human immunodeficiency virus [HIV] (principal); Z11.59 Encounter for screening for other viral diseases; Z01.84 Encounter for antibody response examination; Z86.16 Personal history of COVID-19; R68.89 Other general symptoms and signs
CPT/HCPCS: 36415; 80053; 82180; 82607; 82746; 82784; 84630; 85025; 85048; 86359; 86360; 86704; 86706; 86709; 86735; 86762; 86765; 86787; 86803; 87340; 87389

== ENCOUNTER 2025-03-20 14:09 | Outpatient (REF) | payer OTHER, SELFPAY ==
--- OUTSIDE RECORDS SUMMARY | 2020-06-23 01:00 | XMS_ITS | Encounter Summary ---
Author Organization [facility] Address [address] [place] [address] Care Team Providers Care Case Manager Name Role Phone Unavailable Primary Care Provider Unavailabl e Encounter Details Date Type Department Care Team (Latest Contact Info) Description 06/23/2020 Hospital Encounter TH HISTORIC ENCOUNTERS EASTERN CONVERSION ONLY Jacki Badillo MD [address] [place] [address] Angioneurotic edema, initial encounter Social History Tobacco [...]
--- OUTSIDE RECORDS SUMMARY | 2025-03-20 17:50 | XMS_ITS | Data Portability ---
Author Organization GUILLE Alarcon dung [address] Address [address] [place] [address] Assessment No assessment recorded. Plan of Treatment Reminders Order Date Submit Date Provider Last Modified By Organization Details Last Modified Time Details Appointments None recorded. Lab None recorded. Referral None recorded. Procedures None recorded. Surgeries None recorded. Imaging None recorded. Medication Orders Augmentin 875 mg-125 mg tablet 2022 023 [facility]/Pharmacy #[id number], [address] [place], [address], 3 11:52:59 prednisone 20 mg tablet 2022 023 [facility]/Pharmacy #[id number], [address] [place], [address], 3 11:52:59 Patient TargetsNo targets recorded. Patient Instructions Encounter Date Encounter Id Patient Instructions Last Modified By Organization Details Last Modified Time 08/30/2022 [id number] Sinusitis is an infection of the lining [...] care for yourself at home? Take an yoph-ebx-rhcxeqk pain medicine. Avoid Ibuprofen, Aleve and Aspirin if . If the doctor prescribed antibiotics, take them as directed. Do not stop taking them just because you feel better. You need to take the full course of antibiotics. Be careful when taking qdic-rip-cdndomw cold or influenza (flu) medicines and Tylenol [...] Address Organization Details Recorded Time Celiac disease 210934620 Active 2022 JOSH mathis PA - [facility] 3 11:38:44 Migraine 17222675 Active 2022 JOSH mathis PA - [facility] 3 11:40:52 Hypertensive disorder 42582027 Active 2022 [facility] [...] Last Updated DateTime 167.64 cm 30.7 kg/m2 96033.5 5 g 8 18 /min 98 % 98 % 80 /min 97.9 [degF] 132/88 mm[Hg] JOSH GARCÍA PA - [facility] 11:43:15 Social History Question Answer Notes LastModified by [facility] Details LastModified Time Tobacco Smoking Status Never Smoker JOSH mathis PA - [facility] 08/30/2022 11:41:10 Have You Recently Traveled Abroad? No Information not available 08/30/2022 Sex: Unknown Functional Status Question Answer Note LastModified by [facility] Details LastModified Time How many times per [...] ICD10 Code Diagnosis IMO Codes Diagnosis Note [id number] Alexis Villaseñor NP [address] [address] 08/30/2022 11:14:55 08/30/2022 11:58:42 Acute sinusitis 46477671 J01.90 Health Concerns Section Related Observation LastModified by Organization Detai ls LastModified Time None Recorded Concern Status LastModified by Organization Details LastModified Time None Recorded Advance Directives Directive None Recorded Payers Insurance Date Sequence Insurance Name Policy Number Policy Carter Covered Member ID Carter Member ID Guarantor Name 08/30/2022 1 [facility] [id number] Belinda Burgos [id number] Belinda Burgos Notes Date Note Type [...] Villaseñor NP [address] [place], [address], [place] - [facility] 08/30/2022 11:53:14 OBGyn Episode No OBEpisode recorded.
--- OUTSIDE RECORDS SUMMARY | 2025-03-20 17:50 | XMS_ITS | Clinical Summary ---
Author Organization 175 [facility] Address [address] [place] [address] Phone Care Team Providers Care Stitchdown Toe Former Name Role Phone Ana Zamarripa Primary Care [...] patient's age to complete this topic Insurance [id number] [place] [address] PUBLIC PLANS Care Teams Stitchdown Toe Former Relationship Specialty Start Date End Date Ana Zamarripa FNP [address] [place] [address] [place] [address] PCP - General Nurse Practitioner 05/04/24
[2025-03-21 20:58] LABS: Prot Elec - Albumin 4.3 g/dL (3.8-4.8); Prot Elec - Alpha1 0.3 g/dL (0.2-0.3); Prot Elec - Alpha2 0.7 g/dL (0.5-0.9); Prot Elec - Beta 1 0.4 g/dL (0.4-0.6); Prot Elec - Beta 2 0.5 g/dL (0.2-0.5); Prot Elec - Gamma 1.2 g/dL (0.8-1.7); Prot Elec - Total Protein 7.3 g/dL (6.1-8.1)
== END 2025-03-20 14:10 | disposition home or self-care (01) ==
LOC: HO.LAB 14:09
PROVIDERS: PCP Nurse Practitioner Family; Visit Provider Nurse Practitioner Family
DX: Z01.84 Encounter for antibody response examination (principal); D47.2 Monoclonal gammopathy
CPT/HCPCS: 36415; 82784; 84165; 86334

== ENCOUNTER 2025-03-28 09:47 | Outpatient (REF) | payer OTHER, SELFPAY ==
--- OUTSIDE RECORDS SUMMARY | 2020-06-23 | XMS_ITS | Encounter Summary ---
Author Organization [facility] Address [address] [place] [address] Care Team Providers Care Classification Control Clerk Name Role Phone Unavailable Primary Care Provider Unavailabl e Encounter Details Date Type Department Care Team (Latest Contact Info) Description 06/23/2020 Hospital Encounter TH HISTORIC ENCOUNTERS EASTERN CONVERSION ONLY Jacki Badillo MD [address] [place] [address] Angioneurotic edema, initial encounter Social History Tobacco [...]
--- OUTSIDE RECORDS SUMMARY | 2025-03-28 11:11 | XMS_ITS | Data Portability ---
Author Organization [facility]LE Alarcon dung [address] Address [address] [place] [address] Assessment No assessment recorded. Plan of Treatment Reminders Order Date Submit Date Provider Last Modified By Organization Details Last Modified Time Details Appointments None recorded. Lab None recorded. Referral None recorded. Procedures None recorded. Surgeries None recorded. Imaging None recorded. Medication Orders Augmentin 875 mg-125 mg tablet 2022 023 [facility]/Pharmacy #[id number], [address] [place], [address], 3 11:52:59 prednisone 20 mg tablet 2022 023 [facility]/Pharmacy #[id number], [address] [place], [address], 3 11:52:59 Patient TargetsNo targets recorded. Patient Instructions Encounter Date Encounter Id Patient Instructions Last Modified By Organization Details Last Modified Time 08/30/2022 [id number] Sinusitis is an infection of the lining [...] care for yourself at home? Take an xxjp-xga-rxtewww pain medicine. Avoid Ibuprofen, Aleve and Aspirin if . If the doctor prescribed antibiotics, take them as directed. Do not stop taking them just because you feel better. You need to take the full course of antibiotics. Be careful when taking kqly-ycz-vcekylm cold or influenza (flu) medicines and Tylenol [...] Address Organization Details Recorded Time Celiac disease 263525386 Active 2022 JOSH mathis PA - [facility] 3 11:38:44 Migraine 57414995 Active 2022 JOSH mathis PA - [facility] 3 11:40:52 Hypertensive disorder 37624845 Active 2022 [facility]is PA - [facility] [...] Last Updated DateTime 167.64 cm 30.7 kg/m2 72976.5 5 g 8 18 /min 98 % 98 % 80 /min 97.9 [degF] 132/88 mm[Hg] JOSH GARCÍA PA - [facility] 11:43:15 Social History Question Answer Notes LastModified by [facility] Details LastModified Time Tobacco Smoking Status Never Smoker JOSH mathis PA - [facility] 08/30/2022 11:41:10 Have You Recently Traveled Abroad? No Information not available 08/30/2022 Sex: Unknown Functional Status Question Answer Note LastModified by [facility] Details LastModified Time How many times per [...] ICD10 Code Diagnosis IMO Codes Diagnosis Note [id number] Alexis Villaseñor NP [address] [address] 08/30/2022 11:14:55 08/30/2022 11:58:42 Acute sinusitis 00445099 J01.90 Health Concerns Section Related Observation LastModified by Organization Detai ls LastModified Time None Recorded Concern Status LastModified by Organization Details LastModified Time None Recorded Advance Directives Directive None Recorded Payers Insurance Date Sequence Insurance Name Policy Number Policy Acrter Covered Member ID Carter Member ID Guarantor Name 08/30/2022 1 [facility] [id number] Belinda Burgos [id number] Belinda Burgos Notes Date Note Type [...] Villaseñor NP [address] [place], [address], [place] - [facility] 08/30/2022 11:53:14 OBGyn Episode No OBEpisode recorded.
--- OUTSIDE RECORDS SUMMARY | 2025-03-28 11:11 | XMS_ITS | Clinical Summary ---
Author Organization 175 [facility] Address [address] [place] [address] Phone Care Team Providers Care Health Psychologist Name Role Phone Ana Zamarripa Primary Care [...] patient's age to complete this topic Insurance [id number] [place] [address] PUBLIC PLANS Care Teams Health Psychologist Relationship Specialty Start Date End Date Ana Zamarripa FNP [address] [place] [address] [place] [address] PCP - General Nurse Practitioner 05/04/24
[2025-03-31 11:03] LABS: TS Negative Control Passed; TS Panel A 0; TS Panel B 2; TS Positive Control Passed; TSpotTB Negative (Negative)
== END 2025-03-28 09:48 | disposition home or self-care (01) ==
LOC: HO.WFDLDS 09:47
PROVIDERS: Visit Provider Nurse Practitioner Family
DX: Z11.1 Encounter for screening for respiratory tuberculosis (principal)
CPT/HCPCS: 36415; 86481

== ENCOUNTER 2025-04-10 14:38 | Outpatient (REF) | payer OTHER, SELFPAY ==
--- OUTSIDE RECORDS SUMMARY | 2020-07-23 08:35 | XMS_ITS | Continuity of Care Document ---
Author Organization [facility] Address [address] [place] [address] Phone Care Team Providers Care Hotel Service Manager Name Role Phone Luan Allan PA-C, PA-C Unavailable Unava ilable Allergies, Adverse Reactions, Alerts Substance Reaction Status Criticality No Known Allergies Active No Inform ation Medications Medication Instructions Dosage Effective Dates (start - stop) Status Comments estradiol 0.01% (0.1 mg/gram) vaginal cream insert (1G) by vaginal route every week 1 G - Active prednisone 20 mg tablet take 2 tablet by oral route every day 40 MG - Active Singulair 10 mg tablet take 1 tablet by oral route every day in the evening 10 MG - Active Zyrtec 10 mg capsule - Active ALBUTEROL SULFATE (unknown strength) inhale 3 milliliter by inhalation route 3- 4 times every day via nebulizer Not Available - Active LORAZEPAM (unknown strength) take 1 tablet by oral route 2 times every day as needed Not Available - Active Miralax 17 gram/dose oral powder take (17G) by oral route every day mixed with 8 oz. water, juice, soda, coffee or tea - Active EpiPen 2-Mando 0.3 mg/0.3 mL injection, auto-injector inject 0.3 milliliter by intramuscular route once as needed for anaphylaxis 0.3 MG - Active prednisone 10 mg tablet take 1 tablet by oral route every day 10 MG - No Longer Active Procedures Procedure Date Office/Outpatient Visit, Est Office/Outpatient Visit, New Advance Directives Directive Yes / No Effective Date File Name No Information Encounters Encounter Description Practice Location Reason(s) For Visit Diagnoses Date Provider Providers Copied on Encounter Office/Outpat ient Visit, [facility], [address] [place] [address], [address] [place] [address], tel:[phone] Jerrell Allergy (chief complaint) Moderate persistent asthma without complicationFood allergyOther allergic rhinitis 1 Jerrell Roland. [address] [place], [place], [address] [place] [address] , . tel:[phone] Referring Provider: AILEEN Doherty, [address] [facility] [address], [place], [address]. tel:[phone] Office/Outpat ient Visit, [facility], [address] [place] [address], [address] [place] [address], tel:[phone] Jerrell Allergy (chief complaint) Angioedema, initial encounterFood allergyModerate persistent asthma without complication 1 Jerrell Roland. [address] [place], [place], [id number] , . tel:[phone] Referring Provider: AILEEN Doherty, [address] [facility] [address], [place], [address]. tel:[phone] Family History Family Member Type Diagnosis Age At Onset Brother Problem (finding) Alive and Doing Well Father Problem (finding) Alive and Doing Well Mother Problem (finding) Alive and Doing Well Payers Payer name Insurance type Covered democrat ID Valeria shah(s) ESAU [id number] Social History Type Description Quantity Date Captured Comments Alcohol Use Details Caffeine Use Details tea Tobacco Use Status Current non-smoker 21 Smoking Status Never smoker Non-Smoking Tobacco Use Details : No Details Available : No Details Available Sex Female Vital Signs Date / Time: Height Weight BMI Pulse Rate Blood Pressure Temperature Respiratory Rate Body Surface Area Head Circumference Head Circ. Percentile Wt./Brock. Percentile BMI percentile Pulse Ox Inhaled Ox 1:28 PM 66.00 in 89.811 kg (198.00 lbs) 31.9 6 kg/m eter (2) 91.00 F Chief Complaint And Reason For Visit From encounter dated '07/23/2020 13:35'. Allergy (chief complaint). Description: The patient denies chest tightness, coryza, cough, dizziness, ear pain, globus sensation, headache, hoarseness, nasal congestion, nasal drainage, nausea, pharyngitis, post nasal drainage, reddened eyes, reflux, sinus infections, sinus pain, sneezing, tearing and urticaria. Reason For Referral Reason For Referral No Information History Of Present Illness Encounter Date Complaint History Of Prese nt Illness Allergy The patient amira es chest tightness, coryza, cough, dizziness, ear pain, globus sensation, headache, hoarseness, nasal congestion, nasal drainage, nausea, pharyngitis, post nasal drainage, reddened eyes, reflux, sinus infections, sinus pain, sneezing, tearing and urticaria. Allergy She had an episo de of angiodema of her lips prior to last visit after eating mixed nuts. Has not had any recurrence of this. Has been avoiding mixed nuts, tree nuts, grapes. She continues to avoid shellfish. Allergy She had an itchy mouth and swollen tongue 2 weeks ago, went to [facility], she was given epipen and steroids. She does have a history of shrimp and gluten free food. She is using zyrtec daily and pepcid. She does have allergic conjunctivitis. Allergy The patient pres ents with itchy mouth. The patient denies chest tightness, coryza, cough, dizziness, ear pain, globus sensation, headache, hoarseness, nasal congestion, nasal drainage, nausea, pharyngitis, post nasal drainage, reddened eyes, reflux, sinus infections, sinus pain, sneezing, tearing and urticaria. Functional Status Date Functional Assessmen t No Information Instructions Date Instruction Additional Infor eva No Information Assessments Type Assessment Date assessment Food allergy assessment Moderate persistent asthma witho ut complication assessment Other allergic rhinitis 021 impression She has had no furth er episodes of angioedema. She will continue avoidance of tree nuts, peanuts, grape, shellfish. IVAT was negative but avoidance of tree nuts, peanuts, and grapes is still recommended. She will also continue avoidance of shellfish. She will carry her generic epipen on her person in case it is needed for anaphylaxis. She will follow up in 3 months. She will call for sooner follow up if needed. impression Has occasional nasal congestion in the spring. No symptoms recently per patient. Will continue zyrtec and montelukast. impression She is using symbicort prescribe d by her PCP. Patient Care Teams Name Effective Dates (start - stop) Status Members No Information
--- OUTSIDE RECORDS SUMMARY | 2025-04-11 05:42 | XMS_ITS | Data Portability ---
Author Organization [facility] Alarcon [facility]ung [address] Address [address] [place] [address] Assessment No assessment recorded. Plan of Treatment Reminders Order Date Submit Date Provider Last Modified By Organization Details Last Modified Time Details Appointments None recorded. Lab None recorded. Referral None recorded. Procedures None recorded. Surgeries None recorded. Imaging None recorded. Medication Orders Augmentin 875 mg-125 mg tablet 2022 023 [facility]/Pharmacy #[id number], [address] [place], [address], 3 11:52:59 prednisone 20 mg tablet 2022 023 [facility]/Pharmacy #[id number], [address] [place], [address], 3 11:52:59 Patient TargetsNo targets recorded. Patient Instructions Encounter Date Encounter Id Patient Instructions Last Modified By Organization Details Last Modified Time 08/30/2022 [id number] Sinusitis is an infection of the lining [...] care for yourself at home? Take an tqkh-sbt-xlnwmxn pain medicine. Avoid Ibuprofen, Aleve and Aspirin if . If the doctor prescribed antibiotics, take them as directed. Do not stop taking them just because you feel better. You need to take the full course of antibiotics. Be careful when taking otbo-gjv-nraeylq cold or influenza (flu) medicines and Tylenol [...] Address Organization Details Recorded Time Celiac disease 930584164 Active 2022 JOSH mathis PA - [facility] 3 11:38:44 Migraine 08255405 Active 2022 JOSH mathis PA - [facility] 3 11:40:52 Hypertensive disorder 84394957 Active 2022 [facility] - [facility] [...] Last Updated DateTime 167.64 cm 30.7 kg/m2 69572.5 5 g 8 18 /min 98 % 98 % 80 /min 97.9 [degF] 132/88 mm[Hg] JOSH GARCÍA PA - [facility] 11:43:15 Social History Question Answer Notes LastModified by [facility] Details LastModified Time Tobacco Smoking Status Never Smoker JOSH mathis PA - [facility] 08/30/2022 11:41:10 Have You Recently Traveled Abroad? No Information not available 08/30/2022 Sex: Unknown Functional Status Question Answer Note LastModified by [facility] Details LastModified Time How many times per [...] ICD10 Code Diagnosis IMO Codes Diagnosis Note [id number] Alexis Villaseñor NP [address] [address] 08/30/2022 11:14:55 08/30/2022 11:58:42 Acute sinusitis 66892792 J01.90 Health Concerns Section Related Observation LastModified by Organization Detai ls LastModified Time None Recorded Concern Status LastModified by Organization Details LastModified Time None Recorded Advance Directives Directive None Recorded Payers Insurance Date Sequence Insurance Name Policy Number Policy Carter Covered Member ID Carter Member ID Guarantor Name 08/30/2022 1 [facility] [id number] Belinda Burgos [id number] Belinda Burgos Notes Date Note Type [...] Villaseñor NP [address] [place], [address], [place] - [facility] 08/30/2022 11:53:14 OBGyn Episode No OBEpisode recorded.
[2025-04-11 22:52] LABS: Class Alternaria alternata 0; Class Aspergillus fumigatus 0; Class Bermuda Grass 0; Class Birch 0; Class Cat Dander 3; Class Cladosporium herbarum 0; Class Cockroach 0/1; Class Common Ragweed 0; Class Cottonwood 0/1; Class Derm. pterony 0/1; Class Dermatophagoides farinae 2; Class Dog Dander 2; Class Elm 0/1; Class Maple Box Elder 1; Class Mountain Cedar 0; Class Mouse Urine Protein 0; Class Mugwort 1; Class Oak 0; Class Penicillium crysogenum 0; Class Rough Pigweed 0; Class Sheep Sorrel 0; Class Sycamore 0; Class Timothy Grass 0; Class Walnut Tree 0; Class White Ash 0; Class White Mulberry 0; D002 - IgE D farinae 0.99 kU/L; E001 - IgE Cat Dander 9.81 kU/L; E005 - IgE Dog Dander 1.39 kU/L; G006 - IgE Timothy Grass <0.10 kU/L; I006-IgE Cockroach, German 0.12 kU/L; M002 - IgE Cladosporium herbar <0.10 kU/L; M003 - IgE Aspergillus fumigat <0.10 kU/L; M006 - IgE Alternaria alternat <0.10 kU/L; T001 IgE Maple/Box Elder 0.41 kU/L; T006 - IgE Cedar, Mountain <0.10 kU/L; T007 - IgE Oak, White <0.10 kU/L; T008 IgE Elm, American 0.13 kU/L; T010 - IgE Walnut <0.10 kU/L; T011 - IgE Maple Leaf Sycamore <0.10 kU/L; T014 - IgE Cottonwood 0.11 kU/L; T015 - IgE Ash, White <0.10 kU/L; T070 - IgE White Mulberry <0.10 kU/L; W001 - IgE Ragweed, Short <0.10 kU/L; W006 - IgE Mugwort 0.51 kU/L; W014 IgE Pigweed, Common <0.10 kU/L; W018 IgE Sheep Sorrel <0.10 kU/L
== END 2025-04-10 14:39 | disposition home or self-care (01) ==
LOC: HO.LAB 14:38
PROVIDERS: PCP Nurse Practitioner Family; Referring Provider Nurse Practitioner Family; Visit Provider Internal Medicine Pulmonary Disease
DX: J45.909 Unspecified asthma, uncomplicated (principal); Z91.09 Other allergy status, other than to drugs and biological substances; Z79.899 Other long term (current) drug therapy
CPT/HCPCS: 36415; 82785; 86003; 99202

== ENCOUNTER 2025-04-10 14:38 | Outpatient (AMB) | payer OTHER, SELFPAY ==
--- OUTSIDE RECORDS SUMMARY | 2020-06-23 | XMS_ITS | Encounter Summary ---
Author Organization [facility] Address [address] [place] [address] Care Team Providers Care Senior Net Application Developer Name Role Phone Unavailable Primary Care Provider Unavailabl e Encounter Details Date Type Department Care Team (Latest Contact Info) Description 06/23/2020 Hospital Encounter TH HISTORIC ENCOUNTERS EASTERN CONVERSION ONLY Jacki Badillo MD [address] [place] [address] Angioneurotic edema, initial encounter Social History Tobacco [...]
[2025-04-10 14:40] VITALS: BP 122/78; PULSE 78; O2SAT 97; BMI 32.3
--- NOTE | 2025-04-10 14:40 | A.OFFVIS_ITS ---
Vital Signs 04/10/25 14:40 Height 5 ft 6 in Weight 200 lb BMI 32.3 BP 122/78 Blood Pressure Location Rt brachial Position Sitting Pulse 78 Pulse Source Pulse Oximeter Pulse Oximetry (%) 97 Oxygen Delivery Method Room Air Intake Visit Reasons: Asthma Allergies Seasonal Allergies Allergy (Severe, Verified 04/10/25 14:46) Itchy Eyes gluten Allergy (Verified 04/10/25 14:46) Rash HPI HPI Asthma: Details: 54-year-old lady with underlying asthma since her 40s, now on daily albuterol MDI, also environmental allergies on Singulair and Zyrtec referred for evaluation of recurrent respiratory infections including COVID and common colds. Patient had recent check of her immunoglobulins that is essentially normal. She has also been referred to Allergy and immunology. Patient denies family history of lung disease. She denies exposure to industrial dusts. [facility] Medical History (Updated 04/10/25 @ 15:07 by Joe Moseley MD) Asthma Postmenopausal HRT (hormone replacement therapy) Constipation by delayed colonic transit Migraine Celiac disease Hypertension Vitamin D deficiency Vitamin B 12 deficiency Venous insufficiency Synovial cyst of right knee Severe depression Menopausal symptom Anxiety disorder Seasonal allergies Surgical History History of esophagogastroduodenoscopy (EGD) Hx of colonoscopy History of endometrial ablation History of tubal ligation S/P breast biopsy Hx of hysterectomy Family History Paternal Grandmother Breast cancer Paternal Aunt Breast cancer Mother Hypercholesteremia Age related osteoporosis Father Hypertension Social History Household Members: Spouse and Family Housing: House Alcohol intake: current Alcohol intake frequency: holidays/special occasions only Alcohol type: beer and hard liquor Patient Tobacco Use Status: Never used Tobacco e-Cigarette/Vaping Use: Never Used service: No Current occupational status: employed and disabled 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 Cognitive needs: No Hearing needs: No Vision needs: No Review of Systems Const Denies daytime sleepiness, Denies excessive sweating, Denies fatigue, Denies fever(s), Denies lethargy, Denies malaise, Denies night sweats, Denies snoring and Denies weight loss Eyes Denies blurry vision and Denies itchy eyes ENT Denies nasal congestion, Denies post nasal drip, Denies sinus pain, Denies sinus pressure and Denies other ( Thrush) Card Denies chest pain, Denies pedal edema, Denies dyspnea, Denies orthopnea and Denies paroxysmal nocturnal dyspnea Resp Denies cough, Denies hemoptysis, Denies excessive phlegm production, Denies dyspnea, Denies snoring and Denies wheezing GI Denies abdominal pain and Denies heartburn Musc Denies myalgias, Denies arthralgias and Denies joint swelling Skin/Breast Denies rash Neuro Denies memory loss and Denies seizure-like activity Psych Denies abnormal sleep pattern, Denies anxiety and Denies memory loss Endo Denies excessive sweating, Denies fatigue and Denies heat intolerance Galo/Lymph Denies easy bruising Aller/Immun Denies itchy eyes, Denies seasonal rhinorrhea and Denies wheezing Physical Exam Vital Signs: Last Vital Signs Pulse 78 04/10/25 14:40 BP 122/78 04/10/25 14:40 Pulse Ox 97 04/10/25 14:40 Oxygen Delivery Method Room Air 04/10/25 14:40 BMI result Body Mass Index 32.3 Const General: no acute distress and alert Nutritional Appearance: not obese Orientation/consciousness: Other orientation findings ( oriented) HEENT Head: Yes atraumatic Eyes General: appearance normal, both eyes and all related structures Sclerae: sclerae normal EOM: EOMs intact bilaterally Neck Neck: Yes supple Lymphatic: no lymphadenopathy noted Resp Effort & Inspection: normal respiratory effort and no use of accessory muscles Auscultation: clear to auscultation bilaterally Cardio Rate: regular rate Rhythm: regular rhythm Heart sounds: no gallops, no murmurs and no rubs Skin General skin exam: other ( warm) Extrem General: No clubbing, No cyanosis and No edema Assessment & Plan Assessment & Plan (1) Asthma: Code(s): J45.909 - Unspecified asthma, uncomplicated Category: Medical Plan: Underlying asthma of unclear severity suboptimally controlled on albuterol MDI. Start Breo. Will obtain full PFT. (2) Environmental allergies: Code(s): Z91.09 - Other allergy status, other than to drugs and biological substances Category: Medical Plan: Environmental allergy suboptimally controlled on Zyrtec and Singulair. Will obtain IgE level and RAST panel for further evaluation. Orders: Orders PFT pulmonary function test Today J45.909 - Unspecified asthma, uncomplicated Resp Allergy Profile Region I Today J45.909 - Unspecified asthma, uncomplicated Medications: New fluticasone furoate-vilanterol 200-25 mcg/dose (Breo Ellipta) 1 inh inhalation DAILY 1 ea 6RF J45.909 - Unspecified asthma, uncomplicated Coding Level of Care Code New Pt Level 4 (17740) Diagnoses Asthma J45.909 Environmental allergies Z91.09
--- OUTSIDE RECORDS SUMMARY | 2025-04-11 04:55 | XMS_ITS | Clinical Summary ---
Author Organization 175 [facility] Address [address] [place] [address] Phone Care Team Providers Care Cordwainer Name Role Phone Ana Zamarripa Primary Care [...] patient's age to complete this topic Insurance [id number] [place] [address] PUBLIC PLANS Care Teams Cordwainer Relationship Specialty Start Date End Date Ana Zamarripa FNP [address] [place] [address] [place] [address] PCP - General Nurse Practitioner 05/04/24
== END 2025-04-10 15:04 | disposition home or self-care (01) ==
LOC: HO.HPS 14:39
PROVIDERS: PCP Nurse Practitioner Family; Referring Provider Nurse Practitioner Family; Visit Provider Internal Medicine Pulmonary Disease
DX: J45.909 Unspecified asthma, uncomplicated (principal); Z91.09 Other allergy status, other than to drugs and biological substances
CPT/HCPCS: 99204

== ENCOUNTER 2025-04-11 12:27 | Outpatient (AMB) | payer OTHER, SELFPAY ==
--- NOTE | 2025-04-11 12:47 | A.OFFVIS_ITS ---
Vital Signs 04/11/25 12:53 Height 5 ft 6 in Weight 202 lb BMI 32.6 BP 110/74 Intake Visit Reasons: HR Med Check Cut File Clerk: Cut File Clerk Present Allergies Seasonal Allergies Allergy (Severe, Verified 04/11/25 12:53) Itchy Eyes gluten Allergy (Verified 04/11/25 12:53) Rash Is last menstrual period known: Yes HPI Comments Details: Patient is here today for a follow up on her hormone replacement therapy patch. She reports her hot flashes have greatly decreased and has no side effects, doing well and wants to continue. No changes or any increase of migraines. PFS Medical History Asthma Postmenopausal HRT (hormone replacement therapy) Constipation by delayed colonic transit Migraine Celiac disease Hypertension Vitamin D deficiency Vitamin B 12 deficiency Venous insufficiency Synovial cyst of right knee Severe depression Menopausal symptom Anxiety disorder Seasonal allergies Surgical History History of esophagogastroduodenoscopy (EGD) Hx of colonoscopy History of endometrial ablation History of tubal ligation S/P breast biopsy Hx of hysterectomy Family History Paternal Grandmother Breast cancer Paternal Aunt Breast cancer Mother Hypercholesteremia Age related osteoporosis Father Hypertension Social History Household Members: Spouse and Family Housing: House Alcohol intake: current Alcohol intake frequency: holidays/special occasions only Alcohol type: beer and hard liquor Patient Tobacco Use Status: Never used Tobacco e-Cigarette/Vaping Use: Never Used service: No Current occupational status: employed and disabled 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 Cognitive needs: No Hearing needs: No Vision needs: No Review of Systems Const All systems reviewed & are unremarkable except as noted in HPI and below Endo Reports no additional complaints Physical Exam Vital Signs: Last Vital Signs BP 110/74 04/11/25 12:53 BMI result Body Mass Index 32.6 Const General: cooperative, healthy appearing and no acute distress Psych Appearance: well kempt Attitude: cooperative Thought process: Normal thought process present Assessment & Plan Assessment & Plan (1) Postmenopausal HRT (hormone replacement therapy): Code(s): Z79.890 - Hormone replacement therapy Category: Medical Plan Continue with therapy follow up in July 2025 for med check. Report to the office if any medical changes or any contraindications to continued use. The patient expressed understanding and agreement with the plan of care. All of her questions and concerns were addressed to the best of my ability. This note is constructed using voice recognition software. While every effort has been made to ensure accuracy, sports instructor errors may have been included. Coding Level of Care Code Est Pt Level 3 (41356) Diagnoses Postmenopausal HRT (hormone replacement therapy) Z79.890
[2025-04-11 12:53] VITALS: BP 110/74; BMI 32.6
== END 2025-04-11 14:46 | disposition home or self-care (01) ==
LOC: HO.HWS 12:28
PROVIDERS: Visit Provider Advanced Practice Midwife
DX: Z79.890 Hormone replacement therapy (principal)
CPT/HCPCS: 99213

== ENCOUNTER → 2025-04-11 12:27 | Outpatient (BNVA) | payer OTHER, SELFPAY | PROVIDERS: Visit Provider Advanced Practice Midwife | DX: Z79.890 Hormone replacement therapy (principal); Z98.51 Tubal ligation status | CPT/HCPCS: 99212 ==

== ENCOUNTER 2025-05-22 08:23 | Outpatient (REF) | payer OTHER, SELFPAY ==
[2025-05-22 11:30] LABS: Resp Syncy Virus RNA Qual PCR POSITIVE (Negative); SARS COV2 PCR INHOUSE NEGATIVE (Negative)
== END 2025-05-22 08:24 | disposition home or self-care (01) ==
LOC: HO.LNP 08:23
PROVIDERS: Physician Assistant; PCP Nurse Practitioner Family
DX: R09.89 Other specified symptoms and signs involving the circulatory and respiratory systems (principal); J06.9 Acute upper respiratory infection, unspecified; Z79.899 Other long term (current) drug therapy
CPT/HCPCS: 87637; 99212

== ENCOUNTER 2025-05-22 08:23 | Outpatient (AMB) | payer OTHER, SELFPAY ==
--- OUTSIDE RECORDS SUMMARY | 2020-06-23 | XMS_ITS | Encounter Summary ---
Author Organization [facility] Address [address] [place] [address] Care Team Providers Care Panel Fitter Name Role Phone Unavailable Primary Care Provider Unavailabl e Encounter Details Date Type Department Care Team (Latest Contact Info) Description 06/23/2020 Hospital Encounter TH HISTORIC ENCOUNTERS EASTERN CONVERSION ONLY Jacki Badillo MD [address] [place] [address] Angioneurotic edema, initial encounter Social History Tobacco Use Types Packs/Day Years Used Date Smoking Tobacco: Never Assessed Comments Unknown Sex and Gender Information Value Date Recorded Sex Assigned at Not on file Legal Sex Female 3:25 PM EST Gender Identity Not on file Sexual Orientation Not on file documented as of this encounter Plan of Treatment Not on file documented as of this encounter Procedures Procedure Name Priority Date/Time Associated Diagnosis Comments ECG 06/23/2020 ECG 06/23/2020 documented in this encounter Results * ECG (06/23/2020) us Provider Onbase CV HISTORICAL CONV PROCEDURES Final Result * ECG (06/23/2020) us Provider Onbase CV HISTORICAL CONV PROCEDURES Final Result documented in this encounter Visit Diagnoses Diagnosis Angioneurotic edema, initial encounter documented in this encounter
--- OUTSIDE RECORDS SUMMARY | 2025-05-22 08:27 | XMS_ITS | Clinical Summary ---
Author Organization 175 [facility] Address [address] [place] [address] Phone Care Team Providers Care Sharples Machine Operator Name Role Phone Ana Zamarripa Primary Care Provider [phone] Allergies No known active allergies Social History [...] Screening 05/04/2024 Depression Screening 05/25/2024 COVID-19 Vaccine (1 - 2024-2 6 season) 2025 Influenza Vaccine (#1) 2025 RSV [...] patient's age to complete this topic Insurance [id number] [place] [address] PUBLIC PLANS Care Teams Sharples Machine Operator Relationship Specialty Start Date End Date Ana Zamarripa FNP [address] [place] [address] [place] [address] PCP - General Nurse Practitioner 05/04/24
--- OUTSIDE RECORDS SUMMARY | 2025-05-22 08:27 | XMS_ITS | Data Portability ---
Author Organization [facility]arcon [facility] [address] Address [address] [place] [address] Assessment No assessment recorded. Plan of Treatment Reminders Order Date Submit Date Provider Last Modified By Organization Details Last Modified Time Details Appointments None recorded. Lab None recorded. Referral None recorded. Procedures None recorded. Surgeries None recorded. Imaging None recorded. Medication Orders Augmentin 875 mg-125 [address] [facility]/Pharmacy #[id number], [address] [place], [address], 3 11:52:59 prednisone 20 mg tablet [address] [facility]/Pharmacy #[id number], [address] [place], [address], 3 11:52:59 Patient TargetsNo targets recorded. Patient Instructions Encounter Date Encounter Id Patient Instructions Last Modified By Organization Details Last Modified Time 08/30/2022 [id number] Sinusitis is an infection of the lining [...] care for yourself at home? Take an afga-pqw-kvhgfpf pain medicine. Avoid Ibuprofen, Aleve and Aspirin if . If the doctor prescribed antibiotics, take them as directed. Do not stop taking them just because you feel better. You need to take the full course of antibiotics. Be careful when taking sbak-awe-kyexrtt cold or influenza (flu) medicines and Tylenol [...] Address Organization Details Recorded Time Celiac disease 952885423 Active 2022 JOSH mathis PA - [facility] 3 11:38:44 Migraine 30999626 Active 2022 JOSH mathis PA - [facility] 3 11:40:52 Hypertensive disorder 02015857 Active 2022 [facility] [...] [Score] - Reported Respiratory rate Oxygen saturation Heart rate Body temperature Systolic And Diastolic Provider Name and Address Organization Details Last Updated DateTime 3 167.64 cm 30.7 kg/m2 53252.5 5 g 8 18 /min 98 % 80 /min 97.9 [degF] 132/88 mm[Hg] JOSH GARCÍA PA - [facility] 3 11:43:15 Social History Question Answer Notes LastModified by [facility] Details LastModified Time Tobacco Smoking Status Never Smoker JOSH mathis PA - [facility] 08/30/2022 11:41:10 Have You Recently Traveled Abroad? No Information not available 08/30/2022 Sex: Unknown Functional Status Question Answer Note LastModified by [facility] Details LastModified Time How many times per [...] ICD10 Code Diagnosis IMO Codes Diagnosis Note [id number] Alexis Villaseñor NP [address] [address] 08/30/2022 11:14:55 08/30/2022 11:58:42 Acute sinusitis 44180718 J01.90 Health Concerns Section Related Observation LastModified by Organization Detai ls LastModified Time None Recorded Concern Status LastModified by Organization Details LastModified Time None Recorded Advance Directives Directive None Recorded Payers Insurance Date Sequence Insurance Name Policy Number Policy Carter Covered Member ID Carter Member ID Guarantor Name 08/30/2022 1 [facility] [id number] Belinda Burgos [id number] Belinda Burgos Notes Date Note Type [...] Villaseñor NP [address] [place], [address], [place] - [facility] 08/30/2022 11:53:14 OBGyn Episode No OBEpisode recorded.
[2025-05-22 08:47] VITALS: BP 128/90; PULSE 97; RESP 20; TEMP 36.8; O2SAT 95; BMI 32.9
--- NOTE | 2025-05-22 08:47 | MHC.OFFWIV ---
Intake Vital Signs 05/22/25 08:47 Height 5 ft 6 in Weight 204 lb BMI 32.9 BP 128/90 H Blood Pressure Location Lt brachial Position Sitting Respiration 20 Pulse 97 Pulse Source Pulse Oximeter Temp 98.3 F Temp Source Oral Pulse Oximetry (%) 95 Oxygen Delivery Method Room Air Intake Visit Reasons: EP Cough, headache, chills, nausea Intake Note: Patient presents c/o cough, headache, sinus/chest congestion, sore throat x3 days. Patient Tobacco Use Status: Never used Tobacco Allergies Seasonal Allergies Allergy (Severe, Verified 05/22/25 08:52) Itchy Eyes gluten Allergy (Verified 05/22/25 08:52) Rash Do you need a note to return to daycare/school/sports/work: Yes HPI HPI Comments History of Present Illness Details 54-year-old female presents to the walk-in clinic with complaints of cough, headache, sinus congestion, chest congestion, and sore throat for the past 3 days. Patient reports a history of asthma and currently uses inhalers as prescribed. She works in a f[employer] facility ([employer]). Denies fevers, chills, nausea, vomiting, or diarrhea. No reports of shortness of breath beyond baseline or chest pain. [facility] Medical History (Updated 05/22/25 @ 09:26 by Hawa Bhagat NP) Acute respiratory disease Asthma Postmenopausal HRT (hormone replacement therapy) Constipation by delayed colonic transit Migraine Celiac disease Hypertension Vitamin D deficiency Vitamin B 12 deficiency Venous insufficiency Synovial cyst of right knee Severe depression Menopausal symptom Anxiety disorder Seasonal allergies Surgical History History of esophagogastroduodenoscopy (EGD) Hx of colonoscopy History of endometrial ablation History of tubal ligation S/P breast biopsy Hx of hysterectomy Family History Paternal Grandmother Breast cancer Paternal Aunt Breast cancer Mother Hypercholesteremia Age related osteoporosis Father Hypertension Social History Household Members: Spouse and Family Housing: House Alcohol intake: current Alcohol intake frequency: holidays/special occasions only Alcohol type: beer and hard liquor Patient Tobacco Use Status: Never used Tobacco e-Cigarette/Vaping Use: Never Used service: No Current occupational status: employed and disabled 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 Cognitive needs: No Hearing needs: No Vision needs: No Review of Systems Const All systems reviewed & are unremarkable except as noted in HPI and below Physical Exam Vital Signs: Last Vital Signs Temp 98.3 F 05/22/25 08:47 Pulse 97 05/22/25 08:47 Resp 20 05/22/25 08:47 BP 128/90 H 05/22/25 08:47 Pulse Ox 95 05/22/25 08:47 Oxygen Delivery Method Room Air 05/22/25 08:47 BMI result Body Mass Index 32.9 Const General: no acute distress; No comfortable Nutritional Appearance: obese Orientation/consciousness: patient oriented x3 HEENT Head: Yes normocephalic Ears: external ears normal and TM abnormal bulging bilateral and with fluid behind the TM bilateral General nose exam: Abnormal mucous membranes and turbinates present boggy and erythematous Face and sinus: Yes normal facial exam and Yes sinuses nontender Mouth: moist mucous membranes Throat: Yes uvula midline Resp Effort & Inspection: normal respiratory effort, able to speak in complete sentences, no audible wheezes and Actively coughing Auscultation: clear to auscultation bilaterally, no crackles, no rales, no rhonchi and no wheezes Cardio Heart sounds: S1 normal heart sound present and S2 normal heart sound present Neuro General: patient oriented x3 Assessment & Plan Assessment & Plan (1) Acute respiratory disease: Code(s): J06.9 - Acute upper respiratory infection, unspecified Plan: Recommended supportive care: rest, increased oral fluids, humidifier use OTC medications as needed for symptom relief (e.g., acetaminophen or ibuprofen for headache/sore throat, guaifenesin for congestion, throat lozenges) Continue asthma inhalers as prescribed; monitor for increased use of rescue inhaler Ordered SARs given symptoms and SNF exposure Educated patient on warning signs: worsening cough, shortness of breath, wheezing, chest pain, or development of fever Orders: Orders SARS-CoV2/FLU/RSV Today Kaylee Zamarripa PA-C R09.89 - Other specified symptoms and signs involving the circulatory and respiratory systems Medications: New dextromethorphan polistirex ER (Delsym 12 hour) 10 mL PO Q12H 89 mL 0RF cough Hawa Bhagat NP J06.9 - Acute upper respiratory infection, unspecified benzonatate 100 mg PO BID 60 caps 0RF Hawa Bhagat NP J06.9 - Acute upper respiratory infection, unspecified Refilled albuterol sulfate 90 mcg/actuation 2 puffs inhalation Q4-6H PRN 6.7 grams 1RF shortness of breath or wheezing Hawa Bhagat NP J06.9 - Acute upper respiratory infection, unspecified Coding Level of Care Code Est Pt Level 4 (05487) Diagnoses Acute respiratory disease J06.9 Time Spent (min) 20
== END 2025-05-22 09:44 | disposition home or self-care (01) ==
PROVIDERS: PCP Nurse Practitioner Family; Visit Provider Nurse Practitioner Family
DX: J06.9 Acute upper respiratory infection, unspecified (principal)